=== PATIENT | male | born 1965 | race Two or more races ===

== ENCOUNTER 2017-01-08 16:02 | Inpatient (IN) | payer MEDICAID ==
[~2017-01-08] VITALS: Ht 165.1 cm; Wt 113.4 kg
--- NOTE | 2017-01-08 15:59 | Emergency Room Report ---
History of Present Illness General Chief Complaint: Dyspnea/Respdistress Source: Patient, EMS Present Illness HPI Patient is a 51-year-old male brought in by EMS after increased difficulty breathing. The patient had a prior history of the liver disease as well as cirrhosis. The patient had previous ascites which he had intermittently had paracentesis . Patient had last been noted to have increased distention of his abdomen. Patient noted wheezing was given breathing treatment by EMS. Allergies: Coded Allergies: No Known Allergies (Unverified , 01/08/17) Patient History Past Medical History: see triage record Reviewed Nursing Documentation: PMH: Agreed, PSxH: Agreed Nursing Documentation-PMH Hx Asthma: Yes Hx Gastrointestinal Problems: Yes - Cirrhosis of liver, Ascites Review of Systems All Other Systems: negative except mentioned in HPI Physical Exam Vital Signs Date Time Temp Pulse Resp B/P Pulse Ox O2 Delivery O2 Flow Rate FiO2 01/08/17 15:50 64 30 141/82 97 Room Air Sp02 EP Interpretation: reviewed, normal General Appearance: alert, GCS 15, moderate distress, Chronically Ill Head: atraumatic ENT: normal ENT inspection, hearing grossly normal, normal voice Neck: normal inspection, full range of motion, supple, no bony tend Respiratory: normal inspection, lungs clear, normal breath sounds, no respiratory distress, no retraction, no wheezing Cardiovascular #1: regular rate, rhythm, no edema Gastrointestinal: soft, no guarding, no hernia, distended, tenderness Genitourinary: no CVA tenderness Musculoskeletal: normal inspection, back normal, normal range of motion Neurologic: normal inspection, alert, oriented x3, responsive, tangible personal property appraiser III-XII nml as tested, speech normal Psychiatric: normal inspection, judgement/insight normal, mood/affect normal Skin: normal inspection, normal color, no rash Medical Decision Making Diagnostic Impression: Primary Impression: Respiratory distress Additional Impression: Ascites ER Course Patient presented for shortness of breath. Differential included but was not limited to anemia, pneumonia, pneumothorax, myocardial infarction, pericardial effusion, congestive heart failure, tense ascites, acidosis. Because of complexity of patient's case laboratory testing and imaging studies were ordered.KUB interpreted by me showed multiple dilated loops of bowel without evident obstruction. The patient was noted to have large amount of abdominal distention. Patient was started on Lasix as well as lactulose. Labs Test 01/08/17 16:10 5/6/17 18:20 White Blood Count 6.5 K/UL (4.8-10.8) Red Blood Count 3.03 M/UL (4.70-6.10) Hemoglobin 10.4 G/DL (14.2-18.0) Hematocrit 30.1 % (42.0-52.0) Mean Corpuscular Volume 99 FL (80-99) Mean Corpuscular Hemoglobin 34.4 PG (27.0-31.0) Mean Corpuscular Hemoglobin Concent 34.6 G/DL (32.0-36.0) Red Cell Distribution Width 13.4 % (11.6-14.8) Platelet Count 105 K/UL (150-450) Mean Platelet Volume 7.7 FL (6.5-10.1) Neutrophils (%) (Auto) 55.4 % (45.0-75.0) Lymphocytes (%) (Auto) 14.0 % (20.0-45.0) Monocytes (%) (Auto) 15.1 % (1.0-10.0) Eosinophils (%) (Auto) 12.0 % (0.0-3.0) Basophils (%) (Auto) 3.6 % (0.0-2.0) Sodium Level 132 mEQ/L (135-145) Potassium Level 4.9 mEQ/L (3.4-4.9) Chloride Level 98 mEQ/L (98-107) Carbon Dioxide Level 24 mEQ/L (20-30) Anion Gap 10 (5-15) Blood Urea Nitrogen 14 mg/dL (7-23) Creatinine 0.9 mg/dL (0.7-1.2) Estimat Glomerular Filtration Rate > 60 mL/min (>60) Glucose Level 97 mg/dL (74-106) Calcium Level 7.9 mg/dL (8.6-10.2) Total Bilirubin 1.5 mg/dL (0.0-1.2) Direct Bilirubin 0.5 mg/dL (0.1-0.3) Aspartate Amino Transf (AST/SGOT) 50 U/L (5-40) Alanine Aminotransferase (ALT/SGPT) 27 U/L (3-41) Alkaline Phosphatase 153 U/L (40-129) Total Protein 6.8 g/dL (6.6-8.7) Albumin 2.3 g/dL (3.5-5.2) Globulin 4.5 g/dL Albumin/Globulin Ratio 0.5 (1.0-2.7) Lipase 24 U/L (< 60) Urine Color Pale yellow Urine Appearance Clear Urine pH 5 (4.5-8.0) Urine Specific [place] 1.015 (1.005-1.035) Urine Protein Negative (NEGATIVE) Urine Glucose (UA) Negative (NEGATIVE) Urine Ketones Negative (NEGATIVE) Urine Occult Blood Negative (NEGATIVE) Urine Nitrite Negative (NEGATIVE) Urine Bilirubin Negative (NEGATIVE) Urine Urobilinogen Normal MG/DL (0.0-1.0) Urine Leukocyte Esterase 1+ (NEGATIVE) Urine RBC 0-2 /HPF (0 - 0) Urine WBC 0-2 /HPF (0 - 0) Urine Squamous Epithelial Cells None /LPF (NONE/OCC) Urine Bacteria Few /HPF (NONE) EKG Diagnostic Results Rate: normal - 63 Rhythm: NSR ST Segments: no acute changes Other X-Ray Diagnostic Results Other X-Ray Diagnostic Results : EP Interpretation: Yes Findings: other - slight bowel distention, no free air Number of Views: 2 Last Vital Signs Date Time Temp Pulse Resp B/P Pulse Ox O2 Delivery O2 Flow Rate FiO2 01/08/17 15:50 64 30 141/82 97 Room Air Status: unchanged Disposition: ADMITTED INPATIENT Condition: Serious Chepe Salazar January 08, 2017 15:59
[~2017-01-08 16:02] MED LIST: FUROSEMIDE20 M1 ORAL; PROPRANOLOL HCL10 MG ORAL; PROTONIX40 MG ORAL; SPIRONOLACTONE25 MG ORAL
[2017-01-08 16:48] LABS: BASOPHILS % (AUTO) 3.6 % (0.0-2.0); MEAN CORPUSCULAR HEMOGLOBIN 34.4 PG (27.0-31.0); MEAN CORPUSCULAR HGB CONC 34.6 G/DL (32.0-36.0); MEAN CORPUSCULAR VOLUME 99 FL (80-99); MEAN PLATELET VOLUME 7.7 FL (6.5-10.1); MONOCYTES % (AUTO) 15.1 % (1.0-10.0); NEUTROPHILS % (AUTO) 55.4 % (45.0-75.0); PLATELET COUNT 105 K/UL (150-450); RED BLOOD COUNT 3.03 M/UL (4.70-6.10); RED CELL DISTRIBUTION WIDTH 13.4 % (11.6-14.8); WHITE BLOOD COUNT 6.5 K/UL (4.8-10.8)
[2017-01-08 16:57] LABS: ALANINE AMINOTRANSFERASE 27 U/L (3-41); ALBUMIN/GLOBULIN RATIO 0.5 (1.0-2.7); ANION GAP 10 (5-15); ASPARTATE AMINO TRANSFERASE 50 U/L (5-40); CALCIUM 7.9 mg/dL (8.6-10.2); CARBON DIOXIDE 24 mEQ/L (20-30); CHLORIDE 98 mEQ/L (98-107); CREATININE 0.9 mg/dL (0.7-1.2); GLOMERULAR FILTRATION RATE > 60 mL/min (>60); HEMOLYSIS 2; LIPASE 24 U/L (< 60); POTASSIUM 4.9 mEQ/L (3.4-4.9); SODIUM 132 mEQ/L (135-145); TOTAL PROTEIN 6.8 g/dL (6.6-8.7)
[2017-01-08 17:13] LABS: BILIRUBIN,DIRECT 0.5 mg/dL (0.1-0.3)
[2017-01-08 18:26] VITALS: BP 116/66
[2017-01-08 18:39] LABS: APPEARANCE,URINE CLEAR; KETONES,URINE NEGATIVE (NEGATIVE); LEUKOCYTE ESTERASE ,URINE 1+ (NEGATIVE); NITRITE,URINE NEGATIVE (NEGATIVE); PH,URINE 5 (4.5-8.0); PROTEIN,URINE NEGATIVE (NEGATIVE); UROBILINOGEN,URINE NORMAL MG/DL (0.0-1.0)
[2017-01-08] MEDS ORDERED: Lactulose 20gm/30ml UDC ORAL ONE (18:45)
[2017-01-08 18:53] LABS: BACTERIA,URINE FEW /HPF; RBC,URINE 0-2 /HPF (0 - 0); WBC,URINE 0-2 /HPF (0 - 0)
[2017-01-08 20:36] VITALS: BP 116/62
[2017-01-08] MEDS ORDERED: IRON325 M1 PO (21:27)
[2017-01-08] MEDS ORDERED: PROPRANOLOL HCL10 MG ORAL (21:27)
[2017-01-08 21:33] VITALS: BP 110/64
[2017-01-08] MEDS ORDERED: Zolpidem 5mg tab ORAL PRN (21:45)
[2017-01-08] MEDS ORDERED: Miralax 17gm pkt ORAL PRN (21:45)
[2017-01-08] MEDS ORDERED: Mylanta II UD 30ml ORAL PRN (21:45)
[2017-01-08] MEDS ORDERED: LORazepam Inj 2mg/ml 1ml IV PRN (21:45)
[2017-01-08] MEDS ORDERED: Morphine Sulfate 2mg/ml Inj IVP PRN (21:45)
[2017-01-08 23:40] VITALS: BP 118/64
[2017-01-09] MEDS ORDERED: Ipratropium 0.02% Inh Soln 2.5ml UD HHN ONE (00:15)
[2017-01-09] MEDS ORDERED: Albuterol ud Inhalation HHN ONE (00:15)
[2017-01-09 01:41] VITALS: BP 132/75
[2017-01-09] MEDS: Cefepime HCl 1 GM in D5W 55 ML IV SCH ×4 (01:41→21:21)
[2017-01-09] MEDS: Lactulose 20gm/30ml UDC ORAL SCH ×5 (01:43→23:22)
[2017-01-09 04:00] VITALS: BP 135/68
[2017-01-09] MEDS ORDERED: FERROUS SULFAT325 M2 ORAL (04:20)
[2017-01-09] MEDS ORDERED: PANTOPRAZOLE SO40 MG ORAL (04:23)
[2017-01-09] MEDS ORDERED: ACETAMINOPHEN325 M1 ORAL (04:41)
[2017-01-09] MEDS ORDERED: SPIRONOLACTONE100 MG ORAL (04:43)
[2017-01-09] MEDS ORDERED: FOLIC ACID0.4 MG ORAL (04:45)
[2017-01-09] MEDS ORDERED: Cefepime 1gm vial ONE (05:26)
[2017-01-09 07:10] LABS: MEAN CORPUSCULAR HEMOGLOBIN 31.8 PG (27.0-31.0); MEAN CORPUSCULAR HGB CONC 32.1 G/DL (32.0-36.0); MEAN CORPUSCULAR VOLUME 99 FL (80-99); MEAN PLATELET VOLUME 7.2 FL (6.5-10.1); PLATELET COUNT 109 K/UL (150-450); RED CELL DISTRIBUTION WIDTH 13.9 % (11.6-14.8); WHITE BLOOD COUNT 5.3 K/UL (4.8-10.8)
[2017-01-09 07:38] LABS: AMMONIA 105 umol/L (16-60)
[2017-01-09 07:52] LABS: ALANINE AMINOTRANSFERASE 27 U/L (3-41); ALBUMIN/GLOBULIN RATIO 0.4 (1.0-2.7); ANION GAP 11 (5-15); ASPARTATE AMINO TRANSFERASE 50 U/L (5-40); CALCIUM 8.2 mg/dL (8.6-10.2); CARBON DIOXIDE 25 mEQ/L (20-30); CHLORIDE 99 mEQ/L (98-107); CHOLESTEROL 93 mg/dL (< 200); CHOLESTEROL/HDL RATIO 5.8 (3.3-4.4); CREATININE 0.9 mg/dL (0.7-1.2); GLOMERULAR FILTRATION RATE > 60 mL/min (>60); HEMOLYSIS 5; LDL CHOLESTEROL (CALC.) 66 mg/dL (60-99); POTASSIUM 4.6 mEQ/L (3.4-4.9); SODIUM 135 mEQ/L (135-145); TOTAL PROTEIN 6.6 g/dL (6.6-8.7)
[2017-01-09 08:14] LABS: BILIRUBIN,DIRECT 0.5 mg/dL (0.1-0.3)
[2017-01-09 08:21] VITALS: BP 120/72
[2017-01-09] MEDS: Spironolactone 50mg tab ORAL SCH (09:52)
[2017-01-09] MEDS ORDERED: NS 275ml ONE (09:58)
[2017-01-09] MEDS ORDERED: Tubing IV Secondary IV ONE (09:58)
[2017-01-09 10:45] LABS: BAND NEUTROPHILS % (MANUAL) 0 % (0-8); BASOPHILS % (MANUAL) 0 % (0-2); EOSINOPHILS % (MANUAL) 16 % (0-3); HYPOCHROMASIA 1+; LYMPHOCYTES % (MANUAL) 16 % (20-45); NEUTROPHILS % (MANUAL) 53 % (45-75); PLATELET ESTIMATE DECREASED; PLATELET MORPHOLOGY NORMAL; TOTAL CELLS COUNTED 100
--- NOTE | 2017-01-09 11:18 | Consultation ---
History of Present Illness General Date patient seen: January 09, 2017 Chief Complaint: Dyspnea/Respdistress Referring physician: Dr. Moon Reason for Consultation: inpaitnet management Present Illness HPI 51-year-old male with end stage liver disease brought in by EMS after increased difficulty breathing. The patient had previous ascites which he had intermittently had paracentesis . Patient had last been noted to have increased distention of his abdomen. Allergies: Coded Allergies: No Known Allergies (Unverified , 01/08/17) Medication History Scheduled Ferrous Sulfate (Ferrous Sulfate), 325 MG ORAL TID, (Reported) Folic Acid (Folic Acid), 1 MG ORAL DAILY, (Reported) Furosemide* (Lasix*), 20 MG ORAL DAILY, (Reported) Pantoprazole* (Pantoprazole*), 40 MG ORAL BID, (Reported) Propranolol Hcl* (Inderal*), 10 MG ORAL THREE TIMES A DAY, (Reported) Propranolol Hcl* (Inderal*), 10 MG ORAL THREE TIMES A DAY, (Reported) Spironolactone* (Spironolactone*), 50 MG ORAL DAILY, (Reported) Discontinued Medications Acetaminophen* (Acetaminophen 325MG Tablet*), 650 MG ORAL Q8HR PRN for For Pain, (Reported) Discontinued Reason: Pt stopped taking med Spironolactone* (Aldactone*), 25 MG ORAL DAILY, (Reported) Discontinued Reason: Prescription changed Patient History Healthcare decision maker Resuscitation status Full Code Advanced Directive on File Past Medical/Surgical History Past Medical/Surgical History: (1) Ascites Review of Systems Gastrointestinal: Reports: nausea, vomiting All Other Systems: negative except mentioned in HPI Physical Exam General Appearance: WD/WN Lines, tubes and drains: peripheral HEENT: normocephalic, atraumatic Neck: non-tender, normal alignment Respiratory/Chest: chest wall non-tender, lungs clear Cardiovascular/Chest: normal peripheral pulses, normal rate Abdomen: distended Genitourinary/Rectal: normal genital exam Extremities: normal range of motion Skin Exam: normal pigmentation Last 24 Hour Vital Signs Date Time Temp Pulse Resp B/P Pulse Ox O2 Delivery O2 Flow Rate FiO2 01/09/17 08:21 97.7 70 20 120/72 98 Nasal Cannula 2.0 01/09/17 08:00 68 01/09/17 04:00 72 01/09/17 04:00 98.5 65 19 135/68 99 Nasal Cannula 2.0 01/09/17 01:41 98.4 71 20 132/75 98 Nasal Cannula 2.0 01/09/17 00:32 66 20 99 Room Air 01/09/17 00:17 69 18 Room Air 01/09/17 00:17 69 18 98 Room Air 01/09/17 00:08 98.8 65 18 118/64 100 Room Air 01/08/17 23:40 98.8 65 18 118/64 100 Room Air 01/08/17 21:33 98.6 70 20 110/64 100 Room Air 01/08/17 20:36 98.6 71 20 116/62 100 Room Air 01/08/17 18:26 64 25 Room Air 01/08/17 18:26 98.6 65 20 116/66 97 Room Air 01/08/17 15:50 64 30 141/82 97 Room Air Intake and Output 01/08/17 01/09/17 19:00 07:00 Output Total 400 ml Balance -400 ml Output Urine Total 400 ml # Voids 1 Laboratory Tests Test 01/08/17 16:10 01/08/17 18:20 01/09/17 04:45 01/09/17 06:00 White Blood Count 6.5 K/UL (4.8-10.8) 5.3 K/UL (4.8-10.8) Red Blood Count 3.03 M/UL (4.70-6.10) L 3.10 M/UL (4.70-6.10) L Hemoglobin 10.4 G/DL (14.2-18.0) L 9.8 G/DL (14.2-18.0) L Hematocrit 30.1 % (42.0-52.0) L 30.7 % (42.0-52.0) L Mean Corpuscular Volume 99 FL (80-99) 99 FL (80-99) Mean Corpuscular Hemoglobin 34.4 PG (27.0-31.0) H 31.8 PG (27.0-31.0) H Mean Corpuscular Hemoglobin Concent 34.6 G/DL (32.0-36.0) 32.1 G/DL (32.0-36.0) Red Cell Distribution Width 13.4 % (11.6-14.8) 13.9 % (11.6-14.8) Platelet Count 105 K/UL (150-450) L 109 K/UL (150-450) L Mean Platelet Volume 7.7 FL (6.5-10.1) 7.2 FL (6.5-10.1) Neutrophils (%) (Auto) 55.4 % (45.0-75.0) % (45.0-75.0) Lymphocytes (%) (Auto) 14.0 % (20.0-45.0) L % (20.0-45.0) Monocytes (%) (Auto) 15.1 % (1.0-10.0) H % (1.0-10.0) Eosinophils (%) (Auto) 12.0 % (0.0-3.0) H % (0.0-3.0) Basophils (%) (Auto) 3.6 % (0.0-2.0) H % (0.0-2.0) Sodium Level 132 mEQ/L (135-145) L 135 mEQ/L (135-145) Potassium Level 4.9 mEQ/L (3.4-4.9) 4.6 mEQ/L (3.4-4.9) Chloride Level 98 mEQ/L (98-107) 99 mEQ/L (98-107) Carbon Dioxide Level 24 mEQ/L (20-30) 25 mEQ/L (20-30) Anion Gap 10 (5-15) 11 (5-15) Blood Urea Nitrogen 14 mg/dL (7-23) 15 mg/dL (7-23) Creatinine 0.9 mg/dL (0.7-1.2) 0.9 mg/dL (0.7-1.2) Estimat Glomerular Filtration Rate > 60 mL/min (>60) > 60 mL/min (>60) Glucose Level 97 mg/dL (74-106) 111 mg/dL (74-106) H Calcium Level 7.9 mg/dL (8.6-10.2) L 8.2 mg/dL (8.6-10.2) L Total Bilirubin 1.5 mg/dL (0.0-1.2) H 1.5 mg/dL (0.0-1.2) H Direct Bilirubin 0.5 mg/dL (0.1-0.3) H 0.5 mg/dL (0.1-0.3) H Aspartate Amino Transf (AST/SGOT) 50 U/L (5-40) H 50 U/L (5-40) H Alanine Aminotransferase (ALT/SGPT) 27 U/L (3-41) 27 U/L (3-41) Alkaline Phosphatase 153 U/L (40-129) H 146 U/L (40-129) H Total Protein 6.8 g/dL (6.6-8.7) 6.6 g/dL (6.6-8.7) Albumin 2.3 g/dL (3.5-5.2) L 2.1 g/dL (3.5-5.2) L Globulin 4.5 g/dL 4.5 g/dL Albumin/Globulin Ratio 0.5 (1.0-2.7) L 0.4 (1.0-2.7) L Lipase 24 U/L (< 60) Urine Color Pale yellow Urine Appearance Clear Urine pH 5 (4.5-8.0) Urine Specific [place] 1.015 (1.005-1.035) Urine Protein Negative (NEGATIVE) Urine Glucose (UA) Negative (NEGATIVE) Urine Ketones Negative (NEGATIVE) Urine Occult Blood Negative (NEGATIVE) Urine Nitrite Negative (NEGATIVE) Urine Bilirubin Negative (NEGATIVE) Urine Urobilinogen Normal MG/DL (0.0-1.0) Urine Leukocyte Esterase 1+ (NEGATIVE) H Urine RBC 0-2 /HPF (0 - 0) H Urine WBC 0-2 /HPF (0 - 0) Urine Squamous Epithelial Cells None /LPF (NONE/OCC) Urine Bacteria Few /HPF (NONE) Differential Total Cells Counted 100 Neutrophils % (Manual) 53 % (45-75) Lymphocytes % (Manual) 16 % (20-45) L Monocytes % (Manual) 15 % (1-10) H Eosinophils % (Manual) 16 % (0-3) H Basophils % (Manual) 0 % (0-2) Band Neutrophils 0 % (0-8) Platelet Estimate Decreased L Platelet Morphology Normal Hypochromasia 1+ Ammonia 105 umol/L (16-60) H Triglycerides Level 57 mg/dL (< 150) Cholesterol Level 93 mg/dL (< 200) LDL Cholesterol 66 mg/dL (60-99) HDL Cholesterol 16 mg/dL (> 60) Cholesterol/HDL Ratio 5.8 (3.3-4.4) H Thyroid Stimulating Hormone (TSH) 2.670 uIU/mL (0.300-4.500) Stool Occult Blood Pending Height (Feet): 5 Height (Inches): 0.00 Weight (Pounds): 250 Medications Current Medications Medications (Trade) Dose Ordered Sig/Josse Route PRN Reason Start Time Stop Time Status Last Admin Dose Admin Acetaminophen (Tylenol) 650 mg Q4H PRN ORAL fever 01/08/17 21:45 02/07/17 21:44 Al Hydroxide/Mg Hydroxide (Mylanta II) 30 ml Q6H PRN ORAL dyspepsia 01/08/17 21:45 02/07/17 21:44 Cefepime HCl/ Dextrose (Maxipime/D5W) 55 ml @ 110 mls/hr EVERY 8 HOURS IV 01/08/17 22:00 01/15/17 21:59 01/09/17 05:39 Dextrose (Dextrose 50%) STAT PRN IV Hypoglycemia 01/08/17 21:45 02/07/17 21:44 Ferrous Sulfate (Feosol) 325 mg THREE TIMES A DAY ORAL 01/09/17 09:00 02/08/17 08:59 01/09/17 09:51 Folic Acid (Folate) 1 mg DAILY ORAL 01/09/17 09:00 02/08/17 08:59 01/09/17 09:52 Furosemide (Lasix) 20 mg DAILY ORAL 01/09/17 09:00 02/08/17 08:59 01/09/17 09:52 Lactulose 30 gm 30 gm EVERY 6 HOURS ORAL 01/09/17 00:00 02/08/17 00:00 01/09/17 05:39 Lorazepam (Ativan 2mg/ml 1ml) 0.5 mg Q4H PRN IV For Anxiety 01/08/17 21:45 01/15/17 21:44 Morphine Sulfate (Morphine Sulfate) 2 mg Q4H PRN IVP For Pain 01/08/17 21:45 01/15/17 21:44 01/09/17 09:53 Ondansetron HCl (Zofran) 4 mg Q6H PRN IVP Nausea & Vomiting 01/08/17 21:45 02/07/17 21:44 Pantoprazole (Protonix) 40 mg EVERY 12 HOURS ORAL 01/09/17 09:00 02/08/17 08:59 01/09/17 09:52 Polyethylene Glycol (Miralax) 17 gm HSPRN PRN ORAL Constipation 01/08/17 21:45 02/07/17 21:44 Propranolol HCl (Inderal) 10 mg Q8HR ORAL 01/09/17 14:00 02/08/17 13:59 Spironolactone (Aldactone) 50 mg DAILY ORAL 01/09/17 09:00 02/08/17 08:59 01/09/17 09:52 Zolpidem Tartrate (Ambien) 5 mg HSPRN PRN ORAL Insomnia 01/08/17 21:45 02/07/17 21:44 Assessment/Plan Problem List: (1) Ascites ICD Codes: R18.8 - Other ascites SNOMED: 822591389 (2) End stage liver disease ICD Codes: K72.90 - Hepatic failure, unspecified without coma SNOMED: 695879000 Assessment/Plan paracentesis check caogulation GI evaluJUANCARLOS Varela January 09, 2017 11:18
[2017-01-09 11:46] VITALS: BP 125/75
--- NOTE | 2017-01-09 11:46 | Diagnostic Imaging Report ---
Indication: Abdominal pain Comparison: None Single view of the abdomen obtained Findings: Exam is limited by body habitus. Bowel gas pattern is nonspecific. Bones are osteopenic. Degenerative changes of the lumbar spine noted. Impression: Limited study due to large body habitus. No acute findings appreciated
[2017-01-09 11:57] LABS: HEMOLYSIS 1; IRON 73 ug/dL (59-158); TOTAL IRON BINDING CAPACITY 195 ug/dL (250-400)
[2017-01-09 12:06] LABS: FERRITIN 199 ng/mL (10-230)
[2017-01-09 13:05] LABS: PATH BLOOD SMEAR/OMC SENT TO PATHOLOGIST; RETICULOCYTE COUNT 1.9 % (0.0-2.0)
[2017-01-09] MEDS: Propranolol 10mg tab ORAL SCH ×2 (13:15→21:20)
[2017-01-09] MEDS ORDERED: DuoNeb 0.5-3(2.5)mg/3ml neb HHN PRN (15:00)
[2017-01-09 15:44] VITALS: BP 111/59
[2017-01-09 20:00] VITALS: BP 125/63
--- NOTE | 2017-01-09 21:48 | History and Physical Report ---
DATE OF ADMISSION: 01/08/2017 TIME: 8 a.m. CONSULTANTS: 1. Ryan Santana M.D. 2. Soto Hidalgo M.D. CHIEF COMPLAINT: Cirrhosis of liver, ascites, and edema. BRIEF HISTORY: This is a 51-year-old male with a history of cirrhosis who comes to [facility] with increased shortness of breath, abdominal distention, diagnosed with cirrhosis, ascites recurrent and admitted to telemetry for further care. Currently, calm, shortness of breath in bed with abdominal distention. Slight abdominal discomfort. No complaint otherwise. Last paracentesis was eight days ago at . PAST MEDICAL HISTORY: Ascites and cirrhosis. PAST SURGICAL HISTORY: None. MEDICATIONS: Inderal, , Colace, Lasix, Protonix, Aldactone, Cephulac, cefepime, Tylenol, morphine, and polyethylene glycol. ALLERGIES: Denies. SOCIAL HISTORY: No smoking. No alcohol. No intravenous drug abuse. FAMILY HISTORY: Noncontributory. PHYSICAL EXAMINATION: GENERAL: Slight anxious in bed, oriented x3, slightly short of breath. VITAL SIGNS: Temperature is 97 degrees, pulse 70, respiratory rate 20, and blood pressure 120/72. CARDIOVASCULAR: No murmur. LUNGS: Poor air exchange. ABDOMEN: Bowel sounds positive. Slightly tender, positive distention and no guarding. EXTREMITIES: No cyanosis or clubbing. There is 1+ edema. NEUROLOGIC: The patient moves all extremities slightly weak. LABORATORY AND DIAGNOSTIC DATA: Hemoglobin 9.8 and platelets 109,000, otherwise normal. BMP shows glucose 111. AST 50 and ALT 27. Ammonia 105. Albumin 2.1. Urinalysis show 1+ leukocyte esterase. ASSESSMENT: 1. Cirrhosis. 2. Edema. 3. Ascites. 4. Shortness of breath. 5. Urinary tract infection. 6. Anemia. PLAN: Continue pre-medications. O2 and pulmonary treatment as needed. Antibiotics per Infectious Disease. OT/PT. Dietary evaluation. Schedule paracentesis. CBC and BMP in the morning. Dr. Santana, Dr. Hidalgo, Dr. Siegel, and Dr. Ingram to consult. We will continue to follow this patient. Higinio Moon D.O. DR: AGATHA JOB#: [id number] CC:
[2017-01-10] VITALS: BP 124/91
[2017-01-10 04:00] VITALS: BP 111/60
[2017-01-10] MEDS: Cefepime HCl 1 GM in D5W 55 ML IV SCH ×3 (06:02→21:02)
[2017-01-10] MEDS: Lactulose 20gm/30ml UDC ORAL SCH ×3 (06:02→17:23)
[2017-01-10] MEDS: Propranolol 10mg tab ORAL SCH ×3 (06:02→21:02)
[2017-01-10 07:24] LABS: BASOPHILS % (AUTO) 2.4 % (0.0-2.0); EOSINOPHILS % (AUTO) 10.3 % (0.0-3.0); LYMPHOCYTES % (AUTO) 20.5 % (20.0-45.0); MEAN CORPUSCULAR HEMOGLOBIN 31.8 PG (27.0-31.0); MEAN CORPUSCULAR HGB CONC 32.1 G/DL (32.0-36.0); MEAN CORPUSCULAR VOLUME 99 FL (80-99); MEAN PLATELET VOLUME 7.3 FL (6.5-10.1); NEUTROPHILS % (AUTO) 48.8 % (45.0-75.0); PLATELET COUNT 102 K/UL (150-450); RED BLOOD COUNT 3.11 M/UL (4.70-6.10); WHITE BLOOD COUNT 4.3 K/UL (4.8-10.8)
[2017-01-10 07:41] LABS: INR 1.4 (0.9-1.1); PROTHROMBIN TIME 14.5 SEC (9.30-11.50)
[2017-01-10 08:00] VITALS: BP 113/74
[2017-01-10 08:21] LABS: PSA TOTAL < 0.1 ng/mL (< 3.5)
--- NOTE | 2017-01-10 08:29 | Consultation ---
DATE OF CONSULTATION: 01/09/2017 HEMATOLOGY/ONCOLOGY CONSULTATION CONSULTING PHYSICIAN: Vasquez Siegel M.D. REASON FOR CONSULTATION: Anemia, thrombocytopenia. CURRENT COMPLAINT/ HISTORY OF PRESENT ILLNESS: Dear Dr. Higinio Moon, Today, I had an opportunity to see one of your patients, who as you are aware, is a 51-year-old delightful gentleman with history of liver cirrhosis, recurrent ascites, abdominal discomfort. The patient had a history of intermittent paracentesis. At this time, the patient felt distention of the patient's abdomen, . PAST MEDICAL HISTORY: 1. Liver cirrhosis. 2. Ascites. MEDICATIONS: 1. Colace. 2. . 3. Aldactone . ALLERGIES: NKDA. FAMILY HISTORY: Noncontributory. SOCIAL HISTORY: No history of smoking. No history of alcohol abuse. No history of illicit drug use. REVIEW OF SYSTEMS: General: The patient is not in any significant distress, but looks chronically ill. Respiratory: Mild shortness of breath on exertion. Gastrointestinal: The patient claims weakness. PHYSICAL EXAMINATION: VITAL SIGNS: T-max 99 degrees, respiratory rate 20, heart rate 80, and blood pressure 130/80. HEENT: Head is normocephalic and atraumatic. NECK: Supple. No thyroid enlargement. No lymphadenopathy. LUNGS: Decreased breath sounds bilaterally with few rhonchi at the base. HEART: S1 and S2 regular. ABDOMEN: Soft and benign. No organomegaly present. Bowel sounds present. EXTREMITIES: No cyanosis, clubbing, or edema. LABORATORY DATA: WBC 5.3, hemoglobin 9.8, hematocrit 30.7, and platelet count 109,000. Chemistry showed creatinine 0.9, total bilirubin 0.5, ammonia 105. IMPRESSION: 1. Anemia of chronic disease. 2. . 3. Bilirubinemia. 4. Elevated liver function tests. 5. Hepatic encephalopathy. 6. Liver cirrhosis. 7. Ascites. 8. Shortness of breath. 9. Urinary tract infection. 10. Failure to thrive. RECOMMENDATION: 1. Watch count. 2. Watch coagulopathy. 3. PRBC transfusion on a p.r.n. basis. 4. Check hepatitis profile. 5. . 6. GI evaluation. 7. Skin care. 8. Nutrition. 9. Close followup. Vasquez Siegel MD DR: Chanel JOB#: [id number] CC:
[2017-01-10 08:35] LABS: ALANINE AMINOTRANSFERASE 26 U/L (3-41); ALBUMIN/GLOBULIN RATIO 0.4 (1.0-2.7); ANION GAP 11 (5-15); ASPARTATE AMINO TRANSFERASE 49 U/L (5-40); CALCIUM 8.1 mg/dL (8.6-10.2); CARBON DIOXIDE 24 mEQ/L (20-30); CHLORIDE 102 mEQ/L (98-107); CREATININE 0.8 mg/dL (0.7-1.2); GLOMERULAR FILTRATION RATE > 60 mL/min (>60); HEMOLYSIS 4; POTASSIUM 4.6 mEQ/L (3.4-4.9); SODIUM 137 mEQ/L (135-145); TOTAL PROTEIN 6.4 g/dL (6.6-8.7)
[2017-01-10 08:37] LABS: MAGNESIUM 1.9 mg/dL (1.7-2.5); PHOSPHORUS 3.9 mg/dL (2.5-4.8)
[2017-01-10 09:18] LABS: BILIRUBIN,DIRECT 0.4 mg/dL (0.1-0.3)
[2017-01-10] MEDS: Spironolactone 50mg tab ORAL SCH (09:24)
--- NOTE | 2017-01-10 11:34 | Diagnostic Imaging Report ---
APPROVED REPORT CPT Code: 84014 Present Symptoms Lower Extremity Pain: Bilateral BILATERAL: Imaging reveals a patent deep venous system bilaterally. There is no evidence of thrombus within the femoral, popliteal or tibial segments. The greater saphenous veins are also within normal limits. Doppler indicates normal spontaneous flow within these segments.
--- NOTE | 2017-01-10 11:59 | Cardiology Report ---
APPROVED REPORT EKG Measurement Heart [id number] Sinusl rhythm Cannot rule out Anterior infarct, age undetermined Abnormal ECG
[2017-01-10 12:00] VITALS: BP 89/58
--- NOTE | 2017-01-10 14:30 | GI Initial Consult Note ---
History of Present Illness General Date patient seen: January 10, 2017 Time patient seen: 10:00 Reason for Hospitalization: Dyspnea/Respdistress Referring physician: Dr. Moon Reason for Consultation: CIRRHOSIS Present Illness HPI Patient is a 51-year-old male brought in by EMS after increased difficulty breathing. The patient had a prior history of the liver disease as well as cirrhosis. The patient had previous ascites which he had intermittently had paracentesis . Patient had last been noted to have increased distention of his abdomen. Patient noted wheezing was given breathing treatment by EMS. GI CONSULT: HPI as noted above. GI consulted for abdominal distention 2/2 to ascites. Pt seen on floor, awake A&Ox4 NAD with no s/sx of SOB. The patient presents today with pancytopenia and abnormal LFTs. No documented history of endoscopic procedures. OB stool negative. Home Meds Reported Medications Folic Acid (FOLIC ACID) 0.4 Mg Tablet, 1 MG ORAL DAILY, #90 TAB 01/09/17 Spironolactone* (SPIRONOLACTONE*) 100 Mg Tablet, 50 MG ORAL DAILY, #90 TAB 01/09/17 Pantoprazole* (PANTOPRAZOLE*) 40 Mg Tablet.dr, 40 MG ORAL BID, #180 TAB 01/09/17 Ferrous Sulfate (FERROUS SULFATE) 325 Mg Tablet.dr, 325 MG ORAL TID, #270 TAB 0 Refills 01/09/17 Propranolol Hcl* (INDERAL*) 10 Mg Tablet, 10 MG ORAL THREE TIMES A DAY, #90 TAB 0 Refills 01/08/17 Propranolol Hcl* (INDERAL*) 10 Mg Tablet, 10 MG ORAL THREE TIMES A DAY, #90 TAB 0 Refills 01/08/17 Furosemide* (LASIX*) 20 Mg Tablet, 20 MG ORAL DAILY, TAB 01/08/17 Discontinued Reported Medications Acetaminophen* (ACETAMINOPHEN 325MG TABLET*) 325 Mg Tablet, 650 MG ORAL Q8HR Y for For Pain, #20 TAB 01/09/17 Spironolactone* (ALDACTONE*) 25 Mg Tablet, 25 MG ORAL DAILY, TAB 01/08/17 Med list reviewed/reconciled: Yes Allergies: Coded Allergies: No Known Allergies (Unverified , 01/08/17) Patient History History Provided By: Patient PMH Narrative Hx Asthma: Yes Hx Gastrointestinal Problems: Yes - Cirrhosis of liver, Ascites Social History: Reports: alcohol use Review of Systems All Other Systems: negative except mentioned in HPI Physical Exam Vital Signs Date Time Temp Pulse Resp B/P Pulse Ox O2 Delivery O2 Flow Rate FiO2 01/08/17 15:50 64 30 141/82 97 Room Air 01/08/17 18:26 98.6 01/09/17 01:41 2.0 01/09/17 19:30 21 Sp02 EP Interpretation: reviewed Labs Laboratory Tests Test 01/10/17 05:00 White Blood Count 4.3 K/UL (4.8-10.8) L Red Blood Count 3.11 M/UL (4.70-6.10) L Hemoglobin 9.9 G/DL (14.2-18.0) L Hematocrit 30.8 % (42.0-52.0) L Mean Corpuscular Volume 99 FL (80-99) Mean Corpuscular Hemoglobin 31.8 PG (27.0-31.0) H Mean Corpuscular Hemoglobin Concent 32.1 G/DL (32.0-36.0) Red Cell Distribution Width 14.0 % (11.6-14.8) Platelet Count 102 K/UL (150-450) L Mean Platelet Volume 7.3 FL (6.5-10.1) Neutrophils (%) (Auto) 48.8 % (45.0-75.0) Lymphocytes (%) (Auto) 20.5 % (20.0-45.0) Monocytes (%) (Auto) 18.0 % (1.0-10.0) H Eosinophils (%) (Auto) 10.3 % (0.0-3.0) H Basophils (%) (Auto) 2.4 % (0.0-2.0) H Prothrombin Time 14.5 SEC (9.30-11.50) H Prothromb Time International Ratio 1.4 (0.9-1.1) H Activated Partial Thromboplast Time 37 SEC (23-33) H Sodium Level 137 mEQ/L (135-145) Potassium Level 4.6 mEQ/L (3.4-4.9) Chloride Level 102 mEQ/L (98-107) Carbon Dioxide Level 24 mEQ/L (20-30) Anion Gap 11 (5-15) Blood Urea Nitrogen 16 mg/dL (7-23) Creatinine 0.8 mg/dL (0.7-1.2) Estimat Glomerular Filtration Rate > 60 mL/min (>60) Glucose Level 74 mg/dL (74-106) Calcium Level 8.1 mg/dL (8.6-10.2) L Phosphorus Level 3.9 mg/dL (2.5-4.8) Magnesium Level 1.9 mg/dL (1.7-2.5) Total Bilirubin 1.6 mg/dL (0.0-1.2) H Direct Bilirubin 0.4 mg/dL (0.1-0.3) H Aspartate Amino Transf (AST/SGOT) 49 U/L (5-40) H Alanine Aminotransferase (ALT/SGPT) 26 U/L (3-41) Alkaline Phosphatase 127 U/L (40-129) Total Protein 6.4 g/dL (6.6-8.7) L Albumin 2.0 g/dL (3.5-5.2) L Globulin 4.4 g/dL Albumin/Globulin Ratio 0.4 (1.0-2.7) L Alpha Fetoprotein Pending Carcinoembryonic Antigen 4.2 ng/mL H CA 19-9 Antigen 35.00 U/mL (< 37) Prostate Specific Antigen < 0.1 ng/mL (< 3.5) General Appearance: well appearing, no apparent distress, alert Head: normocephalic EENT: normal ENT inspection Neck: supple Respiratory: no respiratory distress Cardiovascular: normal rate Gastrointestinal: distended, ascites Rectal: deferred Neurologic: normal inspection, alert, oriented x3, responsive Psychiatric: normal inspection, judgement/insight normal, memory normal Current Medications Current Medications Medications (Trade) Dose Ordered Sig/Josse Route PRN Reason Start Time Stop Time Status Last Admin Dose Admin Acetaminophen (Tylenol) 650 mg Q4H PRN ORAL fever 01/08/17 21:45 02/07/17 21:44 Al Hydroxide/Mg Hydroxide (Mylanta II) 30 ml Q6H PRN ORAL dyspepsia 01/08/17 21:45 02/07/17 21:44 Albuterol/ Ipratropium (DuoNeb 0.5-3(2.5)mg/3ml) 3 ml Q4H PRN HHN Shortness of Breath 01/09/17 15:00 01/14/17 14:59 Cefepime HCl/ Dextrose (Maxipime/D5W) 55 ml @ 110 mls/hr EVERY 8 HOURS IV 01/08/17 22:00 01/15/17 21:59 01/10/17 13:32 Dextrose (Dextrose 50%) STAT PRN IV Hypoglycemia 01/08/17 21:45 02/07/17 21:44 Ferrous Sulfate (Feosol) 325 mg THREE TIMES A DAY ORAL 01/09/17 09:00 02/08/17 08:59 01/10/17 13:30 Folic Acid (Folate) 1 mg DAILY ORAL 01/09/17 09:00 02/08/17 08:59 01/10/17 09:24 Furosemide (Lasix) 20 mg DAILY ORAL 01/09/17 09:00 02/08/17 08:59 01/10/17 09:24 Lactulose 30 gm 30 gm EVERY 6 HOURS ORAL 01/09/17 00:00 02/08/17 00:00 01/10/17 13:32 Lorazepam (Ativan 2mg/ml 1ml) 0.5 mg Q4H PRN IV For Anxiety 01/08/17 21:45 01/15/17 21:44 Morphine Sulfate (Morphine Sulfate) 2 mg Q4H PRN IVP For Pain 01/08/17 21:45 01/15/17 21:44 01/09/17 09:53 Ondansetron HCl (Zofran) 4 mg Q6H PRN IVP Nausea & Vomiting 01/08/17 21:45 02/07/17 21:44 Pantoprazole (Protonix) 40 mg EVERY 12 HOURS ORAL 01/09/17 09:00 02/08/17 08:59 01/10/17 09:24 Polyethylene Glycol (Miralax) 17 gm HSPRN PRN ORAL Constipation 01/08/17 21:45 02/07/17 21:44 Propranolol HCl (Inderal) 10 mg Q8HR ORAL 01/09/17 14:00 02/08/17 13:59 01/10/17 06:02 Spironolactone (Aldactone) 50 mg DAILY ORAL 01/09/17 09:00 02/08/17 08:59 01/10/17 09:24 Zolpidem Tartrate (Ambien) 5 mg HSPRN PRN ORAL Insomnia 01/08/17 21:45 02/07/17 21:44 GI: Plan Problems: (1) End stage liver disease (2) Ascites (3) Respiratory distress Plan EGD schedule tomorrow to evaluate EV. - NPO @ [place]. - hold all blood thinners paracentesis today >> r/o SBP lactulose + Xifaxan propranolol - hold for SBP < 100, HR < 60. iron deficiency >> FeSO4 fu hep panel fu AFP fu labs Teresa Jackson N.P. January 10, 2017 14:30
--- NOTE | 2017-01-10 14:30 | Pulmonology Progress Note ---
Assessment/Plan Problems: (1) Ascites (2) End stage liver disease Assessment/Plan paracentesis social service consult r Subjective ROS Limited/Unobtainable: No Constitutional: Reports: no symptoms Allergies: Coded Allergies: No Known Allergies (Unverified , 01/08/17) Objective Last 24 Hour Vital Signs Date Time Temp Pulse Resp B/P Pulse Ox O2 Delivery O2 Flow Rate FiO2 01/10/17 13:32 59 89/58 01/10/17 12:00 97.0 59 18 89/58 Nasal Cannula 2.0 96 01/10/17 11:54 59 01/10/17 09:39 62 18 Nasal Cannula 2.0 100 01/10/17 08:00 97.7 60 18 113/74 Nasal Cannula 2.0 100 01/10/17 07:46 66 01/10/17 06:02 66 111/60 01/10/17 04:00 62 01/10/17 04:00 97.5 66 20 111/60 100 Room Air 01/10/17 00:00 68 01/10/17 00:00 97.9 71 20 124/91 99 Nasal Cannula 2.0 01/09/17 21:20 67 125/63 01/09/17 20:00 70 01/09/17 20:00 97.9 67 20 125/63 100 Room Air 01/09/17 19:30 65 18 Room Air 21 01/09/17 16:00 68 01/09/17 15:44 97.3 68 20 111/59 97 Nasal Cannula 2.0 Intake and Output 01/09/17 01/10/17 19:00 07:00 Intake Total 470 ml Output Total 200 ml Balance 270 ml Intake Oral 360 ml IV Total 110 ml Output Urine Total 200 ml # Bowel Movements 3 6 General Appearance: WD/WN HEENT: normocephalic, atraumatic Respiratory/Chest: chest wall non-tender, lungs clear Cardiovascular: normal peripheral pulses, normal rate Abdomen: normal bowel sounds, soft, non tender Extremities: no cyanosis Skin: no rash 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 normal Lymphatic: no neck adenopathy Laboratory Tests 01/10/17 05:00: White Blood Count 4.3L, Red Blood Count 3.11L, Hemoglobin 9.9L, Hematocrit 30.8L , Mean Corpuscular Volume 99, Mean Corpuscular Hemoglobin 31.8H, Mean Corpuscular Hemoglobin Concent 32.1, Red Cell Distribution Width 14.0, Platelet Count 102L, Mean Platelet Volume 7.3, Neutrophils (%) (Auto) 48.8, Lymphocytes ( %) (Auto) 20.5, Monocytes (%) (Auto) 18.0H, Eosinophils (%) (Auto) 10.3H, Basophils (%) (Auto) 2.4H, Prothrombin Time 14.5H, Prothromb Time International Ratio 1.4H, Activated Partial Thromboplast Time 37H, Sodium Level 137, Potassium Level 4.6, Chloride Level 102, Carbon Dioxide Level 24, Anion Gap 11, Blood Urea Nitrogen 16, Creatinine 0.8, Estimat Glomerular Filtration Rate > 60 , Glucose Level 74, Calcium Level 8.1L, Phosphorus Level 3.9, Magnesium Level 1.9, Total Bilirubin 1.6H, Direct Bilirubin 0.4H, Aspartate Amino Transf (AST/ SGOT) 49H, Alanine Aminotransferase (ALT/SGPT) 26, Alkaline Phosphatase 127, Total Protein 6.4L, Albumin 2.0L, Globulin 4.4, Albumin/Globulin Ratio 0.4L, Alpha Fetoprotein [Pending], Carcinoembryonic Antigen 4.2H, CA 19-9 Antigen 35.00, Prostate Specific Antigen < 0.1 Current Medications Medications (Trade) Dose Ordered Sig/Josse Route PRN Reason Start Time Stop Time Status Last Admin Dose Admin Acetaminophen (Tylenol) 650 mg Q4H PRN ORAL fever 01/08/17 21:45 02/07/17 21:44 Al Hydroxide/Mg Hydroxide (Mylanta II) 30 ml Q6H PRN ORAL dyspepsia 01/08/17 21:45 02/07/17 21:44 Albuterol/ Ipratropium (DuoNeb 0.5-3(2.5)mg/3ml) 3 ml Q4H PRN HHN Shortness of Breath 01/09/17 15:00 01/14/17 14:59 Cefepime HCl/ Dextrose (Maxipime/D5W) 55 ml @ 110 mls/hr EVERY 8 HOURS IV 01/08/17 22:00 01/15/17 21:59 01/10/17 13:32 Dextrose (Dextrose 50%) STAT PRN IV Hypoglycemia 01/08/17 21:45 02/07/17 21:44 Ferrous Sulfate (Feosol) 325 mg THREE TIMES A DAY ORAL 01/09/17 09:00 02/08/17 08:59 01/10/17 13:30 Folic Acid (Folate) 1 mg DAILY ORAL 01/09/17 09:00 02/08/17 08:59 01/10/17 09:24 Furosemide (Lasix) 20 mg DAILY ORAL 01/09/17 09:00 02/08/17 08:59 01/10/17 09:24 Lactulose 30 gm 30 gm EVERY 6 HOURS ORAL 01/09/17 00:00 02/08/17 00:00 01/10/17 13:32 Lorazepam (Ativan 2mg/ml 1ml) 0.5 mg Q4H PRN IV For Anxiety 01/08/17 21:45 01/15/17 21:44 Morphine Sulfate (Morphine Sulfate) 2 mg Q4H PRN IVP For Pain 01/08/17 21:45 01/15/17 21:44 01/09/17 09:53 Ondansetron HCl (Zofran) 4 mg Q6H PRN IVP Nausea & Vomiting 01/08/17 21:45 02/07/17 21:44 Pantoprazole (Protonix) 40 mg EVERY 12 HOURS ORAL 01/09/17 09:00 02/08/17 08:59 01/10/17 09:24 Polyethylene Glycol (Miralax) 17 gm HSPRN PRN ORAL Constipation 01/08/17 21:45 02/07/17 21:44 Propranolol HCl (Inderal) 10 mg Q8HR ORAL 01/09/17 14:00 02/08/17 13:59 01/10/17 06:02 Spironolactone (Aldactone) 50 mg DAILY ORAL 01/09/17 09:00 02/08/17 08:59 01/10/17 09:24 Zolpidem Tartrate (Ambien) 5 mg HSPRN PRN ORAL Insomnia 01/08/17 21:45 02/07/17 21:44 JUANCARLOS ONEAL January 10, 2017 14:29
--- NOTE | 2017-01-10 14:32 | General Progress Note ---
Assessment/Plan Problem List: (1) Ascites ICD Codes: R18.8 - Other ascites SNOMED: 160510355 (2) Respiratory distress ICD Codes: R06.00 - Dyspnea, unspecified SNOMED: 080419311 (3) End stage liver disease ICD Codes: K72.90 - Hepatic failure, unspecified without coma SNOMED: 085780988 Status: stable, progressing, tolerating diet Assessment/Plan ot pt diet pericentesis gi f/u cbc bmp am Subjective Constitutional: Reports: weakness Respiratory: Reports: shortness of breath Allergies: Coded Allergies: No Known Allergies (Unverified , 01/08/17) All Systems: reviewed and negative except above Subjective abd swelling Objective Last 24 Hour Vital Signs Date Time Temp Pulse Resp B/P Pulse Ox O2 Delivery O2 Flow Rate FiO2 01/10/17 13:32 59 89/58 01/10/17 12:00 97.0 59 18 89/58 Nasal Cannula 2.0 96 01/10/17 11:54 59 01/10/17 09:39 62 18 Nasal Cannula 2.0 100 01/10/17 08:00 97.7 60 18 113/74 Nasal Cannula 2.0 100 01/10/17 07:46 66 01/10/17 06:02 66 111/60 01/10/17 04:00 62 01/10/17 04:00 97.5 66 20 111/60 100 Room Air 01/10/17 00:00 68 01/10/17 00:00 97.9 71 20 124/91 99 Nasal Cannula 2.0 01/09/17 21:20 67 125/63 01/09/17 20:00 70 01/09/17 20:00 97.9 67 20 125/63 100 Room Air 01/09/17 19:30 65 18 Room Air 21 01/09/17 16:00 68 01/09/17 15:44 97.3 68 20 111/59 97 Nasal Cannula 2.0 Intake and Output 01/09/17 01/10/17 19:00 07:00 Intake Total 470 ml Output Total 200 ml Balance 270 ml Intake Oral 360 ml IV Total 110 ml Output Urine Total 200 ml # Bowel Movements 3 6 Laboratory Tests 01/10/17 05:00: White Blood Count 4.3L, Red Blood Count 3.11L, Hemoglobin 9.9L, Hematocrit 30.8L , Mean Corpuscular Volume 99, Mean Corpuscular Hemoglobin 31.8H, Mean Corpuscular Hemoglobin Concent 32.1, Red Cell Distribution Width 14.0, Platelet Count 102L, Mean Platelet Volume 7.3, Neutrophils (%) (Auto) 48.8, Lymphocytes ( %) (Auto) 20.5, Monocytes (%) (Auto) 18.0H, Eosinophils (%) (Auto) 10.3H, Basophils (%) (Auto) 2.4H, Prothrombin Time 14.5H, Prothromb Time International Ratio 1.4H, Activated Partial Thromboplast Time 37H, Sodium Level 137, Potassium Level 4.6, Chloride Level 102, Carbon Dioxide Level 24, Anion Gap 11, Blood Urea Nitrogen 16, Creatinine 0.8, Estimat Glomerular Filtration Rate > 60 , Glucose Level 74, Calcium Level 8.1L, Phosphorus Level 3.9, Magnesium Level 1.9, Total Bilirubin 1.6H, Direct Bilirubin 0.4H, Aspartate Amino Transf (AST/ SGOT) 49H, Alanine Aminotransferase (ALT/SGPT) 26, Alkaline Phosphatase 127, Total Protein 6.4L, Albumin 2.0L, Globulin 4.4, Albumin/Globulin Ratio 0.4L, Alpha Fetoprotein [Pending], Carcinoembryonic Antigen 4.2H, CA 19-9 Antigen 35.00, Prostate Specific Antigen < 0.1 Height (Feet): 5 Height (Inches): 0.00 Weight (Pounds): 250 General Appearance: lethargic EENT: normal ENT inspection Neck: normal alignment Cardiovascular: normal peripheral pulses, normal rate, regular rhythm Respiratory/Chest: chest wall non-tender, lungs clear, decreased breath sounds Abdomen: soft, hypoactive bowel sounds, distended Edema: 1+ Arm (L), 1+ Arm (R), 1+ Leg (L), 1+ Leg (R), 1+ Pedal (L), 1+ Pedal ( R), 1+ Generalized Edema: trace edema Neurologic: responsive, motor weakness ANGEL BHAKTA January 10, 2017 14:32
[2017-01-10 16:00] VITALS: BP 119/57
[2017-01-10] MEDS ORDERED: LORazepam Inj 2mg/ml 1ml IV PRN (19:00)
[2017-01-10] MEDS ORDERED: DuoNeb 0.5-3(2.5)mg/3ml neb HHN PRN (19:00)
[2017-01-10] MEDS ORDERED: Mylanta II UD 30ml ORAL PRN (19:00)
[2017-01-10] MEDS ORDERED: Miralax 17gm pkt ORAL PRN (19:00)
[2017-01-10] MEDS ORDERED: Morphine Sulfate 2mg/ml Inj IVP PRN (19:00)
[2017-01-10 20:00] VITALS: BP 96/63
--- NOTE | 2017-01-10 20:13 | General Progress Note ---
Assessment/Plan Assessment/Plan IMPRESSION: 1. Anemia of chronic disease. 2. Anemia rule out Gi bleed 3. Bilirubinemia. 4. Elevated liver function tests. 5. Hepatic encephalopathy. 6. Liver cirrhosis. 7. Ascites. 8. Shortness of breath. 9. Urinary tract infection. 10. Failure to thrive. RECOMMENDATION: 1. Watch count. 2. Watch coagulopathy. 3. PRBC transfusion on a p.r.n. basis. 4. Check hepatitis profile. 5. To get paracentesis 6. GI evaluation. 7. Skin care. 8. Nutrition. 9. Close followup Subjective Constitutional: Denies: chills, diaphoresis, fever, malaise, no symptoms, other , weakness HEENT: Denies: blurred vision, double vision, ear discharge, ear pain, eye pain , mouth pain, mouth swelling, no symptoms, nose congestion, nose pain, other, tearing, throat pain, throat swelling Cardiovascular: Denies: chest pain, edema, irregular heart rate, lightheadedness, no symptoms, other, palpitations, syncope Respiratory: Denies: SOB at rest, SOB with excertion, cough, no symptoms, orthopnea, other, shortness of breath, sputum, stridor, wheezing Gastrointestinal/Abdominal: Denies: abdomen distended, abdominal pain, black stools, blood in stool, constipated, diarrhea, difficulty swallowing, nausea, no symptoms, other, poor appetite, poor fluid intake, rectal bleeding, tarry stools, vomiting Genitourinary: Denies: burning, discharge, flank pain, frequency, hematuria, incontinence, no symptoms, other, pain, urgency Neurologic/Psychiatric: Denies: anxiety, depressed, emotional problems, headache, no symptoms, numbness, other, paresthesia, pre-existing deficit, seizure, tingling, tremors, weakness Allergies: Coded Allergies: No Known Allergies (Unverified , 01/08/17) Subjective to get para Objective Last 24 Hour Vital Signs Date Time Temp Pulse Resp B/P Pulse Ox O2 Delivery O2 Flow Rate FiO2 01/10/17 15:08 69 01/10/17 13:32 59 89/58 01/10/17 12:00 97.0 59 18 89/58 Nasal Cannula 2.0 96 01/10/17 11:54 59 01/10/17 09:39 62 18 Nasal Cannula 2.0 100 01/10/17 08:00 97.7 60 18 113/74 Nasal Cannula 2.0 100 01/10/17 07:46 66 01/10/17 06:02 66 111/60 01/10/17 04:00 62 01/10/17 04:00 97.5 66 20 111/60 100 Room Air 01/10/17 00:00 68 01/10/17 00:00 97.9 71 20 124/91 99 Nasal Cannula 2.0 01/09/17 21:20 67 125/63 Intake and Output 01/09/17 01/10/17 19:00 07:00 Intake Total 470 ml Output Total 200 ml Balance 270 ml Intake Oral 360 ml IV Total 110 ml Output Urine Total 200 ml # Bowel Movements 3 6 Laboratory Tests 01/10/17 05:00: White Blood Count 4.3L, Red Blood Count 3.11L, Hemoglobin 9.9L, Hematocrit 30.8L , Mean Corpuscular Volume 99, Mean Corpuscular Hemoglobin 31.8H, Mean Corpuscular Hemoglobin Concent 32.1, Red Cell Distribution Width 14.0, Platelet Count 102L, Mean Platelet Volume 7.3, Neutrophils (%) (Auto) 48.8, Lymphocytes ( %) (Auto) 20.5, Monocytes (%) (Auto) 18.0H, Eosinophils (%) (Auto) 10.3H, Basophils (%) (Auto) 2.4H, Prothrombin Time 14.5H, Prothromb Time International Ratio 1.4H, Activated Partial Thromboplast Time 37H, Sodium Level 137, Potassium Level 4.6, Chloride Level 102, Carbon Dioxide Level 24, Anion Gap 11, Blood Urea Nitrogen 16, Creatinine 0.8, Estimat Glomerular Filtration Rate > 60 , Glucose Level 74, Calcium Level 8.1L, Phosphorus Level 3.9, Magnesium Level 1.9, Total Bilirubin 1.6H, Direct Bilirubin 0.4H, Aspartate Amino Transf (AST/ SGOT) 49H, Alanine Aminotransferase (ALT/SGPT) 26, Alkaline Phosphatase 127, Total Protein 6.4L, Albumin 2.0L, Globulin 4.4, Albumin/Globulin Ratio 0.4L, Alpha Fetoprotein [Pending], Carcinoembryonic Antigen 4.2H, CA 19-9 Antigen 35.00, Prostate Specific Antigen < 0.1 Height (Feet): 5 Height (Inches): 0.00 Weight (Pounds): 250 General Appearance: alert EENT: TMs normal Neck: supple Cardiovascular: regular rhythm Respiratory/Chest: lungs clear Abdomen: distended Pelvis: no masses Extremities: non-tender Edema: 1+ Leg (L), 1+ Leg (R) Neurologic: alert Skin: normal pigmentation Kvng Siegel January 10, 2017 20:13
[2017-01-10] MEDS ORDERED: Zolpidem 5mg tab ORAL PRN (21:00)
[2017-01-10] MEDS ORDERED: Rifaximin 550mg tab ORAL SCH (21:00)
[2017-01-10] MEDS: Rifaximin 550mg tab ORAL SCH (21:01)
[2017-01-11] VITALS (12 sets, daily range): BP systolic 95–123; BP diastolic 49–69
[2017-01-11] MEDS: Lactulose 20gm/30ml UDC ORAL SCH ×5 (00:03→23:28)
[2017-01-11 03:47] LABS: APPEARANCE, BODY FLUID YELLOW
[2017-01-11 03:51] LABS: BD FL VOLUME 21 mL
[2017-01-11 03:52] LABS: BD FL SOURCE PARACENTESIS; BODY FLUID NUCLEATED CELLS 32 /CUMM; BODY FLUID RBC 29 /CUMM
[2017-01-11] MEDS: Propranolol 10mg tab ORAL SCH ×3 (06:00→21:16)
[2017-01-11] MEDS: Cefepime HCl 1 GM in D5W 55 ML IV SCH ×3 (06:25→21:16)
[2017-01-11] MEDS ORDERED: LR 1000ml ONE ×2 (07:30→07:45)
[2017-01-11] MEDS ORDERED: Midazolam 2mg/2ml Inj ONE ×2 (07:30→07:45)
[2017-01-11] MEDS ORDERED: Propofol 10mg/ml 20ml IV ONE (07:30)
[2017-01-11] MEDS ORDERED: Lidocaine 1% MPF 10mg/ml 5ml ONE (07:30)
[2017-01-11] MEDS ORDERED: NS 550ML IV ONE (07:30)
--- NOTE | 2017-01-11 07:34 | Pre-Procedure Note/Attestation ---
Pre-Procedure Note/Attestation Complete Prior to Procedure Planned Procedure: not applicable Procedure Narrative: egd Indications for Procedure Pre-Operative Diagnosis: cirrhosis, anemia Attestation I attest that I discussed the nature of the procedure; its benefits; risks and complications; and alternatives (and the risks and benefits of such alternatives ), prior to the procedure, with the patient (or the patient's legal workforce services representative). I attest that, if there was a reasonable possibility of needing a blood transfusion, the patient (or the patient's legal workforce services representative) was given the [facility] standardized written summary, pursuant to the Vinicius Weskan Blood Safety Act ([place] Health and Safety Code # 1645, as amended). I attest that I re-evaluated the patient just prior to the surgery and that there has been no change in the patient's H&P, except as documented below: CHANCE ESPOSITO January 11, 2017 07:34
--- NOTE | 2017-01-11 07:53 | Endoscopy Procedure Note ---
Endoscopy Procedure Note Indication for Procedure: cirrhosis Procedures Performed: EGD Operative Findings/Diagnosis: esoph varices, gastritis Specimen: yes Pt Tolerated Procedure Well: Yes Estimated Blood Loss: none Anesthesiologist: gigi Anesthesia: MAC Implant(s) used?: No 50 yrs or older w/o bx or poly: Not Applicable 10yrs. F/U not recommended: Not Applicable CHANCE ESPOSITO January 11, 2017 07:53
[2017-01-11] MEDS ORDERED: LR 1000ml 1,000 ML IVLG SCH (07:56)
[2017-01-11] MEDS ORDERED: Midazolam 2mg/2ml Inj IVP PRN (08:00)
[2017-01-11] MEDS ORDERED: Hydromorphone 0.5mg/0.5ml inj IVP PRN (08:00)
[2017-01-11] MEDS ORDERED: Oxycodone/Acetaminophen 5-325 ORAL PRN (08:00)
[2017-01-11] MEDS ORDERED: Norco 5mg/325mg tab ORAL PRN (08:00)
[2017-01-11] MEDS ORDERED: Norco 7.5mg/325mg tab ORAL PRN (08:00)
[2017-01-11] MEDS ORDERED: Ketorolac 30mg Inj IV PRN (08:00)
[2017-01-11] MEDS ORDERED: fentaNYL 100 mcg/2 mL IV PRN (08:00)
[2017-01-11] MEDS ORDERED: LORazepam Inj 2mg/ml 1ml IV PRN (08:00)
[2017-01-11] MEDS ORDERED: DiphenhydrAMINE 50mg/ml Inj IVP PRN (08:00)
[2017-01-11] MEDS ORDERED: Metoclopramide 10mg/2ml Inj IVP PRN (08:00)
[2017-01-11] MEDS ORDERED: Atropine Inj 1mg/10ml Syr IV PRN (08:00)
[2017-01-11] MEDS ORDERED: Meperidine 25mg/0.5ml Inj IV PRN (08:00)
[2017-01-11] MEDS ORDERED: Ketorolac 60mg Inj IV PRN (08:00)
--- NOTE | 2017-01-11 08:00 | Anethesia Preoperative Eval ---
Anesthesia Pre-op PMH/ROS General Date of Evaluation: January 11, 2017 Time of Evaluation: 07:42 Anesthesiologist: Shola ASA Score: ASA 3 Mallampati Score Class I : Soft palate, uvula, fauces, pillars visible Class II: Soft palate, uvula, fauces visible Class III: Soft palate, base of uvula visible Class IV: Only hard plate visible Mallampati Classification: Class III Surgeon: Gwen Diagnosis: Abd Pain Surgical Procedure: EGD Anesthesia History: none Family History: no anesthesia problems Allergies: Coded Allergies: No Known Allergies (Unverified , 01/08/17) Medications: see eMAR Past Medical History Pulmonary: Reports: asthma Gastrointestinal/Genitourinary: Reports: other - Ascites, Cirrohsis, Esophagael Varices Anesthesia Pre-op Phys. Exam Physician Exam Last Vital Signs Date Time Temp Pulse Resp B/P Pulse Ox O2 Delivery O2 Flow Rate FiO2 01/11/17 07:38 64 18 Room Air 21 01/11/17 06:00 98/61 01/11/17 04:00 97.4 95 01/10/17 12:00 2.0 Constitutional: NAD Neurologic: CN 2-12 intact Cardiovascular: RRR Respiratory: CTA Gastrointestinal: S/NT/ND Airway Exam Mallampati Score: Class III MO: limited ROM: limited Teeth: intact Anesthesia Pre-op A/P Risk Assessment & Plan Assessment: ASA 3 Plan: GA Status Change Before Surgery: Heraclio Macias MD January 11, 2017 08:00
--- NOTE | 2017-01-11 08:07 | Immediate Post-Op Evaluation ---
Immediate Post-Op Evalulation Immediate Post-Op Evalulation Procedure: EGD with BX Date of Evaluation: January 11, 2017 Time of Evaluation: 08:17 IV Fluids: 200 Blood Products: 0 Estimated Blood Loss: 2 Urinary Output: 0 Blood Pressure Systolic: 101 Blood Pressure Diastolic: 61 Pulse Rate: 69 Respiratory Rate: 16 O2 Sat by Pulse Oximetry: 100 Temperature (Fahrenheit): 97.6 Pain Score (1-10): 0 Nausea: No Vomiting: No Complications 0 Patient Status: awake, reacts, patent, extubated, none Hydration Status: adequate Heraclio Johnson MD January 11, 2017 08:07
--- NOTE | 2017-01-11 08:09 | 48 Hour Post Anesthesia Eval ---
Post Anesthesia Evaluation Procedure: EGD with BX Date of Evaluation: January 11, 2017 Time of Evaluation: 10:21 Blood Pressure Systolic: 102 0: 63 Pulse Rate: 71 Respiratory Rate: 18 Temperature (Fahrenheit): 97.6 O2 Sat by Pulse Oximetry: 100 Airway: patent Nausea: No Vomiting: No Pain Intensity: 0 Hydration Status: adequate Cardiopulmonary Status: Stable Mental Status/LOC: patient returned to baseline Follow-up Care/Observations: 0 Post-Anesthesia Complications: 0 Follow-up care needed: N/A Heraclio Johnson MD January 11, 2017 08:09
[2017-01-11] MEDS ORDERED: Spironolactone 50mg tab ORAL SCH (09:00)
--- NOTE | 2017-01-11 09:10 | Diagnostic Imaging Report ---
Indication:Abdominal distention. Liver cirrhosis. Technique: Grayscale and duplex Doppler imaging of the abdomen performed. Comparison: None Findings: Patient is had recent paracentesis. There is a trace amount of residual ascites noted. Stigmata of portal hypertension with enlarged spleen (14 cm) 6 noted. Liver is heterogeneous with nodularity of the surface consistent with cirrhosis. Thickening of the gallbladder wall is demonstrated. No gallstones or sonographic Ríos sign are present. No biliary ductal dilatation is present. The aorta and pancreas are not well seen on this study. Kidneys are grossly unremarkable. Impression: Chronic liver disease/cirrhosis. Stigmata of portal hypertension including a trace ascites and splenomegaly. Thickened gallbladder wall nonspecific
[2017-01-11] MEDS: Rifaximin 550mg tab ORAL SCH ×2 (09:14→20:27)
[2017-01-11] MEDS: Furosemide 40mg tab ORAL SCH (09:16)
[2017-01-11] MEDS: Spironolactone 50mg tab ORAL SCH (09:18)
[2017-01-11 10:20] LABS: EOSINOPHILS % (AUTO) 8.5 % (0.0-3.0); LYMPHOCYTES % (AUTO) 23.7 % (20.0-45.0); MEAN CORPUSCULAR HEMOGLOBIN 32.1 PG (27.0-31.0); MEAN CORPUSCULAR HGB CONC 32.3 G/DL (32.0-36.0); MEAN CORPUSCULAR VOLUME 99 FL (80-99); MEAN PLATELET VOLUME 8.6 FL (6.5-10.1); MONOCYTES % (AUTO) 9.9 % (1.0-10.0); NEUTROPHILS % (AUTO) 55.9 % (45.0-75.0); PLATELET COUNT 104 K/UL (150-450); RED BLOOD COUNT 3.42 M/UL (4.70-6.10); RED CELL DISTRIBUTION WIDTH 13.9 % (11.6-14.8); WHITE BLOOD COUNT 4.2 K/UL (4.8-10.8)
[2017-01-11 10:38] LABS: INR 1.5 (0.9-1.1); PROTHROMBIN TIME 15.4 SEC (9.30-11.50)
[2017-01-11 10:47] LABS: ALANINE AMINOTRANSFERASE 27 U/L (3-41); ALBUMIN/GLOBULIN RATIO 0.4 (1.0-2.7); ANION GAP 12 (5-15); ASPARTATE AMINO TRANSFERASE 53 U/L (5-40); CALCIUM 8.1 mg/dL (8.6-10.2); CARBON DIOXIDE 23 mEQ/L (20-30); CHLORIDE 100 mEQ/L (98-107); CREATININE 0.8 mg/dL (0.7-1.2); GLOMERULAR FILTRATION RATE > 60 mL/min (>60); HEMOLYSIS 4; POTASSIUM 4.2 mEQ/L (3.4-4.9); SODIUM 135 mEQ/L (135-145); TOTAL PROTEIN 6.1 g/dL (6.6-8.7)
[2017-01-11 11:03] LABS: BILIRUBIN,DIRECT 0.6 mg/dL (0.1-0.3)
--- NOTE | 2017-01-11 14:34 | General Progress Note ---
Assessment/Plan Problem List: (1) Ascites ICD Codes: R18.8 - Other ascites SNOMED: 807684517 (2) Respiratory distress ICD Codes: R06.00 - Dyspnea, unspecified SNOMED: 840976960 (3) End stage liver disease ICD Codes: K72.90 - Hepatic failure, unspecified without coma SNOMED: 491757791 Status: stable, progressing, tolerating diet Assessment/Plan ot pt diet gi f/u cbc bmp am dc if clear Subjective Constitutional: Reports: weakness Allergies: Coded Allergies: No Known Allergies (Unverified , 01/08/17) All Systems: reviewed and negative except above Subjective sitting calm c/o abd swelling Objective Last 24 Hour Vital Signs Date Time Temp Pulse Resp B/P Pulse Ox O2 Delivery O2 Flow Rate FiO2 01/11/17 14:00 70 96/57 01/11/17 11:28 97.3 70 19 96/57 100 Room Air 01/11/17 08:50 97.7 72 18 106/62 100 Room Air 01/11/17 08:31 98.0 67 20 103/58 100 Room Air 01/11/17 08:22 69 20 109/52 99 Room Air 01/11/17 08:16 70 20 97/63 99 Simple Mask 8.0 01/11/17 08:11 70 20 100/55 99 Simple Mask 8.0 01/11/17 08:09 71 18 100 01/11/17 08:07 69 16 100 01/11/17 08:06 97.6 71 20 101/61 99 Simple Mask 8.0 01/11/17 07:38 64 18 Room Air 21 01/11/17 06:00 64 98/61 01/11/17 04:00 97.4 64 20 98/61 95 Room Air 01/11/17 00:00 98.1 67 20 95/49 97 Room Air 01/10/17 21:02 75 96/63 01/10/17 20:00 99.0 75 20 96/63 99 Room Air 01/10/17 15:08 69 Intake and Output 01/10/17 01/11/17 19:00 07:00 Intake Total 55 ml Output Total 1200 ml Balance 55 ml -1200 ml IV Total 55 ml Output Urine Total 1200 ml # Bowel Movements 1 3 Laboratory Tests 01/10/17 15:30: Body Fluid Source Paracentesis, Body Fluid Volume 21, Body Fluid Appearance Yellow, Body Fluid RBC 29, Body Fluid Total Nucleated Cells 32, Body Fluid Glucose [Pending], Body Fluid Total Protein [Pending], Body Fluid Albumin [ Pending] 01/11/17 10:05: White Blood Count 4.2L, Red Blood Count 3.42L, Hemoglobin 11.0L, Hematocrit 33.9L, Mean Corpuscular Volume 99, Mean Corpuscular Hemoglobin 32.1H, Mean Corpuscular Hemoglobin Concent 32.3, Red Cell Distribution Width 13.9, Platelet Count 104L, Mean Platelet Volume 8.6, Neutrophils (%) (Auto) 55.9, Lymphocytes ( %) (Auto) 23.7, Monocytes (%) (Auto) 9.9, Eosinophils (%) (Auto) 8.5H, Basophils (%) (Auto) 2.0, Prothrombin Time 15.4H, Prothromb Time International Ratio 1.5H, Activated Partial Thromboplast Time 36H, Sodium Level 135, Potassium Level 4.2, Chloride Level 100, Carbon Dioxide Level 23, Anion Gap 12, Blood Urea Nitrogen 16, Creatinine 0.8, Estimat Glomerular Filtration Rate > 60 , Glucose Level 98, Calcium Level 8.1L, Total Bilirubin 1.9H, Direct Bilirubin 0.6H, Aspartate Amino Transf (AST/SGOT) 53H, Alanine Aminotransferase (ALT/SGPT ) 27, Alkaline Phosphatase 102, Ammonia 30, Total Protein 6.1L, Albumin 1.9L, Globulin 4.2, Albumin/Globulin Ratio 0.4L Height (Feet): 5 Height (Inches): 5.00 Weight (Pounds): 250 General Appearance: alert EENT: normal ENT inspection Neck: normal alignment Cardiovascular: normal peripheral pulses, normal rate, regular rhythm Respiratory/Chest: chest wall non-tender, lungs clear, normal breath sounds Abdomen: normal bowel sounds, non tender, hypoactive bowel sounds, distended Extremities: normal inspection Edema: 1+ Arm (L), 1+ Arm (R), 1+ Leg (L), 1+ Leg (R), 1+ Pedal (L), 1+ Pedal ( R), 1+ Generalized Neurologic: responsive, motor weakness Skin: normal pigmentation, warm/dry ANGEL BHAKTA January 11, 2017 14:34
--- NOTE | 2017-01-11 17:37 | Pulmonology Progress Note ---
Assessment/Plan Problems: (1) Ascites (2) End stage liver disease Assessment/Plan paracentesis done dc home social service consult r Subjective ROS Limited/Unobtainable: No Interval Events: s/p paracentesis Allergies: Coded Allergies: No Known Allergies (Unverified , 01/08/17) Objective Last 24 Hour Vital Signs Date Time Temp Pulse Resp B/P Pulse Ox O2 Delivery O2 Flow Rate FiO2 01/11/17 15:41 97.6 71 19 118/63 99 Room Air 01/11/17 14:00 70 96/57 01/11/17 11:28 97.3 70 19 96/57 100 Room Air 01/11/17 08:50 97.7 72 18 106/62 100 Room Air 01/11/17 08:31 98.0 67 20 103/58 100 Room Air 01/11/17 08:22 69 20 109/52 99 Room Air 01/11/17 08:16 70 20 97/63 99 Simple Mask 8.0 01/11/17 08:11 70 20 100/55 99 Simple Mask 8.0 01/11/17 08:09 71 18 100 01/11/17 08:07 69 16 100 01/11/17 08:06 97.6 71 20 101/61 99 Simple Mask 8.0 01/11/17 07:38 64 18 Room Air 21 01/11/17 06:00 64 98/61 01/11/17 04:00 97.4 64 20 98/61 95 Room Air 01/11/17 00:00 98.1 67 20 95/49 97 Room Air 01/10/17 21:02 75 96/63 01/10/17 20:00 99.0 75 20 96/63 99 Room Air Intake and Output 01/10/17 01/11/17 19:00 07:00 Intake Total 55 ml Output Total 1200 ml Balance 55 ml -1200 ml IV Total 55 ml Output Urine Total 1200 ml # Bowel Movements 1 3 General Appearance: cachetic HEENT: normocephalic, atraumatic Cardiovascular: normal peripheral pulses, normal rate Abdomen: normal bowel sounds, no organomegaly Genitourinary: normal external genitalia Extremities: no clubbing Microbiology Date/Time Source Procedure Growth Status 01/09/17 00:55 Nasal Nares MRSA Culture - Final Staphylococcus Aureus - Mrsa Complete 01/10/17 15:30 Abdominal Fluid Gram Stain - Final Resulted 01/10/17 15:30 Abdominal Fluid Body Fluid Culture Pending Resulted 01/09/17 00:55 Rectum VRE Culture - Final NO VANCOMYCIN RESISTANT ENTEROCOCCUS ... Complete Laboratory Tests 01/11/17 10:05: White Blood Count 4.2L, Red Blood Count 3.42L, Hemoglobin 11.0L, Hematocrit 33.9L, Mean Corpuscular Volume 99, Mean Corpuscular Hemoglobin 32.1H, Mean Corpuscular Hemoglobin Concent 32.3, Red Cell Distribution Width 13.9, Platelet Count 104L, Mean Platelet Volume 8.6, Neutrophils (%) (Auto) 55.9, Lymphocytes ( %) (Auto) 23.7, Monocytes (%) (Auto) 9.9, Eosinophils (%) (Auto) 8.5H, Basophils (%) (Auto) 2.0, Prothrombin Time 15.4H, Prothromb Time International Ratio 1.5H, Activated Partial Thromboplast Time 36H, Sodium Level 135, Potassium Level 4.2, Chloride Level 100, Carbon Dioxide Level 23, Anion Gap 12, Blood Urea Nitrogen 16, Creatinine 0.8, Estimat Glomerular Filtration Rate > 60 , Glucose Level 98, Calcium Level 8.1L, Total Bilirubin 1.9H, Direct Bilirubin 0.6H, Aspartate Amino Transf (AST/SGOT) 53H, Alanine Aminotransferase (ALT/SGPT ) 27, Alkaline Phosphatase 102, Ammonia 30, Total Protein 6.1L, Albumin 1.9L, Globulin 4.2, Albumin/Globulin Ratio 0.4L Current Medications Medications (Trade) Dose Ordered Sig/Josse Route PRN Reason Start Time Stop Time Status Last Admin Dose Admin Al Hydroxide/Mg Hydroxide (Mylanta II) 30 ml Q6H PRN ORAL dyspepsia 01/10/17 19:00 02/09/17 18:59 Albuterol/ Ipratropium (DuoNeb 0.5-3(2.5)mg/3ml) 3 ml Q4H PRN HHN Shortness of Breath 01/10/17 19:00 01/15/17 18:59 Cefepime HCl/ Dextrose (Maxipime/D5W) 55 ml @ 110 mls/hr EVERY 8 HOURS IV 01/10/17 22:00 01/17/17 21:59 01/11/17 14:34 Dextrose (Dextrose 50%) STAT PRN IV Hypoglycemia 01/10/17 19:00 02/09/17 18:59 Ferrous Sulfate (Feosol) 325 mg THREE TIMES A DAY ORAL 01/11/17 09:00 02/10/17 08:59 01/11/17 13:28 Folic Acid (Folate) 1 mg DAILY ORAL 01/11/17 09:00 02/10/17 08:59 01/11/17 09:15 Furosemide (Lasix) 40 mg DAILY ORAL 01/11/17 09:00 02/10/17 08:59 01/11/17 09:16 Lactulose (Cephulac) 30 gm EVERY 6 HOURS ORAL 01/11/17 00:00 02/10/17 00:00 01/11/17 13:28 Lorazepam (Ativan 2mg/ml 1ml) 0.5 mg Q4H PRN IV For Anxiety 01/10/17 19:00 01/17/17 18:59 Morphine Sulfate (Morphine Sulfate) 2 mg Q4H PRN IVP For Pain 01/10/17 19:00 01/17/17 18:59 Ondansetron HCl (Zofran) 4 mg Q6H PRN IVP Nausea & Vomiting 01/10/17 19:00 02/09/17 18:59 Pantoprazole (Protonix) 40 mg EVERY 12 HOURS ORAL 01/10/17 21:00 02/09/17 20:59 01/11/17 09:15 Polyethylene Glycol (Miralax) 17 gm HSPRN PRN ORAL Constipation 01/10/17 19:00 02/09/17 18:59 Propranolol HCl (Inderal) 10 mg Q8HR ORAL 01/10/17 22:00 02/09/17 21:59 Rifaximin (Xifaxan) 550 mg EVERY 12 HOURS ORAL 01/10/17 21:00 01/17/17 20:59 01/11/17 09:14 Spironolactone (Aldactone) 100 mg DAILY ORAL 01/11/17 09:00 02/10/17 08:59 01/11/17 09:18 Zolpidem Tartrate (Ambien) 5 mg HSPRN PRN ORAL Insomnia 01/10/17 21:00 02/09/17 20:59 JUANCARLOS ONEAL January 11, 2017 17:36
--- NOTE | 2017-01-11 18:59 | Procedure Note ---
DATE OF PROCEDURE: 01/11/2017 SURGEON: Soto Hidalgo M.D. PROCEDURE: Upper endoscopy with biopsy. ANESTHESIOLOGIST: Heraclio Johnson M.D. INSTRUMENT: Olympus adult flexible upper endoscope. INDICATION: Cirrhosis and anemia. REASON FOR PROCEDURE: The procedure, risks, benefits, and possible consequences, including hemorrhage, aspiration, perforation and infection, and alternative treatments, were explained to the patient/legal guardian by Dr. Soto Hidalgo and the patient/legal guardian understood and accepted these risks. DESCRIPTION OF PROCEDURE: After informed consent was obtained and the patient was adequately sedated, Olympus upper endoscope was advanced from mouth into the second portion of duodenum and retroflexion was performed in the stomach. The patient had evidence of four columns of grade 2 distal esophageal varices and prior history of banding. There was a scar tissue in the distal esophagus, but at this time, the varices were not very big. I would say it was level of 2, so decided not to do banding at this time. In the stomach, there was diffuse portal hypertensive gastropathy. There was a lesion in the peripyloric area at about 9 o'clock spot. This lesion roughly measured about maybe 1.5 to 2 cm, inflammatory-looking focal area, which was biopsied. The rest of the examination was grossly within normal limits. There is no evidence of any gastric varices. At this time, the scope was retrieved and procedure was terminated. SUMMARY OF FINDINGS: 1. Distal esophageal varices grade 2 without any stigmata. 2. Portal hypertensive gastropathy, moderate. 3. Lesion in the pre-pyloric area, see above for details, status post biopsy. RECOMMENDATIONS: Follow up biopsies and treat accordingly. We will increase the Lasix and Aldactone, Lasix to 40 and Aldactone to 100. We will check the BMP for tomorrow. The patient, at this time, is not a candidate for propranolol given the pulse rate of 60s. Continue on lactulose. We will follow. I want to thank, Dr. Higinio Moon, for this kind referral please. Soto Hidalgo M.D. DR: CAROLYN JOB#: [id number] CC: Higinio Moon D.O.
--- NOTE | 2017-01-11 19:54 | General Progress Note ---
Assessment/Plan Assessment/Plan IMPRESSION: 1. Anemia of chronic disease. Currently stable 2. Anemia rule out Gi bleed 3. Bilirubinemia. 4. Elevated liver function tests. 5. Hepatic encephalopathy. 6. Liver cirrhosis. 7. Ascites. 8. Shortness of breath. 9. Urinary tract infection. 10. Failure to thrive. RECOMMENDATION: 1. Watch count. 2. Watch coagulopathy. 3. PRBC transfusion on a p.r.n. basis. 4. Hepatitis panel is negative 5. To get paracentesis 6. GI evaluation. 7. Skin care. 8. Nutrition. 9. Close followup Subjective Constitutional: Reports: no symptoms HEENT: Reports: no symptoms Cardiovascular: Reports: no symptoms Respiratory: Reports: no symptoms Gastrointestinal/Abdominal: Reports: poor appetite Genitourinary: Reports: no symptoms Neurologic/Psychiatric: Reports: no symptoms Endocrine: Reports: no symptoms Hematologic/Lymphatic: Reports: anemia Allergies: Coded Allergies: No Known Allergies (Unverified , 01/08/17) Subjective para completed Objective Last 24 Hour Vital Signs Date Time Temp Pulse Resp B/P Pulse Ox O2 Delivery O2 Flow Rate FiO2 01/11/17 15:41 97.6 71 19 118/63 99 Room Air 01/11/17 14:00 70 96/57 01/11/17 11:28 97.3 70 19 96/57 100 Room Air 01/11/17 08:50 97.7 72 18 106/62 100 Room Air 01/11/17 08:31 98.0 67 20 103/58 100 Room Air 01/11/17 08:22 69 20 109/52 99 Room Air 01/11/17 08:16 70 20 97/63 99 Simple Mask 8.0 01/11/17 08:11 70 20 100/55 99 Simple Mask 8.0 01/11/17 08:09 71 18 100 01/11/17 08:07 69 16 100 01/11/17 08:06 97.6 71 20 101/61 99 Simple Mask 8.0 01/11/17 07:38 64 18 Room Air 21 01/11/17 06:00 64 98/61 01/11/17 04:00 97.4 64 20 98/61 95 Room Air 01/11/17 00:00 98.1 67 20 95/49 97 Room Air 01/10/17 21:02 75 96/63 01/10/17 20:00 99.0 75 20 96/63 99 Room Air Intake and Output 01/10/17 01/11/17 19:00 07:00 Intake Total 55 ml Output Total 1200 ml Balance 55 ml -1200 ml IV Total 55 ml Output Urine Total 1200 ml # Bowel Movements 1 3 Laboratory Tests 01/11/17 10:05: White Blood Count 4.2L, Red Blood Count 3.42L, Hemoglobin 11.0L, Hematocrit 33.9L, Mean Corpuscular Volume 99, Mean Corpuscular Hemoglobin 32.1H, Mean Corpuscular Hemoglobin Concent 32.3, Red Cell Distribution Width 13.9, Platelet Count 104L, Mean Platelet Volume 8.6, Neutrophils (%) (Auto) 55.9, Lymphocytes ( %) (Auto) 23.7, Monocytes (%) (Auto) 9.9, Eosinophils (%) (Auto) 8.5H, Basophils (%) (Auto) 2.0, Prothrombin Time 15.4H, Prothromb Time International Ratio 1.5H, Activated Partial Thromboplast Time 36H, Sodium Level 135, Potassium Level 4.2, Chloride Level 100, Carbon Dioxide Level 23, Anion Gap 12, Blood Urea Nitrogen 16, Creatinine 0.8, Estimat Glomerular Filtration Rate > 60 , Glucose Level 98, Calcium Level 8.1L, Total Bilirubin 1.9H, Direct Bilirubin 0.6H, Aspartate Amino Transf (AST/SGOT) 53H, Alanine Aminotransferase (ALT/SGPT ) 27, Alkaline Phosphatase 102, Ammonia 30, Total Protein 6.1L, Albumin 1.9L, Globulin 4.2, Albumin/Globulin Ratio 0.4L Height (Feet): 5 Height (Inches): 5.00 Weight (Pounds): 250 General Appearance: alert EENT: normal ENT inspection Neck: normal inspection Cardiovascular: regular rhythm Respiratory/Chest: lungs clear Abdomen: normal bowel sounds Genitourinary/Rectal: normal rectal exam Edema: no edema noted Arm (R), no edema noted Leg (L), no edema noted Leg (R), no edema noted Pedal (L) Kvng Siegel January 11, 2017 19:54
--- NOTE | 2017-01-11 22:26 | Infectious Diseases Prog Note ---
Assessment/Plan Problems: (1) Ascites Assessment & Plan: S/P paracentesis, continue diuresis, monitor daily weight (2) End stage liver disease Assessment & Plan: S/P EGD, with liver cirrhosis, avoid nephrotoxic meds, follow up with GI Assessment/Plan urine analysis showed no evidence of infection, so no need for antibiotics for now Subjective Allergies: Coded Allergies: No Known Allergies (Unverified , 01/08/17) Objective Vital Signs Last 24 Hour Vital Signs Date Time Temp Pulse Resp B/P Pulse Ox O2 Delivery O2 Flow Rate FiO2 01/11/17 21:16 78 123/69 01/11/17 20:00 97.7 78 20 123/69 96 Room Air 01/11/17 20:00 78 20 Room Air 21 01/11/17 15:41 97.6 71 19 118/63 99 Room Air 01/11/17 14:00 70 96/57 01/11/17 11:28 97.3 70 19 96/57 100 Room Air 01/11/17 08:50 97.7 72 18 106/62 100 Room Air 01/11/17 08:31 98.0 67 20 103/58 100 Room Air 01/11/17 08:22 69 20 109/52 99 Room Air 01/11/17 08:16 70 20 97/63 99 Simple Mask 8.0 01/11/17 08:11 70 20 100/55 99 Simple Mask 8.0 01/11/17 08:09 71 18 100 01/11/17 08:07 69 16 100 01/11/17 08:06 97.6 71 20 101/61 99 Simple Mask 8.0 01/11/17 07:38 64 18 Room Air 21 01/11/17 06:00 64 98/61 01/11/17 04:00 97.4 64 20 98/61 95 Room Air 01/11/17 00:00 98.1 67 20 95/49 97 Room Air Height (Feet): 5 Height (Inches): 5.00 Weight (Pounds): 250 Microbiology Date/Time Source Procedure Growth Status 01/09/17 00:55 Nasal Nares MRSA Culture - Final Staphylococcus Aureus - Mrsa Complete 01/10/17 15:30 Abdominal Fluid Gram Stain - Final Resulted 01/10/17 15:30 Abdominal Fluid Body Fluid Culture Pending Resulted 01/09/17 00:55 Rectum VRE Culture - Final NO VANCOMYCIN RESISTANT ENTEROCOCCUS ... Complete Laboratory Tests Test 01/11/17 10:05 White Blood Count 4.2 K/UL (4.8-10.8) L Red Blood Count 3.42 M/UL (4.70-6.10) L Hemoglobin 11.0 G/DL (14.2-18.0) L Hematocrit 33.9 % (42.0-52.0) L Mean Corpuscular Volume 99 FL (80-99) Mean Corpuscular Hemoglobin 32.1 PG (27.0-31.0) H Mean Corpuscular Hemoglobin Concent 32.3 G/DL (32.0-36.0) Red Cell Distribution Width 13.9 % (11.6-14.8) Platelet Count 104 K/UL (150-450) L Mean Platelet Volume 8.6 FL (6.5-10.1) Neutrophils (%) (Auto) 55.9 % (45.0-75.0) Lymphocytes (%) (Auto) 23.7 % (20.0-45.0) Monocytes (%) (Auto) 9.9 % (1.0-10.0) Eosinophils (%) (Auto) 8.5 % (0.0-3.0) H Basophils (%) (Auto) 2.0 % (0.0-2.0) Prothrombin Time 15.4 SEC (9.30-11.50) H Prothromb Time International Ratio 1.5 (0.9-1.1) H Activated Partial Thromboplast Time 36 SEC (23-33) H Sodium Level 135 mEQ/L (135-145) Potassium Level 4.2 mEQ/L (3.4-4.9) Chloride Level 100 mEQ/L (98-107) Carbon Dioxide Level 23 mEQ/L (20-30) Anion Gap 12 (5-15) Blood Urea Nitrogen 16 mg/dL (7-23) Creatinine 0.8 mg/dL (0.7-1.2) Estimat Glomerular Filtration Rate > 60 mL/min (>60) Glucose Level 98 mg/dL (74-106) Calcium Level 8.1 mg/dL (8.6-10.2) L Total Bilirubin 1.9 mg/dL (0.0-1.2) H Direct Bilirubin 0.6 mg/dL (0.1-0.3) H Aspartate Amino Transf (AST/SGOT) 53 U/L (5-40) H Alanine Aminotransferase (ALT/SGPT) 27 U/L (3-41) Alkaline Phosphatase 102 U/L (40-129) Ammonia 30 umol/L (16-60) Total Protein 6.1 g/dL (6.6-8.7) L Albumin 1.9 g/dL (3.5-5.2) L Globulin 4.2 g/dL Albumin/Globulin Ratio 0.4 (1.0-2.7) L Current Medications Medications (Trade) Dose Ordered Sig/Josse Route PRN Reason Start Time Stop Time Status Last Admin Dose Admin Al Hydroxide/Mg Hydroxide (Mylanta II) 30 ml Q6H PRN ORAL dyspepsia 01/10/17 19:00 02/09/17 18:59 Albuterol/ Ipratropium (DuoNeb 0.5-3(2.5)mg/3ml) 3 ml Q4H PRN HHN Shortness of Breath 01/10/17 19:00 01/15/17 18:59 Cefepime HCl/ Dextrose (Maxipime/D5W) 55 ml @ 110 mls/hr EVERY 8 HOURS IV 01/10/17 22:00 01/17/17 21:59 01/11/17 21:16 Dextrose (Dextrose 50%) STAT PRN IV Hypoglycemia 01/10/17 19:00 02/09/17 18:59 Ferrous Sulfate (Feosol) 325 mg THREE TIMES A DAY ORAL 01/11/17 09:00 02/10/17 08:59 01/11/17 18:26 Folic Acid (Folate) 1 mg DAILY ORAL 01/11/17 09:00 02/10/17 08:59 01/11/17 09:15 Furosemide (Lasix) 40 mg DAILY ORAL 01/11/17 09:00 02/10/17 08:59 01/11/17 09:16 Lactulose (Cephulac) 30 gm EVERY 6 HOURS ORAL 01/11/17 00:00 02/10/17 00:00 01/11/17 18:27 Lorazepam (Ativan 2mg/ml 1ml) 0.5 mg Q4H PRN IV For Anxiety 01/10/17 19:00 01/17/17 18:59 Morphine Sulfate (Morphine Sulfate) 2 mg Q4H PRN IVP For Pain 01/10/17 19:00 01/17/17 18:59 Ondansetron HCl (Zofran) 4 mg Q6H PRN IVP Nausea & Vomiting 01/10/17 19:00 02/09/17 18:59 Pantoprazole (Protonix) 40 mg EVERY 12 HOURS ORAL 01/10/17 21:00 02/09/17 20:59 01/11/17 20:27 Polyethylene Glycol (Miralax) 17 gm HSPRN PRN ORAL Constipation 01/10/17 19:00 02/09/17 18:59 Propranolol HCl (Inderal) 10 mg Q8HR ORAL 01/10/17 22:00 02/09/17 21:59 01/11/17 21:16 Rifaximin (Xifaxan) 550 mg EVERY 12 HOURS ORAL 01/10/17 21:00 01/17/17 20:59 01/11/17 20:27 Spironolactone (Aldactone) 100 mg DAILY ORAL 01/11/17 09:00 02/10/17 08:59 01/11/17 09:18 Zolpidem Tartrate (Ambien) 5 mg HSPRN PRN ORAL Insomnia 01/10/17 21:00 02/09/17 20:59 Amanda Ingram M.D. January 11, 2017 22:26
[2017-01-12 04:34] VITALS: BP 100/42
[2017-01-12] MEDS: Lactulose 20gm/30ml UDC ORAL SCH ×2 (05:09→13:24)
[2017-01-12] MEDS: Propranolol 10mg tab ORAL SCH ×2 (05:09→14:00)
[2017-01-12] MEDS: Cefepime HCl 1 GM in D5W 55 ML IV SCH (05:09)
[2017-01-12 06:27] LABS: MEAN CORPUSCULAR HEMOGLOBIN 32.1 PG (27.0-31.0); MEAN CORPUSCULAR HGB CONC 32.8 G/DL (32.0-36.0); MEAN CORPUSCULAR VOLUME 98 FL (80-99); MEAN PLATELET VOLUME 7.7 FL (6.5-10.1); PLATELET COUNT 99 K/UL (150-450); RED BLOOD COUNT 3.07 M/UL (4.70-6.10); RED CELL DISTRIBUTION WIDTH 13.7 % (11.6-14.8)
[2017-01-12 06:43] LABS: ANION GAP 10 (5-15); CARBON DIOXIDE 22 mEQ/L (20-30); CHLORIDE 103 mEQ/L (98-107); CREATININE 0.8 mg/dL (0.7-1.2); GLOMERULAR FILTRATION RATE > 60 mL/min (>60); HEMOLYSIS 3; POTASSIUM 4.3 mEQ/L (3.4-4.9); SODIUM 135 mEQ/L (135-145)
[2017-01-12 08:00] VITALS: BP 100/63
[2017-01-12 08:45] LABS: ANISOCYTOSIS 1+; BAND NEUTROPHILS % (MANUAL) 0 % (0-8); BASOPHILS % (MANUAL) 1 % (0-2); EOSINOPHILS % (MANUAL) 10 % (0-3); HYPOCHROMASIA 2+; LYMPHOCYTES % (MANUAL) 19 % (20-45); NEUTROPHILS % (MANUAL) 55 % (45-75); PLATELET ESTIMATE DECREASED; TOTAL CELLS COUNTED 100
[2017-01-12 08:46] LABS: PLATELET MORPHOLOGY NORMAL
[2017-01-12] MEDS: Rifaximin 550mg tab ORAL SCH (08:52)
[2017-01-12] MEDS: Furosemide 40mg tab ORAL SCH (08:52)
--- NOTE | 2017-01-12 10:16 | GI Progress Note ---
Assessment/Plan Problems: (1) End stage liver disease ICD Codes: K72.90 - Hepatic failure, unspecified without coma SNOMED: 374509194 (2) Ascites ICD Codes: R18.8 - Other ascites SNOMED: 790166320 Status: stable, unchanged Status Narrative Discussed with Dr. Hidalgo. Assessment/Plan S/P Paracentesis >> r/o SBP S/P EGD SUMMARY OF FINDINGS: 1. Distal esophageal varices grade 2 without any stigmata. 2. Portal hypertensive gastropathy, moderate. 3. Lesion in the pre-pyloric area, see above for details, status post biopsy. 4. Pathology >> moderate anemia, thrombocytopenia RECOMMENDATIONS: - Follow up biopsies and treat accordingly. - We will increase the Lasix and Aldactone, Lasix to 40 and Aldactone to 100. - The patient, at this time, is not a candidate for propranolol given the pulse rate of 60s. - Continue on lactulose. Subjective Gastrointestinal/Abdominal: Reports: abdomen distended Objective Last 24 Hour Vital Signs Date Time Temp Pulse Resp B/P Pulse Ox O2 Delivery O2 Flow Rate FiO2 01/12/17 08:00 98.1 74 20 100/63 99 Room Air 01/12/17 07:33 72 18 Room Air 21 01/12/17 05:09 70 100/42 01/12/17 04:34 97.7 70 17 100/42 98 Room Air 01/11/17 23:49 98.2 81 18 100/62 96 Room Air 01/11/17 21:16 78 123/69 01/11/17 20:00 97.7 78 20 123/69 96 Room Air 01/11/17 20:00 78 20 Room Air 21 01/11/17 15:41 97.6 71 19 118/63 99 Room Air 01/11/17 14:00 70 96/57 01/11/17 11:28 97.3 70 19 96/57 100 Room Air Intake and Output 01/11/17 01/12/17 19:00 07:00 Intake Total 915 ml 110 ml Output Total 200 ml Balance 715 ml 110 ml Intake Oral 760 ml IV Total 155 ml 110 ml Output Urine Total 200 ml # Voids 4 3 # Bowel Movements 1 1 Laboratory Tests Test 01/12/17 05:20 White Blood Count 5.0 K/UL (4.8-10.8) Red Blood Count 3.07 M/UL (4.70-6.10) L Hemoglobin 9.8 G/DL (14.2-18.0) L Hematocrit 30.0 % (42.0-52.0) L Mean Corpuscular Volume 98 FL (80-99) Mean Corpuscular Hemoglobin 32.1 PG (27.0-31.0) H Mean Corpuscular Hemoglobin Concent 32.8 G/DL (32.0-36.0) Red Cell Distribution Width 13.7 % (11.6-14.8) Platelet Count 99 K/UL (150-450) L Mean Platelet Volume 7.7 FL (6.5-10.1) Neutrophils (%) (Auto) % (45.0-75.0) Lymphocytes (%) (Auto) % (20.0-45.0) Monocytes (%) (Auto) % (1.0-10.0) Eosinophils (%) (Auto) % (0.0-3.0) Basophils (%) (Auto) % (0.0-2.0) Differential Total Cells Counted 100 Neutrophils % (Manual) 55 % (45-75) Lymphocytes % (Manual) 19 % (20-45) L Monocytes % (Manual) 15 % (1-10) H Eosinophils % (Manual) 10 % (0-3) H Basophils % (Manual) 1 % (0-2) Band Neutrophils 0 % (0-8) Platelet Estimate Decreased L Platelet Morphology Normal Hypochromasia 2+ Anisocytosis 1+ Sodium Level 135 mEQ/L (135-145) Potassium Level 4.3 mEQ/L (3.4-4.9) Chloride Level 103 mEQ/L (98-107) Carbon Dioxide Level 22 mEQ/L (20-30) Anion Gap 10 (5-15) Blood Urea Nitrogen 17 mg/dL (7-23) Creatinine 0.8 mg/dL (0.7-1.2) Estimat Glomerular Filtration Rate > 60 mL/min (>60) Glucose Level 93 mg/dL (74-106) Calcium Level 8.0 mg/dL (8.6-10.2) L Height (Feet): 5 Height (Inches): 5.00 Weight (Pounds): 250 General Appearance: no apparent distress, alert Cardiovascular: normal rate Respiratory/Chest: normal breath sounds, no respiratory distress Abdominal Exam: distended, hepatomegaly, ascites Teresa Jackson N.P. January 12, 2017 10:16
[2017-01-12] MEDS: Spironolactone 50mg tab ORAL SCH (10:59)
--- NOTE | 2017-01-12 11:21 | Infectious Diseases Prog Note ---
Assessment/Plan Problems: (1) Ascites Assessment & Plan: S/P paracentesis, continue diuresis, monitor daily weight (2) End stage liver disease Assessment & Plan: S/P EGD, with liver cirrhosis, avoid nephrotoxic meds, follow up with GI (3) Esophageal varices without bleeding Assessment & Plan: S/P EGD, stable, continue PPI, follow up with GI Assessment/Plan urine analysis showed no evidence of infection, so no need for antibiotics for now Subjective Constitutional: Reports: no symptoms Cardiovascular: Reports: no symptoms Gastrointestinal/Abdominal: Reports: bloating Genitourinary: Reports: no symptoms Neurologic: Reports: no symptoms Psychiatric: Reports: no symptoms Skin: Reports: no symptoms Allergies: Coded Allergies: No Known Allergies (Unverified , 01/08/17) Objective Vital Signs Last 24 Hour Vital Signs Date Time Temp Pulse Resp B/P Pulse Ox O2 Delivery O2 Flow Rate FiO2 01/12/17 08:00 98.1 74 20 100/63 99 Room Air 01/12/17 07:33 72 18 Room Air 21 01/12/17 05:09 70 100/42 01/12/17 04:34 97.7 70 17 100/42 98 Room Air 01/11/17 23:49 98.2 81 18 100/62 96 Room Air 01/11/17 21:16 78 123/69 01/11/17 20:00 97.7 78 20 123/69 96 Room Air 01/11/17 20:00 78 20 Room Air 21 01/11/17 15:41 97.6 71 19 118/63 99 Room Air 01/11/17 14:00 70 96/57 01/11/17 11:28 97.3 70 19 96/57 100 Room Air Height (Feet): 5 Height (Inches): 5.00 Weight (Pounds): 250 General Appearance: WD/WN, no acute distress HEENT: normocephalic, atraumatic, anicteric, mucous membranes moist Respiratory/Chest: chest wall non-tender, lungs clear, normal breath sounds, no respiratory distress Cardiovascular: normal peripheral pulses, normal rate, regular rhythm, no gallop/murmur Abdomen: soft, non tender, no mass, no scars, hypoactive bowel sounds, distended Extremities: no cyanosis, no clubbing Skin: no rash, no lesions Microbiology Date/Time Source Procedure Growth Status 01/10/17 15:30 Abdominal Fluid Gram Stain - Final Resulted 01/10/17 15:30 Abdominal Fluid Body Fluid Culture - Preliminary NO GROWTH AFTER 24 HOURS Resulted Laboratory Tests Test 01/12/17 05:20 White Blood Count 5.0 K/UL (4.8-10.8) Red Blood Count 3.07 M/UL (4.70-6.10) L Hemoglobin 9.8 G/DL (14.2-18.0) L Hematocrit 30.0 % (42.0-52.0) L Mean Corpuscular Volume 98 FL (80-99) Mean Corpuscular Hemoglobin 32.1 PG (27.0-31.0) H Mean Corpuscular Hemoglobin Concent 32.8 G/DL (32.0-36.0) Red Cell Distribution Width 13.7 % (11.6-14.8) Platelet Count 99 K/UL (150-450) L Mean Platelet Volume 7.7 FL (6.5-10.1) Neutrophils (%) (Auto) % (45.0-75.0) Lymphocytes (%) (Auto) % (20.0-45.0) Monocytes (%) (Auto) % (1.0-10.0) Eosinophils (%) (Auto) % (0.0-3.0) Basophils (%) (Auto) % (0.0-2.0) Differential Total Cells Counted 100 Neutrophils % (Manual) 55 % (45-75) Lymphocytes % (Manual) 19 % (20-45) L Monocytes % (Manual) 15 % (1-10) H Eosinophils % (Manual) 10 % (0-3) H Basophils % (Manual) 1 % (0-2) Band Neutrophils 0 % (0-8) Platelet Estimate Decreased L Platelet Morphology Normal Hypochromasia 2+ Anisocytosis 1+ Sodium Level 135 mEQ/L (135-145) Potassium Level 4.3 mEQ/L (3.4-4.9) Chloride Level 103 mEQ/L (98-107) Carbon Dioxide Level 22 mEQ/L (20-30) Anion Gap 10 (5-15) Blood Urea Nitrogen 17 mg/dL (7-23) Creatinine 0.8 mg/dL (0.7-1.2) Estimat Glomerular Filtration Rate > 60 mL/min (>60) Glucose Level 93 mg/dL (74-106) Calcium Level 8.0 mg/dL (8.6-10.2) L Current Medications Medications (Trade) Dose Ordered Sig/Josse Route PRN Reason Start Time Stop Time Status Last Admin Dose Admin Al Hydroxide/Mg Hydroxide (Mylanta II) 30 ml Q6H PRN ORAL dyspepsia 01/10/17 19:00 02/09/17 18:59 Albuterol/ Ipratropium (DuoNeb 0.5-3(2.5)mg/3ml) 3 ml Q4H PRN HHN Shortness of Breath 01/10/17 19:00 01/15/17 18:59 Cefepime HCl/ Dextrose (Maxipime/D5W) 55 ml @ 110 mls/hr EVERY 8 HOURS IV 01/10/17 22:00 01/17/17 21:59 01/12/17 05:09 Dextrose (Dextrose 50%) STAT PRN IV Hypoglycemia 01/10/17 19:00 02/09/17 18:59 Ferrous Sulfate (Feosol) 325 mg THREE TIMES A DAY ORAL 01/11/17 09:00 02/10/17 08:59 01/12/17 08:51 Folic Acid (Folate) 1 mg DAILY ORAL 01/11/17 09:00 02/10/17 08:59 01/12/17 08:52 Furosemide (Lasix) 40 mg DAILY ORAL 01/11/17 09:00 02/10/17 08:59 01/12/17 08:52 Lactulose (Cephulac) 30 gm EVERY 6 HOURS ORAL 01/11/17 00:00 02/10/17 00:00 01/11/17 23:28 Lorazepam (Ativan 2mg/ml 1ml) 0.5 mg Q4H PRN IV For Anxiety 01/10/17 19:00 01/17/17 18:59 Morphine Sulfate (Morphine Sulfate) 2 mg Q4H PRN IVP For Pain 01/10/17 19:00 01/17/17 18:59 Ondansetron HCl (Zofran) 4 mg Q6H PRN IVP Nausea & Vomiting 01/10/17 19:00 02/09/17 18:59 Pantoprazole (Protonix) 40 mg EVERY 12 HOURS ORAL 01/10/17 21:00 02/09/17 20:59 01/12/17 08:51 Polyethylene Glycol (Miralax) 17 gm HSPRN PRN ORAL Constipation 01/10/17 19:00 02/09/17 18:59 Propranolol HCl (Inderal) 10 mg Q8HR ORAL 01/10/17 22:00 02/09/17 21:59 01/11/17 21:16 Rifaximin (Xifaxan) 550 mg EVERY 12 HOURS ORAL 01/10/17 21:00 01/17/17 20:59 01/12/17 08:52 Spironolactone (Aldactone) 100 mg DAILY ORAL 01/11/17 09:00 02/10/17 08:59 01/12/17 10:59 Zolpidem Tartrate (Ambien) 5 mg HSPRN PRN ORAL Insomnia 01/10/17 21:00 02/09/17 20:59 Amanda Ingram M.D. January 12, 2017 11:21
[2017-01-12 12:00] VITALS: BP 113/79
--- NOTE | 2017-01-12 14:54 | General Progress Note ---
Assessment/Plan Problem List: (1) Ascites ICD Codes: R18.8 - Other ascites SNOMED: 830254241 (2) Respiratory distress ICD Codes: R06.00 - Dyspnea, unspecified SNOMED: 414532915 (3) End stage liver disease ICD Codes: K72.90 - Hepatic failure, unspecified without coma SNOMED: 759032947 Status: stable, progressing, tolerating diet Assessment/Plan ot pt diet gi f/u dc if clear Subjective Constitutional: Reports: weakness Allergies: Coded Allergies: No Known Allergies (Unverified , 01/08/17) All Systems: reviewed and negative except above Subjective sitting calm c/o abd swelling Objective Last 24 Hour Vital Signs Date Time Temp Pulse Resp B/P Pulse Ox O2 Delivery O2 Flow Rate FiO2 01/12/17 12:00 97.5 63 24 113/79 99 Room Air 01/12/17 08:00 98.1 74 20 100/63 99 Room Air 01/12/17 07:33 72 18 Room Air 21 01/12/17 05:09 70 100/42 01/12/17 04:34 97.7 70 17 100/42 98 Room Air 01/11/17 23:49 98.2 81 18 100/62 96 Room Air 01/11/17 21:16 78 123/69 01/11/17 20:00 97.7 78 20 123/69 96 Room Air 01/11/17 20:00 78 20 Room Air 21 01/11/17 15:41 97.6 71 19 118/63 99 Room Air Intake and Output 01/11/17 01/12/17 19:00 07:00 Intake Total 915 ml 110 ml Output Total 200 ml Balance 715 ml 110 ml Intake Oral 760 ml IV Total 155 ml 110 ml Output Urine Total 200 ml # Voids 4 3 # Bowel Movements 1 1 Laboratory Tests 01/12/17 05:20: White Blood Count 5.0, Red Blood Count 3.07L, Hemoglobin 9.8L, Hematocrit 30.0L , Mean Corpuscular Volume 98, Mean Corpuscular Hemoglobin 32.1H, Mean Corpuscular Hemoglobin Concent 32.8, Red Cell Distribution Width 13.7, Platelet Count 99L, Mean Platelet Volume 7.7, Neutrophils (%) (Auto) , Lymphocytes (%) ( Auto) , Monocytes (%) (Auto) , Eosinophils (%) (Auto) , Basophils (%) (Auto) , Differential Total Cells Counted 100, Neutrophils % (Manual) 55, Lymphocytes % ( Manual) 19L, Monocytes % (Manual) 15H, Eosinophils % (Manual) 10H, Basophils % ( Manual) 1, Band Neutrophils 0, Platelet Estimate DecreasedL, Platelet Morphology Normal, Hypochromasia 2+, Anisocytosis 1+, Sodium Level 135, Potassium Level 4.3, Chloride Level 103, Carbon Dioxide Level 22, Anion Gap 10, Blood Urea Nitrogen 17, Creatinine 0.8, Estimat Glomerular Filtration Rate > 60 , Glucose Level 93, Calcium Level 8.0L Height (Feet): 5 Height (Inches): 5.00 Weight (Pounds): 250 General Appearance: alert EENT: normal ENT inspection Neck: normal alignment Cardiovascular: normal peripheral pulses, normal rate, regular rhythm Respiratory/Chest: chest wall non-tender, lungs clear, normal breath sounds Abdomen: non tender, soft, hypoactive bowel sounds, distended Extremities: normal inspection Edema: 1+ Arm (L), 1+ Arm (R), 1+ Leg (L), 1+ Leg (R), 1+ Pedal (L), 1+ Pedal ( R), 1+ Generalized Edema: trace edema Neurologic: motor weakness Skin: normal pigmentation, warm/dry ANGEL BHAKTA January 12, 2017 14:54
[2017-01-12] MEDS ORDERED: LACTULOSE20 GM/301 ORAL (15:39)
[2017-01-12 16:00] VITALS: BP 91/48
--- NOTE | 2017-01-12 16:06 | General Progress Note ---
Assessment/Plan Assessment/Plan IMPRESSION: 1. Anemia of chronic disease. Currently h.h has been stable 2. Anemia rule out Gi bleed 3. Bilirubinemia. 4. Elevated liver function tests. 5. Hepatic encephalopathy. 6. Liver cirrhosis. 7. Ascites. 8. Shortness of breath. 9. Urinary tract infection. 10. Failure to thrive. RECOMMENDATION: 1. Watch count. 2. Watch coagulopathy. 3. PRBC transfusion on a p.r.n. basis. 4. Hepatitis panel is negative 5. s/p paracentesis 6. GI followup as outpatient 7. Skin care. 8. Nutrition. 9. Close followup Subjective Constitutional: Denies: chills, diaphoresis, fever, malaise, no symptoms, other , weakness HEENT: Denies: blurred vision, double vision, ear discharge, ear pain, eye pain , mouth pain, mouth swelling, no symptoms, nose congestion, nose pain, other, tearing, throat pain, throat swelling Cardiovascular: Denies: chest pain, edema, irregular heart rate, lightheadedness, no symptoms, other, palpitations, syncope Respiratory: Denies: SOB at rest, SOB with excertion, cough, no symptoms, orthopnea, other, shortness of breath, sputum, stridor, wheezing Gastrointestinal/Abdominal: Denies: abdomen distended, abdominal pain, black stools, blood in stool, constipated, diarrhea, difficulty swallowing, nausea, no symptoms, other, poor appetite, poor fluid intake, rectal bleeding, tarry stools, vomiting Genitourinary: Denies: burning, discharge, flank pain, frequency, hematuria, incontinence, no symptoms, other, pain, urgency Neurologic/Psychiatric: Denies: anxiety, depressed, emotional problems, headache, no symptoms, numbness, other, paresthesia, pre-existing deficit, seizure, tingling, tremors, weakness Endocrine: Denies: excessive sweating, flushing, increased hunger, increased thirst, increased urine, intolerance to cold, intolerance to heat, no symptoms, other, unexplained weight gain, unexplained weight loss Hematologic/Lymphatic: Denies: anemia, easy bleeding, easy bruising, no symptoms, other Allergies: Coded Allergies: No Known Allergies (Unverified , 01/08/17) Subjective para completed, remains tired Objective Last 24 Hour Vital Signs Date Time Temp Pulse Resp B/P Pulse Ox O2 Delivery O2 Flow Rate FiO2 01/12/17 14:00 63 113/79 01/12/17 12:00 97.5 63 24 113/79 99 Room Air 01/12/17 08:00 98.1 74 20 100/63 99 Room Air 01/12/17 07:33 72 18 Room Air 21 01/12/17 05:09 70 100/42 01/12/17 04:34 97.7 70 17 100/42 98 Room Air 01/11/17 23:49 98.2 81 18 100/62 96 Room Air 01/11/17 21:16 78 123/69 01/11/17 20:00 97.7 78 20 123/69 96 Room Air 01/11/17 20:00 78 20 Room Air 21 Intake and Output 01/11/17 01/12/17 19:00 07:00 Intake Total 915 ml 110 ml Output Total 200 ml Balance 715 ml 110 ml Intake Oral 760 ml IV Total 155 ml 110 ml Output Urine Total 200 ml # Voids 4 3 # Bowel Movements 1 1 Laboratory Tests 01/12/17 05:20: White Blood Count 5.0, Red Blood Count 3.07L, Hemoglobin 9.8L, Hematocrit 30.0L , Mean Corpuscular Volume 98, Mean Corpuscular Hemoglobin 32.1H, Mean Corpuscular Hemoglobin Concent 32.8, Red Cell Distribution Width 13.7, Platelet Count 99L, Mean Platelet Volume 7.7, Neutrophils (%) (Auto) , Lymphocytes (%) ( Auto) , Monocytes (%) (Auto) , Eosinophils (%) (Auto) , Basophils (%) (Auto) , Differential Total Cells Counted 100, Neutrophils % (Manual) 55, Lymphocytes % ( Manual) 19L, Monocytes % (Manual) 15H, Eosinophils % (Manual) 10H, Basophils % ( Manual) 1, Band Neutrophils 0, Platelet Estimate DecreasedL, Platelet Morphology Normal, Hypochromasia 2+, Anisocytosis 1+, Sodium Level 135, Potassium Level 4.3, Chloride Level 103, Carbon Dioxide Level 22, Anion Gap 10, Blood Urea Nitrogen 17, Creatinine 0.8, Estimat Glomerular Filtration Rate > 60 , Glucose Level 93, Calcium Level 8.0L Height (Feet): 5 Height (Inches): 5.00 Weight (Pounds): 250 General Appearance: no apparent distress EENT: normal ENT inspection Neck: normal alignment Cardiovascular: regular rhythm Respiratory/Chest: lungs clear Abdomen: non tender Extremities: non-tender Edema: 1+ Leg (L), 1+ Leg (R) Edema: mild edema Neurologic: alert Skin: warm/dry Kvng Siegel January 12, 2017 16:06
--- NOTE | 2017-01-12 16:21 | Pulmonology Progress Note ---
Assessment/Plan Problems: (1) Ascites (2) End stage liver disease Assessment/Plan paracentesis done dc home social service consult r Subjective Allergies: Coded Allergies: No Known Allergies (Unverified , 01/08/17) Objective Last 24 Hour Vital Signs Date Time Temp Pulse Resp B/P Pulse Ox O2 Delivery O2 Flow Rate FiO2 01/12/17 14:00 63 113/79 01/12/17 12:00 97.5 63 24 113/79 99 Room Air 01/12/17 08:00 98.1 74 20 100/63 99 Room Air 01/12/17 07:33 72 18 Room Air 21 01/12/17 05:09 70 100/42 01/12/17 04:34 97.7 70 17 100/42 98 Room Air 01/11/17 23:49 98.2 81 18 100/62 96 Room Air 01/11/17 21:16 78 123/69 01/11/17 20:00 97.7 78 20 123/69 96 Room Air 01/11/17 20:00 78 20 Room Air 21 Intake and Output 01/11/17 01/12/17 19:00 07:00 Intake Total 915 ml 110 ml Output Total 200 ml Balance 715 ml 110 ml Intake Oral 760 ml IV Total 155 ml 110 ml Output Urine Total 200 ml # Voids 4 3 # Bowel Movements 1 1 Objective General Appearance: WD/WN HEENT: normocephalic Respiratory/Chest: chest wall non-tender, lungs clear Cardiovascular: normal peripheral pulses, regular rhythm Abdomen: distended, Extremities: no cyanosis, no clubbing, + edema Skin: no rash Lymphatic: no neck adenopathy, no groin adenopathy Microbiology Date/Time Source Procedure Growth Status 01/10/17 15:30 Abdominal Fluid Gram Stain - Final Resulted 01/10/17 15:30 Abdominal Fluid Body Fluid Culture - Preliminary NO GROWTH AFTER 24 HOURS Resulted Laboratory Tests 01/12/17 05:20: White Blood Count 5.0, Red Blood Count 3.07L, Hemoglobin 9.8L, Hematocrit 30.0L , Mean Corpuscular Volume 98, Mean Corpuscular Hemoglobin 32.1H, Mean Corpuscular Hemoglobin Concent 32.8, Red Cell Distribution Width 13.7, Platelet Count 99L, Mean Platelet Volume 7.7, Neutrophils (%) (Auto) , Lymphocytes (%) ( Auto) , Monocytes (%) (Auto) , Eosinophils (%) (Auto) , Basophils (%) (Auto) , Differential Total Cells Counted 100, Neutrophils % (Manual) 55, Lymphocytes % ( Manual) 19L, Monocytes % (Manual) 15H, Eosinophils % (Manual) 10H, Basophils % ( Manual) 1, Band Neutrophils 0, Platelet Estimate DecreasedL, Platelet Morphology Normal, Hypochromasia 2+, Anisocytosis 1+, Sodium Level 135, Potassium Level 4.3, Chloride Level 103, Carbon Dioxide Level 22, Anion Gap 10, Blood Urea Nitrogen 17, Creatinine 0.8, Estimat Glomerular Filtration Rate > 60 , Glucose Level 93, Calcium Level 8.0L Current Medications Medications (Trade) Dose Ordered Sig/Josse Route PRN Reason Start Time Stop Time Status Last Admin Dose Admin Al Hydroxide/Mg Hydroxide (Mylanta II) 30 ml Q6H PRN ORAL dyspepsia 01/10/17 19:00 02/09/17 18:59 Albuterol/ Ipratropium (DuoNeb 0.5-3(2.5)mg/3ml) 3 ml Q4H PRN HHN Shortness of Breath 01/10/17 19:00 01/15/17 18:59 Dextrose (Dextrose 50%) STAT PRN IV Hypoglycemia 01/10/17 19:00 02/09/17 18:59 Ferrous Sulfate (Feosol) 325 mg THREE TIMES A DAY ORAL 01/11/17 09:00 02/10/17 08:59 01/12/17 13:24 Folic Acid (Folate) 1 mg DAILY ORAL 01/11/17 09:00 02/10/17 08:59 01/12/17 08:52 Furosemide (Lasix) 40 mg DAILY ORAL 01/11/17 09:00 02/10/17 08:59 01/12/17 08:52 Lactulose (Cephulac) 30 gm EVERY 6 HOURS ORAL 01/11/17 00:00 02/10/17 00:00 01/12/17 13:24 Lorazepam (Ativan 2mg/ml 1ml) 0.5 mg Q4H PRN IV For Anxiety 01/10/17 19:00 01/17/17 18:59 Morphine Sulfate (Morphine Sulfate) 2 mg Q4H PRN IVP For Pain 01/10/17 19:00 01/17/17 18:59 Ondansetron HCl (Zofran) 4 mg Q6H PRN IVP Nausea & Vomiting 01/10/17 19:00 02/09/17 18:59 Pantoprazole (Protonix) 40 mg EVERY 12 HOURS ORAL 01/10/17 21:00 02/09/17 20:59 01/12/17 08:51 Polyethylene Glycol (Miralax) 17 gm HSPRN PRN ORAL Constipation 01/10/17 19:00 02/09/17 18:59 Propranolol HCl (Inderal) 10 mg Q8HR ORAL 01/10/17 22:00 02/09/17 21:59 01/11/17 21:16 Rifaximin (Xifaxan) 550 mg EVERY 12 HOURS ORAL 01/10/17 21:00 01/17/17 20:59 01/12/17 08:52 Spironolactone (Aldactone) 100 mg DAILY ORAL 01/11/17 09:00 02/10/17 08:59 01/12/17 10:59 Zolpidem Tartrate (Ambien) 5 mg HSPRN PRN ORAL Insomnia 01/10/17 21:00 02/09/17 20:59 JUANCARLOS ONEAL January 12, 2017 16:21
[2017-01-12 18:10] LABS: PROTEIN, BODY FLUID 1.1 g/dL (.)
--- NOTE | 2017-01-13 00:49 | Consultation ---
DATE OF CONSULTATION: 01/12/2017 INFECTIOUS DISEASES CONSULTATION CONSULTING PHYSICIAN: Amanda Ingram M.D. REQUESTING PHYSICIAN: Higinio Moon D.O. REASON FOR CONSULTATION: Clearance for infection to be discharged home. HISTORY OF PRESENT ILLNESS: The patient is a 51-year-old male, brought in via paramedics for shortness of breath and worsening ascites due to liver cirrhosis. The patient had a chronic ascites, which he has been getting intermittent paracentesis for. He noticed increased distention of his abdomen with wheezing. He received nebulizer treatment by paramedics and improved. The patient was saturating well on room air upon arrival to the emergency room 97%, afebrile. The patient's white count was normal at 6.5. Urinalysis did not show evidence of infection. The patient was started empirically on cefepime by the nurse recruiter and admitted to the hospital for evaluation and management. He underwent paracentesis with fluid analysis not suggestive of any peritonitis. His fluid from the ascites Gram stained and culture has been negative for 24 hours. The patient has been on cefepime for 4 days already. There is no evidence of peritonitis or urinary tract infection. So, I was consulted by Dr. Higinio Moon for possible discontinuation of his antibiotics if he does not need any. PAST MEDICAL HISTORY: Significant for chronic liver cirrhosis, ascites, and asthma. PAST SURGICAL HISTORY: Negative. ALLERGIES: He has no known drug allergy. MEDICATIONS: The patient has been on cefepime since the admission date. For the rest of his medications, please refer to MAR. SOCIAL HISTORY: The patient lives with family. Unemployed. Denied using any drugs, tobacco, or alcohol. REVIEW OF SYSTEMS: A 12-point of systems reviewed were all negative apart from the one I mentioned above in my History and Physical. PHYSICAL EXAMINATION: VITAL SIGNS: Temperature 97.7 degrees, pulse 78, respirations 20, blood pressure 123/69, and saturation 96% on room air. GENERAL: The patient is a middle-aged male, lying in bed, comfortable, awake, alert, oriented, and not in distress. HEENT: Normocephalic and atraumatic. Pupils are reactive to light. Moist oral mucosa. No exudate. NECK: Supple. No lymphadenopathy. CARDIOVASCULAR: Regular rate and rhythm. No murmur. LUNGS: Clear bilaterally. No wheezing. No rhonchi. No respiratory distress. ABDOMEN: Soft, nontender, and nondistended. Positive bowel sounds. No hepatosplenomegaly. Has trace ascites. EXTREMITIES: No edema. No cyanosis. LABORATORY AND DIAGNOSTIC DATA: Showed white count of 4.2, hemoglobin of 11, and platelet count of 104,000. BUN of 17 and creatinine of 0.8. Urinalysis showed +1 leukocyte esterase, 0 to 2 WBC, and few bacteria. Paracentesis fluid analysis showed yellow appearance, red blood cells of 29, and total nucleated cells of 32. Serology showed negative hepatitis A, B, and C antibody and negative human immunodeficiency virus screening. Imaging included abdominal ultrasound, which showed chronic liver disease, cirrhosis, stigmata of portal hypertension including a trace ascites and splenomegaly, thickened gallbladder wall, nonspecific. Abdominal x-ray showed no acute finding appreciated. ASSESSMENT AND PLAN: 1. Ascites, recurrent, status post paracentesis. Fluid analysis is not suggestive of infection. The patient already received four days of cefepime. Recommend to stop at this point. No evidence of peritonitis. Gram stain and culture so far negative. 2. Chronic liver cirrhosis. Continue diuresis and supportive care. Avoid hepatotoxic medicine. 3. Esophageal varices with no stigmata of bleeding, status post esophagogastroduodenoscopy, stable. Continue proton pump inhibitor. Follow up with Gastroenterology. As of note, no evidence of urinary tract infection to treat with antibiotics. We will stop cefepime at this point. Amanda Ingram M.D. DR: CRESCENCIO JOB#: [id number] CC:
--- NOTE | 2017-01-13 14:53 | Discharge Summary ---
Discharge Summary Hospital Course Date of Admission January 08, 2017 at 19:50 Date of Discharge January 12, 2017 at 16:30 Admitting Diagnosis tense ascites, shortness of breath HPI Maurisio Muro is a 51 year old male who was admitted on January 08, 2017 at 19: 50 for Tense Ascities/Shortness Of Breath Hospital Course [id number] Discharge Discharge Disposition Patient was discharged to [facility] Discharge Diagnoses: Mitali Farfan NP January 13, 2017 14:53
--- NOTE | 2017-01-14 04:28 | Discharge Summary 2 SIG ---
DATE OF ADMISSION: 01/08/2017 DATE OF DISCHARGE: 01/12/2017 CONSULTANTS: 1. Ryan Santana M.D. 2. Amanda Ingram M.D. 3. Kvng Siegel M.D. 4. Soto Hidalgo M.D. BRIEF HOSPITAL COURSE: The patient is a 51-year-old male with history of cirrhosis, came to [facility] with increased shortness of breath and abdominal distention. The patient has a history of ascites for which he has intermittent paracentesis. On evaluation at ED, KUB showed multiple dilated loops of bowel without evident obstruction. The patient had a large amount of abdominal distention and was started on Lasix as well as lactulose. He was admitted for further management and was followed by Dr. Hidalgo. He was continued on lactulose and Xifaxan and propranolol. Abdominal ultrasound showed chronic liver disease/cirrhosis with stigmata of portal hypertension including ascites and splenomegaly. Dr. Siegel was consulted for evaluation of anemia and thrombocytopenia. Hemoglobin and hematocrit had been stable. Anemia was secondary to chronic disease. He underwent an upper endoscopy on 01/11/[address] Hidalgo with findings of distal esophageal varices grade 2 and portal hypertensive gastropathy and findings of lesion in the pre-pyloric area status post biopsy. Lasix was increased to 40 mg. Aldactone was increased to 100 mg. The patient is not good candidate to continue propranolol secondary to low heart rate. The patient had paracentesis. Gram stain of the fluid culture did not isolate any growth. Dr. Ingram was consulted for clearance prior to discharge. The patient has already received four days of cefepime. There was no evidence of peritonitis with Gram stain and culture of the bloody fluid are negative. There was also no evidence of urinary tract infection. Cefepime was then ordered to be discontinued and the patient was cleared for discharge home. DISPOSITION: The patient was discharged to [facility]. FINAL DIAGNOSES: 1. Recurrent ascites secondary to chronic liver cirrhosis status post paracentesis. 2. Esophageal varices. 3. Gastritis. 4. Anemia of chronic disease. 5. Urinary tract infection. 6. Hypertensive gastropathy. 7. Thrombocytopenia. Higinio Moon D.O. I have been assigned to dictate discharge summary on this account and I was not involved in the patient's management. Mitali Farfan N.P. DR: ACE JOB#: [id number] CC: ZOE
--- NOTE | 2017-01-14 09:41 | Diagnostic Imaging Report ---
Indications: Tense abdominal distention, recurrent ascites. Technique: Procedure, indications, risks and alternatives were explained to the patient who understands and gives consent to proceed. The abdomen and pelvis were surveyed sonographically. The skin over the right lower quadrant was sterilely prepped and draped in usual fashion. Skin and subcutaneous soft tissues were infiltrated with 1% lidocaine and sodium bicarbonate. A small dermatotomy was made, through which an 8 Italian paracentesis catheter was advanced under direct sonographic guidance into the peritoneal cavity. Ascites was maximally drained into vacuum bottles. Followup imaging was performed. Catheter was removed. Dermatotomy site was manually compressed to achieve stasis, then cleansed and bandaged. Patient tolerated the procedure well without immediate complications. Findings: Initial imaging demonstrates a large amount of ascites throughout the abdomen and pelvis. Post procedure imaging demonstrates near complete resolution of ascites. Paracentesis yields approximately 11.1 L of clear yellow fluid. IMPRESSION: Ultrasound-guided paracentesis yielding 1.1 L of ascites.
== END 2017-01-12 16:30 | disposition short-term general hospital (02) | DRG 279 ==
LOC: EDBD 16:02 → EMR 16:20 → 2E 19:50 → EDBEDREQSVC 21:41 → EDBEDREQ 21:41 → 4E 01-10 18:43
PROC: 0W9G3ZZ Drainage of Peritoneal Cavity, Percutaneous Approach (ICD-10-PCS; principal; 2017-01-10)
PROC: 0DB78ZX Excision of Stomach, Pylorus, Via Natural or Artificial Opening Endoscopic, Diagnostic (ICD-10-PCS; 2017-01-11)
DX: K72.90 Hepatic failure, unspecified without coma (principal); R18.8 Other ascites; I85.00 Esophageal varices without bleeding; N39.0 Urinary tract infection, site not specified; D69.6 Thrombocytopenia, unspecified; K74.69 Other cirrhosis of liver; K76.6 Portal hypertension; D63.8 Anemia in other chronic diseases classified elsewhere; R62.7 Adult failure to thrive; K31.89 Other diseases of stomach and duodenum; R06.02 Shortness of breath
CPT/HCPCS: 36415; 74000; 76700; 76942; 80048; 80053; 80061; 81003; 82105; 82140; 82248; 82270; 82378; 82607; 82728; 82746; 83540; 83550; 83690; 83735; 84100; 84153; 84443; 85007; 85025; 85044; 85060; 85610; 85730; 86301; 86703; 86705; 86709; 86803; 87070; 87081; 87205; 87340; 89050; 93005; 93970; 94003; 94150; 94640; 94664; 97803; J2250

== ENCOUNTER 2017-01-16 21:49 | Emergency (ER) | payer MEDICAID ==
[~2017-01-16] VITALS: Ht 162.6 cm; Wt 127.0 kg
[~2017-01-16 21:49] MED LIST changes: +ACETAMINOPHEN325 M1 ORAL; +FERROUS SULFAT325 M2 ORAL; +FOLIC ACID0.4 MG ORAL; +IRON325 M1 PO; +LACTULOSE20 GM/301 ORAL; +PANTOPRAZOLE SO40 MG ORAL; +SPIRONOLACTONE100 MG ORAL
[2017-01-16 23:35] VITALS: BP 117/93
--- NOTE | 2017-01-16 23:51 | Emergency Room Report ---
History of Present Illness General Chief Complaint: Abdominal Pain Source: Patient, Medical Record, EMS Present Illness HPI This is a 51-year-old male with history of alcoholic cirrhosis and ascites. He was just admitted here last week for ascites. He has not taking any medication because he said he couldn't afford it. He presents with increasing abdominal distention and shortness of breath. No fever chills but no trauma. Similar presentation in the past. Denies any other complaint. Allergies: Coded Allergies: No Known Allergies (Unverified , 01/16/17) Patient History Past Medical History: see triage record, old chart reviewed Past Surgical History: other Pertinent Family History: none Social History: Denies: alcohol use - History of Immunizations: other Reviewed Nursing Documentation: PMH: Agreed, PSxH: Agreed Review of Systems Eye: Denies: blurred vision, eye pain ENT: Denies: ear pain, nose congestion, throat swelling Respiratory: Denies: cough, shortness of breath Cardiovascular: Denies: chest pain, palpitations Gastrointestinal: Denies: abdominal pain, diarrhea, nausea, vomiting Musculoskeletal: Denies: back pain, joint pain Skin: Denies: rash Neurological: Denies: headache, numbness Endocrine: Denies: increased thirst, increased urine Hematologic/Lymphatic: Denies: easy bruising All Other Systems: negative except mentioned in HPI Physical Exam Vital Signs Date Time Temp Pulse Resp B/P Pulse Ox O2 Delivery O2 Flow Rate FiO2 01/16/17 21:42 98.1 18 18 156/97 97 Room Air vitals with hypertension. this is 87 Sp02 EP Interpretation: reviewed, normal General Appearance: well appearing, no apparent distress, alert Head: normocephalic, atraumatic Eyes: bilateral eye EOMI, bilateral eye PERRL ENT: hearing grossly normal, normal pharynx Neck: full range of motion, supple, no meningismus Respiratory: chest non-tender, lungs clear, normal breath sounds Cardiovascular #1: regular rate, rhythm, no murmur Gastrointestinal: normal bowel sounds, non tender, no mass, no organomegaly, no bruit, distended - With ascites Musculoskeletal: back normal, gait/station normal, normal range of motion Neurologic: alert, oriented x3 Psychiatric: mood/affect normal Skin: warm/dry Procedures Additional Procedure Procedure Narrative Procedure: Paracentesis Indication: Severe ascites Description: Under sterile condition, I did a paracentesis in the right lower quadrant. Initially area clean with Betadine and then chlorhexidine. Local anesthetic with 1% lidocaine without epinephrine. I place a paracentesis catheter and aspirated straw-colored fluid. We will do a total of 8 liters. Patient felt better. No complication. Patient tolerated procedure without a problem. Medical Decision Making Diagnostic Impression: Primary Impression: Ascites of liver Additional Impression: Cirrhosis of liver with ascites Qualified Codes: K70.31 - Alcoholic cirrhosis of liver with ascites ER Course Patient here with alcoholic cirrhosis with tense ascites. Therapeutic paracentesis done by me. Patient tolerated procedure without a problem. We'll discharge home. Last Vital Signs Date Time Temp Pulse Resp B/P Pulse Ox O2 Delivery O2 Flow Rate FiO2 01/16/17 23:35 92 24 117/93 100 Room Air 01/16/17 21:42 98.1 Status: improved Disposition: HOME, SELF-CARE Condition: Stable Referrals: NOT CHOSEN IPA/,REFERRING (PCP) Additional Instructions: Followup with your Dr. in 7 days. Return if worse. EVIE PITTS M.D. January 16, 2017 23:51
[2017-01-17 00:23] VITALS: BP 117/93
== END 2017-01-17 00:23 | disposition home or self-care (01) ==
LOC: EDBD 21:49 → MERGE 22:19 → EMR 22:19
DX: R18.8 Other ascites (principal); K70.31 Alcoholic cirrhosis of liver with ascites
CPT/HCPCS: 49082; 99284; Z7502

== ENCOUNTER 2017-02-03 18:14 | Inpatient (IN) | payer MEDICAID ==
[~2017-02-03] VITALS: Ht 162.6 cm; Wt 113.4 kg
[2017-02-03] MEDS ORDERED: Morphine Sulfate 2mg/ml Inj IVP ONE (18:45)
[2017-02-03] MEDS ORDERED: UNOBMED (18:54)
[2017-02-03 19:11] VITALS: BP 100/54
[2017-02-03 19:36] LABS: BASOPHILS % (AUTO) 1.3 % (0.0-2.0); EOSINOPHILS % (AUTO) 3.8 % (0.0-3.0); LYMPHOCYTES % (AUTO) 10.4 % (20.0-45.0); MEAN CORPUSCULAR HEMOGLOBIN 33.6 PG (27.0-31.0); MEAN CORPUSCULAR HGB CONC 34.6 G/DL (32.0-36.0); MEAN CORPUSCULAR VOLUME 97 FL (80-99); MEAN PLATELET VOLUME 7.3 FL (6.5-10.1); MONOCYTES % (AUTO) 8.2 % (1.0-10.0); NEUTROPHILS % (AUTO) 76.4 % (45.0-75.0); PLATELET COUNT 128 K/UL (150-450); RED BLOOD COUNT 3.49 M/UL (4.70-6.10); RED CELL DISTRIBUTION WIDTH 13.8 % (11.6-14.8); WHITE BLOOD COUNT 5.8 K/UL (4.8-10.8)
[2017-02-03 19:37] LABS: AMMONIA 82 umol/L (16-60)
[2017-02-03 19:38] LABS: ALANINE AMINOTRANSFERASE 24 U/L (3-41); ALBUMIN/GLOBULIN RATIO 0.4 (1.0-2.7); ANION GAP 13 (5-15); ASPARTATE AMINO TRANSFERASE 45 U/L (5-40); CALCIUM 8.4 mg/dL (8.6-10.2); CARBON DIOXIDE 23 mEQ/L (20-30); CHLORIDE 99 mEQ/L (98-107); CREATININE 1.1 mg/dL (0.7-1.2); GLOMERULAR FILTRATION RATE > 60 mL/min (>60); HEMOLYSIS 4; LIPASE 33 U/L (< 60); POTASSIUM 5.1 mEQ/L (3.4-4.9); SODIUM 135 mEQ/L (135-145); TOTAL PROTEIN 7.5 g/dL (6.6-8.7)
[2017-02-03 19:43] LABS: INR 1.2 (0.9-1.1); PROTHROMBIN TIME 12.7 SEC (9.30-11.50)
[2017-02-03 20:18] LABS: BILIRUBIN,DIRECT 0.5 mg/dL (0.1-0.3)
[2017-02-03] MEDS ORDERED: Lidocaine 1% MPF 10mg/ml 5ml ONE (20:41)
[2017-02-03 21:27] VITALS: BP 106/66
--- NOTE | 2017-02-03 21:52 | Emergency Room Report ---
History of Present Illness General Chief Complaint: Abdominal Pain Source: Patient, EMS Present Illness HPI 51-year-old male presents ED prior with abdominal distention. Notes increasing pain starting today. Pain is sharp, 7/10, diffuse, nonradiating. No other aggravating relieving factors. Patient has history of cirrhosis and ascites. patient has been admitted in the past for cirrhosis. Denies fevers or chills. Denies nausea or vomiting. Denies chest pain or shortness of breath. No other aggravating relieving factors. Denies any other associated symptoms Allergies: Coded Allergies: No Known Allergies (Unverified , 01/08/17) Patient History Past Medical History: other - cirrhosis Past Surgical History: none Pertinent Family History: none Social History: Denies: alcohol use, drug use, smoking Immunizations: UTD Reviewed Nursing Documentation: PMH: Agreed, PSxH: Agreed Nursing Documentation-PMH Past Medical History: No History, Except For Hx Gastrointestinal Problems: Yes - cirrhois Review of Systems All Other Systems: negative except mentioned in HPI Physical Exam Vital Signs Date Time Temp Pulse Resp B/P Pulse Ox O2 Delivery O2 Flow Rate FiO2 02/03/17 18:07 98.2 73 18 123/81 98 Room Air Sp02 EP Interpretation: reviewed, normal General Appearance: no apparent distress, alert, GCS 15, non-toxic, obese Head: normocephalic, atraumatic Eyes: bilateral eye PERRL, bilateral eye normal inspection ENT: hearing grossly normal, normal pharynx, no angioedema, normal voice Neck: full range of motion, supple/symm/no masses Respiratory: chest non-tender, lungs clear, normal breath sounds, speaking full sentences Cardiovascular #1: regular rate, rhythm, no edema Cardiovascular #2: 2+ carotid (R), 2+ carotid (L), 2+ radial (R), 2+ radial (L) , 2+ dorsalis pedis (R), 2+ dorsalis pedis (L) Gastrointestinal: normal bowel sounds, no guarding, distended, tenderness Rectal: deferred Genitourinary: normal inspection, no CVA tenderness Musculoskeletal: back normal, gait/station normal, normal range of motion, non- tender Neurologic: alert, oriented x3, responsive, motor strength/tone normal, sensory intact, speech normal Psychiatric: judgement/insight normal, memory normal, mood/affect normal, no suicidal/homicidal ideation Reflexes: 3+ bicep (R), 3+ bicep (L), 3+ tricep (R), 3+ tricep (L), 3+ knee (R) , 3+ knee (L) Skin: normal color, no rash, warm/dry, well hydrated Lymphatic: no adenopathy Procedures Additional Procedure Procedure Narrative Paracentesis: Patient placed in supine position. Consents signed. Using ultrasound highly located in the area of fluid without bowel in the right lower abdomen. Betadine applied. Using sterile technique I introduced a catheter into the lower abdomen and noted immediate drawback of ascites fluid. Catheter is then hooked up to a suction canister with drainage of ascites fluid. Patient tolerated procedure without complication Medical Decision Making Diagnostic Impression: Primary Impression: End stage liver disease Additional Impression: Ascites Qualified Codes: R18.8 - Other ascites ER Course Hospital Course 51-year-old male presents to ED complaining of abdominal pain and distention. History of cirrhosis Differential diagnoses include: SBO, gastritis, cirrhosis, ascites Clinical course Patient placed on stretcher. 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 After initial history and physical I ordered labs, IV fluids, UA, pain medication Labs - no leukocytosis, Hb/Hct stable. K 5.1. LFTs elevated Using ultrasound I was able to locate a area of fluid in the right lower quadrant. Using sterile technique I inserted a catheter for paracentesis. Ascites fluid is currently draining into suction canister Case discussed with Dr. Moon and he agreed to accept the patient to his service for further care and support I feel this is a highly complex case requiring extensive working including EKG/ Rhythm strip, Xray/CT/US, Blood/urine lab work, repeat exams while in ED, and administration of strong opiates/narcotics for pain control, admission to hospital or close patient follow up. Diagnosis - End stage liver disease, ascites Patient admitted to floor in serious condition Labs Test 02/03/17 18:43 White Blood Count 5.8 K/UL (4.8-10.8) Red Blood Count 3.49 M/UL (4.70-6.10) Hemoglobin 11.7 G/DL (14.2-18.0) Hematocrit 33.9 % (42.0-52.0) Mean Corpuscular Volume 97 FL (80-99) Mean Corpuscular Hemoglobin 33.6 PG (27.0-31.0) Mean Corpuscular Hemoglobin Concent 34.6 G/DL (32.0-36.0) Red Cell Distribution Width 13.8 % (11.6-14.8) Platelet Count 128 K/UL (150-450) Mean Platelet Volume 7.3 FL (6.5-10.1) Neutrophils (%) (Auto) 76.4 % (45.0-75.0) Lymphocytes (%) (Auto) 10.4 % (20.0-45.0) Monocytes (%) (Auto) 8.2 % (1.0-10.0) Eosinophils (%) (Auto) 3.8 % (0.0-3.0) Basophils (%) (Auto) 1.3 % (0.0-2.0) Prothrombin Time 12.7 SEC (9.30-11.50) Prothromb Time International Ratio 1.2 (0.9-1.1) Activated Partial Thromboplast Time 31 SEC (23-33) Sodium Level 135 mEQ/L (135-145) Potassium Level 5.1 mEQ/L (3.4-4.9) Chloride Level 99 mEQ/L (98-107) Carbon Dioxide Level 23 mEQ/L (20-30) Anion Gap 13 (5-15) Blood Urea Nitrogen 19 mg/dL (7-23) Creatinine 1.1 mg/dL (0.7-1.2) Estimat Glomerular Filtration Rate > 60 mL/min (>60) Glucose Level 110 mg/dL (74-106) Calcium Level 8.4 mg/dL (8.6-10.2) Total Bilirubin 1.5 mg/dL (0.0-1.2) Direct Bilirubin 0.5 mg/dL (0.1-0.3) Aspartate Amino Transf (AST/SGOT) 45 U/L (5-40) Alanine Aminotransferase (ALT/SGPT) 24 U/L (3-41) Alkaline Phosphatase 154 U/L (40-129) Ammonia 82 umol/L (16-60) Total Protein 7.5 g/dL (6.6-8.7) Albumin 2.3 g/dL (3.5-5.2) Globulin 5.2 g/dL Albumin/Globulin Ratio 0.4 (1.0-2.7) Lipase 33 U/L (< 60) Last Vital Signs Date Time Temp Pulse Resp B/P Pulse Ox O2 Delivery O2 Flow Rate FiO2 02/03/17 21:27 99.6 75 20 106/66 98 Room Air Status: improved Disposition: HOME, SELF-CARE Condition: Serious Referrals: NOT CHOSEN IPA/,REFERRING (PCP) DUSTIN BECK M.D. Feb 03, 2017 21:52
[2017-02-03 22:10] VITALS: BP 120/60
[2017-02-03] MEDS ORDERED: Mylanta II UD 30ml ORAL PRN (22:15)
[2017-02-03] MEDS ORDERED: Miralax 17gm pkt ORAL PRN (22:15)
[2017-02-03] MEDS ORDERED: Morphine Sulfate 2mg/ml Inj IVP PRN (22:15)
[2017-02-03] MEDS ORDERED: Zolpidem 5mg tab ORAL PRN (22:15)
[2017-02-03] MEDS ORDERED: LORazepam Inj 2mg/ml 1ml IV PRN (22:15)
[2017-02-03] MEDS: Lactulose 20gm/30ml UDC ORAL SCH (23:49)
[2017-02-04] MEDS: Cefepime HCl 1 GM in D5W 55 ML IV SCH ×3 (05:06→21:07)
[2017-02-04] MEDS: Lactulose 20gm/30ml UDC ORAL SCH ×4 (05:27→23:50)
[2017-02-04 06:51] LABS: BASOPHILS % (AUTO) 0.6 % (0.0-2.0); EOSINOPHILS % (AUTO) 0.3 % (0.0-3.0); LYMPHOCYTES % (AUTO) 10.6 % (20.0-45.0); MEAN CORPUSCULAR HEMOGLOBIN 31.8 PG (27.0-31.0); MEAN CORPUSCULAR HGB CONC 32.6 G/DL (32.0-36.0); MEAN CORPUSCULAR VOLUME 98 FL (80-99); NEUTROPHILS % (AUTO) 79.6 % (45.0-75.0); PLATELET COUNT 114 K/UL (150-450); RED BLOOD COUNT 3.23 M/UL (4.70-6.10); RED CELL DISTRIBUTION WIDTH 14.4 % (11.6-14.8); WHITE BLOOD COUNT 6.6 K/UL (4.8-10.8)
[2017-02-04 07:14] LABS: ALANINE AMINOTRANSFERASE 22 U/L (3-41); ALBUMIN/GLOBULIN RATIO 0.4 (1.0-2.7); ANION GAP 11 (5-15); ASPARTATE AMINO TRANSFERASE 42 U/L (5-40); CALCIUM 8.2 mg/dL (8.6-10.2); CARBON DIOXIDE 22 mEQ/L (20-30); CHLORIDE 102 mEQ/L (98-107); CHOLESTEROL 104 mg/dL (< 200); CHOLESTEROL/HDL RATIO 4.5 (3.3-4.4); CREATININE 1.1 mg/dL (0.7-1.2); GLOMERULAR FILTRATION RATE > 60 mL/min (>60); HEMOLYSIS 2; LDL CHOLESTEROL (CALC.) 72 mg/dL (60-99); POTASSIUM 5.3 mEQ/L (3.4-4.9); SODIUM 135 mEQ/L (135-145); TOTAL PROTEIN 6.7 g/dL (6.6-8.7)
[2017-02-04 07:25] LABS: AMMONIA 36 umol/L (16-60)
[2017-02-04 07:45] LABS: BILIRUBIN,DIRECT 0.6 mg/dL (0.1-0.3)
[2017-02-04 08:56] VITALS: BP 126/68
--- NOTE | 2017-02-04 10:03 | GI Initial Consult Note ---
History of Present Illness General Date patient seen: Feb 04, 2017 Time patient seen: 09:00 Reason for Hospitalization: Abdominal Pain Referring physician: ANGEL BHAKTA Reason for Consultation: CIRRHOSIS Present Illness HPI 51-year-old male presents ED prior with abdominal distention. Notes increasing pain starting today. Pain is sharp, 7/10, diffuse, nonradiating. No other aggravating relieving factors. Patient has history of cirrhosis and ascites. patient has been admitted in the past for cirrhosis. Denies fevers or chills. Denies nausea or vomiting. Denies chest pain or shortness of breath. No other aggravating relieving factors. Denies any other associated symptoms GI CONSULT. HPI as noted above. GI consulted for management of cirrhosis. Pt was admitted here at [facility] approximately a month ago s/p EGD, see full report below. The patient has hx of ETOH abuse with cirrhosis presents today with rock hard abdominal distention 2/2 ascites. Pt seen on floor, awake A&Ox4 NAD with no active s/sx of N/V/D. S/P paracentesis in ER. S/P EGD 01-11-17 SUMMARY OF FINDINGS: 1. Distal esophageal varices grade 2 without any stigmata. 2. Portal hypertensive gastropathy, moderate. 3. Lesion in the pre-pyloric area, see above for details, status post biopsy. Home Meds Reported Medications Unable to Obtain Medications (UNABLE TO OBTAIN MEDS) 1 Ea Ea 02/03/17 Discontinued Reported Medications Lactulose (LACTULOSE*) 20 Gm/30 Ml Solution, 30 ML ORAL Q6HR, ML 0 Refills 01/12/17 Folic Acid (FOLIC ACID) 0.4 Mg Tablet, 1 MG ORAL DAILY, #90 TAB 01/09/17 Spironolactone* (SPIRONOLACTONE*) 100 Mg Tablet, 50 MG ORAL DAILY, #90 TAB 01/09/17 Pantoprazole* (PANTOPRAZOLE*) 40 Mg Tablet.dr, 40 MG ORAL BID, #180 TAB 01/09/17 Ferrous Sulfate (FERROUS SULFATE) 325 Mg Tablet.dr, 325 MG ORAL TID, #270 TAB 0 Refills 01/09/17 Propranolol Hcl* (INDERAL*) 10 Mg Tablet, 10 MG ORAL THREE TIMES A DAY, #90 TAB 0 Refills 01/08/17 Propranolol Hcl* (INDERAL*) 10 Mg Tablet, 10 MG ORAL THREE TIMES A DAY, #90 TAB 0 Refills 01/08/17 Furosemide* (LASIX*) 20 Mg Tablet, 20 MG ORAL DAILY, TAB 01/08/17 Med list reviewed/reconciled: Yes Allergies: Coded Allergies: No Known Allergies (Unverified , 01/08/17) Patient History History Provided By: Medical Record PMH Narrative Past Medical History: other - cirrhosis Past Surgical History: none Pertinent Family History: none Social History: Denies: alcohol use, drug use, smoking Immunizations: UTD Reviewed Nursing Documentation: PMH: Agreed, PSxH: Agreed Social History: Reports: alcohol use Review of Systems All Other Systems: negative except mentioned in HPI Physical Exam Vital Signs Date Time Temp Pulse Resp B/P Pulse Ox O2 Delivery O2 Flow Rate FiO2 02/03/17 18:07 98.2 73 18 123/81 98 Room Air Sp02 EP Interpretation: reviewed Labs Laboratory Tests Test 02/03/17 18:43 02/04/17 05:25 White Blood Count 5.8 K/UL (4.8-10.8) 6.6 K/UL (4.8-10.8) Red Blood Count 3.49 M/UL (4.70-6.10) L 3.23 M/UL (4.70-6.10) L Hemoglobin 11.7 G/DL (14.2-18.0) L 10.3 G/DL (14.2-18.0) L Hematocrit 33.9 % (42.0-52.0) L 31.6 % (42.0-52.0) L Mean Corpuscular Volume 97 FL (80-99) 98 FL (80-99) Mean Corpuscular Hemoglobin 33.6 PG (27.0-31.0) H 31.8 PG (27.0-31.0) H Mean Corpuscular Hemoglobin Concent 34.6 G/DL (32.0-36.0) 32.6 G/DL (32.0-36.0) Red Cell Distribution Width 13.8 % (11.6-14.8) 14.4 % (11.6-14.8) Platelet Count 128 K/UL (150-450) L 114 K/UL (150-450) L Mean Platelet Volume 7.3 FL (6.5-10.1) 8.0 FL (6.5-10.1) Neutrophils (%) (Auto) 76.4 % (45.0-75.0) H 79.6 % (45.0-75.0) H Lymphocytes (%) (Auto) 10.4 % (20.0-45.0) L 10.6 % (20.0-45.0) L Monocytes (%) (Auto) 8.2 % (1.0-10.0) 9.0 % (1.0-10.0) Eosinophils (%) (Auto) 3.8 % (0.0-3.0) H 0.3 % (0.0-3.0) Basophils (%) (Auto) 1.3 % (0.0-2.0) 0.6 % (0.0-2.0) Prothrombin Time 12.7 SEC (9.30-11.50) H Prothromb Time International Ratio 1.2 (0.9-1.1) H Activated Partial Thromboplast Time 31 SEC (23-33) Sodium Level 135 mEQ/L (135-145) 135 mEQ/L (135-145) Potassium Level 5.1 mEQ/L (3.4-4.9) H 5.3 mEQ/L (3.4-4.9) H Chloride Level 99 mEQ/L (98-107) 102 mEQ/L (98-107) Carbon Dioxide Level 23 mEQ/L (20-30) 22 mEQ/L (20-30) Anion Gap 13 (5-15) 11 (5-15) Blood Urea Nitrogen 19 mg/dL (7-23) 23 mg/dL (7-23) Creatinine 1.1 mg/dL (0.7-1.2) 1.1 mg/dL (0.7-1.2) Estimat Glomerular Filtration Rate > 60 mL/min (>60) > 60 mL/min (>60) Glucose Level 110 mg/dL (74-106) H 97 mg/dL (74-106) Calcium Level 8.4 mg/dL (8.6-10.2) L 8.2 mg/dL (8.6-10.2) L Total Bilirubin 1.5 mg/dL (0.0-1.2) H 2.7 mg/dL (0.0-1.2) H Direct Bilirubin 0.5 mg/dL (0.1-0.3) H 0.6 mg/dL (0.1-0.3) H Aspartate Amino Transf (AST/SGOT) 45 U/L (5-40) H 42 U/L (5-40) H Alanine Aminotransferase (ALT/SGPT) 24 U/L (3-41) 22 U/L (3-41) Alkaline Phosphatase 154 U/L (40-129) H 115 U/L (40-129) Ammonia 82 umol/L (16-60) H 36 umol/L (16-60) Total Protein 7.5 g/dL (6.6-8.7) 6.7 g/dL (6.6-8.7) Albumin 2.3 g/dL (3.5-5.2) L 2.1 g/dL (3.5-5.2) L Globulin 5.2 g/dL 4.6 g/dL Albumin/Globulin Ratio 0.4 (1.0-2.7) L 0.4 (1.0-2.7) L Lipase 33 U/L (< 60) Triglycerides Level 43 mg/dL (< 150) Cholesterol Level 104 mg/dL (< 200) LDL Cholesterol 72 mg/dL (60-99) HDL Cholesterol 23 mg/dL (> 60) Cholesterol/HDL Ratio 4.5 (3.3-4.4) H Thyroid Stimulating Hormone (TSH) 2.290 uIU/mL (0.300-4.500) General Appearance: well appearing, no apparent distress, alert Head: normocephalic EENT: normal ENT inspection Neck: supple Respiratory: no respiratory distress Cardiovascular: normal rate Gastrointestinal: distended, ascites Rectal: deferred Neurologic: normal inspection, alert, oriented x3, responsive Psychiatric: normal inspection, judgement/insight normal, memory normal Skin: normal inspection, normal color, no rash, warm/dry Lymphatic: normal inspection, no adenopathy Current Medications Current Medications Medications (Trade) Dose Ordered Sig/Josse Route PRN Reason Start Time Stop Time Status Last Admin Dose Admin Acetaminophen (Tylenol) 650 mg Q4H PRN ORAL fever 02/03/17 22:15 03/05/17 22:14 Al Hydroxide/Mg Hydroxide (Mylanta II) 30 ml Q6H PRN ORAL dyspepsia 02/03/17 22:15 03/05/17 22:14 Cefepime HCl/ Dextrose (Maxipime/D5W) 55 ml @ 110 mls/hr EVERY 8 HOURS IV 02/04/17 06:00 02/11/17 05:59 02/04/17 05:06 Dextrose (Dextrose 50%) STAT PRN IV Hypoglycemia 02/03/17 22:15 03/05/17 22:14 Lactulose 30 gm 30 gm EVERY 6 HOURS ORAL 02/04/17 00:00 03/06/17 00:00 02/04/17 05:27 Lorazepam (Ativan 2mg/ml 1ml) 0.5 mg Q4H PRN IV For Anxiety 02/03/17 22:15 02/10/17 22:14 Morphine Sulfate (Morphine Sulfate) 2 mg Q4H PRN IVP For Pain 02/03/17 22:15 02/10/17 22:14 Ondansetron HCl (Zofran) 4 mg Q6H PRN IVP Nausea & Vomiting 02/03/17 22:15 03/05/17 22:14 Polyethylene Glycol (Miralax) 17 gm HSPRN PRN ORAL Constipation 02/03/17 22:15 03/05/17 22:14 Zolpidem Tartrate (Ambien) 5 mg HSPRN PRN ORAL Insomnia 02/03/17 22:15 03/05/17 22:14 GI: Plan Problems: (1) End stage liver disease (2) Ascites (3) Abdominal pain (4) Esophageal varices without bleeding Plan S/P Paracentesis >> r/o SBP S/P EGD SUMMARY OF FINDINGS: 1. Distal esophageal varices grade 2 without any stigmata. 2. Portal hypertensive gastropathy, moderate. 3. Lesion in the pre-pyloric area, status post biopsy. 4. Pathology >> moderate anemia, thrombocytopenia 5. Antrum bx >> negative for H. Pylori RECOMMENDATIONS: low salt diet monitor H&H, transfuse prn monitor ammonia paracentesis prn >> r/o SBP defer propranolol given low HR cont lactulose, add Xifaxan ppi fu labs Discussed with Dr. Hidalgo. Thank you for referring this patient, we will follow. Teresa Jackson N.P. Feb 04, 2017 10:03
[2017-02-04] MEDS ORDERED: Sodium Polystyrene Sulfonate 15gm Powder ORAL ONE (10:30)
[2017-02-04] MEDS: Pantoprazole Inj IVP SCH (12:50)
[2017-02-04 13:34] VITALS: BP 108/70
--- NOTE | 2017-02-04 14:18 | Consultation ---
History of Present Illness General Date patient seen: Feb 04, 2017 Chief Complaint: Abdominal Pain Referring physician: ANGEL BHAKTA Reason for Consultation: inpatient management Present Illness HPI 51-year-old male with hx of cirrhosis, ascites presented to ED with CC of abdominal distention and increasing pain. Pain is sharp, 7/10, diffuse, nonradiating. No other aggravating relieving factors. Denies fevers or chills. Denies nausea or vomiting. Allergies: Coded Allergies: No Known Allergies (Unverified , 01/08/17) Medication History Miscellaneous Medications Unable to Obtain Medications (Unable To Obtain Meds), (Reported) Discontinued Medications Ferrous Sulfate (Ferrous Sulfate), 325 MG ORAL TID, (Reported) Discontinued Reason: Therapy completed Folic Acid (Folic Acid), 1 MG ORAL DAILY, (Reported) Discontinued Reason: Therapy completed Furosemide* (Lasix*), 20 MG ORAL DAILY, (Reported) Discontinued Reason: Therapy completed Lactulose (Lactulose*), 30 ML ORAL Q6HR, (Reported) Discontinued Reason: Therapy completed Pantoprazole* (Pantoprazole*), 40 MG ORAL BID, (Reported) Discontinued Reason: Therapy completed Propranolol Hcl* (Inderal*), 10 MG ORAL THREE TIMES A DAY, (Reported) Discontinued Reason: Therapy completed Propranolol Hcl* (Inderal*), 10 MG ORAL THREE TIMES A DAY, (Reported) Discontinued Reason: Therapy completed Spironolactone* (Spironolactone*), 50 MG ORAL DAILY, (Reported) Discontinued Reason: Therapy completed Patient History Healthcare decision maker Resuscitation status Full Code Advanced Directive on File Past Medical/Surgical History Past Medical/Surgical History: (1) End stage liver disease (2) Abdominal pain Review of Systems All Other Systems: negative except mentioned in HPI Physical Exam General Appearance: WD/WN, no apparent distress Lines, tubes and drains: peripheral HEENT: normocephalic, atraumatic Neck: non-tender, normal alignment Respiratory/Chest: chest wall non-tender, lungs clear Breasts: no masses Cardiovascular/Chest: normal peripheral pulses Abdomen: normal bowel sounds Genitourinary/Rectal: normal genital exam, normal rectal exam Extremities: normal range of motion Skin Exam: normal pigmentation 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 Last 24 Hour Vital Signs Date Time Temp Pulse Resp B/P Pulse Ox O2 Delivery O2 Flow Rate FiO2 02/04/17 13:34 98.2 79 18 108/70 97 Room Air 02/04/17 08:56 97.9 76 18 126/68 98 Room Air 02/03/17 23:18 99.6 02/03/17 22:20 78 19 120/60 98 Room Air 02/03/17 22:10 99.6 78 19 120/60 98 Room Air 02/03/17 21:27 99.6 75 20 106/66 98 Room Air 02/03/17 19:11 99.6 81 27 100/54 99 Room Air 02/03/17 18:07 98.2 73 18 123/81 98 Room Air Intake and Output 02/03/17 02/04/17 18:59 06:59 Intake Total 0 ml Output Total 400 ml Balance -400 ml Intake Oral 0 ml Output Other 400 ml # Voids 5 # Bowel Movements 3 Laboratory Tests Test 02/03/17 18:43 02/04/17 05:25 White Blood Count 5.8 K/UL (4.8-10.8) 6.6 K/UL (4.8-10.8) Red Blood Count 3.49 M/UL (4.70-6.10) L 3.23 M/UL (4.70-6.10) L Hemoglobin 11.7 G/DL (14.2-18.0) L 10.3 G/DL (14.2-18.0) L Hematocrit 33.9 % (42.0-52.0) L 31.6 % (42.0-52.0) L Mean Corpuscular Volume 97 FL (80-99) 98 FL (80-99) Mean Corpuscular Hemoglobin 33.6 PG (27.0-31.0) H 31.8 PG (27.0-31.0) H Mean Corpuscular Hemoglobin Concent 34.6 G/DL (32.0-36.0) 32.6 G/DL (32.0-36.0) Red Cell Distribution Width 13.8 % (11.6-14.8) 14.4 % (11.6-14.8) Platelet Count 128 K/UL (150-450) L 114 K/UL (150-450) L Mean Platelet Volume 7.3 FL (6.5-10.1) 8.0 FL (6.5-10.1) Neutrophils (%) (Auto) 76.4 % (45.0-75.0) H 79.6 % (45.0-75.0) H Lymphocytes (%) (Auto) 10.4 % (20.0-45.0) L 10.6 % (20.0-45.0) L Monocytes (%) (Auto) 8.2 % (1.0-10.0) 9.0 % (1.0-10.0) Eosinophils (%) (Auto) 3.8 % (0.0-3.0) H 0.3 % (0.0-3.0) Basophils (%) (Auto) 1.3 % (0.0-2.0) 0.6 % (0.0-2.0) Prothrombin Time 12.7 SEC (9.30-11.50) H Prothromb Time International Ratio 1.2 (0.9-1.1) H Activated Partial Thromboplast Time 31 SEC (23-33) Sodium Level 135 mEQ/L (135-145) 135 mEQ/L (135-145) Potassium Level 5.1 mEQ/L (3.4-4.9) H 5.3 mEQ/L (3.4-4.9) H Chloride Level 99 mEQ/L (98-107) 102 mEQ/L (98-107) Carbon Dioxide Level 23 mEQ/L (20-30) 22 mEQ/L (20-30) Anion Gap 13 (5-15) 11 (5-15) Blood Urea Nitrogen 19 mg/dL (7-23) 23 mg/dL (7-23) Creatinine 1.1 mg/dL (0.7-1.2) 1.1 mg/dL (0.7-1.2) Estimat Glomerular Filtration Rate > 60 mL/min (>60) > 60 mL/min (>60) Glucose Level 110 mg/dL (74-106) H 97 mg/dL (74-106) Calcium Level 8.4 mg/dL (8.6-10.2) L 8.2 mg/dL (8.6-10.2) L Total Bilirubin 1.5 mg/dL (0.0-1.2) H 2.7 mg/dL (0.0-1.2) H Direct Bilirubin 0.5 mg/dL (0.1-0.3) H 0.6 mg/dL (0.1-0.3) H Aspartate Amino Transf (AST/SGOT) 45 U/L (5-40) H 42 U/L (5-40) H Alanine Aminotransferase (ALT/SGPT) 24 U/L (3-41) 22 U/L (3-41) Alkaline Phosphatase 154 U/L (40-129) H 115 U/L (40-129) Ammonia 82 umol/L (16-60) H 36 umol/L (16-60) Total Protein 7.5 g/dL (6.6-8.7) 6.7 g/dL (6.6-8.7) Albumin 2.3 g/dL (3.5-5.2) L 2.1 g/dL (3.5-5.2) L Globulin 5.2 g/dL 4.6 g/dL Albumin/Globulin Ratio 0.4 (1.0-2.7) L 0.4 (1.0-2.7) L Lipase 33 U/L (< 60) Triglycerides Level 43 mg/dL (< 150) Cholesterol Level 104 mg/dL (< 200) LDL Cholesterol 72 mg/dL (60-99) HDL Cholesterol 23 mg/dL (> 60) Cholesterol/HDL Ratio 4.5 (3.3-4.4) H Thyroid Stimulating Hormone (TSH) 2.290 uIU/mL (0.300-4.500) Height (Feet): 5 Height (Inches): 4.00 Weight (Pounds): 250 Medications Current Medications Medications (Trade) Dose Ordered Sig/Josse Route PRN Reason Start Time Stop Time Status Last Admin Dose Admin Acetaminophen (Tylenol) 650 mg Q4H PRN ORAL fever 02/03/17 22:15 03/05/17 22:14 Al Hydroxide/Mg Hydroxide (Mylanta II) 30 ml Q6H PRN ORAL dyspepsia 02/03/17 22:15 03/05/17 22:14 Cefepime HCl/ Dextrose (Maxipime/D5W) 55 ml @ 110 mls/hr EVERY 8 HOURS IV 02/04/17 06:00 02/11/17 05:59 02/04/17 05:06 Dextrose (Dextrose 50%) STAT PRN IV Hypoglycemia 02/03/17 22:15 03/05/17 22:14 Lactulose 30 gm 30 gm EVERY 6 HOURS ORAL 02/04/17 00:00 03/06/17 00:00 02/04/17 12:50 Lorazepam (Ativan 2mg/ml 1ml) 0.5 mg Q4H PRN IV For Anxiety 02/03/17 22:15 02/10/17 22:14 Morphine Sulfate (Morphine Sulfate) 2 mg Q4H PRN IVP For Pain 02/03/17 22:15 02/10/17 22:14 Ondansetron HCl (Zofran) 4 mg Q6H PRN IVP Nausea & Vomiting 02/03/17 22:15 03/05/17 22:14 Pantoprazole (Protonix) 40 mg DAILY IVP 02/04/17 11:00 03/06/17 10:59 02/04/17 12:50 Polyethylene Glycol (Miralax) 17 gm HSPRN PRN ORAL Constipation 02/03/17 22:15 03/05/17 22:14 Rifaximin (Xifaxan) 550 mg EVERY 12 HOURS ORAL 02/04/17 21:00 02/11/17 20:59 Zolpidem Tartrate (Ambien) 5 mg HSPRN PRN ORAL Insomnia 02/03/17 22:15 03/05/17 22:14 Assessment/Plan Problem List: (1) Ascites ICD Codes: R18.8 - Other ascites SNOMED: 510255348 Qualifiers: Qualified Codes: R18.8 - Other ascites (2) Abdominal pain ICD Codes: R10.9 - Unspecified abdominal pain SNOMED: 26650820 (3) End stage liver disease ICD Codes: K72.90 - Hepatic failure, unspecified without coma SNOMED: 243992938 Assessment/Plan paracentesis symptomatic treatment correct coagulopathy prbc prn JUANCARLOS ONEAL Feb 04, 2017 14:18
--- NOTE | 2017-02-04 15:37 | Diagnostic Imaging Report ---
APPROVED REPORT CPT Code: 67357 Present Symptoms Lower Extremity Edema: Bilateral BILATERAL: Imaging reveals a patent deep venous system bilaterally. There is no evidence of thrombus within the femoral, popliteal or tibial segments. The greater saphenous veins are also within normal limits. Doppler indicates normal spontaneous flow within these segments.
[2017-02-04 20:00] VITALS: BP 97/45
[2017-02-04] MEDS: Rifaximin 550mg tab ORAL SCH (20:21)
[2017-02-04 20:29] VITALS: BP 103/51
[2017-02-05] VITALS (7 sets, daily range): BP systolic 93–121; BP diastolic 55–70
[2017-02-05] MEDS: Lactulose 20gm/30ml UDC ORAL SCH ×2 (05:02→18:07)
[2017-02-05] MEDS: Cefepime HCl 1 GM in D5W 55 ML IV SCH ×3 (05:10→21:04)
[2017-02-05 06:52] LABS: MEAN CORPUSCULAR HEMOGLOBIN 32.1 PG (27.0-31.0); MEAN CORPUSCULAR HGB CONC 33.1 G/DL (32.0-36.0); MEAN CORPUSCULAR VOLUME 97 FL (80-99); MEAN PLATELET VOLUME 8.2 FL (6.5-10.1); PLATELET COUNT 87 K/UL (150-450); RED BLOOD COUNT 2.94 M/UL (4.70-6.10); RED CELL DISTRIBUTION WIDTH 13.7 % (11.6-14.8); WHITE BLOOD COUNT 6.8 K/UL (4.8-10.8)
[2017-02-05 07:02] LABS: ANION GAP 9 (5-15); CALCIUM 7.9 mg/dL (8.6-10.2); CARBON DIOXIDE 24 mEQ/L (20-30); CHLORIDE 102 mEQ/L (98-107); GLOMERULAR FILTRATION RATE > 60 mL/min (>60); HEMOLYSIS 3; POTASSIUM 4.4 mEQ/L (3.4-4.9); SODIUM 135 mEQ/L (135-145)
[2017-02-05] MEDS: Pantoprazole Inj IVP SCH (08:58)
[2017-02-05] MEDS: Rifaximin 550mg tab ORAL SCH ×2 (08:58→21:04)
[2017-02-05 09:58] LABS: BAND NEUTROPHILS % (MANUAL) 0 % (0-8); BASOPHILS % (MANUAL) 0 % (0-2); EOSINOPHILS % (MANUAL) 2 % (0-3); LYMPHOCYTES % (MANUAL) 19 % (20-45); NEUTROPHILS % (MANUAL) 64 % (45-75); PLATELET ESTIMATE DECREASED; TOTAL CELLS COUNTED 100
[2017-02-05 09:59] LABS: MACROCYTES 1+; PLATELET MORPHOLOGY NORMAL
--- NOTE | 2017-02-05 10:26 | General Progress Note ---
Assessment/Plan Problem List: (1) Anemia ICD Codes: D64.9 - Anemia, unspecified SNOMED: 550011783 (2) Ascites ICD Codes: R18.8 - Other ascites SNOMED: 819472517 Qualifiers: Qualified Codes: R18.8 - Other ascites (3) Esophageal varices without bleeding ICD Codes: I85.00 - Esophageal varices without bleeding SNOMED: 09893428 (4) Abdominal pain ICD Codes: R10.9 - Unspecified abdominal pain SNOMED: 18478648 (5) End stage liver disease ICD Codes: K72.90 - Hepatic failure, unspecified without coma SNOMED: 885597410 Assessment/Plan lasix and aldactone lactulose will change to BID ok to dc gi stand pont Subjective ROS Limited/Unobtainable: Yes Allergies: Coded Allergies: No Known Allergies (Unverified , 01/08/17) Subjective no event Objective Last 24 Hour Vital Signs Date Time Temp Pulse Resp B/P Pulse Ox O2 Delivery O2 Flow Rate FiO2 02/05/17 07:59 98.1 78 19 100/55 100 Room Air 02/05/17 04:16 98.4 81 19 102/64 97 Room Air 02/05/17 00:12 98.4 80 18 101/55 95 Room Air 02/04/17 20:29 81 103/51 02/04/17 20:00 98.2 81 16 97/45 98 Room Air 02/04/17 13:34 98.2 79 18 108/70 97 Room Air Intake and Output 02/04/17 02/05/17 19:00 07:00 Intake Total 110 ml Output Total 150 ml 200 ml Balance -150 ml -90 ml IV Total 110 ml Output Urine Total 150 ml 200 ml # Bowel Movements 1 Laboratory Tests 02/05/17 04:30: White Blood Count 6.8, Red Blood Count 2.94L, Hemoglobin 9.4L, Hematocrit 28.5L , Mean Corpuscular Volume 97, Mean Corpuscular Hemoglobin 32.1H, Mean Corpuscular Hemoglobin Concent 33.1, Red Cell Distribution Width 13.7, Platelet Count 87L, Mean Platelet Volume 8.2, Neutrophils (%) (Auto) , Lymphocytes (%) ( Auto) , Monocytes (%) (Auto) , Eosinophils (%) (Auto) , Basophils (%) (Auto) , Differential Total Cells Counted 100, Neutrophils % (Manual) 64, Lymphocytes % ( Manual) 19L, Monocytes % (Manual) 15H, Eosinophils % (Manual) 2, Basophils % ( Manual) 0, Band Neutrophils 0, Platelet Estimate DecreasedL, Platelet Morphology Normal, Macrocytosis 1+, Sodium Level 135, Potassium Level 4.4, Chloride Level 102, Carbon Dioxide Level 24, Anion Gap 9, Blood Urea Nitrogen 25H, Creatinine 1.0, Estimat Glomerular Filtration Rate > 60, Glucose Level 94, Calcium Level 7.9L Height (Feet): 5 Height (Inches): 4.00 Weight (Pounds): 250 General Appearance: no apparent distress EENT: normal ENT inspection Neck: supple Cardiovascular: normal rate Respiratory/Chest: decreased breath sounds Abdomen: normal bowel sounds, non tender, soft Extremities: non-tender CHANCE ESPOSITO Feb 05, 2017 10:26
--- NOTE | 2017-02-05 10:27 | General Progress Note ---
Assessment/Plan Problem List: (1) Ascites ICD Codes: R18.8 - Other ascites SNOMED: 271543956 Qualifiers: Qualified Codes: R18.8 - Other ascites (2) Esophageal varices without bleeding ICD Codes: I85.00 - Esophageal varices without bleeding SNOMED: 67712448 (3) Abdominal pain ICD Codes: R10.9 - Unspecified abdominal pain SNOMED: 98915191 (4) End stage liver disease ICD Codes: K72.90 - Hepatic failure, unspecified without coma SNOMED: 133788772 (5) Anemia ICD Codes: D64.9 - Anemia, unspecified SNOMED: 392970105 Status: stable, progressing, tolerating diet Assessment/Plan ot pt diet cbc bmp am dc plan Subjective Constitutional: Reports: weakness Respiratory: Reports: shortness of breath Allergies: Coded Allergies: No Known Allergies (Unverified , 01/08/17) All Systems: reviewed and negative except above Subjective calm in bed Objective Last 24 Hour Vital Signs Date Time Temp Pulse Resp B/P Pulse Ox O2 Delivery O2 Flow Rate FiO2 02/05/17 07:59 98.1 78 19 100/55 100 Room Air 02/05/17 04:16 98.4 81 19 102/64 97 Room Air 02/05/17 00:12 98.4 80 18 101/55 95 Room Air 02/04/17 20:29 81 103/51 02/04/17 20:00 98.2 81 16 97/45 98 Room Air 02/04/17 13:34 98.2 79 18 108/70 97 Room Air Intake and Output 02/04/17 02/05/17 18:59 06:59 Intake Total 110 ml Output Total 150 ml 200 ml Balance -150 ml -90 ml IV Total 110 ml Output Urine Total 150 ml 200 ml # Bowel Movements 1 Laboratory Tests 02/05/17 04:30: White Blood Count 6.8, Red Blood Count 2.94L, Hemoglobin 9.4L, Hematocrit 28.5L , Mean Corpuscular Volume 97, Mean Corpuscular Hemoglobin 32.1H, Mean Corpuscular Hemoglobin Concent 33.1, Red Cell Distribution Width 13.7, Platelet Count 87L, Mean Platelet Volume 8.2, Neutrophils (%) (Auto) , Lymphocytes (%) ( Auto) , Monocytes (%) (Auto) , Eosinophils (%) (Auto) , Basophils (%) (Auto) , Differential Total Cells Counted 100, Neutrophils % (Manual) 64, Lymphocytes % ( Manual) 19L, Monocytes % (Manual) 15H, Eosinophils % (Manual) 2, Basophils % ( Manual) 0, Band Neutrophils 0, Platelet Estimate DecreasedL, Platelet Morphology Normal, Macrocytosis 1+, Sodium Level 135, Potassium Level 4.4, Chloride Level 102, Carbon Dioxide Level 24, Anion Gap 9, Blood Urea Nitrogen 25H, Creatinine 1.0, Estimat Glomerular Filtration Rate > 60, Glucose Level 94, Calcium Level 7.9L Height (Feet): 5 Height (Inches): 4.00 Weight (Pounds): 250 General Appearance: alert EENT: normal ENT inspection Neck: normal alignment Cardiovascular: normal peripheral pulses, normal rate, regular rhythm Respiratory/Chest: chest wall non-tender, lungs clear, normal breath sounds Abdomen: normal bowel sounds, non tender, soft Extremities: normal inspection Edema: 1+ Arm (L), 1+ Arm (R), 1+ Leg (L), 1+ Leg (R), 1+ Pedal (L), 1+ Pedal ( R), 1+ Generalized Edema: trace edema Neurologic: responsive, motor weakness Skin: normal pigmentation, warm/dry ANGEL BHAKTA Feb 05, 2017 10:27
--- NOTE | 2017-02-05 14:42 | Pulmonology Progress Note ---
Assessment/Plan Assessment/Plan ASSESSMENT ASCITES S/P PARACENTESIS ANEMIA ESOPHAGEAL VARICES S BLEEDING TRANSAMINITIS END STAGE LIVER DISEASE HYPOALBUMINEMIA PLAN OF CARE MS floor s/p paracentesis ( therapeutic), cytology pending feeling better O2 HHN prn breathing improved lactulose , ammonia ok diuretics; Lasix and Aldactone - per GI monitor renal parameters, lytes, LFT low Na diet monitor HH transfuse prn PPI no Inderal given low heart rate - as per GI pain management PT/OT dc planning poor overall prognosis case discussed and evaluated by supervising physician Subjective Allergies: Coded Allergies: No Known Allergies (Unverified , 01/08/17) Subjective still with abdominal pain s/p paracentesis / breathing better Objective Last 24 Hour Vital Signs Date Time Temp Pulse Resp B/P Pulse Ox O2 Delivery O2 Flow Rate FiO2 02/05/17 12:10 98.2 74 18 93/56 99 Room Air 02/05/17 07:59 98.1 78 19 100/55 100 Room Air 02/05/17 04:16 98.4 81 19 102/64 97 Room Air 02/05/17 00:12 98.4 80 18 101/55 95 Room Air 02/04/17 20:29 81 103/51 02/04/17 20:00 98.2 81 16 97/45 98 Room Air Intake and Output 02/04/17 02/05/17 19:00 07:00 Intake Total 110 ml Output Total 150 ml 200 ml Balance -150 ml -90 ml IV Total 110 ml Output Urine Total 150 ml 200 ml # Bowel Movements 1 General Appearance: no acute distress, other - awake, alert, Hungarian speaking amle Respiratory/Chest: no respiratory distress, no accessory muscle use, decreased breath sounds - at bases Cardiovascular: normal rate, regular rhythm Abdomen: normal bowel sounds, soft, non tender - distended Extremities: other - + 1 edema BLE Neurologic/Psychiatric: abnormal gait, alert, responsive Musculoskeletal: normal muscle bulk Laboratory Tests 02/05/17 04:30: White Blood Count 6.8, Red Blood Count 2.94L, Hemoglobin 9.4L, Hematocrit 28.5L , Mean Corpuscular Volume 97, Mean Corpuscular Hemoglobin 32.1H, Mean Corpuscular Hemoglobin Concent 33.1, Red Cell Distribution Width 13.7, Platelet Count 87L, Mean Platelet Volume 8.2, Neutrophils (%) (Auto) , Lymphocytes (%) ( Auto) , Monocytes (%) (Auto) , Eosinophils (%) (Auto) , Basophils (%) (Auto) , Differential Total Cells Counted 100, Neutrophils % (Manual) 64, Lymphocytes % ( Manual) 19L, Monocytes % (Manual) 15H, Eosinophils % (Manual) 2, Basophils % ( Manual) 0, Band Neutrophils 0, Platelet Estimate DecreasedL, Platelet Morphology Normal, Macrocytosis 1+, Sodium Level 135, Potassium Level 4.4, Chloride Level 102, Carbon Dioxide Level 24, Anion Gap 9, Blood Urea Nitrogen 25H, Creatinine 1.0, Estimat Glomerular Filtration Rate > 60, Glucose Level 94, Calcium Level 7.9L Current Medications Medications (Trade) Dose Ordered Sig/Josse Route PRN Reason Start Time Stop Time Status Last Admin Dose Admin Acetaminophen (Tylenol) 650 mg Q4H PRN ORAL fever 02/03/17 22:15 03/05/17 22:14 Al Hydroxide/Mg Hydroxide (Mylanta II) 30 ml Q6H PRN ORAL dyspepsia 02/03/17 22:15 03/05/17 22:14 Cefepime HCl/ Dextrose (Maxipime/D5W) 55 ml @ 110 mls/hr EVERY 8 HOURS IV 02/04/17 06:00 02/11/17 05:59 02/05/17 14:00 Dextrose STAT PRN IV Hypoglycemia 02/03/17 22:15 03/05/17 22:14 Lactulose (Cephulac) 30 gm BID ORAL 02/05/17 18:00 03/07/17 17:59 Lorazepam (Ativan 2mg/ml 1ml) 0.5 mg Q4H PRN IV For Anxiety 02/03/17 22:15 02/10/17 22:14 Morphine Sulfate (Morphine Sulfate) 2 mg Q4H PRN IVP For Pain 02/03/17 22:15 02/10/17 22:14 Ondansetron HCl (Zofran) 4 mg Q6H PRN IVP Nausea & Vomiting 02/03/17 22:15 03/05/17 22:14 Pantoprazole (Protonix) 40 mg DAILY IVP 02/04/17 11:00 03/06/17 10:59 02/05/17 08:58 Polyethylene Glycol (Miralax) 17 gm HSPRN PRN ORAL Constipation 02/03/17 22:15 03/05/17 22:14 Rifaximin (Xifaxan) 550 mg EVERY 12 HOURS ORAL 02/04/17 21:00 02/11/17 20:59 02/05/17 08:58 Zolpidem Tartrate (Ambien) 5 mg HSPRN PRN ORAL Insomnia 02/03/17 22:15 03/05/17 22:14 [facility] Feb 05, 2017 14:42
[2017-02-06 03:54] VITALS: BP 124/81
[2017-02-06] MEDS: Cefepime HCl 1 GM in D5W 55 ML IV SCH ×2 (05:43→14:26)
[2017-02-06 07:33] LABS: MEAN CORPUSCULAR HEMOGLOBIN 32.1 PG (27.0-31.0); MEAN CORPUSCULAR HGB CONC 33.2 G/DL (32.0-36.0); MEAN CORPUSCULAR VOLUME 97 FL (80-99); MEAN PLATELET VOLUME 7.8 FL (6.5-10.1); PLATELET COUNT 89 K/UL (150-450); RED BLOOD COUNT 3.23 M/UL (4.70-6.10); RED CELL DISTRIBUTION WIDTH 14.1 % (11.6-14.8); WHITE BLOOD COUNT 5.9 K/UL (4.8-10.8)
[2017-02-06 07:55] LABS: ANION GAP 10 (5-15); CALCIUM 7.6 mg/dL (8.6-10.2); CARBON DIOXIDE 22 mEQ/L (20-30); CHLORIDE 101 mEQ/L (98-107); CREATININE 0.8 mg/dL (0.7-1.2); GLOMERULAR FILTRATION RATE > 60 mL/min (>60); HEMOLYSIS 1; POTASSIUM 4.4 mEQ/L (3.4-4.9); SODIUM 133 mEQ/L (135-145)
[2017-02-06 08:00] VITALS: BP 111/68
--- NOTE | 2017-02-06 08:23 | General Progress Note ---
Assessment/Plan Problem List: (1) Ascites ICD Codes: R18.8 - Other ascites SNOMED: 388211394 Qualifiers: Qualified Codes: R18.8 - Other ascites (2) Esophageal varices without bleeding ICD Codes: I85.00 - Esophageal varices without bleeding SNOMED: 14432162 (3) Abdominal pain ICD Codes: R10.9 - Unspecified abdominal pain SNOMED: 96704968 (4) End stage liver disease ICD Codes: K72.90 - Hepatic failure, unspecified without coma SNOMED: 607749136 (5) Anemia ICD Codes: D64.9 - Anemia, unspecified SNOMED: 986178857 Status: stable, progressing, tolerating diet Assessment/Plan ot pt diet cbc bmp am heme eval dc plan Subjective Constitutional: Reports: weakness Allergies: Coded Allergies: No Known Allergies (Unverified , 01/08/17) All Systems: reviewed and negative except above Subjective calm in bed Objective Last 24 Hour Vital Signs Date Time Temp Pulse Resp B/P Pulse Ox O2 Delivery O2 Flow Rate FiO2 02/06/17 08:00 97.5 84 20 111/68 100 Room Air 02/06/17 03:54 98.4 84 19 124/81 97 Room Air 02/05/17 23:53 98.6 83 19 121/70 99 Room Air 02/05/17 20:11 98.1 83 20 103/65 100 Room Air 02/05/17 16:14 98.2 74 19 112/64 Room Air 02/05/17 12:10 98.2 74 18 93/56 99 Room Air Intake and Output 02/05/17 02/06/17 19:00 07:00 Intake Total 110 ml Output Total 250 ml 75 ml Balance -250 ml 35 ml IV Total 110 ml Output Urine Total 250 ml Other 75 ml # Voids 2 # Bowel Movements 1 1 Laboratory Tests 02/06/17 04:50: White Blood Count 5.9, Red Blood Count 3.23L, Hemoglobin 10.4L, Hematocrit 31.2L , Mean Corpuscular Volume 97, Mean Corpuscular Hemoglobin 32.1H, Mean Corpuscular Hemoglobin Concent 33.2, Red Cell Distribution Width 14.1, Platelet Count 89L, Mean Platelet Volume 7.8, Neutrophils (%) (Auto) , Lymphocytes (%) ( Auto) , Monocytes (%) (Auto) , Eosinophils (%) (Auto) , Basophils (%) (Auto) , Neutrophils % (Manual) [Pending], Lymphocytes % (Manual) [Pending], Platelet Estimate [Pending], Platelet Morphology [Pending], Sodium Level 133L, Potassium Level 4.4, Chloride Level 101, Carbon Dioxide Level 22, Anion Gap 10, Blood Urea Nitrogen 23, Creatinine 0.8, Estimat Glomerular Filtration Rate > 60, Glucose Level 80, Calcium Level 7.6L Height (Feet): 5 Height (Inches): 4.00 Weight (Pounds): 250 General Appearance: lethargic EENT: normal ENT inspection Neck: normal alignment Cardiovascular: normal peripheral pulses, normal rate, regular rhythm Respiratory/Chest: chest wall non-tender, lungs clear, normal breath sounds Abdomen: non tender, soft, hypoactive bowel sounds, distended Genitourinary/Rectal: heme negative stool Extremities: normal inspection Edema: 1+ Arm (L), 1+ Arm (R), 1+ Leg (L), 1+ Leg (R), 1+ Pedal (L), 1+ Pedal ( R), 1+ Generalized Edema: trace edema Neurologic: responsive, motor weakness Skin: normal pigmentation, warm/dry ANGEL BHAKTA Feb 06, 2017 08:23
--- NOTE | 2017-02-06 08:28 | Diagnostic Imaging Report ---
Indications: Ascites Procedure: Informed consent obtained. Ultrasound used to localize optimal puncture site. Sterile prepping and draping over the optimum site. Local anesthesia with 1% lidocaine. Under real-time ultrasound guidance, puncture of the peritoneal space performed using paracentesis needle. Digital image was saved and archived. Stylet removed. Catheter placed to vacuum bottle suction. Fluid was aspirated. Patient tolerated procedure well, without immediate complication. Findings: Followup sonography demonstrates complete resolution of peritoneal fluid Impression: Successful ultrasound-guided paracentesis, yielding 13 liters of fluid
--- NOTE | 2017-02-06 08:58 | General Progress Note ---
Assessment/Plan Problem List: (1) Anemia ICD Codes: D64.9 - Anemia, unspecified SNOMED: 334684749 (2) Ascites ICD Codes: R18.8 - Other ascites SNOMED: 740199708 Qualifiers: Qualified Codes: R18.8 - Other ascites (3) Esophageal varices without bleeding ICD Codes: I85.00 - Esophageal varices without bleeding SNOMED: 30556234 (4) Abdominal pain ICD Codes: R10.9 - Unspecified abdominal pain SNOMED: 39891021 (5) End stage liver disease ICD Codes: K72.90 - Hepatic failure, unspecified without coma SNOMED: 245565667 Assessment/Plan lasix and aldactone fu labs lactulose will change to BID ok to dc gi stand point Subjective ROS Limited/Unobtainable: Yes Allergies: Coded Allergies: No Known Allergies (Unverified , 01/08/17) Subjective no event Objective Last 24 Hour Vital Signs Date Time Temp Pulse Resp B/P Pulse Ox O2 Delivery O2 Flow Rate FiO2 02/06/17 08:00 97.5 84 20 111/68 100 Room Air 02/06/17 03:54 98.4 84 19 124/81 97 Room Air 02/05/17 23:53 98.6 83 19 121/70 99 Room Air 02/05/17 20:11 98.1 83 20 103/65 100 Room Air 02/05/17 16:14 98.2 74 19 112/64 Room Air 02/05/17 12:10 98.2 74 18 93/56 99 Room Air Intake and Output 02/05/17 02/06/17 19:00 07:00 Intake Total 110 ml Output Total 250 ml 75 ml Balance -250 ml 35 ml IV Total 110 ml Output Urine Total 250 ml Other 75 ml # Voids 2 # Bowel Movements 1 1 Laboratory Tests 02/06/17 04:50: White Blood Count 5.9, Red Blood Count 3.23L, Hemoglobin 10.4L, Hematocrit 31.2L , Mean Corpuscular Volume 97, Mean Corpuscular Hemoglobin 32.1H, Mean Corpuscular Hemoglobin Concent 33.2, Red Cell Distribution Width 14.1, Platelet Count 89L, Mean Platelet Volume 7.8, Neutrophils (%) (Auto) , Lymphocytes (%) ( Auto) , Monocytes (%) (Auto) , Eosinophils (%) (Auto) , Basophils (%) (Auto) , Neutrophils % (Manual) [Pending], Lymphocytes % (Manual) [Pending], Platelet Estimate [Pending], Platelet Morphology [Pending], Sodium Level 133L, Potassium Level 4.4, Chloride Level 101, Carbon Dioxide Level 22, Anion Gap 10, Blood Urea Nitrogen 23, Creatinine 0.8, Estimat Glomerular Filtration Rate > 60, Glucose Level 80, Calcium Level 7.6L Height (Feet): 5 Height (Inches): 4.00 Weight (Pounds): 250 General Appearance: no apparent distress EENT: normal ENT inspection Neck: supple Cardiovascular: normal rate Respiratory/Chest: decreased breath sounds Abdomen: normal bowel sounds, non tender, soft Extremities: non-tender CHANCE ESPOSITO Feb 06, 2017 08:58
[2017-02-06] MEDS: Pantoprazole Inj IVP SCH (08:59)
[2017-02-06] MEDS: Lactulose 20gm/30ml UDC ORAL SCH ×2 (09:00→18:23)
[2017-02-06] MEDS: Rifaximin 550mg tab ORAL SCH (09:00)
[2017-02-06 10:58] LABS: BAND NEUTROPHILS % (MANUAL) 1 % (0-8); BASOPHILS % (MANUAL) 0 % (0-2); EOSINOPHILS % (MANUAL) 2 % (0-3); LYMPHOCYTES % (MANUAL) 20 % (20-45); NEUTROPHILS % (MANUAL) 68 % (45-75); PLATELET ESTIMATE DECREASED; TOTAL CELLS COUNTED 100
[2017-02-06 10:59] LABS: HYPOCHROMASIA 1+; MACROCYTES 1+
[2017-02-06 11:01] LABS: PLATELET MORPHOLOGY NORMAL
[2017-02-06 12:00] VITALS: BP 110/75
--- NOTE | 2017-02-06 13:04 | Pulmonology Progress Note ---
Assessment/Plan Assessment/Plan ASSESSMENT ASCITES S/P PARACENTESIS ANEMIA ESOPHAGEAL VARICES S BLEEDING TRANSAMINITIS END STAGE LIVER DISEASE HYPOALBUMINEMIA PLAN OF CARE MS floor s/p paracentesis -13 L removal ( therapeutic), feeling better O2 HHN prn breathing improved lactulose , ammonia ok diuretics; Lasix and Aldactone - per GI monitor renal parameters, lytes, LFT low Na diet monitor HH transfuse prn PPI no Inderal given low heart rate - as per GI pain management PT/OT stable fro dc today from pulmonary standpoint GI cleared for dc as well poor overall prognosis case discussed and evaluated by supervising physician Subjective Allergies: Coded Allergies: No Known Allergies (Unverified , 01/08/17) Subjective s/p paracentesis 2-13 L removed breathing better pulse oximetry stable on RA Objective Last 24 Hour Vital Signs Date Time Temp Pulse Resp B/P Pulse Ox O2 Delivery O2 Flow Rate FiO2 02/06/17 08:00 97.5 84 20 111/68 100 Room Air 02/06/17 03:54 98.4 84 19 124/81 97 Room Air 02/05/17 23:53 98.6 83 19 121/70 99 Room Air 02/05/17 20:11 98.1 83 20 103/65 100 Room Air 02/05/17 16:14 98.2 74 19 112/64 Room Air Intake and Output 02/05/17 02/06/17 19:00 07:00 Intake Total 110 ml Output Total 250 ml 75 ml Balance -250 ml 35 ml IV Total 110 ml Output Urine Total 250 ml Other 75 ml # Voids 2 # Bowel Movements 1 1 Objective General Appearance: no acute distress, awake, alert, French speaking male Respiratory/Chest: no respiratory distress, no accessory muscle use, decreased breath sounds - at bases Cardiovascular: normal rate, regular rhythm Abdomen: normal bowel sounds, soft, non tender - distended Extremities: other - + 1 edema BLE Neurologic/Psychiatric: abnormal gait, alert, responsive Musculoskeletal: normal muscle bulk Laboratory Tests 02/06/17 04:50: White Blood Count 5.9, Red Blood Count 3.23L, Hemoglobin 10.4L, Hematocrit 31.2L , Mean Corpuscular Volume 97, Mean Corpuscular Hemoglobin 32.1H, Mean Corpuscular Hemoglobin Concent 33.2, Red Cell Distribution Width 14.1, Platelet Count 89L, Mean Platelet Volume 7.8, Neutrophils (%) (Auto) , Lymphocytes (%) ( Auto) , Monocytes (%) (Auto) , Eosinophils (%) (Auto) , Basophils (%) (Auto) , Differential Total Cells Counted 100, Neutrophils % (Manual) 68, Lymphocytes % ( Manual) 20, Monocytes % (Manual) 9, Eosinophils % (Manual) 2, Basophils % ( Manual) 0, Band Neutrophils 1, Platelet Estimate DecreasedL, Platelet Morphology Normal, Hypochromasia 1+, Macrocytosis 1+, Sodium Level 133L, Potassium Level 4.4, Chloride Level 101, Carbon Dioxide Level 22, Anion Gap 10, Blood Urea Nitrogen 23, Creatinine 0.8, Estimat Glomerular Filtration Rate > 60 , Glucose Level 80, Calcium Level 7.6L Current Medications Medications (Trade) Dose Ordered Sig/Josse Route PRN Reason Start Time Stop Time Status Last Admin Dose Admin Acetaminophen (Tylenol) 650 mg Q4H PRN ORAL fever 02/03/17 22:15 03/05/17 22:14 Al Hydroxide/Mg Hydroxide (Mylanta II) 30 ml Q6H PRN ORAL dyspepsia 02/03/17 22:15 03/05/17 22:14 Cefepime HCl/ Dextrose (Maxipime/D5W) 55 ml @ 110 mls/hr EVERY 8 HOURS IV 02/04/17 06:00 02/11/17 05:59 02/06/17 05:43 Dextrose STAT PRN IV Hypoglycemia 02/03/17 22:15 03/05/17 22:14 Lactulose (Cephulac) 30 gm BID ORAL 02/05/17 18:00 03/07/17 17:59 02/06/17 09:00 Lorazepam (Ativan 2mg/ml 1ml) 0.5 mg Q4H PRN IV For Anxiety 02/03/17 22:15 02/10/17 22:14 Morphine Sulfate (Morphine Sulfate) 2 mg Q4H PRN IVP For Pain 02/03/17 22:15 02/10/17 22:14 Ondansetron HCl (Zofran) 4 mg Q6H PRN IVP Nausea & Vomiting 02/03/17 22:15 03/05/17 22:14 Pantoprazole (Protonix) 40 mg DAILY IVP 02/04/17 11:00 03/06/17 10:59 02/06/17 08:59 Pneumococcal Polyvalent Vaccine (Pneumovax) 0.5 ml ONCE ONCE IM 02/06/17 09:00 02/06/17 09:01 UNV Polyethylene Glycol (Miralax) 17 gm HSPRN PRN ORAL Constipation 02/03/17 22:15 03/05/17 22:14 Rifaximin (Xifaxan) 550 mg EVERY 12 HOURS ORAL 02/04/17 21:00 02/11/17 20:59 02/06/17 09:00 Zolpidem Tartrate (Ambien) 5 mg HSPRN PRN ORAL Insomnia 02/03/17 22:15 03/05/17 22:14 02/06/17 01:18 [facility] Hospital[facility] Kelly NP Feb 06, 2017 13:04
[2017-02-06] MEDS ORDERED: Pneumococcal Vaccine 25mcg/0.5ml IM ONE (15:30)
[2017-02-06 16:00] VITALS: BP 128/77
[2017-02-06] MEDS ORDERED: LACTULOSE10 GM/154 PO (16:00)
[2017-02-06] MEDS ORDERED: FUROSEMIDE20 M1 ORAL (16:24)
[2017-02-06] MEDS ORDERED: ALDACTONE50 MG ORAL (16:25)
[2017-02-06] MEDS ORDERED: PANTOPRAZOLE SO20 MG ORAL (16:28)
--- NOTE | 2017-02-06 21:20 | Consultation ---
Consult Note Consult Note DATE OF CONSULTATION: 02/06/17 HEMATOLOGY/ONCOLOGY CONSULTATION CONSULTING PHYSICIAN: Kvng Siegel M.D. REASON FOR CONSULTATION: Anemia, thrombocytopenia. CURRENT COMPLAINT/ HISTORY OF PRESENT ILLNESS: Dear Dr. Higinio Moon, Today, I had an opportunity to see one of your patients, who as you are aware, is a 51-year-old delightful gentleman with history of liver cirrhosis, recurrent ascites, abdominal discomfort. The patient had a history of intermittent paracentesis. At this time, the patient felt distention of the patient's abdomen, shortness of breath noted. is s/p para 13L were removed. PAST MEDICAL HISTORY: 1. Liver cirrhosis. 2. Ascites. MEDICATIONS: 1. Colace. 2. Senna 3. Aldactone ALLERGIES: NKDA. FAMILY HISTORY: Noncontributory. SOCIAL HISTORY: No history of smoking. No history of alcohol abuse. No history of illicit drug use. REVIEW OF SYSTEMS: General: The patient is not in any significant distress, but looks chronically ill. Respiratory: Mild shortness of breath on exertion. Gastrointestinal: The patient claims weakness. PHYSICAL EXAMINATION: VITAL SIGNS: T-max 99 degrees, respiratory rate 20, heart rate 80, and blood pressure 130/80. HEENT: Head is normocephalic and atraumatic. NECK: Supple. No thyroid enlargement. No lymphadenopathy. LUNGS: Decreased breath sounds bilaterally with few rhonchi at the base. HEART: S1 and S2 regular. ABDOMEN: Soft and benign. No organomegaly present. Bowel sounds present. EXTREMITIES: No cyanosis, clubbing, or edema. Laboratory Tests Test 02/06/17 04:50 White Blood Count 5.9 K/UL (4.8-10.8) Red Blood Count 3.23 M/UL (4.70-6.10) L Hemoglobin 10.4 G/DL (14.2-18.0) L Hematocrit 31.2 % (42.0-52.0) L Mean Corpuscular Volume 97 FL (80-99) Mean Corpuscular Hemoglobin 32.1 PG (27.0-31.0) H Mean Corpuscular Hemoglobin Concent 33.2 G/DL (32.0-36.0) Red Cell Distribution Width 14.1 % (11.6-14.8) Platelet Count 89 K/UL (150-450) L Mean Platelet Volume 7.8 FL (6.5-10.1) Neutrophils (%) (Auto) % (45.0-75.0) Lymphocytes (%) (Auto) % (20.0-45.0) Monocytes (%) (Auto) % (1.0-10.0) Eosinophils (%) (Auto) % (0.0-3.0) Basophils (%) (Auto) % (0.0-2.0) Differential Total Cells Counted 100 Neutrophils % (Manual) 68 % (45-75) Lymphocytes % (Manual) 20 % (20-45) Monocytes % (Manual) 9 % (1-10) Eosinophils % (Manual) 2 % (0-3) Basophils % (Manual) 0 % (0-2) Band Neutrophils 1 % (0-8) Platelet Estimate Decreased L Platelet Morphology Normal Hypochromasia 1+ Macrocytosis 1+ Sodium Level 133 mEQ/L (135-145) L Potassium Level 4.4 mEQ/L (3.4-4.9) Chloride Level 101 mEQ/L (98-107) Carbon Dioxide Level 22 mEQ/L (20-30) Anion Gap 10 (5-15) Blood Urea Nitrogen 23 mg/dL (7-23) Creatinine 0.8 mg/dL (0.7-1.2) Estimat Glomerular Filtration Rate > 60 mL/min (>60) Glucose Level 80 mg/dL (74-106) Calcium Level 7.6 mg/dL (8.6-10.2) L IMPRESSION: 1. Anemia of chronic disease. Currently h.h has been stable 2. Anemia rule out Gi bleed 3. Bilirubinemia. 4. Elevated liver function tests. 5. Hepatic encephalopathy. 6. Liver cirrhosis. 7. Ascites. 8. Shortness of breath. 9. Urinary tract infection. 10. Failure to thrive. RECOMMENDATION: 1. Watch count. 2. Watch coagulopathy. 3. PRBC transfusion on a p.r.n. basis. 4. Hepatitis panel is negative 5. s/p paracentesis 6. GI followup as outpatient 7. Skin care. 8. Nutrition. 9. Close followup Kvng Siegel Feb 06, 2017 21:19
--- NOTE | 2017-02-07 14:56 | Discharge Summary ---
Discharge Summary Hospital Course Date of Admission Feb 03, 2017 at 18:49 Date of Discharge Feb 06, 2017 at 20:05 Admitting Diagnosis Ascites/ABD PAIN HPI Maurisio Muro is a 51 year old male who was admitted on Feb 03, 2017 at 18: 49 for Ascites/Abdominal Pain Hospital Course dc summary #[id number] Discharge Medications Continued Medications: Furosemide* (Lasix*) 20 Mg Tablet 20 MG ORAL DAILY, TAB Lactulose (Lactulose) 10 Gm/15 Ml Solution 20 GM PO BID, #30 Pantoprazole (Pantoprazole) 20 Mg Tablet.dr 40 MG ORAL DAILY, #10 TAB 0 Refills Spironolactone (Aldactone) 50 Mg Tablet 50 MG ORAL DAILY, TAB Discharge Condition Upon Discharge: stable Discharge Disposition Patient was discharged to assisted living Discharge Diagnoses: Sandeep (Radu)Manjula NP Feb 07, 2017 14:56
== END 2017-02-06 20:05 | disposition home or self-care (01) | DRG 279 ==
LOC: EDBD 18:14 → EDUNIT# 18:14 → EMR 18:45 → 4W 18:49 → EDBEDREQ 20:46 → 4E 02-04 12:16
PROC: 0W9G3ZZ Drainage of Peritoneal Cavity, Percutaneous Approach (ICD-10-PCS; principal; 2017-02-04)
DX: K72.90 Hepatic failure, unspecified without coma (principal); I85.00 Esophageal varices without bleeding; R18.8 Other ascites; D69.6 Thrombocytopenia, unspecified; N39.0 Urinary tract infection, site not specified; K74.60 Unspecified cirrhosis of liver; D63.8 Anemia in other chronic diseases classified elsewhere; R06.02 Shortness of breath; R62.7 Adult failure to thrive; E88.09 Other disorders of plasma-protein metabolism, not elsewhere classified; K76.6 Portal hypertension; K31.89 Other diseases of stomach and duodenum
CPT/HCPCS: 36415; 76942; 80048; 80053; 80061; 82140; 82248; 83690; 84443; 85007; 85025; 85610; 85730; 90732; 93970

== ENCOUNTER 2017-02-22 21:20 | Inpatient (IN) | payer MEDICAID ==
[~2017-02-22] VITALS: Ht 165.1 cm; Wt 105.2 kg
[~2017-02-22 21:20] MED LIST changes: +ALDACTONE50 MG ORAL; +LACTULOSE10 GM/154 PO; +PANTOPRAZOLE SO20 MG ORAL; +UNOBMED
[2017-02-22 21:35] VITALS: BP 130/80
--- NOTE | 2017-02-22 22:13 | Emergency Room Report ---
History of Present Illness General Chief Complaint: Abdominal Pain Source: Patient, Medical Record Present Illness HPI This is a 51-year-old male with a history of incision and disease with cirrhosis and significant ascites. He was admitted here couple weeks ago and had paracentesis with about about 13 L output. He came back with the same complaint of abdominal pain and abdominal distention. No fever chills but no nausea no vomiting. Denies any other complaint. He does not have a liver or primary care Dr. pain is throbbing aching. Worse with lying flat. No fever or chills. No nausea no vomiting. No diarrhea. Allergies: Coded Allergies: No Known Allergies (Unverified , 01/08/17) Patient History Past Medical History: see triage record, old chart reviewed Past Surgical History: other Pertinent Family History: none Social History: Reports: alcohol use - History of, Denies: smoking Immunizations: other Reviewed Nursing Documentation: PMH: Agreed, PSxH: Agreed Nursing Documentation-PMH Hx Cardiac Problems: No Hx Asthma: Yes Hx Diabetes: No Hx Cancer: No Hx Gastrointestinal Problems: Yes - Liver cirrhosis Hx Neurological Problems: No Hx Memory Loss: Yes Hx Dizziness: Yes Hx Numbness: Yes - BLE Hx Weakness: Yes Hx Fatigue: Yes - with activity Review of Systems Eye: Denies: blurred vision, eye pain ENT: Denies: ear pain, nose congestion, throat swelling Respiratory: Denies: cough, shortness of breath Cardiovascular: Denies: chest pain, palpitations Gastrointestinal: Reports: abdominal pain, Denies: diarrhea, nausea, vomiting Musculoskeletal: Denies: back pain, joint pain Skin: Denies: rash Neurological: Denies: headache, numbness Endocrine: Denies: increased thirst, increased urine Hematologic/Lymphatic: Denies: easy bruising All Other Systems: negative except mentioned in HPI Physical Exam Vital Signs Date Time Temp Pulse Resp B/P Pulse Ox O2 Delivery O2 Flow Rate FiO2 02/22/17 21:29 97.9 88 16 130/80 97 Room Air vitals normal Sp02 EP Interpretation: reviewed, normal General Appearance: well appearing, no apparent distress, alert Head: normocephalic, atraumatic Eyes: bilateral eye EOMI, bilateral eye PERRL, bilateral eye scleral icterus ENT: hearing grossly normal, normal pharynx Neck: full range of motion, supple, no meningismus Respiratory: chest non-tender, lungs clear, normal breath sounds Cardiovascular #1: regular rate, rhythm, no murmur Gastrointestinal: normal bowel sounds, no mass, no organomegaly, no bruit, non- distended, tenderness - Mild, other - Abdominal distention with significant ascites Musculoskeletal: back normal, gait/station normal, normal range of motion Neurologic: alert, oriented x3 Psychiatric: mood/affect normal Skin: warm/dry Procedures Additional Procedure Procedure Narrative Procedure: Paracentesis Indication: Symptomatic ascites Description: Right lower quadrant area clean with chlorhexidine. Localized headache 1% lidocaine without epinephrine. Under sterile condition, I insert a paracentesis catheter. I drained about little less than a liter of clear ascites fluid. Because is no other vacuumed bottle in the ER, I was unable to drinking more fluid. Patient tolerated procedure without a problem. Medical Decision Making Diagnostic Impression: Primary Impression: Abdominal pain Qualified Codes: R10.84 - Generalized abdominal pain Additional Impressions: End stage liver disease Cirrhosis of liver with ascites Qualified Codes: K70.31 - Alcoholic cirrhosis of liver with ascites ER Course Patient presents with alcoholic cirrhosis with significant ascites. Last admission he had 13 L of output. I did a happen this equipment to take him with a liter here. No evidence of SBP. Labs still pending. Will admit for paracentesis in the morning. I contacted Dr. Moon for admission. Last Vital Signs Date Time Temp Pulse Resp B/P Pulse Ox O2 Delivery O2 Flow Rate FiO2 02/22/17 21:29 97.9 88 16 130/80 97 Room Air Status: unchanged Disposition: ADMITTED INPATIENT Condition: Serious Referrals: NOT CHOSEN RACHELLE/,REFERRING (PCP) EVIE PITTS M.D. Feb 22, 2017 22:13
[2017-02-22 22:56] LABS: EOSINOPHILS % (AUTO) 1.5 % (0.0-3.0); LYMPHOCYTES % (AUTO) 15.7 % (20.0-45.0); MEAN CORPUSCULAR HEMOGLOBIN 32.5 PG (27.0-31.0); MEAN CORPUSCULAR HGB CONC 33.7 G/DL (32.0-36.0); MEAN CORPUSCULAR VOLUME 96 FL (80-99); MEAN PLATELET VOLUME 7.3 FL (6.5-10.1); MONOCYTES % (AUTO) 12.9 % (1.0-10.0); NEUTROPHILS % (AUTO) 67.9 % (45.0-75.0); PLATELET COUNT 119 K/UL (150-450); RED BLOOD COUNT 3.19 M/UL (4.70-6.10); RED CELL DISTRIBUTION WIDTH 13.9 % (11.6-14.8); WHITE BLOOD COUNT 6.2 K/UL (4.8-10.8)
[2017-02-22 22:58] LABS: APPEARANCE,URINE CLEAR; KETONES,URINE 1+ (NEGATIVE); LEUKOCYTE ESTERASE ,URINE 2+ (NEGATIVE); NITRITE,URINE POSITIVE (NEGATIVE); PH,URINE 5 (4.5-8.0); PROTEIN,URINE 2+ (NEGATIVE); UROBILINOGEN,URINE 4 MG/DL (0.0-1.0)
[2017-02-22] MEDS ORDERED: IRON159 MG PO (23:08)
[2017-02-22] MEDS ORDERED: PROPRANOLOL HCL10 MG ORAL (23:10)
[2017-02-22] MEDS ORDERED: FOLIC ACID1 MG ORAL (23:10)
[2017-02-22 23:14] LABS: ALANINE AMINOTRANSFERASE 30 U/L (3-41); ALBUMIN/GLOBULIN RATIO 0.4 (1.0-2.7); ANION GAP 15 (5-15); ASPARTATE AMINO TRANSFERASE 52 U/L (5-40); CALCIUM 8.6 mg/dL (8.6-10.2); CARBON DIOXIDE 17 mEQ/L (20-30); CHLORIDE 94 mEQ/L (98-107); CREATININE 0.8 mg/dL (0.7-1.2); GLOMERULAR FILTRATION RATE > 60 mL/min (>60); HEMOLYSIS 8; LIPASE 37 U/L (< 60); POTASSIUM 5.7 mEQ/L (3.4-4.9); SODIUM 126 mEQ/L (135-145)
[2017-02-22 23:22] LABS: BACTERIA,URINE FEW /HPF; RBC,URINE 0-2 /HPF (0 - 0); SQUAMOUS EPITHELIAL CELL,UR FEW /LPF (NONE/OCC)
[2017-02-22 23:23] LABS: MUCUS,URINE MANY /LPF (NONE/OCC)
[2017-02-22 23:27] LABS: ICTOTEST POSITIVE; INR 1.2 (0.9-1.1); PROTHROMBIN TIME 12.3 SEC (9.30-11.50)
[2017-02-22 23:35] VITALS: BP 125/71
[2017-02-22 23:52] LABS: BILIRUBIN,DIRECT 0.4 mg/dL (0.1-0.3)
[2017-02-23] VITALS (7 sets, daily range): BP systolic 101–126; BP diastolic 54–77
--- NOTE | 2017-02-23 08:30 | Consultation ---
History of Present Illness General Date patient seen: Feb 23, 2017 Time patient seen: 07:45 - am Chief Complaint: Abdominal Pain Referring physician: Aruna Present Illness HPI This is a 51-year-old male with a history liver cirrhosis and significant ascites. Patient is monegasque speaking and being interpreted. He was admitted here couple weeks ago and had paracentesis with about about 13 L output. He came back with the same complaint of abdominal pain and abdominal distention. Pain is throbbing aching. Worse with lying flat. Admitted under Dr. Valdovinos for paracentesis. Allergies: Coded Allergies: No Known Allergies (Unverified , 01/08/17) Medication History Scheduled Ferrous Sulfate, Dried (Iron), 65 MG PO TID, (Reported) Folic Acid* (Folic Acid*), 1 MG ORAL DAILY, (Reported) Furosemide* (Lasix*), 20 MG ORAL DAILY, (Reported) Lactulose (Lactulose), 20 GM PO BID, (Reported) Pantoprazole (Pantoprazole), 40 MG ORAL BID, (Reported) Propranolol Hcl* (Inderal*), 10 MG ORAL THREE TIMES A DAY, (Reported) Spironolactone (Aldactone), 50 MG ORAL DAILY, (Reported) Miscellaneous Medications Unable to Obtain Medications (Unable To Obtain Meds), (Reported) Patient History Healthcare decision maker Resuscitation status Advanced Directive on File Past Medical/Surgical History Past Medical/Surgical History: (1) Abdominal pain (2) Cirrhosis of liver with ascites (3) Esophageal varices without bleeding (4) Anemia (5) End stage liver disease Review of Systems Constitutional: Reports: weakness Eye: Reports: no symptoms ENT: Reports: no symptoms Respiratory: Reports: shortness of breath Cardiovascular: Reports: no symptoms Gastrointestinal: Reports: abdominal pain Genitourinary: Reports: no symptoms Musculoskeletal: Reports: no symptoms Skin: Reports: change in color Psychiatric: Reports: no symptoms Neurological: Reports: headache Endocrine: Reports: no symptoms Hematologic/Lymphatic: Reports: no symptoms Physical Exam General Appearance: no apparent distress, alert HEENT: PERRL, EOMI, other - sclera icteric Neck: non-tender, normal alignment Respiratory/Chest: decreased breath sounds Abdomen: distended, tender Extremities: moderate edema Skin Exam: jaundice Neurologic: alert, responsive Last 24 Hour Vital Signs Date Time Temp Pulse Resp B/P Pulse Ox O2 Delivery O2 Flow Rate FiO2 02/23/17 04:00 97.9 82 20 101/54 Room Air 02/23/17 00:30 97.9 85 19 121/72 97 Room Air 02/23/17 00:30 97.9 85 19 121/72 97 Room Air 02/23/17 00:00 97.9 86 18 117/59 100 Room Air 02/22/17 23:35 97.9 79 17 125/71 98 Room Air 02/22/17 21:35 97.9 88 16 130/80 97 Room Air 02/22/17 21:29 97.9 88 16 130/80 97 Room Air Intake and Output 02/22/17 02/23/17 19:00 07:00 Intake Total 0 ml Balance 0 ml Intake Oral 0 ml # Voids 1 Laboratory Tests Test 02/22/17 22:40 White Blood Count 6.2 K/UL (4.8-10.8) Red Blood Count 3.19 M/UL (4.70-6.10) L Hemoglobin 10.4 G/DL (14.2-18.0) L Hematocrit 30.7 % (42.0-52.0) L Mean Corpuscular Volume 96 FL (80-99) Mean Corpuscular Hemoglobin 32.5 PG (27.0-31.0) H Mean Corpuscular Hemoglobin Concent 33.7 G/DL (32.0-36.0) Red Cell Distribution Width 13.9 % (11.6-14.8) Platelet Count 119 K/UL (150-450) L Mean Platelet Volume 7.3 FL (6.5-10.1) Neutrophils (%) (Auto) 67.9 % (45.0-75.0) Lymphocytes (%) (Auto) 15.7 % (20.0-45.0) L Monocytes (%) (Auto) 12.9 % (1.0-10.0) H Eosinophils (%) (Auto) 1.5 % (0.0-3.0) Basophils (%) (Auto) 2.0 % (0.0-2.0) Prothrombin Time 12.3 SEC (9.30-11.50) H Prothromb Time International Ratio 1.2 (0.9-1.1) H Activated Partial Thromboplast Time 32 SEC (23-33) Urine Color Yellow Urine Appearance Clear Urine pH 5 (4.5-8.0) Urine Specific [place] 1.025 (1.005-1.035) Urine Protein 2+ (NEGATIVE) H Urine Glucose (UA) Negative (NEGATIVE) Urine Ketones 1+ (NEGATIVE) H Urine Occult Blood Negative (NEGATIVE) Urine Nitrite Positive (NEGATIVE) H Urine Bilirubin 1+ (NEGATIVE) H Urine Ictotest Positive Urine Urobilinogen 4 MG/DL (0.0-1.0) H Urine Leukocyte Esterase 2+ (NEGATIVE) H Urine RBC 0-2 /HPF (0 - 0) H Urine WBC 5-10 /HPF (0 - 0) H Urine Squamous Epithelial Cells Few /LPF (NONE/OCC) Urine Bacteria Few /HPF (NONE) Urine Mucus Many /LPF (NONE/OCC) H Sodium Level 126 mEQ/L (135-145) L Potassium Level 5.7 mEQ/L (3.4-4.9) H Chloride Level 94 mEQ/L (98-107) L Carbon Dioxide Level 17 mEQ/L (20-30) L Anion Gap 15 (5-15) Blood Urea Nitrogen 27 mg/dL (7-23) H Creatinine 0.8 mg/dL (0.7-1.2) Estimat Glomerular Filtration Rate > 60 mL/min (>60) Glucose Level 94 mg/dL (74-106) Calcium Level 8.6 mg/dL (8.6-10.2) Total Bilirubin 1.4 mg/dL (0.0-1.2) H Direct Bilirubin 0.4 mg/dL (0.1-0.3) H Aspartate Amino Transf (AST/SGOT) 52 U/L (5-40) H Alanine Aminotransferase (ALT/SGPT) 30 U/L (3-41) Alkaline Phosphatase 130 U/L (40-129) H Total Protein 7.0 g/dL (6.6-8.7) Albumin 2.2 g/dL (3.5-5.2) L Globulin 4.8 g/dL Albumin/Globulin Ratio 0.4 (1.0-2.7) L Lipase 37 U/L (< 60) Height (Feet): 5 Height (Inches): 5.00 Weight (Pounds): 235 Assessment/Plan Assessment/Plan (1) Ascites (2) End stage liver disease (3) Liver cirrhosis (4) Abdominal pain Patient will be started on Tramadol 25mg po 1 tab Q4H PRN pain. Pt was d/w Dr. Jackson and he concurred Thank you for the courtesy of this consultation. ALFREDO DIETRICH Feb 23, 2017 08:30
[2017-02-23] MEDS ORDERED: traMADol 50mg tab ORAL PRN (09:00)
--- NOTE | 2017-02-23 10:54 | GI Initial Consult Note ---
History of Present Illness General Date patient seen: Feb 23, 2017 Time patient seen: 10:51 Reason for Hospitalization: Abdominal Pain Referring physician: ANGEL BHAKTA Reason for Consultation: END STAGE LIVER DISEASE Present Illness HPI This is a 51-year-old male with a history of incision and disease with cirrhosis and significant ascites. He was admitted here couple weeks ago and had paracentesis with about about 13 L output. He came back with the same complaint of abdominal pain and abdominal distention. No fever chills but no nausea no vomiting. Denies any other complaint. He does not have a liver or primary care Dr. pain is throbbing aching. Worse with lying flat. No fever or chills. No nausea no vomiting. No diarrhea. GI CONSULT. HPI as noted above. GI consulted for management of cirrhosis. Pt readmission here at [facility] presents today with distended abdomen, soft with known ascites. No active s/sx of N/V/D. Labs show anemia, abnormal LFTs, hypoalbuminemia and hyperkalemia. Home Meds Reported Medications Folic Acid* (FOLIC ACID*) 1 Mg Tablet, 1 MG ORAL DAILY, TAB 02/22/17 Propranolol Hcl* (INDERAL*) 10 Mg Tablet, 10 MG ORAL THREE TIMES A DAY, #90 TAB 0 Refills 02/22/17 Ferrous Sulfate, Dried (IRON) 159 Mg Tablet.er, 65 MG PO TID, TAB 02/22/17 Pantoprazole (PANTOPRAZOLE) 20 Mg Tablet.dr, 40 MG ORAL BID, #10 TAB 0 Refills 02/06/17 Spironolactone (ALDACTONE) 50 Mg Tablet, 50 MG ORAL DAILY, TAB 02/06/17 Furosemide* (LASIX*) 20 Mg Tablet, 20 MG ORAL DAILY, TAB 02/06/17 Lactulose (LACTULOSE) 10 Gm/15 Ml Solution, 20 GM PO BID, #30 02/06/17 Unable to Obtain Medications (UNABLE TO OBTAIN MEDS) 1 Ea Ea 02/03/17 Med list reviewed/reconciled: Yes Allergies: Coded Allergies: No Known Allergies (Unverified , 01/08/17) Patient History History Provided By: Medical Record PMH Narrative Hx Cardiac Problems: No Hx Asthma: Yes Hx Diabetes: No Hx Cancer: No Hx Gastrointestinal Problems: Yes - Liver cirrhosis Hx Neurological Problems: No Hx Memory Loss: Yes Hx Dizziness: Yes Hx Numbness: Yes - BLE Hx Weakness: Yes Hx Fatigue: Yes - with activity Review of Systems All Other Systems: limited Physical Exam Vital Signs Date Time Temp Pulse Resp B/P Pulse Ox O2 Delivery O2 Flow Rate FiO2 02/22/17 21:29 97.9 88 16 130/80 97 Room Air Sp02 EP Interpretation: reviewed Labs Laboratory Tests Test 02/22/17 22:40 White Blood Count 6.2 K/UL (4.8-10.8) Red Blood Count 3.19 M/UL (4.70-6.10) L Hemoglobin 10.4 G/DL (14.2-18.0) L Hematocrit 30.7 % (42.0-52.0) L Mean Corpuscular Volume 96 FL (80-99) Mean Corpuscular Hemoglobin 32.5 PG (27.0-31.0) H Mean Corpuscular Hemoglobin Concent 33.7 G/DL (32.0-36.0) Red Cell Distribution Width 13.9 % (11.6-14.8) Platelet Count 119 K/UL (150-450) L Mean Platelet Volume 7.3 FL (6.5-10.1) Neutrophils (%) (Auto) 67.9 % (45.0-75.0) Lymphocytes (%) (Auto) 15.7 % (20.0-45.0) L Monocytes (%) (Auto) 12.9 % (1.0-10.0) H Eosinophils (%) (Auto) 1.5 % (0.0-3.0) Basophils (%) (Auto) 2.0 % (0.0-2.0) Prothrombin Time 12.3 SEC (9.30-11.50) H Prothromb Time International Ratio 1.2 (0.9-1.1) H Activated Partial Thromboplast Time 32 SEC (23-33) Urine Color Yellow Urine Appearance Clear Urine pH 5 (4.5-8.0) Urine Specific [place] 1.025 (1.005-1.035) Urine Protein 2+ (NEGATIVE) H Urine Glucose (UA) Negative (NEGATIVE) Urine Ketones 1+ (NEGATIVE) H Urine Occult Blood Negative (NEGATIVE) Urine Nitrite Positive (NEGATIVE) H Urine Bilirubin 1+ (NEGATIVE) H Urine Ictotest Positive Urine Urobilinogen 4 MG/DL (0.0-1.0) H Urine Leukocyte Esterase 2+ (NEGATIVE) H Urine RBC 0-2 /HPF (0 - 0) H Urine WBC 5-10 /HPF (0 - 0) H Urine Squamous Epithelial Cells Few /LPF (NONE/OCC) Urine Bacteria Few /HPF (NONE) Urine Mucus Many /LPF (NONE/OCC) H Sodium Level 126 mEQ/L (135-145) L Potassium Level 5.7 mEQ/L (3.4-4.9) H Chloride Level 94 mEQ/L (98-107) L Carbon Dioxide Level 17 mEQ/L (20-30) L Anion Gap 15 (5-15) Blood Urea Nitrogen 27 mg/dL (7-23) H Creatinine 0.8 mg/dL (0.7-1.2) Estimat Glomerular Filtration Rate > 60 mL/min (>60) Glucose Level 94 mg/dL (74-106) Calcium Level 8.6 mg/dL (8.6-10.2) Total Bilirubin 1.4 mg/dL (0.0-1.2) H Direct Bilirubin 0.4 mg/dL (0.1-0.3) H Aspartate Amino Transf (AST/SGOT) 52 U/L (5-40) H Alanine Aminotransferase (ALT/SGPT) 30 U/L (3-41) Alkaline Phosphatase 130 U/L (40-129) H Total Protein 7.0 g/dL (6.6-8.7) Albumin 2.2 g/dL (3.5-5.2) L Globulin 4.8 g/dL Albumin/Globulin Ratio 0.4 (1.0-2.7) L Lipase 37 U/L (< 60) General Appearance: well appearing, no apparent distress, alert Head: normocephalic EENT: normal ENT inspection Neck: supple Respiratory: no respiratory distress Cardiovascular: normal rate Gastrointestinal: soft, distended, ascites Rectal: deferred Genitourinary: normal inspection, no CVA tenderness Musculoskeletal: back normal Neurologic: alert, oriented x3, responsive Psychiatric: normal inspection, judgement/insight normal, memory normal Skin: normal inspection, normal color, no rash, warm/dry Lymphatic: normal inspection, no adenopathy Current Medications Current Medications Medications (Trade) Dose Ordered Sig/Josse Route PRN Reason Start Time Stop Time Status Last Admin Dose Admin Tramadol HCl (Ultram) 25 mg Q4H PRN ORAL pain 02/23/17 09:00 03/02/17 08:59 GI: Plan Problems: (1) Cirrhosis of liver with ascites (2) End stage liver disease (3) Abdominal pain (4) Anemia (5) Esophageal varices without bleeding Plan S/P EGD SUMMARY OF FINDINGS: 01-11-17 1. Distal esophageal varices grade 2 without any stigmata. 2. Portal hypertensive gastropathy, moderate. 3. Lesion in the pre-pyloric area, see above for details, status post biopsy 4. Pathology >> moderate anemia, thrombocytopenia RECOMMENDATIONS: - Follow up biopsies and treat accordingly >> iron pill gastritis. negative for HP >> dc FeSO4 - continue Lasix and Aldactone. - cont lactulose + xifaxin - ordered paracentesis - monitor H&H, transfuse prn - PPI - check iron panel - fu labs Discussed with Dr. Hidalgo. Thank you for referring this patient, we will follow. Teresa Jackson N.P. Feb 23, 2017 10:54
[2017-02-23] MEDS ORDERED: Spironolactone 50mg tab ORAL SCH (13:00)
--- NOTE | 2017-02-23 13:05 | Infectious Diseases Prog Note ---
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 Assessment & Plan: continue PPI, and B remy Subjective Allergies: Coded Allergies: No Known Allergies (Unverified , 01/08/17) Objective Vital Signs Last 24 Hour Vital Signs Date Time Temp Pulse Resp B/P Pulse Ox O2 Delivery O2 Flow Rate FiO2 02/23/17 12:00 97.7 73 20 126/77 100 Room Air 02/23/17 08:00 98.2 79 20 116/66 97 Room Air 02/23/17 04:00 97.9 82 20 101/54 Room Air 02/23/17 00:30 97.9 85 19 121/72 97 Room Air 02/23/17 00:30 97.9 85 19 121/72 97 Room Air 02/23/17 00:00 97.9 86 18 117/59 100 Room Air 02/22/17 23:35 97.9 79 17 125/71 98 Room Air 02/22/17 21:35 97.9 88 16 130/80 97 Room Air 02/22/17 21:29 97.9 88 16 130/80 97 Room Air Height (Feet): 5 Height (Inches): 5.00 Weight (Pounds): 174 Laboratory Tests Test 02/22/17 22:40 White Blood Count 6.2 K/UL (4.8-10.8) Red Blood Count 3.19 M/UL (4.70-6.10) L Hemoglobin 10.4 G/DL (14.2-18.0) L Hematocrit 30.7 % (42.0-52.0) L Mean Corpuscular Volume 96 FL (80-99) Mean Corpuscular Hemoglobin 32.5 PG (27.0-31.0) H Mean Corpuscular Hemoglobin Concent 33.7 G/DL (32.0-36.0) Red Cell Distribution Width 13.9 % (11.6-14.8) Platelet Count 119 K/UL (150-450) L Mean Platelet Volume 7.3 FL (6.5-10.1) Neutrophils (%) (Auto) 67.9 % (45.0-75.0) Lymphocytes (%) (Auto) 15.7 % (20.0-45.0) L Monocytes (%) (Auto) 12.9 % (1.0-10.0) H Eosinophils (%) (Auto) 1.5 % (0.0-3.0) Basophils (%) (Auto) 2.0 % (0.0-2.0) Prothrombin Time 12.3 SEC (9.30-11.50) H Prothromb Time International Ratio 1.2 (0.9-1.1) H Activated Partial Thromboplast Time 32 SEC (23-33) Urine Color Yellow Urine Appearance Clear Urine pH 5 (4.5-8.0) Urine Specific [place] 1.025 (1.005-1.035) Urine Protein 2+ (NEGATIVE) H Urine Glucose (UA) Negative (NEGATIVE) Urine Ketones 1+ (NEGATIVE) H Urine Occult Blood Negative (NEGATIVE) Urine Nitrite Positive (NEGATIVE) H Urine Bilirubin 1+ (NEGATIVE) H Urine Ictotest Positive Urine Urobilinogen 4 MG/DL (0.0-1.0) H Urine Leukocyte Esterase 2+ (NEGATIVE) H Urine RBC 0-2 /HPF (0 - 0) H Urine WBC 5-10 /HPF (0 - 0) H Urine Squamous Epithelial Cells Few /LPF (NONE/OCC) Urine Bacteria Few /HPF (NONE) Urine Mucus Many /LPF (NONE/OCC) H Sodium Level 126 mEQ/L (135-145) L Potassium Level 5.7 mEQ/L (3.4-4.9) H Chloride Level 94 mEQ/L (98-107) L Carbon Dioxide Level 17 mEQ/L (20-30) L Anion Gap 15 (5-15) Blood Urea Nitrogen 27 mg/dL (7-23) H Creatinine 0.8 mg/dL (0.7-1.2) Estimat Glomerular Filtration Rate > 60 mL/min (>60) Glucose Level 94 mg/dL (74-106) Calcium Level 8.6 mg/dL (8.6-10.2) Total Bilirubin 1.4 mg/dL (0.0-1.2) H Direct Bilirubin 0.4 mg/dL (0.1-0.3) H Aspartate Amino Transf (AST/SGOT) 52 U/L (5-40) H Alanine Aminotransferase (ALT/SGPT) 30 U/L (3-41) Alkaline Phosphatase 130 U/L (40-129) H Total Protein 7.0 g/dL (6.6-8.7) Albumin 2.2 g/dL (3.5-5.2) L Globulin 4.8 g/dL Albumin/Globulin Ratio 0.4 (1.0-2.7) L Lipase 37 U/L (< 60) Current Medications Medications (Trade) Dose Ordered Sig/Josse Route PRN Reason Start Time Stop Time Status Last Admin Dose Admin Folic Acid (Folate) 1 mg DAILY ORAL 02/23/17 13:00 03/25/17 12:59 Lactulose (Cephulac) 20 gm BID ORAL 02/23/17 18:00 03/25/17 17:59 Pantoprazole (Protonix) 40 mg DAILY IVP 02/24/17 09:00 03/26/17 08:59 Propranolol HCl (Inderal) 10 mg Q8HR ORAL 02/23/17 14:00 03/25/17 13:59 Rifaximin (Xifaxan) 550 mg EVERY 12 HOURS ORAL 02/23/17 21:00 03/02/17 20:59 Spironolactone (Aldactone) 50 mg DAILY ORAL 02/23/17 13:00 03/25/17 12:59 Tramadol HCl (Ultram) 25 mg Q4H PRN ORAL pain 02/23/17 09:00 03/02/17 08:59 Amanda Ingram M.D. Feb 23, 2017 13:05
[2017-02-23] MEDS ORDERED: Propranolol 10mg tab ORAL SCH (14:00)
--- NOTE | 2017-02-23 14:36 | Consultation ---
Consult Note Consult Note This is a 51-year-old male with a history of incision and disease with cirrhosis and significant ascites. He was admitted here couple weeks ago and had paracentesis with about about 13 L output. He came back with the same complaint of abdominal pain and abdominal distention. No fever chills but no nausea no vomiting. Denies any other complaint. He does not have a liver or primary care Dr. pain is throbbing aching. Worse with lying flat. No fever or chills. No nausea no vomiting. No diarrhea. Hx Asthma: Yes Hx Gastrointestinal Problems: Yes - Liver cirrhosis Hx Memory Loss: Yes Hx Dizziness: Yes Hx Numbness: Yes - BLE Hx Weakness: Yes Hx Fatigue: Yes - with activity Assessment/Plan status; Low Na and high K are due to the following: ASCITES ESOPHAGEAL VARICES S BLEEDING TRANSAMINITIS END STAGE LIVER DISEASE HYPOALBUMINEMIA sugg: Paracenthesis Slow diurese Monitor lytes Monitor renal parameters JENN HENSON Feb 23, 2017 14:36
[2017-02-23] MEDS ORDERED: Sodium Polystyrene Sulfonate 15gm Powder ORAL ONE (15:10)
[2017-02-23] MEDS: Propranolol 10mg tab ORAL SCH ×2 (15:47→21:17)
[2017-02-23] MEDS: Lactulose 20gm/30ml UDC ORAL SCH ×2 (15:47→19:37)
[2017-02-23] MEDS: cefTRIAXone 1 GM in D5W 55 ML IVPB SCH (15:48)
--- NOTE | 2017-02-23 16:40 | Consultation ---
Consult Note Consult Note DATE OF CONSULTATION: 02/23/17 HEMATOLOGY/ONCOLOGY CONSULTATION CONSULTING PHYSICIAN: Kvng Siegel M.D. REASON FOR CONSULTATION: Anemia, thrombocytopenia. CURRENT COMPLAINT/ HISTORY OF PRESENT ILLNESS: Dear Dr. Higinio Moon, Today, I had an opportunity to see one of your patients, who as you are aware, is a 51-year-old delightful gentleman with history of liver cirrhosis, recurrent ascites, abdominal discomfort. The patient had a history of intermittent paracentesis. At this time, the patient felt distention of the patient's abdomen, shortness of breath noted. is s/p para 13L were removed. Now presents with similar symptoms and hematology consulted for problems anemia and low plts. PAST MEDICAL HISTORY: 1. Liver cirrhosis. 2. Ascites. MEDICATIONS: 1. Colace. 2. Senna 3. Aldactone ALLERGIES: NKDA. FAMILY HISTORY: Noncontributory. SOCIAL HISTORY: No history of smoking. No history of alcohol abuse. No history of illicit drug use. REVIEW OF SYSTEMS: General: The patient is not in any significant distress, but looks chronically ill. Respiratory: Mild shortness of breath on exertion. Gastrointestinal: The patient claims weakness. PHYSICAL EXAMINATION: VITAL SIGNS: T-max 99 degrees, respiratory rate 20, heart rate 80, and blood pressure 130/80. HEENT: Head is normocephalic and atraumatic. NECK: Supple. No thyroid enlargement. No lymphadenopathy. LUNGS: Decreased breath sounds bilaterally with few rhonchi at the base. HEART: S1 and S2 regular. ABDOMEN: Soft and benign. No organomegaly present. Bowel sounds present. EXTREMITIES: No cyanosis, clubbing, or edema. Laboratory Tests Test 02/22/17 22:40 White Blood Count 6.2 K/UL (4.8-10.8) Red Blood Count 3.19 M/UL (4.70-6.10) L Hemoglobin 10.4 G/DL (14.2-18.0) L Hematocrit 30.7 % (42.0-52.0) L Mean Corpuscular Volume 96 FL (80-99) Mean Corpuscular Hemoglobin 32.5 PG (27.0-31.0) H Mean Corpuscular Hemoglobin Concent 33.7 G/DL (32.0-36.0) Red Cell Distribution Width 13.9 % (11.6-14.8) Platelet Count 119 K/UL (150-450) L Mean Platelet Volume 7.3 FL (6.5-10.1) Neutrophils (%) (Auto) 67.9 % (45.0-75.0) Lymphocytes (%) (Auto) 15.7 % (20.0-45.0) L Monocytes (%) (Auto) 12.9 % (1.0-10.0) H Eosinophils (%) (Auto) 1.5 % (0.0-3.0) Basophils (%) (Auto) 2.0 % (0.0-2.0) Prothrombin Time 12.3 SEC (9.30-11.50) H Prothromb Time International Ratio 1.2 (0.9-1.1) H Activated Partial Thromboplast Time 32 SEC (23-33) Urine Color Yellow Urine Appearance Clear Urine pH 5 (4.5-8.0) Urine Specific [place] 1.025 (1.005-1.035) Urine Protein 2+ (NEGATIVE) H Urine Glucose (UA) Negative (NEGATIVE) Urine Ketones 1+ (NEGATIVE) H Urine Occult Blood Negative (NEGATIVE) Urine Nitrite Positive (NEGATIVE) H Urine Bilirubin 1+ (NEGATIVE) H Urine Ictotest Positive Urine Urobilinogen 4 MG/DL (0.0-1.0) H Urine Leukocyte Esterase 2+ (NEGATIVE) H Urine RBC 0-2 /HPF (0 - 0) H Urine WBC 5-10 /HPF (0 - 0) H Urine Squamous Epithelial Cells Few /LPF (NONE/OCC) Urine Bacteria Few /HPF (NONE) Urine Mucus Many /LPF (NONE/OCC) H Sodium Level 126 mEQ/L (135-145) L Potassium Level 5.7 mEQ/L (3.4-4.9) H Chloride Level 94 mEQ/L (98-107) L Carbon Dioxide Level 17 mEQ/L (20-30) L Anion Gap 15 (5-15) Blood Urea Nitrogen 27 mg/dL (7-23) H Creatinine 0.8 mg/dL (0.7-1.2) Estimat Glomerular Filtration Rate > 60 mL/min (>60) Glucose Level 94 mg/dL (74-106) Calcium Level 8.6 mg/dL (8.6-10.2) Total Bilirubin 1.4 mg/dL (0.0-1.2) H Direct Bilirubin 0.4 mg/dL (0.1-0.3) H Aspartate Amino Transf (AST/SGOT) 52 U/L (5-40) H Alanine Aminotransferase (ALT/SGPT) 30 U/L (3-41) Alkaline Phosphatase 130 U/L (40-129) H Total Protein 7.0 g/dL (6.6-8.7) Albumin 2.2 g/dL (3.5-5.2) L Globulin 4.8 g/dL Albumin/Globulin Ratio 0.4 (1.0-2.7) L Lipase 37 U/L (< 60) IMPRESSION/RECS: 1. Anemia of chronic disease. Currently h.h has been stable --> w/u has been reviewed 2. Thrombocytopenia have reviewed hepatitis and hiv negative. Likely related to cirrhosis --> goal plt >20k 3. Bilirubinemia 2/2 cirrhosis 4. Elevated liver function tests. 5. Hepatic encephalopathy. 6. Liver cirrhosis. 7. Ascites. 8. Shortness of breath. 9. Urinary tract infection. 10. Failure to thrive. Kvng Siegel. Feb 23, 2017 16:40
[2017-02-23] MEDS ORDERED: Lactulose 20gm/30ml UDC ORAL SCH (18:00)
[2017-02-23] MEDS ORDERED: Rifaximin 550mg tab ORAL SCH (21:00)
[2017-02-23] MEDS: Rifaximin 550mg tab ORAL SCH (21:16)
--- NOTE | 2017-02-23 21:45 | Consultation ---
DATE OF CONSULTATION: 02/23/2017 INFECTIOUS DISEASE CONSULTATION REQUESTING PHYSICIAN: Joshua Valdovinos M.D. REASON FOR CONSULTATION: Ascites, rule out spontaneous bacterial peritonitis. HISTORY OF PRESENT ILLNESS: The patient is a 51-year-old male with history of chronic liver cirrhosis complicated with ascites, who had recurrent ascites, status post multiple paracenteses in the past, presented to [facility] with recurrent ascites and increased abdominal girth and distention. He is also complaining of pain with poor appetite. Denied any fever or chills. No nausea or vomiting. No diarrhea. No hematochezia. The patient was admitted to the hospital for paracentesis and to rule out peritonitis and I was consulted by the primary provider for antibiotics choice and further management. PAST MEDICAL HISTORY: Significant for asthma, chronic liver cirrhosis complicated with ascites, status post multiple paracenteses, memory loss, dizziness, and fatigue. PAST SURGICAL HISTORY: Negative. ALLERGIES: He has no known drug allergy. MEDICATIONS: The patient received levofloxacin in the emergency room one time dose. For the rest of his medications, please refer to [facility]. FAMILY HISTORY: Negative for recurrent infection or immunocompromised condition. SOCIAL HISTORY: The patient had history of alcohol abuse, not active currently. Denied using any drugs or tobacco. Unemployed, on disability. Lives with family. REVIEW OF SYSTEMS: A 12-point of system reviewed were all negative apart from the one I mentioned above in my History and Physical. PHYSICAL EXAMINATION: VITAL SIGNS: Temperature 97.5 degrees, pulse 87, respirations 20, blood pressure 126/76, and saturation 100% on room air. GENERAL: The patient is a middle-aged male with significant ascites, lying in bed, awake, alert, not in distress. HEENT: Normocephalic and atraumatic. Pupils are reactive to light equally. Moist oral mucosa. No exudate. NECK: Supple. No lymphadenopathy. No JVD. CARDIOVASCULAR: Regular rate and rhythm. No murmur. No gallop. LUNGS: Clear bilaterally. Diminished breathing sounds at the bases. ABDOMEN: Soft and distended with severe ascites. Positive wave sign. Unable to appreciate organomegaly at this point. EXTREMITIES: Edema +1 in both lower extremities. LABORATORY DATA: Showed white count of 6.2, hemoglobin of 10.4, and platelet count of 119,000. BUN of 27 and creatinine of 0.8. AST of 52, ALT of 30, and alkaline phosphatase of 130. Urinalysis was positive for nitrites, +2 leukocyte esterase, WBC 5 to 10, and few bacteria. ASSESSMENT AND PLAN: 1. Liver cirrhosis, complicated with ascites, recurrent. Recommend paracentesis and fluid to be sent for culture and cytology. We will start the patient on ceftriaxone empirically to cover for possible spontaneous bacterial peritonitis pending fluid culture results. 2. End-stage liver disease. Continue supportive care. Gastrointestinal is following. 3. Esophageal varices without bleeding. Continue proton pump inhibitor and beta-remy. Monitor hemoglobin and hematocrit. Consult Gastrointestinal. Amanda Ingram M.D. DR: CRESCENCIO JOB#: [id number] CC:
--- NOTE | 2017-02-23 22:15 | History and Physical Report ---
DATE OF ADMISSION: 02/22/[address] Higinio Moon. This is Dr. Higinio Moon's patient. HISTORY OF PRESENT ILLNESS: The patient is here for severe ascites that is symptomatic. The patient has shortness of breath. Last time, they apparently removed 11 liters of fluid. The patient complains of abdominal pain as well as headache. The patient has alcoholic cirrhosis. The patient denies nausea, vomiting, and diarrhea. Denies constipation. Does have heart medication as well. PAST MEDICAL HISTORY: Alcoholic cirrhosis and GERD. PAST SURGICAL HISTORY: None. MEDICATIONS: Protonix, lactulose, Lasix, ferrous sulfate, furosemide, spironolactone, and propranolol. SOCIAL HISTORY: Denies history of drug abuse. Denies history of smoking. Denies history of alcohol abuse. FAMILY HISTORY: Noncontributory. REVIEW OF SYSTEMS: HEENT: Denies headache Respiratory: Denies shortness of breath. Denies cough. Cardiovascular: Denies chest pain. GI: Denies . Denies constipation. Extremities: . PHYSICAL EXAMINATION: VITAL SIGNS: Temperature 97.9 degrees, pulse 79, and blood pressure 135/71. HEENT: PERRLA. NECK: Supple. No lymphadenopathy. CHEST: Clear to auscultation. GI: Soft, tender, and distended severely. . EXTREMITIES: A 1+ edema. Moves all four extremities. NEUROLOGIC: The patient is not in any acute distress. The patient is comfortably lying in bed. LABORATORY AND DIAGNOSTIC DATA: WBC 6.2, hemoglobin 10.4, and platelets 119,000. Sodium 136, potassium 5.7, BUN 27, creatinine 0.8, and glucose 98. Total bilirubin 1.4 and direct bilirubin 0.4. AST 53 and ALT 30. ASSESSMENT AND PLAN: 1. Hyponatremia. 2. Hyperkalemia. 3. Alcoholic cirrhosis. 4. Last time removed 11 liters of fluid from the ascites. PLAN: I have asked Dr. Hidalgo, Dr. Roche, and Dr. Ingram to see the patient for the above-mentioned diagnoses and treatment. Ali Jennifer Valdovinos DR: Amanda JOB#: [id number] CC:
[2017-02-24] VITALS (9 sets, daily range): BP systolic 86–105; BP diastolic 45–65
[2017-02-24] MEDS: Propranolol 10mg tab ORAL SCH ×3 (05:52→20:48)
[2017-02-24 07:31] LABS: EOSINOPHILS % (AUTO) 2.4 % (0.0-3.0); LYMPHOCYTES % (AUTO) 19.3 % (20.0-45.0); MEAN CORPUSCULAR HGB CONC 34.4 G/DL (32.0-36.0); MEAN CORPUSCULAR VOLUME 99 FL (80-99); MEAN PLATELET VOLUME 7.9 FL (6.5-10.1); MONOCYTES % (AUTO) 12.9 % (1.0-10.0); NEUTROPHILS % (AUTO) 64.4 % (45.0-75.0); PLATELET COUNT 122 K/UL (150-450); RED BLOOD COUNT 3.01 M/UL (4.70-6.10); RED CELL DISTRIBUTION WIDTH 13.8 % (11.6-14.8); WHITE BLOOD COUNT 4.1 K/UL (4.8-10.8)
[2017-02-24 07:41] LABS: AMMONIA 36 umol/L (16-60)
[2017-02-24 07:59] LABS: CRP QUANT 1.3 mg/dL (< 0.5); MAGNESIUM 1.8 mg/dL (1.7-2.5); PHOSPHORUS 5.1 mg/dL (2.5-4.8); URIC ACID 4.7 mg/dL (3.0-7.5)
[2017-02-24 08:01] LABS: ALANINE AMINOTRANSFERASE 28 U/L (3-41); ALBUMIN/GLOBULIN RATIO 0.4 (1.0-2.7); ANION GAP 15 (5-15); ASPARTATE AMINO TRANSFERASE 53 U/L (5-40); CALCIUM 8.2 mg/dL (8.6-10.2); CARBON DIOXIDE 17 mEQ/L (20-30); CHLORIDE 93 mEQ/L (98-107); CREATININE 0.9 mg/dL (0.7-1.2); GLOMERULAR FILTRATION RATE > 60 mL/min (>60); HEMOLYSIS 5; SODIUM 125 mEQ/L (135-145); TOTAL PROTEIN 6.4 g/dL (6.6-8.7)
[2017-02-24 08:16] LABS: CHOLESTEROL/HDL RATIO 5.3 (3.3-4.4)
[2017-02-24 08:18] LABS: BILIRUBIN,DIRECT 0.4 mg/dL (0.1-0.3)
[2017-02-24 08:25] LABS: THYROID STIMULATING HORMONE 2.48 uIU/mL (0.300-4.500)
[2017-02-24] MEDS: Rifaximin 550mg tab ORAL SCH ×2 (08:27→20:48)
[2017-02-24] MEDS: Lactulose 20gm/30ml UDC ORAL SCH ×3 (08:27→20:48)
[2017-02-24] MEDS ORDERED: Pantoprazole Inj IVP SCH (09:00)
--- NOTE | 2017-02-24 11:55 | General Progress Note ---
Assessment/Plan Problem List: (1) Cirrhosis of liver with ascites ICD Codes: K74.60 - Unspecified cirrhosis of liver SNOMED: 75593670, 174607161 Qualifiers: Qualified Codes: K70.31 - Alcoholic cirrhosis of liver with ascites (2) Anemia ICD Codes: D64.9 - Anemia, unspecified SNOMED: 433237775 (3) End stage liver disease ICD Codes: K72.90 - Hepatic failure, unspecified without coma SNOMED: 859536112 (4) Abdominal pain ICD Codes: R10.9 - Unspecified abdominal pain SNOMED: 59559596 Qualifiers: Qualified Codes: R10.84 - Generalized abdominal pain Status: progressing Assessment/Plan ascites etoh cirrhosis paracentesis per gi hyponatremia due to cirrhosis iv fluids per renal try to avoid hepatorenal syndrome Subjective Gastrointestinal/Abdominal: Reports: abdominal pain Allergies: Coded Allergies: No Known Allergies (Unverified , 01/08/17) Subjective abdominal pain Objective Last 24 Hour Vital Signs Date Time Temp Pulse Resp B/P Pulse Ox O2 Delivery O2 Flow Rate FiO2 02/24/17 08:00 97.7 51 20 103/53 99 Room Air 02/24/17 05:52 63 105/65 02/24/17 04:00 98.7 63 19 105/65 97 Room Air 02/24/17 00:00 98.1 49 20 105/56 99 Room Air 02/23/17 21:17 62 117/72 02/23/17 20:00 98.1 62 20 117/72 100 Room Air 02/23/17 16:00 97.5 87 20 126/76 100 Room Air 02/23/17 15:47 72 130/75 02/23/17 12:00 97.7 73 20 126/77 100 Room Air Intake and Output 02/23/17 02/24/17 19:00 07:00 Intake Total 200 ml Balance 200 ml Intake Oral 200 ml # Voids 3 2 Laboratory Tests 02/23/17 20:00: Ferritin 288H 02/24/17 04:30: White Blood Count 4.1L, Red Blood Count 3.01L, Hemoglobin 10.2L, Hematocrit 29.7L, Mean Corpuscular Volume 99, Mean Corpuscular Hemoglobin 34.0H, Mean Corpuscular Hemoglobin Concent 34.4, Red Cell Distribution Width 13.8, Platelet Count 122L, Mean Platelet Volume 7.9, Neutrophils (%) (Auto) 64.4, Lymphocytes ( %) (Auto) 19.3L, Monocytes (%) (Auto) 12.9H, Eosinophils (%) (Auto) 2.4, Basophils (%) (Auto) 1.0, Sodium Level 125L, Potassium Level 5.0H, Chloride Level 93L, Carbon Dioxide Level 17L, Anion Gap 15, Blood Urea Nitrogen 27H, Creatinine 0.9, Estimat Glomerular Filtration Rate > 60, Glucose Level 67L, Lactic Acid Level 1.50, Uric Acid 4.7, Calcium Level 8.2L, Phosphorus Level 5.1H , Magnesium Level 1.8, Iron Level 89, Total Iron Binding Capacity 191L, Percent Iron Saturation 47, Unsaturated Iron Binding 102L, Total Bilirubin 1.6H, Direct Bilirubin 0.4H, Gamma Glutamyl Transpeptidase 22, Aspartate Amino Transf (AST/ SGOT) 53H, Alanine Aminotransferase (ALT/SGPT) 28, Alkaline Phosphatase 92, Ammonia 36, Total Creatine Kinase 81, C-Reactive Protein, Quantitative 1.3H, Pro -B-Type Natriuretic Peptide 369H, Total Protein 6.4L, Albumin 1.9L, Globulin 4.5 , Albumin/Globulin Ratio 0.4L, Triglycerides Level 38, Cholesterol Level 127, LDL Cholesterol 95, HDL Cholesterol 24, Cholesterol/HDL Ratio 5.3H, Vitamin B12 Level 1598H, Thyroid Stimulating Hormone (TSH) 2.480 02/24/17 05:00: Urine Random Sodium < 10 Height (Feet): 5 Height (Inches): 5.00 Weight (Pounds): 174 EENT: PERRL/EOMI Neck: supple Cardiovascular: normal rate Abdomen: tender Joshua Valdovinos MD Feb 24, 2017 11:55
--- NOTE | 2017-02-24 12:47 | GI Progress Note ---
Assessment/Plan Problems: (1) End stage liver disease ICD Codes: K72.90 - Hepatic failure, unspecified without coma SNOMED: 324846801 (2) Anemia ICD Codes: D64.9 - Anemia, unspecified SNOMED: 282553078 (3) Esophageal varices without bleeding ICD Codes: I85.00 - Esophageal varices without bleeding SNOMED: 34771272 (4) Cirrhosis of liver with ascites ICD Codes: K74.60 - Unspecified cirrhosis of liver SNOMED: 58237486, 982622503 Qualifiers: Qualified Codes: K70.31 - Alcoholic cirrhosis of liver with ascites (5) Abdominal pain ICD Codes: R10.9 - Unspecified abdominal pain SNOMED: 41313751 Qualifiers: Qualified Codes: R10.84 - Generalized abdominal pain Status: stable Status Narrative Discussed with Dr. Hidalgo. Assessment/Plan S/P EGD SUMMARY OF FINDINGS: 01-11-17 1. Distal esophageal varices grade 2 without any stigmata. 2. Portal hypertensive gastropathy, moderate. 3. Lesion in the pre-pyloric area, see above for details, status post biopsy 4. Pathology >> moderate anemia, thrombocytopenia iron panel >> unremarkable >> pt not iron deficient hep panel unremarkable RECOMMENDATIONS: - Follow up biopsies and treat accordingly >> iron pill gastritis. negative for HP >> dc FeSO4 - continue Lasix and Aldactone. - cont lactulose + xifaxin - fu paracentesis, r/o SBP - monitor H&H, transfuse prn - PPI - fu labs Subjective Subjective abdominal distended >> ascites Objective Last 24 Hour Vital Signs Date Time Temp Pulse Resp B/P Pulse Ox O2 Delivery O2 Flow Rate FiO2 02/24/17 12:00 96.8 52 20 92/64 98 Room Air 02/24/17 08:00 97.7 51 20 103/53 99 Room Air 02/24/17 05:52 63 105/65 02/24/17 04:00 98.7 63 19 105/65 97 Room Air 02/24/17 00:00 98.1 49 20 105/56 99 Room Air 02/23/17 21:17 62 117/72 02/23/17 20:00 98.1 62 20 117/72 100 Room Air 02/23/17 16:00 97.5 87 20 126/76 100 Room Air 02/23/17 15:47 72 130/75 Intake and Output 02/23/17 02/24/17 19:00 07:00 Intake Total 200 ml Balance 200 ml Intake Oral 200 ml # Voids 3 2 Laboratory Tests Test 02/23/17 20:00 02/24/17 04:30 02/24/17 05:00 Ferritin 288 ng/mL (10-230) H White Blood Count 4.1 K/UL (4.8-10.8) L Red Blood Count 3.01 M/UL (4.70-6.10) L Hemoglobin 10.2 G/DL (14.2-18.0) L Hematocrit 29.7 % (42.0-52.0) L Mean Corpuscular Volume 99 FL (80-99) Mean Corpuscular Hemoglobin 34.0 PG (27.0-31.0) H Mean Corpuscular Hemoglobin Concent 34.4 G/DL (32.0-36.0) Red Cell Distribution Width 13.8 % (11.6-14.8) Platelet Count 122 K/UL (150-450) L Mean Platelet Volume 7.9 FL (6.5-10.1) Neutrophils (%) (Auto) 64.4 % (45.0-75.0) Lymphocytes (%) (Auto) 19.3 % (20.0-45.0) L Monocytes (%) (Auto) 12.9 % (1.0-10.0) H Eosinophils (%) (Auto) 2.4 % (0.0-3.0) Basophils (%) (Auto) 1.0 % (0.0-2.0) Sodium Level 125 mEQ/L (135-145) L Potassium Level 5.0 mEQ/L (3.4-4.9) H Chloride Level 93 mEQ/L (98-107) L Carbon Dioxide Level 17 mEQ/L (20-30) L Anion Gap 15 (5-15) Blood Urea Nitrogen 27 mg/dL (7-23) H Creatinine 0.9 mg/dL (0.7-1.2) Estimat Glomerular Filtration Rate > 60 mL/min (>60) Glucose Level 67 mg/dL (74-106) L Lactic Acid Level 1.50 mmol/L (0.66-2.22) Uric Acid 4.7 mg/dL (3.0-7.5) Calcium Level 8.2 mg/dL (8.6-10.2) L Phosphorus Level 5.1 mg/dL (2.5-4.8) H Magnesium Level 1.8 mg/dL (1.7-2.5) Iron Level 89 ug/dL (59-158) Total Iron Binding Capacity 191 ug/dL (250-400) L Percent Iron Saturation 47 % (15-50) Unsaturated Iron Binding 102 ug/dL (112-346) L Total Bilirubin 1.6 mg/dL (0.0-1.2) H Direct Bilirubin 0.4 mg/dL (0.1-0.3) H Gamma Glutamyl Transpeptidase 22 U/L (8-61) Aspartate Amino Transf (AST/SGOT) 53 U/L (5-40) H Alanine Aminotransferase (ALT/SGPT) 28 U/L (3-41) Alkaline Phosphatase 92 U/L (40-129) Ammonia 36 umol/L (16-60) Total Creatine Kinase 81 U/L (38-174) C-Reactive Protein, Quantitative 1.3 mg/dL (< 0.5) H Pro-B-Type Natriuretic Peptide 369 pg/mL (0-125) H Total Protein 6.4 g/dL (6.6-8.7) L Albumin 1.9 g/dL (3.5-5.2) L Globulin 4.5 g/dL Albumin/Globulin Ratio 0.4 (1.0-2.7) L Triglycerides Level 38 mg/dL (< 150) Cholesterol Level 127 mg/dL (< 200) LDL Cholesterol 95 mg/dL (60-99) HDL Cholesterol 24 mg/dL (> 60) Cholesterol/HDL Ratio 5.3 (3.3-4.4) H Vitamin B12 Level 1598 pg/mL (211-946) H Thyroid Stimulating Hormone (TSH) 2.480 uIU/mL (0.300-4.500) Urine Random Sodium < 10 mmol/L Height (Feet): 5 Height (Inches): 5.00 Weight (Pounds): 174 General Appearance: no apparent distress, alert Cardiovascular: normal rate Respiratory/Chest: normal breath sounds, no respiratory distress Abdominal Exam: distended, ascites Extremities: normal range of motion Teresa Jackson N.Nahum Feb 24, 2017 12:46
[2017-02-24] MEDS: cefTRIAXone 1 GM in D5W 55 ML IVPB SCH (13:28)
--- NOTE | 2017-02-24 14:17 | Infectious Diseases Prog Note ---
Assessment/Plan Problems: (1) Cirrhosis of liver with ascites Assessment & Plan: needs paracentesis, on ceftriaxon empirically to cover for possible SBP, pending fluids culture (2) End stage liver disease Assessment & Plan: continue supportive care, GI is following (3) Esophageal varices without bleeding Assessment & Plan: continue PPI, and B remy Subjective Constitutional: Reports: no symptoms HEENT: Reports: no symptoms Respiratory: Reports: no symptoms Breasts: Reports: no symptoms Cardiovascular: Reports: no symptoms Gastrointestinal/Abdominal: Reports: bloating, other - ascites Genitourinary: Reports: no symptoms Neurologic: Reports: no symptoms Psychiatric: Reports: no symptoms Skin: Reports: no symptoms Allergies: Coded Allergies: No Known Allergies (Unverified , 01/08/17) Objective Vital Signs Last 24 Hour Vital Signs Date Time Temp Pulse Resp B/P Pulse Ox O2 Delivery O2 Flow Rate FiO2 02/24/17 13:28 52 92/64 02/24/17 12:00 96.8 52 20 92/64 98 Room Air 02/24/17 08:00 97.7 51 20 103/53 99 Room Air 02/24/17 05:52 63 105/65 02/24/17 04:00 98.7 63 19 105/65 97 Room Air 02/24/17 00:00 98.1 49 20 105/56 99 Room Air 02/23/17 21:17 62 117/72 02/23/17 20:00 98.1 62 20 117/72 100 Room Air 02/23/17 16:00 97.5 87 20 126/76 100 Room Air 02/23/17 15:47 72 130/75 Height (Feet): 5 Height (Inches): 5.00 Weight (Pounds): 232 General Appearance: WD/WN, no acute distress HEENT: normocephalic, atraumatic, anicteric, mucous membranes moist Respiratory/Chest: chest wall non-tender, lungs clear, normal breath sounds, no respiratory distress, no accessory muscle use Cardiovascular: normal peripheral pulses, normal rate, regular rhythm, no gallop/murmur Abdomen: soft, non tender, no scars, hypoactive bowel sounds, distended, hepatomegaly Extremities: no cyanosis, no clubbing Skin: no rash, no lesions Microbiology Date/Time Source Procedure Growth Status 02/23/17 01:30 Nasal Nares MRSA Culture - Final NO METHICILLIN RESISTANT STAPH AUREUS... Complete Laboratory Tests Test 02/23/17 20:00 02/24/17 04:30 02/24/17 05:00 Ferritin 288 ng/mL (10-230) H White Blood Count 4.1 K/UL (4.8-10.8) L Red Blood Count 3.01 M/UL (4.70-6.10) L Hemoglobin 10.2 G/DL (14.2-18.0) L Hematocrit 29.7 % (42.0-52.0) L Mean Corpuscular Volume 99 FL (80-99) Mean Corpuscular Hemoglobin 34.0 PG (27.0-31.0) H Mean Corpuscular Hemoglobin Concent 34.4 G/DL (32.0-36.0) Red Cell Distribution Width 13.8 % (11.6-14.8) Platelet Count 122 K/UL (150-450) L Mean Platelet Volume 7.9 FL (6.5-10.1) Neutrophils (%) (Auto) 64.4 % (45.0-75.0) Lymphocytes (%) (Auto) 19.3 % (20.0-45.0) L Monocytes (%) (Auto) 12.9 % (1.0-10.0) H Eosinophils (%) (Auto) 2.4 % (0.0-3.0) Basophils (%) (Auto) 1.0 % (0.0-2.0) Sodium Level 125 mEQ/L (135-145) L Potassium Level 5.0 mEQ/L (3.4-4.9) H Chloride Level 93 mEQ/L (98-107) L Carbon Dioxide Level 17 mEQ/L (20-30) L Anion Gap 15 (5-15) Blood Urea Nitrogen 27 mg/dL (7-23) H Creatinine 0.9 mg/dL (0.7-1.2) Estimat Glomerular Filtration Rate > 60 mL/min (>60) Glucose Level 67 mg/dL (74-106) L Lactic Acid Level 1.50 mmol/L (0.66-2.22) Uric Acid 4.7 mg/dL (3.0-7.5) Calcium Level 8.2 mg/dL (8.6-10.2) L Phosphorus Level 5.1 mg/dL (2.5-4.8) H Magnesium Level 1.8 mg/dL (1.7-2.5) Iron Level 89 ug/dL (59-158) Total Iron Binding Capacity 191 ug/dL (250-400) L Percent Iron Saturation 47 % (15-50) Unsaturated Iron Binding 102 ug/dL (112-346) L Total Bilirubin 1.6 mg/dL (0.0-1.2) H Direct Bilirubin 0.4 mg/dL (0.1-0.3) H Gamma Glutamyl Transpeptidase 22 U/L (8-61) Aspartate Amino Transf (AST/SGOT) 53 U/L (5-40) H Alanine Aminotransferase (ALT/SGPT) 28 U/L (3-41) Alkaline Phosphatase 92 U/L (40-129) Ammonia 36 umol/L (16-60) Total Creatine Kinase 81 U/L (38-174) C-Reactive Protein, Quantitative 1.3 mg/dL (< 0.5) H Pro-B-Type Natriuretic Peptide 369 pg/mL (0-125) H Total Protein 6.4 g/dL (6.6-8.7) L Albumin 1.9 g/dL (3.5-5.2) L Globulin 4.5 g/dL Albumin/Globulin Ratio 0.4 (1.0-2.7) L Triglycerides Level 38 mg/dL (< 150) Cholesterol Level 127 mg/dL (< 200) LDL Cholesterol 95 mg/dL (60-99) HDL Cholesterol 24 mg/dL (> 60) Cholesterol/HDL Ratio 5.3 (3.3-4.4) H Vitamin B12 Level 1598 pg/mL (211-946) H Thyroid Stimulating Hormone (TSH) 2.480 uIU/mL (0.300-4.500) Urine Random Sodium < 10 mmol/L Current Medications Medications (Trade) Dose Ordered Sig/Josse Route PRN Reason Start Time Stop Time Status Last Admin Dose Admin Albumin Human (Albumisol) 100 ml @ 100 mls/hr ONCE PRN IV 1hr before paracentesis 02/24/17 07:45 02/24/17 23:59 02/24/17 14:11 Ceftriaxone Sodium/Dextrose (Rocephin/D5W) 55 ml @ 110 mls/hr Q24H IVPB 02/23/17 14:00 03/02/17 13:59 02/24/17 13:28 Folic Acid (Folate) 1 mg DAILY ORAL 02/23/17 13:00 03/25/17 12:59 02/24/17 08:27 Furosemide 20 mg 20 mg DAILY ORAL 02/24/17 09:00 03/26/17 08:59 02/24/17 08:27 Lactulose (Cephulac) 20 gm TID ORAL 02/23/17 15:10 03/25/17 15:09 02/24/17 13:34 Pantoprazole 40 mg 40 mg DAILY IVP 02/24/17 09:00 03/26/17 08:59 02/24/17 08:27 Propranolol HCl (Inderal) 10 mg Q8HR ORAL 02/23/17 14:00 03/25/17 13:59 02/24/17 05:52 Rifaximin (Xifaxan) 550 mg EVERY 12 HOURS ORAL 02/23/17 21:00 03/02/17 20:59 02/24/17 08:27 Tramadol HCl (Ultram) 25 mg Q4H PRN ORAL pain 02/23/17 09:00 03/02/17 08:59 02/23/17 21:17 Amanda Ingram M.D. Feb 24, 2017 14:17
--- NOTE | 2017-02-24 15:48 | General Progress Note ---
Assessment/Plan Status: unchanged Assessment/Plan Low Na and high K are due to the following: ASCITES ESOPHAGEAL VARICES S BLEEDING TRANSAMINITIS END STAGE LIVER DISEASE HYPOALBUMINEMIA sugg: Paracenthesis Slow diurese Monitor lytes Monitor renal parameters Subjective ROS Limited/Unobtainable: No Constitutional: Reports: malaise, weakness Allergies: Coded Allergies: No Known Allergies (Unverified , 01/08/17) Objective Last 24 Hour Vital Signs Date Time Temp Pulse Resp B/P Pulse Ox O2 Delivery O2 Flow Rate FiO2 02/24/17 13:28 52 92/64 02/24/17 12:00 96.8 52 20 103/53 98 Bi-pap 02/24/17 08:00 97.7 51 20 103/53 99 Room Air 02/24/17 05:52 63 105/65 02/24/17 04:00 98.7 63 19 105/65 97 Room Air 02/24/17 00:00 98.1 49 20 105/56 99 Room Air 02/23/17 21:17 62 117/72 02/23/17 20:00 98.1 62 20 117/72 100 Room Air 02/23/17 16:00 97.5 87 20 126/76 100 Room Air Intake and Output 02/23/17 02/24/17 19:00 07:00 Intake Total 200 ml Balance 200 ml Intake Oral 200 ml # Voids 3 2 Laboratory Tests 02/23/17 20:00: Ferritin 288H 02/24/17 04:30: White Blood Count 4.1L, Red Blood Count 3.01L, Hemoglobin 10.2L, Hematocrit 29.7L, Mean Corpuscular Volume 99, Mean Corpuscular Hemoglobin 34.0H, Mean Corpuscular Hemoglobin Concent 34.4, Red Cell Distribution Width 13.8, Platelet Count 122L, Mean Platelet Volume 7.9, Neutrophils (%) (Auto) 64.4, Lymphocytes ( %) (Auto) 19.3L, Monocytes (%) (Auto) 12.9H, Eosinophils (%) (Auto) 2.4, Basophils (%) (Auto) 1.0, Sodium Level 125L, Potassium Level 5.0H, Chloride Level 93L, Carbon Dioxide Level 17L, Anion Gap 15, Blood Urea Nitrogen 27H, Creatinine 0.9, Estimat Glomerular Filtration Rate > 60, Glucose Level 67L, Lactic Acid Level 1.50, Uric Acid 4.7, Calcium Level 8.2L, Phosphorus Level 5.1H , Magnesium Level 1.8, Iron Level 89, Total Iron Binding Capacity 191L, Percent Iron Saturation 47, Unsaturated Iron Binding 102L, Total Bilirubin 1.6H, Direct Bilirubin 0.4H, Gamma Glutamyl Transpeptidase 22, Aspartate Amino Transf (AST/ SGOT) 53H, Alanine Aminotransferase (ALT/SGPT) 28, Alkaline Phosphatase 92, Ammonia 36, Total Creatine Kinase 81, C-Reactive Protein, Quantitative 1.3H, Pro -B-Type Natriuretic Peptide 369H, Total Protein 6.4L, Albumin 1.9L, Globulin 4.5 , Albumin/Globulin Ratio 0.4L, Triglycerides Level 38, Cholesterol Level 127, LDL Cholesterol 95, HDL Cholesterol 24, Cholesterol/HDL Ratio 5.3H, Vitamin B12 Level 1598H, Thyroid Stimulating Hormone (TSH) 2.480 02/24/17 05:00: Urine Random Sodium < 10 Height (Feet): 5 Height (Inches): 5.00 Weight (Pounds): 232 General Appearance: mild distress Cardiovascular: normal rate Respiratory/Chest: decreased breath sounds Abdomen: distended, other - massive ascitis JENN HENSON Feb 24, 2017 15:48
--- NOTE | 2017-02-24 16:54 | General Progress Note ---
Assessment/Plan Assessment/Plan IMPRESSION/RECS: 1. Anemia of chronic disease. Currently h.h has been stable --> w/u has been reviewed 2. Thrombocytopenia have reviewed hepatitis and hiv negative. Likely related to cirrhosis --> goal plt >20k 3. Bilirubinemia 2/2 cirrhosis 4. Elevated liver function tests. 5. Hepatic encephalopathy. 6. Liver cirrhosis. 7. Ascites. 8. Shortness of breath. 9. Urinary tract infection. 10. Failure to thrive. Subjective Constitutional: Reports: no symptoms HEENT: Reports: no symptoms Cardiovascular: Reports: no symptoms Respiratory: Reports: no symptoms Gastrointestinal/Abdominal: Reports: abdomen distended Genitourinary: Reports: no symptoms Neurologic/Psychiatric: Reports: no symptoms Endocrine: Reports: no symptoms Hematologic/Lymphatic: Reports: no symptoms Allergies: Coded Allergies: No Known Allergies (Unverified , 01/08/17) Subjective no bleeding, afebrile Objective Last 24 Hour Vital Signs Date Time Temp Pulse Resp B/P Pulse Ox O2 Delivery O2 Flow Rate FiO2 02/24/17 13:28 52 92/64 02/24/17 12:00 96.8 52 20 103/53 98 Bi-pap 02/24/17 08:00 97.7 51 20 103/53 99 Room Air 02/24/17 05:52 63 105/65 02/24/17 04:00 98.7 63 19 105/65 97 Room Air 02/24/17 00:00 98.1 49 20 105/56 99 Room Air 02/23/17 21:17 62 117/72 02/23/17 20:00 98.1 62 20 117/72 100 Room Air Intake and Output 02/23/17 02/24/17 19:00 07:00 Intake Total 200 ml Balance 200 ml Intake Oral 200 ml # Voids 3 2 Laboratory Tests 02/23/17 20:00: Ferritin 288H 02/24/17 04:30: White Blood Count 4.1L, Red Blood Count 3.01L, Hemoglobin 10.2L, Hematocrit 29.7L, Mean Corpuscular Volume 99, Mean Corpuscular Hemoglobin 34.0H, Mean Corpuscular Hemoglobin Concent 34.4, Red Cell Distribution Width 13.8, Platelet Count 122L, Mean Platelet Volume 7.9, Neutrophils (%) (Auto) 64.4, Lymphocytes ( %) (Auto) 19.3L, Monocytes (%) (Auto) 12.9H, Eosinophils (%) (Auto) 2.4, Basophils (%) (Auto) 1.0, Sodium Level 125L, Potassium Level 5.0H, Chloride Level 93L, Carbon Dioxide Level 17L, Anion Gap 15, Blood Urea Nitrogen 27H, Creatinine 0.9, Estimat Glomerular Filtration Rate > 60, Glucose Level 67L, Lactic Acid Level 1.50, Uric Acid 4.7, Calcium Level 8.2L, Phosphorus Level 5.1H , Magnesium Level 1.8, Iron Level 89, Total Iron Binding Capacity 191L, Percent Iron Saturation 47, Unsaturated Iron Binding 102L, Total Bilirubin 1.6H, Direct Bilirubin 0.4H, Gamma Glutamyl Transpeptidase 22, Aspartate Amino Transf (AST/ SGOT) 53H, Alanine Aminotransferase (ALT/SGPT) 28, Alkaline Phosphatase 92, Ammonia 36, Total Creatine Kinase 81, C-Reactive Protein, Quantitative 1.3H, Pro -B-Type Natriuretic Peptide 369H, Total Protein 6.4L, Albumin 1.9L, Globulin 4.5 , Albumin/Globulin Ratio 0.4L, Triglycerides Level 38, Cholesterol Level 127, LDL Cholesterol 95, HDL Cholesterol 24, Cholesterol/HDL Ratio 5.3H, Vitamin B12 Level 1598H, Thyroid Stimulating Hormone (TSH) 2.480 02/24/17 05:00: Urine Random Sodium < 10 Height (Feet): 5 Height (Inches): 5.00 Weight (Pounds): 232 General Appearance: no apparent distress EENT: normal ENT inspection Neck: normal alignment Cardiovascular: normal rate Respiratory/Chest: lungs clear Abdomen: non tender Extremities: non-tender Edema: no edema noted Leg (L), no edema noted Leg (R), no edema noted Pedal (L) , no edema noted Pedal (R) Edema: mild edema Skin: normal pigmentation Kvng Siegel Feb 24, 2017 16:54
--- NOTE | 2017-02-25 11:01 | Diagnostic Imaging Report ---
Indications: Tense abdominal distention, recurrent ascites. Technique: Procedure, indications, risks and alternatives were explained to the patient who understands and gives consent to proceed. The abdomen and pelvis were surveyed sonographically. The skin over the left lower quadrant was sterilely prepped and draped in usual fashion. Skin and subcutaneous soft tissues were infiltrated with 1% lidocaine and sodium bicarbonate. A small dermatotomy was made, through which an 8 Mongolian paracentesis catheter was advanced under direct sonographic guidance into the peritoneal cavity. Ascites was maximally drained via automated vacuum apparatus. Followup ultrasound imaging was performed. Catheter was removed. Dermatotomy site was manually compressed to achieve stasis, then cleansed and bandaged. Patient tolerated the procedure well without immediate complications. Sample of ascites retained for laboratory tests p.r.n. Findings: Initial imaging demonstrates a large amount of ascites throughout the abdomen and pelvis. Post procedure imaging demonstrates near complete resolution of ascites. Paracentesis yields 10 L clear light yellow fluid. IMPRESSION: Ultrasound-guided paracentesis yielding 10 L of ascites.
--- NOTE | 2017-02-25 11:03 | Discharge Summary ---
Discharge Summary Hospital Course Date of Admission Feb 22, 2017 at 22:18 Date of Discharge Feb 24, 2017 at 21:30 Admitting Diagnosis END STAGE LIVER DISEASE; ASCITES HPI Maurisio Muro is a 51 year old male who was admitted on Feb 22, 2017 at 22 :18 for End Stage Liver Disease,Ascites Hospital Course [id number] Discharge Discharge Disposition Patient was discharged to Home (01) Discharge Diagnoses: Mitali Farfan NP Feb 25, 2017 11:03
--- NOTE | 2017-02-26 00:45 | Discharge Summary 2 SIG ---
DATE OF ADMISSION: 02/22/2017 DATE OF DISCHARGE: 02/24/2017 ADMITTING PHYSICIAN: Joshua Valdovinos M.D. CONSULTANTS: 1. Kvng Siegel M.D. 2. Max Roche M.D. 3. Amanda Ingram M.D. 4. Soto Hidalgo M.D. BRIEF HOSPITAL COURSE: The patient is a 51-year-old male with history of cirrhosis and significant ascites, who was recently admitted and underwent paracentesis, presented with complaints of abdominal pain and abdominal distention. On evaluation at ED, the patient had significant ascites. A paracentesis catheter was inserted at ED and clear ascitic fluid was drained almost 1 liter. He was admitted for further management and would need more paracentesis. He was continued on Lasix, Aldactone, lactulose, and Xifaxan. He presented with hyponatremia and hyperkalemia and was given slow diuresis. He was started empirically on ceftriaxone for possible SBP. The patient was eventually discharged home to follow up with PMD. FINAL DIAGNOSES: 1. Recurrent ascites secondary to liver cirrhosis. 2. End-stage liver disease. 3. Esophageal varices without bleeding. 4. Hyponatremia. 5. Hyperkalemia. 6. Hypoalbuminemia. 7. Anemia of chronic disease. 8. Status post paracentesis. Ryan Santana M.D. I have been assigned to dictate discharge summary on this account and I was not involved in the patient's management. Mitali Farfan N.P. DR: ACE JOB#: [id number] CC: ZOE
== END 2017-02-24 21:30 | disposition home or self-care (01) | DRG 280 ==
LOC: EMR 21:44 → 4E 22:18 → EDBEDREQ 22:48
PROC: 0W9G3ZZ Drainage of Peritoneal Cavity, Percutaneous Approach (ICD-10-PCS; principal; 2017-02-23)
DX: K70.31 Alcoholic cirrhosis of liver with ascites (principal); K72.90 Hepatic failure, unspecified without coma; I85.00 Esophageal varices without bleeding; E87.1 Hypo-osmolality and hyponatremia; E88.09 Other disorders of plasma-protein metabolism, not elsewhere classified; E87.5 Hyperkalemia; D63.8 Anemia in other chronic diseases classified elsewhere
CPT/HCPCS: 36415; 76942; 80053; 80061; 81003; 82140; 82248; 82550; 82607; 82728; 82977; 83540; 83550; 83605; 83690; 83735; 83880; 84100; 84300; 84443; 84550; 85025; 85610; 85730; 86140; 87070; 87081; 87205; 88104

== ENCOUNTER 2017-02-27 20:14 | Emergency (ER) | payer MEDICAID ==
[~2017-02-27] VITALS: Ht 165.1 cm; Wt 117.9 kg
[~2017-02-27 20:14] MED LIST changes: +FOLIC ACID1 MG ORAL; +IRON159 MG PO
[2017-02-27 20:30] VITALS: BP 94/47
--- NOTE | 2017-02-27 21:18 | Emergency Room Report ---
History of Present Illness General Chief Complaint: General Complaint Source: Patient, Family Member Present Illness HPI Is a 51-year-old male with a history of alcoholic cirrhosis with severe ascites. He's been here several times already with chief complaint of abdominal distention. He was just here last week and had about 8 L of ascites drained. He was here a week and half before that and had 13 L drained. Presents with same chief complaint of abdominal distention. No fever or chills. No pain. No nausea no vomiting. Said he is taking his medicine. Has not followup with his primary care DrDelonte for referral to see a specialist this no other complaint. No fever or chills. Worse with lying flat. Allergies: Coded Allergies: No Known Allergies (Unverified , 01/08/17) Patient History Past Medical History: see triage record, old chart reviewed Past Surgical History: other Pertinent Family History: none Social History: Reports: alcohol use - History of Immunizations: other Reviewed Nursing Documentation: PMH: Agreed, PSxH: Agreed Nursing Documentation-PMH Hx Cardiac Problems: No Hx Asthma: Yes Hx Diabetes: No Hx Cancer: No Hx Gastrointestinal Problems: Yes - Liver cirrhosis Hx Neurological Problems: No Hx Memory Loss: Yes Hx Dizziness: Yes Hx Numbness: Yes - BLE Hx Weakness: Yes Hx Fatigue: Yes - with activity Review of Systems Eye: Denies: blurred vision, eye pain ENT: Denies: ear pain, nose congestion, throat swelling Respiratory: Denies: cough, shortness of breath Cardiovascular: Denies: chest pain, palpitations Gastrointestinal: Denies: abdominal pain, diarrhea, nausea, vomiting Musculoskeletal: Denies: back pain, joint pain Skin: Denies: rash Neurological: Denies: headache, numbness Endocrine: Denies: increased thirst, increased urine Hematologic/Lymphatic: Denies: easy bruising All Other Systems: negative except mentioned in HPI Physical Exam Vital Signs Date Time Temp Pulse Resp B/P Pulse Ox O2 Delivery O2 Flow Rate FiO2 02/27/17 20:20 97.9 66 16 94/47 100 Room Air vitals normal Sp02 EP Interpretation: reviewed, normal General Appearance: well appearing, no apparent distress, alert Head: normocephalic, atraumatic Eyes: bilateral eye EOMI, bilateral eye PERRL ENT: hearing grossly normal, normal pharynx Neck: full range of motion, supple, no meningismus Respiratory: chest non-tender, lungs clear, normal breath sounds Cardiovascular #1: regular rate, rhythm, no murmur Gastrointestinal: normal bowel sounds, non tender, no mass, no organomegaly, no bruit, other - Distention with ascites. Not tympanic. No redness or warmth. Musculoskeletal: back normal, gait/station normal, normal range of motion Psychiatric: mood/affect normal Skin: warm/dry Medical Decision Making Diagnostic Impression: Primary Impression: End stage liver disease Additional Impression: Cirrhosis of liver with ascites Qualified Codes: K70.31 - Alcoholic cirrhosis of liver with ascites ER Course Issue with alcoholic cirrhosis with ascites. Abdomen is soft and not tense. I see no need for repeat paracentesis. Increase his risk for perforation and infection. He will need to see a liver specialist and placed on the transplant list. I expressed this to him and his sister. This was done through a real estate appraiser also. Last Vital Signs Date Time Temp Pulse Resp B/P Pulse Ox O2 Delivery O2 Flow Rate FiO2 02/27/17 20:30 97.9 66 16 94/47 100 Room Air Status: unchanged Disposition: HOME, SELF-CARE Condition: Stable Additional Instructions: Followup with your DrDelonte for referral to see a liver specialist. You would need to be on a transplant list. This is only way to fix this problem. Return if worse. EVIE PITTS M.D. Feb 27, 2017 21:17
[2017-02-27 21:45] VITALS: BP 99/70
== END 2017-02-27 21:45 | disposition home or self-care (01) ==
LOC: EMR 20:45
DX: K72.90 Hepatic failure, unspecified without coma (principal); K70.31 Alcoholic cirrhosis of liver with ascites
CPT/HCPCS: 99282

== ENCOUNTER 2017-03-15 09:21 | Inpatient (IN) | payer MEDICAID ==
[2017-03-15] VITALS (13 sets, daily range): BP systolic 80–101; BP diastolic 39–80
[~2017-03-15] VITALS: Ht 165.1 cm; Wt 88.0 kg
[2017-03-15] MEDS ORDERED: Famotidine 20 MG/ 2ML VIAL IVP ONE (10:00)
[2017-03-15 10:23] LABS: KETONES,URINE 1+ (NEGATIVE); LEUKOCYTE ESTERASE ,URINE 3+ (NEGATIVE); NITRITE,URINE NEGATIVE (NEGATIVE); PH,URINE 6 (4.5-8.0); PROTEIN,URINE 1+ (NEGATIVE); UROBILINOGEN,URINE 1 MG/DL (0.0-1.0)
[2017-03-15 10:46] LABS: MEAN CORPUSCULAR HEMOGLOBIN 31.5 PG (27.0-31.0); MEAN CORPUSCULAR HGB CONC 32.2 G/DL (32.0-36.0); MEAN CORPUSCULAR VOLUME 98 FL (80-99); MEAN PLATELET VOLUME 6.4 FL (6.5-10.1); PLATELET COUNT 156 K/UL (150-450); RED BLOOD COUNT 3.53 M/UL (4.70-6.10); RED CELL DISTRIBUTION WIDTH 13.7 % (11.6-14.8); WHITE BLOOD COUNT 15.3 K/UL (4.8-10.8)
[2017-03-15 11:02] LABS: APPEARANCE,URINE SLIGHTLY CLOUDY
[2017-03-15 11:03] LABS: TROPONIN I < 0.30 ng/mL (<=0.30)
[2017-03-15 11:03] LABS: BACTERIA,URINE MODERATE /HPF; MUCUS,URINE FEW /LPF (NONE/OCC); SQUAMOUS EPITHELIAL CELL,UR MODERATE /LPF (NONE/OCC); WBC,URINE 15-20 /HPF (0 - 0)
[2017-03-15 11:06] LABS: ICTOTEST POSITIVE
[2017-03-15 11:07] LABS: ACETAMINOPHEN < 10 ug/mL (10-30); ALANINE AMINOTRANSFERASE 28 U/L (3-41); ALBUMIN/GLOBULIN RATIO 0.5 (1.0-2.7); ALCOHOL < 10 mg/dL; ANION GAP 10 (5-15); ASPARTATE AMINO TRANSFERASE 48 U/L (5-40); CALCIUM 8.5 mg/dL (8.6-10.2); CARBON DIOXIDE 20 mEQ/L (20-30); CHLORIDE 98 mEQ/L (98-107); CREATININE 1.9 mg/dL (0.7-1.2); GLOMERULAR FILTRATION RATE 37.7 mL/min (>60); HEMOLYSIS 4; LIPASE 28 U/L (< 60); POTASSIUM 5.5 mEQ/L (3.4-4.9); SODIUM 128 mEQ/L (135-145); TOTAL PROTEIN 6.6 g/dL (6.6-8.7)
[2017-03-15 11:08] LABS: AMMONIA 101 umol/L (16-60)
--- NOTE | 2017-03-15 11:13 | Diagnostic Imaging Report ---
Indication: Chest pain Comparison: None A single view chest radiograph was obtained. Findings: Cardiomediastinal appearance is within normal limits for age. Pulmonary vascularity is appropriate. The diaphragmatic contour is smooth and costophrenic angles are sharp. No pleural effusions are identified. The bones are unremarkable. Impression: No acute findings
--- NOTE | 2017-03-15 11:13 | Diagnostic Imaging Report ---
Indication: Abdominal pain Comparison: 01/08/17 Single view of the abdomen obtained Findings: Bowel gas pattern is nonspecific. No mass, ectopic calcifications, or abnormal gas collections are identified. The bones are osteopenic. Body habitus limits evaluation. Impression: No obvious acute findings
[2017-03-15 11:16] LABS: INR 1.2 (0.9-1.1); PROTHROMBIN TIME 12.1 SEC (9.30-11.50)
[2017-03-15 11:24] LABS: BILIRUBIN,DIRECT 0.5 mg/dL (0.1-0.3)
[2017-03-15 11:32] LABS: BAND NEUTROPHILS % (MANUAL) 1 % (0-8); BASOPHILS % (MANUAL) 0 % (0-2); EOSINOPHILS % (MANUAL) 1 % (0-3); LYMPHOCYTES % (MANUAL) 3 % (20-45); NEUTROPHILS % (MANUAL) 90 % (45-75); PLATELET ESTIMATE ADEQUATE; PLATELET MORPHOLOGY NORMAL; TOTAL CELLS COUNTED 100
[2017-03-15 11:34] LABS: MACROCYTES 1+
[2017-03-15 11:35] LABS: HYPOCHROMASIA 1+
--- NOTE | 2017-03-15 12:51 | Emergency Room Report ---
History of Present Illness General Chief Complaint: Abdominal Pain Source: Patient Present Illness HPI Patient presents with 4 days of worsened abdominal distention and inability to move bowels. Problems with abdominal distension. Last had ascites drained few weeks ago. They had to suture site, patient unsure why. At [facility] told potassium was 6. No dialysis initiated. No fevers. Some discomfort in abdomen - 4/10, pressure, diffuse. When he last moved bowels, no melena or blood - brown color. No dysuria or hematuria, though urine has been dark. No depression. Denies chest pain or dyspnea. Alcoholic cirrhosis. Allergies: Coded Allergies: No Known Allergies (Unverified , 01/08/17) Patient History Past Medical History: see triage record Social History: Reports: alcohol use Social History Narrative with family Reviewed Nursing Documentation: PMH: Agreed, PSxH: Agreed Nursing Documentation-PMH Hx Cardiac Problems: No Hx Asthma: Yes Hx Diabetes: No Hx Cancer: No Hx Gastrointestinal Problems: Yes - Cirrhosis Hx Neurological Problems: No Hx Memory Loss: Yes Hx Dizziness: Yes Hx Numbness: Yes - BLE Hx Weakness: Yes Hx Fatigue: Yes - with activity Review of Systems All Other Systems: negative except mentioned in HPI Physical Exam Vital Signs Date Time Temp Pulse Resp B/P Pulse Ox O2 Delivery O2 Flow Rate FiO2 03/15/17 09:25 98.2 81 24 110/62 97 Room Air Sp02 EP Interpretation: reviewed, normal General Appearance: other - spider habitus, Chronically Ill Head: normocephalic Eyes: bilateral eye PERRL, bilateral eye normal inspection ENT: moist mucus membranes Neck: supple Respiratory: lungs clear, normal breath sounds Cardiovascular #1: regular rate, rhythm Cardiovascular #2: 2+ radial (R) Gastrointestinal: no rebound, abnormal bowel sounds - distant, distended, tenderness - diffuse, other - massive ascites Musculoskeletal: back normal, gait/station normal, normal range of motion Neurologic: alert, oriented x3, other - asterixis Psychiatric: mood/affect normal Skin: other - suture in adomen with minimal erythema Medical Decision Making Diagnostic Impression: Primary Impression: Liver failure Qualified Codes: K72.00 - Acute and subacute hepatic failure without coma Additional Impressions: Renal failure Qualified Codes: N17.9 - Acute kidney failure, unspecified; N18.9 - Chronic kidney disease, unspecified UTI (urinary tract infection) Qualified Codes: N30.00 - Acute cystitis without hematuria Ascites Qualified Codes: K70.31 - Alcoholic cirrhosis of liver with ascites Hepatic encephalopathy ER Course Patient presents with abdominal distension and constipation. Ascites, SBP, liver failure, hepatic encephalopathy, coagulopathy, constipation amongst others. Emergent evaluation and set up for paracentesis. Labs with renal insufficiency, UTI, leukocytosis, elevated ammonia. Paracentesis removed 13 liters. BP lower after. Clinically unchanged. HR 74. NS and albumen ordered. Expect BP to improve with fluids as no evidence of sepsis. Admit tele Dr. Valdovinos. Laboratory Tests Test 03/15/17 10:00 03/15/17 10:20 Urine Color Yellow Urine Appearance Slightly cloudy Urine pH 6 (4.5-8.0) Urine Specific [place] 1.020 (1.005-1.035) Urine Protein 1+ (NEGATIVE) H Urine Glucose (UA) Negative (NEGATIVE) Urine Ketones 1+ (NEGATIVE) H Urine Occult Blood 1+ (NEGATIVE) H Urine Nitrite Negative (NEGATIVE) Urine Bilirubin 2+ (NEGATIVE) H Urine Ictotest Positive Urine Urobilinogen 1 MG/DL (0.0-1.0) H Urine Leukocyte Esterase 3+ (NEGATIVE) H Urine RBC 5-10 /HPF (0 - 0) H Urine WBC 15-20 /HPF (0 - 0) H Urine Squamous Epithelial Cells Moderate /LPF (NONE/OCC) H Urine Bacteria Moderate /HPF (NONE) H Urine Hyaline Casts 5-10 /LPF (NONE) H Urine Mucus Few /LPF (NONE/OCC) H Urine Opiates Screen Negative (NEGATIVE) Urine Barbiturates Screen Negative (NEGATIVE) Phencyclidine (PCP) Screen Negative (NEGATIVE) Urine Amphetamines Screen Negative (NEGATIVE) Urine Benzodiazepines Screen Negative (NEGATIVE) Urine Cocaine Screen Negative (NEGATIVE) Urine Marijuana (THC) Screen Negative (NEGATIVE) White Blood Count 15.3 K/UL (4.8-10.8) H Red Blood Count 3.53 M/UL (4.70-6.10) L Hemoglobin 11.1 G/DL (14.2-18.0) L Hematocrit 34.6 % (42.0-52.0) L Mean Corpuscular Volume 98 FL (80-99) Mean Corpuscular Hemoglobin 31.5 PG (27.0-31.0) H Mean Corpuscular Hemoglobin Concent 32.2 G/DL (32.0-36.0) Red Cell Distribution Width 13.7 % (11.6-14.8) Platelet Count 156 K/UL (150-450) Mean Platelet Volume 6.4 FL (6.5-10.1) L Neutrophils (%) (Auto) % (45.0-75.0) Lymphocytes (%) (Auto) % (20.0-45.0) Monocytes (%) (Auto) % (1.0-10.0) Eosinophils (%) (Auto) % (0.0-3.0) Basophils (%) (Auto) % (0.0-2.0) Differential Total Cells Counted 100 Neutrophils % (Manual) 90 % (45-75) H Lymphocytes % (Manual) 3 % (20-45) L Monocytes % (Manual) 5 % (1-10) Eosinophils % (Manual) 1 % (0-3) Basophils % (Manual) 0 % (0-2) Band Neutrophils 1 % (0-8) Platelet Estimate Adequate Platelet Morphology Normal Hypochromasia 1+ Macrocytosis 1+ Prothrombin Time 12.1 SEC (9.30-11.50) H Prothrombin Time INR 1.2 (0.9-1.1) H PTT 32 SEC (23-33) Sodium Level 128 mEQ/L (135-145) L Potassium Level 5.5 mEQ/L (3.4-4.9) H Chloride Level 98 mEQ/L (98-107) Carbon Dioxide Level 20 mEQ/L (20-30) Anion Gap 10 (5-15) Blood Urea Nitrogen 40 mg/dL (7-23) H Creatinine 1.9 mg/dL (0.7-1.2) H Estimate Glomerular Filtration Rate 37.7 mL/min (>60) Glucose Level 100 mg/dL (74-106) Lactic Acid Level 1.70 mmol/L (0.66-2.22) Calcium Level 8.5 mg/dL (8.6-10.2) L Total Bilirubin 1.8 mg/dL (0.0-1.2) H Direct Bilirubin 0.5 mg/dL (0.1-0.3) H Aspartate Amino Transferase (AST) 48 U/L (5-40) H Alanine Aminotransferase (ALT) 28 U/L (3-41) Alkaline Phosphatase 135 U/L (40-129) H Ammonia 101 umol/L (16-60) H Total Creatine Kinase 75 U/L (38-174) Troponin I < 0.30 ng/mL (<=0.30) Total Protein 6.6 g/dL (6.6-8.7) Albumin 2.3 g/dL (3.5-5.2) L Globulin 4.3 g/dL Albumin/Globulin Ratio 0.5 (1.0-2.7) L Lipase 28 U/L (< 60) Salicylates Level < 1 mg/dL (10-30) L Acetaminophen Level < 10 ug/mL (10-30) L Serum Alcohol < 10 mg/dL EKG Diagnostic Results Rate: normal Rhythm: NSR ST Segments: no acute changes Rhythm Strip Diag. Results EP Interpretation: yes Rhythm: NSR, no PVC's, no ectopy Chest X-Ray Diagnostic Results Chest X-Ray Diagnostic Results : Chest X-Ray Ordered: Yes # of Views/Limited/Complete: 1 View Indication: Other Interpretation: no consolidation, no pneumothorax, other - poss effusions - ascites Impression: Other Interpreting ER Provider: Electronically signed by Joe Brown MD Other X-Ray Diagnostic Results Other X-Ray Diagnostic Results : X-Ray ordered: Abdomen # of Views/Limited Vs Complete: 1 View Indication: Swelling EP Interpretation: Yes Interpretation: no sbo, other - Ascites, centralized bowel gas Impression: Other Interpreting ER Provider: Electronically signed by Joe Brown MD Last Vital Signs Date Time Temp Pulse Resp B/P Pulse Ox O2 Delivery O2 Flow Rate FiO2 03/15/17 19:55 98.2 79 19 80/41 97 Room Air Status: improved Disposition: ADMITTED INPATIENT Condition: Serious Referrals: NOT CHOSEN RACHELLE/,REFERRING (PCP) Joe Brown M.D. Mar 15, 2017 12:51
[2017-03-15] MEDS ORDERED: Sodium Polystyrene Sulfonate 15gm Powder ORAL ONE (13:00)
[2017-03-15] MEDS ORDERED: Calcium Gluconate 1gm/10ml vial IVP ONE (13:00)
[2017-03-15] MEDS ORDERED: cefTRIAXone 1 GM in NS 55 ML IVPB ONE (13:45)
--- NOTE | 2017-03-15 14:13 | Infectious Diseases Prog Note ---
Assessment/Plan Problems: (1) UTI (urinary tract infection) Assessment & Plan: will send urine culture and start cefepime empirically (2) Ascites Assessment & Plan: rule out SBP , recommend paracentesis and fluids culture, fungal and AFB. will start cefepime empirically (3) Sepsis Assessment & Plan: will send blood culture and start cefepime empirically (4) Cellulitis of abdominal wall Assessment & Plan: at the previous paracentesis site , will start cefepime and doxycycline (5) End stage liver disease Assessment & Plan: continue supportive care, consult GI (6) Renal failure Assessment & Plan: avoid nephrotoxic meds, consult renal service Subjective Allergies: Coded Allergies: No Known Allergies (Unverified , 01/08/17) Objective Vital Signs Last 24 Hour Vital Signs Date Time Temp Pulse Resp B/P Pulse Ox O2 Delivery O2 Flow Rate FiO2 03/15/17 13:45 71 20 101/49 100 Room Air 03/15/17 12:07 61 18 96/44 99 Room Air 03/15/17 11:18 98.2 71 20 92/53 100 Room Air 03/15/17 10:25 98.0 73 21 92/80 98 Room Air 03/15/17 09:25 98.2 81 24 110/62 97 Room Air Height (Feet): 5 Height (Inches): 5.00 Weight (Pounds): 220 Laboratory Tests Test 03/15/17 10:00 03/15/17 10:20 Urine Color Yellow Urine Appearance Slightly cloudy Urine pH 6 (4.5-8.0) Urine Specific [place] 1.020 (1.005-1.035) Urine Protein 1+ (NEGATIVE) H Urine Glucose (UA) Negative (NEGATIVE) Urine Ketones 1+ (NEGATIVE) H Urine Occult Blood 1+ (NEGATIVE) H Urine Nitrite Negative (NEGATIVE) Urine Bilirubin 2+ (NEGATIVE) H Urine Ictotest Positive Urine Urobilinogen 1 MG/DL (0.0-1.0) H Urine Leukocyte Esterase 3+ (NEGATIVE) H Urine RBC 5-10 /HPF (0 - 0) H Urine WBC 15-20 /HPF (0 - 0) H Urine Squamous Epithelial Cells Moderate /LPF (NONE/OCC) H Urine Bacteria Moderate /HPF (NONE) H Urine Hyaline Casts 5-10 /LPF (NONE) H Urine Mucus Few /LPF (NONE/OCC) H Urine Opiates Screen Negative (NEGATIVE) Urine Barbiturates Screen Negative (NEGATIVE) Phencyclidine (PCP) Screen Negative (NEGATIVE) Urine Amphetamines Screen Negative (NEGATIVE) Urine Benzodiazepines Screen Negative (NEGATIVE) Urine Cocaine Screen Negative (NEGATIVE) Urine Marijuana (THC) Screen Negative (NEGATIVE) White Blood Count 15.3 K/UL (4.8-10.8) H Red Blood Count 3.53 M/UL (4.70-6.10) L Hemoglobin 11.1 G/DL (14.2-18.0) L Hematocrit 34.6 % (42.0-52.0) L Mean Corpuscular Volume 98 FL (80-99) Mean Corpuscular Hemoglobin 31.5 PG (27.0-31.0) H Mean Corpuscular Hemoglobin Concent 32.2 G/DL (32.0-36.0) Red Cell Distribution Width 13.7 % (11.6-14.8) Platelet Count 156 K/UL (150-450) Mean Platelet Volume 6.4 FL (6.5-10.1) L Neutrophils (%) (Auto) % (45.0-75.0) Lymphocytes (%) (Auto) % (20.0-45.0) Monocytes (%) (Auto) % (1.0-10.0) Eosinophils (%) (Auto) % (0.0-3.0) Basophils (%) (Auto) % (0.0-2.0) Differential Total Cells Counted 100 Neutrophils % (Manual) 90 % (45-75) H Lymphocytes % (Manual) 3 % (20-45) L Monocytes % (Manual) 5 % (1-10) Eosinophils % (Manual) 1 % (0-3) Basophils % (Manual) 0 % (0-2) Band Neutrophils 1 % (0-8) Platelet Estimate Adequate Platelet Morphology Normal Hypochromasia 1+ Macrocytosis 1+ Prothrombin Time 12.1 SEC (9.30-11.50) H Prothromb Time International Ratio 1.2 (0.9-1.1) H Activated Partial Thromboplast Time 32 SEC (23-33) Sodium Level 128 mEQ/L (135-145) L Potassium Level 5.5 mEQ/L (3.4-4.9) H Chloride Level 98 mEQ/L (98-107) Carbon Dioxide Level 20 mEQ/L (20-30) Anion Gap 10 (5-15) Blood Urea Nitrogen 40 mg/dL (7-23) H Creatinine 1.9 mg/dL (0.7-1.2) H Estimat Glomerular Filtration Rate 37.7 mL/min (>60) Glucose Level 100 mg/dL (74-106) Lactic Acid Level 1.70 mmol/L (0.66-2.22) Calcium Level 8.5 mg/dL (8.6-10.2) L Total Bilirubin 1.8 mg/dL (0.0-1.2) H Direct Bilirubin 0.5 mg/dL (0.1-0.3) H Aspartate Amino Transf (AST/SGOT) 48 U/L (5-40) H Alanine Aminotransferase (ALT/SGPT) 28 U/L (3-41) Alkaline Phosphatase 135 U/L (40-129) H Ammonia 101 umol/L (16-60) H Total Creatine Kinase 75 U/L (38-174) Troponin I < 0.30 ng/mL (<=0.30) Total Protein 6.6 g/dL (6.6-8.7) Albumin 2.3 g/dL (3.5-5.2) L Globulin 4.3 g/dL Albumin/Globulin Ratio 0.5 (1.0-2.7) L Lipase 28 U/L (< 60) Salicylates Level < 1 mg/dL (10-30) L Acetaminophen Level < 10 ug/mL (10-30) L Serum Alcohol < 10 mg/dL Current Medications Medications (Trade) Dose Ordered Sig/Josse Route PRN Reason Start Time Stop Time Status Last Admin Dose Admin Cefepime HCl 1 gm/ Dextrose 55 ml @ 110 mls/hr EVERY 12 HOURS IVPB 03/15/17 13:30 03/22/17 13:29 UNV Ceftriaxone Sodium/Sodium Chloride (Rocephin/Sodium Chloride) 55 ml @ 110 mls/hr ONCE ONCE IVPB 03/15/17 13:45 03/15/17 14:14 03/15/17 13:50 Amanda Ingram M.D. Mar 15, 2017 14:13
--- NOTE | 2017-03-15 15:49 | Diagnostic Imaging Report ---
Indications: Ascites Procedure: Informed consent obtained. Ultrasound used to localize optimal puncture site. Sterile prepping and draping over the optimum site. Local anesthesia with 1% lidocaine. Under real-time ultrasound guidance, puncture of the peritoneal space performed using paracentesis needle. Digital image was saved and archived. Stylet removed. Catheter placed to vacuum bottle suction. Fluid was aspirated. Patient tolerated procedure well, without immediate complication. Findings: Followup sonography demonstrates complete resolution of peritoneal fluid Impression: Successful ultrasound-guided paracentesis, yielding 13.2 liters of fluid
[2017-03-15] MEDS ORDERED: Albumin Human 5% 250ml IV STA (15:51)
--- NOTE | 2017-03-15 17:31 | Consultation ---
DATE OF CONSULTATION: INFECTIOUS DISEASE CONSULTATION REQUESTING PHYSICIAN: Joshua Valdovinos M.D. REASON FOR CONSULTATION: Urinary tract infection, sepsis, possible spontaneous bacterial peritonitis. Recommendation for antibiotics treatment. HISTORY OF PRESENT ILLNESS: The patient is a 51-year-old male with history of end-stage liver disease with cirrhosis and esophageal varices with recurrent ascites, who has been admitted several times in the past for paracentesis, now presented to [facility] with sudden onset of abdominal pain. The patient has recently paracentesis done at the [facility] and he had suture at the previous paracentesis site. He developed redness and swelling around the suture area with no evidence of bleeding or pus draining. The patient seems to be distended and new ascites has built in already. So, he was admitted to the hospital, started on intravenous antibiotics for paracentesis to be done later and I was consulted by the primary provider for antibiotics treatment and further management. PAST MEDICAL HISTORY: Significant for asthma, liver cirrhosis, advanced memory loss, dizziness, weakness and fatigue with esophageal varices. MEDICATIONS: He received ceftriaxone in the emergency room. For the rest of his medications, please refer to [facility]. ALLERGIES: He has no known drug allergy. SOCIAL HISTORY: The patient used to be a former drinker and no longer denied using any drugs, tobacco or alcohol. He is unemployed at this moment. FAMILY HISTORY: Noncontributory. REVIEW OF SYSTEMS: A 12-point of system reviewed were all negative apart from the one I mentioned above in my History and Physical. PHYSICAL EXAMINATION: GENERAL: The patient is a middle-aged male, lying in bed, with distended abdomen due to ascites. Awake, alert, not in distress. VITAL SIGNS: Temperature 98.2 degrees, pulse 71, respirations 20, blood pressure 101/49, and saturation 100% on room air. HEENT: Normocephalic and atraumatic. Pupils reactive to light equally. Pale sclera with jaundice. Dry oral mucosa. No exudate. NECK: Supple. No lymphadenopathy. LUNGS: Clear bilaterally. Diminished breathing sounds at the bases. No wheezing or rhonchi. CARDIOVASCULAR: Regular rate and rhythm. No murmur. ABDOMEN: Soft, distended with ascites. Previous paracentesis wound with suture has redness and erythema around it. No drainage. No fluctuation. EXTREMITIES: Edema +1 in both lower extremities. No cyanosis or clubbing. SKIN: Jaundiced with bruises. No rash or hives. LABORATORY AND DIAGNOSTIC DATA: Labs showed white count of 15.3, hemoglobin of 11.1, and platelet count of 156,000. BUN of 40 and creatinine of 1.9. AST of 48, ALT of 28, and alkaline phosphatase 135. Urine toxicology negative. Urinalysis showed +3 leukocyte esterase, WBC 15- 20, and moderate amount of bacteria. Imaging, chest x-ray showed no acute findings. Abdominal x-ray showed no acute findings. ASSESSMENT AND RECOMMENDATION: 1. Urinary tract infection. We will send urine for culture and start cefepime empirically. 2. Ascites, rule out spontaneous bacterial peritonitis. Recommend paracentesis and fluid culture, fungal and AFB culture too. We will start patient on cefepime empiric treatment. 3. Sepsis due to the above. We will send blood culture and start cefepime with doxycycline empirically. 4. Cellulitis of the abdominal wall at the previous paracentesis site. We will start the patient on cefepime and doxycycline empiric treatment and monitor culture. 5. End-stage renal disease. Continue supportive care. Consult Gastrointestinal. 6. Renal failure. Avoid nephrotoxic medicine. Consult Renal service. Monitor urine output. Amanda Ingram M.D. DR: KRISTEL JOB#: [id number] CC:
[2017-03-15] MEDS: Cefepime HCl 1 GM in D5W 55 ML IVPB SCH (17:52)
[2017-03-15] MEDS: Doxycycline Hyclate 100 MG in D5W 110 ML IV SCH (18:47)
[2017-03-15 19:54] LABS: HEMOLYSIS 36; IRON 85 ug/dL (59-158); TOTAL IRON BINDING CAPACITY 221 ug/dL (250-400)
[2017-03-15 20:02] LABS: FERRITIN 266 ng/mL (10-230)
[2017-03-15] MEDS: Midodrine 10mg tab ORAL SCH (20:13)
[2017-03-16 03:50] VITALS: BP 119/75
[2017-03-16] MEDS: Cefepime HCl 1 GM in D5W 55 ML IVPB SCH ×2 (05:01→16:49)
[2017-03-16] MEDS: Doxycycline Hyclate 100 MG in D5W 110 ML IV SCH ×2 (06:04→18:20)
[2017-03-16 08:00] VITALS: BP 83/47
[2017-03-16] MEDS: Midodrine 10mg tab ORAL SCH ×3 (08:32→18:19)
[2017-03-16 10:28] LABS: MEAN CORPUSCULAR HEMOGLOBIN 32.8 PG (27.0-31.0); MEAN CORPUSCULAR HGB CONC 33.4 G/DL (32.0-36.0); MEAN CORPUSCULAR VOLUME 98 FL (80-99); MEAN PLATELET VOLUME 6.3 FL (6.5-10.1); PLATELET COUNT 104 K/UL (150-450); RED BLOOD COUNT 2.78 M/UL (4.70-6.10); RED CELL DISTRIBUTION WIDTH 13.4 % (11.6-14.8); WHITE BLOOD COUNT 13.4 K/UL (4.8-10.8)
[2017-03-16 10:43] LABS: ANISOCYTOSIS 1+; BAND NEUTROPHILS % (MANUAL) 2 % (0-8); BASOPHILS % (MANUAL) 0 % (0-2); EOSINOPHILS % (MANUAL) 0 % (0-3); HYPOCHROMASIA 2+; LYMPHOCYTES % (MANUAL) 12 % (20-45); NEUTROPHILS % (MANUAL) 79 % (45-75); PLATELET ESTIMATE DECREASED; PLATELET MORPHOLOGY NORMAL; SPHEROCYTES 1+; TOTAL CELLS COUNTED 100
[2017-03-16 10:54] LABS: ALBUMIN/GLOBULIN RATIO 0.7 (1.0-2.7); CALCIUM 8.2 mg/dL (8.6-10.2); CREATININE 1.4 mg/dL (0.7-1.2); GLOMERULAR FILTRATION RATE 53.6 mL/min (>60); MAGNESIUM 1.9 mg/dL (1.7-2.5); POTASSIUM 4.4 mEQ/L (3.4-4.9); TOTAL PROTEIN 5.3 g/dL (6.6-8.7); URIC ACID 6.9 mg/dL (3.0-7.5)
[2017-03-16 11:18] LABS: BILIRUBIN,DIRECT 0.6 mg/dL (0.1-0.3)
[2017-03-16 11:22] VITALS: BP 87/46
--- NOTE | 2017-03-16 12:09 | GI Initial Consult Note ---
History of Present Illness General Date patient seen: Mar 16, 2017 Time patient seen: 10:00 Reason for Hospitalization: Abdominal Pain Referring physician: CHERELLE SOTO Reason for Consultation: CONSTIPATION / CIRRHOSIS Present Illness HPI Patient presents with 4 days of worsened abdominal distention and inability to move bowels. At [facility] told potassium was 6. No dialysis initiated. GI Consult. HPI as noted above. GI consulted for constipation and mgmt of cirrhosis. Pt know to us here at [facility] presents with abdominal distention 2/2 ascites now s/p paracentesis with 13.2 L. Pt seen on floor, awake A&O with no complaints with diarrhea, cdiff negative. Home Meds Reported Medications Folic Acid* (FOLIC ACID*) 1 Mg Tablet, 1 MG ORAL DAILY, TAB 02/22/17 Propranolol Hcl* (INDERAL*) 10 Mg Tablet, 10 MG ORAL THREE TIMES A DAY, #90 TAB 0 Refills 02/22/17 Ferrous Sulfate, Dried (IRON) 159 Mg Tablet.er, 65 MG PO TID, TAB 02/22/17 Pantoprazole (PANTOPRAZOLE) 20 Mg Tablet.dr, 40 MG ORAL BID, #10 TAB 0 Refills 02/06/17 Spironolactone (ALDACTONE) 50 Mg Tablet, 50 MG ORAL DAILY, TAB 02/06/17 Furosemide* (LASIX*) 20 Mg Tablet, 20 MG ORAL DAILY, TAB 02/06/17 Lactulose (LACTULOSE) 10 Gm/15 Ml Solution, 20 GM PO BID, #30 02/06/17 Unable to Obtain Medications (UNABLE TO OBTAIN MEDS) 1 Ea Ea 02/03/17 Med list reviewed/reconciled: Yes Allergies: Coded Allergies: No Known Allergies (Unverified , 01/08/17) Patient History PMH Narrative Hx Cardiac Problems: No Hx Asthma: Yes Hx Diabetes: No Hx Cancer: No Hx Gastrointestinal Problems: Yes - Cirrhosis Hx Neurological Problems: No Hx Memory Loss: Yes Hx Dizziness: Yes Hx Numbness: Yes - BLE Hx Weakness: Yes Hx Fatigue: Yes - with activity Social History: Reports: alcohol use - ETOH Abuse Review of Systems All Other Systems: negative except mentioned in HPI Physical Exam Vital Signs Date Time Temp Pulse Resp B/P Pulse Ox O2 Delivery O2 Flow Rate FiO2 03/15/17 09:25 98.2 81 24 110/62 97 Room Air 03/16/17 11:22 100.0 Sp02 EP Interpretation: reviewed Labs Laboratory Tests Test 03/16/17 09:45 White Blood Count 13.4 K/UL (4.8-10.8) H Red Blood Count 2.78 M/UL (4.70-6.10) L Hemoglobin 9.1 G/DL (14.2-18.0) L Hematocrit 27.3 % (42.0-52.0) L Mean Corpuscular Volume 98 FL (80-99) Mean Corpuscular Hemoglobin 32.8 PG (27.0-31.0) H Mean Corpuscular Hemoglobin Concent 33.4 G/DL (32.0-36.0) Red Cell Distribution Width 13.4 % (11.6-14.8) Platelet Count 104 K/UL (150-450) L Mean Platelet Volume 6.3 FL (6.5-10.1) L Neutrophils (%) (Auto) % (45.0-75.0) Lymphocytes (%) (Auto) % (20.0-45.0) Monocytes (%) (Auto) % (1.0-10.0) Eosinophils (%) (Auto) % (0.0-3.0) Basophils (%) (Auto) % (0.0-2.0) Differential Total Cells Counted 100 Neutrophils % (Manual) 79 % (45-75) H Lymphocytes % (Manual) 12 % (20-45) L Monocytes % (Manual) 7 % (1-10) Eosinophils % (Manual) 0 % (0-3) Basophils % (Manual) 0 % (0-2) Band Neutrophils 2 % (0-8) Platelet Estimate Decreased L Platelet Morphology Normal Hypochromasia 2+ Anisocytosis 1+ Spherocytes 1+ Sodium Level 127 mEQ/L (135-145) L Potassium Level 4.4 mEQ/L (3.4-4.9) Chloride Level 98 mEQ/L (98-107) Carbon Dioxide Level 19 mEQ/L (20-30) L Anion Gap 10 (5-15) Blood Urea Nitrogen 41 mg/dL (7-23) H Creatinine 1.4 mg/dL (0.7-1.2) H Estimat Glomerular Filtration Rate 53.6 mL/min (>60) Glucose Level 93 mg/dL (74-106) Uric Acid 6.9 mg/dL (3.0-7.5) Calcium Level 8.2 mg/dL (8.6-10.2) L Phosphorus Level 5.0 mg/dL (2.5-4.8) H Magnesium Level 1.9 mg/dL (1.7-2.5) Total Bilirubin 1.8 mg/dL (0.0-1.2) H Direct Bilirubin 0.6 mg/dL (0.1-0.3) H Aspartate Amino Transf (AST/SGOT) 31 U/L (5-40) Alanine Aminotransferase (ALT/SGPT) 20 U/L (3-41) Alkaline Phosphatase 75 U/L (40-129) Ammonia 39 umol/L (16-60) C-Reactive Protein, Quantitative 6.0 mg/dL (< 0.5) H Pro-B-Type Natriuretic Peptide 1622 pg/mL (0-125) H Total Protein 5.3 g/dL (6.6-8.7) L Albumin 2.2 g/dL (3.5-5.2) L Globulin 3.1 g/dL Albumin/Globulin Ratio 0.7 (1.0-2.7) L General Appearance: well appearing, no apparent distress, alert Head: normocephalic EENT: normal ENT inspection Neck: supple Respiratory: lungs clear, normal breath sounds, no respiratory distress Cardiovascular: normal rate Gastrointestinal: normal inspection, non tender, soft, ascites Rectal: deferred Genitourinary: normal inspection Neurologic: normal inspection, alert, oriented x3, responsive Psychiatric: normal inspection, judgement/insight normal, memory normal Skin: normal inspection, normal color, no rash Lymphatic: normal inspection, no adenopathy Current Medications Current Medications Medications (Trade) Dose Ordered Sig/Josse Route PRN Reason Start Time Stop Time Status Last Admin Dose Admin Acetaminophen (Tylenol) 650 mg Q4H PRN ORAL Mild Pain/Temp > 100.5 03/16/17 04:15 04/15/17 04:14 03/16/17 11:13 Cefepime HCl 1 gm/ Dextrose 55 ml @ 110 mls/hr Q12HR@0500,1700 IVPB 03/15/17 17:00 03/22/17 16:59 03/16/17 05:01 Doxycycline Hyclate/Dextrose (Vibramycin/D5W) 110 ml @ 110 mls/hr Q12HR@0600,1800 IV 03/15/17 18:00 03/22/17 17:59 03/16/17 06:04 Midodrine (Pro-Amatine) 10 mg THREE TIMES A DAY ORAL 03/15/17 19:45 04/14/17 19:44 03/16/17 08:32 GI: Plan Problems: (1) Esophageal varices without bleeding (2) Abdominal pain (3) Anemia (4) End stage liver disease (5) Ascites (6) Liver failure Plan S/P EGD SUMMARY OF FINDINGS: 01-11-17 1. Distal esophageal varices grade 2 without any stigmata. 2. Portal hypertensive gastropathy, moderate. 3. Lesion in the pre-pyloric area, see above for details, status post biopsy 4. Pathology >> moderate anemia, thrombocytopenia iron panel >> unremarkable >> pt not iron deficient hep panel unremarkable RECOMMENDATIONS: - ok to DC per GI standpoint - Follow up biopsies and treat accordingly >> iron pill gastritis. negative for HP >> dc FeSO4 - continue Lasix and Aldactone. - cont lactulose + xifaxin - monitor H&H, transfuse prn - PPI - fu labs Teresa Jackson N.P. Mar 16, 2017 12:08
--- NOTE | 2017-03-16 12:40 | Consultation ---
Consult Note Consult Note Chief Complaint: Abdominal Pain Patient presents with 4 days of worsened abdominal distention and inability to move bowels. At [facility] told potassium was 6. No dialysis initiated. Hx Asthma: Yes Hx Gastrointestinal Problems: Yes - Cirrhosis Hx Memory Loss: Yes Hx Dizziness: Yes Hx Numbness: Yes - BLE Hx Weakness: Yes Hx Fatigue: Yes - with activity examined- data reviewed Assessment/Plan Low Na and high K are due to the following: ASCITES ESOPHAGEAL VARICES S BLEEDING TRANSAMINITIS END STAGE LIVER DISEASE HYPOALBUMINEMIA Renal failure likely hepato-renal Urinary tract infection Cellulitis of the abdominal wall at the previous paracentesis site. sugg: Paracenthesis Slow diurese Monitor lytes Monitor renal parameters antibiotics JENN HENSON Mar 16, 2017 12:40
[2017-03-16] MEDS: Lactulose 20gm/30ml UDC ORAL SCH ×3 (13:16→20:30)
--- NOTE | 2017-03-16 13:26 | Infectious Diseases Prog Note ---
Assessment/Plan Problems: (1) UTI (urinary tract infection) Assessment & Plan: will send urine culture and start cefepime empirically (2) Ascites Assessment & Plan: rule out SBP , recommend paracentesis and fluids culture, fungal and AFB. will start cefepime empirically (3) Sepsis Assessment & Plan: will send blood culture and start cefepime empirically (4) Cellulitis of abdominal wall Assessment & Plan: at the previous paracentesis site , will start cefepime and doxycycline (5) End stage liver disease Assessment & Plan: continue supportive care, consult GI (6) Renal failure Assessment & Plan: avoid nephrotoxic meds, consult renal service Subjective Allergies: Coded Allergies: No Known Allergies (Unverified , 01/08/17) Objective Vital Signs Last 24 Hour Vital Signs Date Time Temp Pulse Resp B/P Pulse Ox O2 Delivery O2 Flow Rate FiO2 03/16/17 12:00 65 03/16/17 11:22 97.9 66 20 87/46 100 Room Air 100.0 03/16/17 08:00 97.7 66 20 83/47 100 Room Air 03/16/17 08:00 73 03/16/17 03:58 70 03/16/17 03:50 97.5 79 21 119/75 96 Room Air 03/15/17 23:51 98.6 72 18 81/43 94 Room Air 03/15/17 23:29 66 03/15/17 19:55 98.2 79 19 80/41 97 Room Air 03/15/17 19:50 77 03/15/17 17:13 97.7 81 18 85/39 03/15/17 17:00 76 23 88/40 100 Room Air 03/15/17 17:00 75 23 88/40 100 Room Air 03/15/17 16:45 74 22 85/49 100 Room Air 03/15/17 16:30 73 22 87/41 100 Room Air 03/15/17 16:10 74 21 87/45 100 Room Air 03/15/17 15:39 76 20 89/47 99 Room Air 03/15/17 15:26 99.1 76 22 90/40 100 Room Air 03/15/17 13:45 71 20 101/49 100 Room Air Height (Feet): 5 Height (Inches): 5.00 Weight (Pounds): 102 Microbiology Date/Time Source Procedure Growth Status 03/16/17 01:15 Stool Clostridium difficile Toxin Assay - Final Complete 03/15/17 10:00 Urine,Clean Catch Urine Culture - Preliminary Gram Negative Bacillus 1 Resulted Laboratory Tests Test 03/16/17 09:45 White Blood Count 13.4 K/UL (4.8-10.8) H Red Blood Count 2.78 M/UL (4.70-6.10) L Hemoglobin 9.1 G/DL (14.2-18.0) L Hematocrit 27.3 % (42.0-52.0) L Mean Corpuscular Volume 98 FL (80-99) Mean Corpuscular Hemoglobin 32.8 PG (27.0-31.0) H Mean Corpuscular Hemoglobin Concent 33.4 G/DL (32.0-36.0) Red Cell Distribution Width 13.4 % (11.6-14.8) Platelet Count 104 K/UL (150-450) L Mean Platelet Volume 6.3 FL (6.5-10.1) L Neutrophils (%) (Auto) % (45.0-75.0) Lymphocytes (%) (Auto) % (20.0-45.0) Monocytes (%) (Auto) % (1.0-10.0) Eosinophils (%) (Auto) % (0.0-3.0) Basophils (%) (Auto) % (0.0-2.0) Differential Total Cells Counted 100 Neutrophils % (Manual) 79 % (45-75) H Lymphocytes % (Manual) 12 % (20-45) L Monocytes % (Manual) 7 % (1-10) Eosinophils % (Manual) 0 % (0-3) Basophils % (Manual) 0 % (0-2) Band Neutrophils 2 % (0-8) Platelet Estimate Decreased L Platelet Morphology Normal Hypochromasia 2+ Anisocytosis 1+ Spherocytes 1+ Sodium Level 127 mEQ/L (135-145) L Potassium Level 4.4 mEQ/L (3.4-4.9) Chloride Level 98 mEQ/L (98-107) Carbon Dioxide Level 19 mEQ/L (20-30) L Anion Gap 10 (5-15) Blood Urea Nitrogen 41 mg/dL (7-23) H Creatinine 1.4 mg/dL (0.7-1.2) H Estimat Glomerular Filtration Rate 53.6 mL/min (>60) Glucose Level 93 mg/dL (74-106) Uric Acid 6.9 mg/dL (3.0-7.5) Calcium Level 8.2 mg/dL (8.6-10.2) L Phosphorus Level 5.0 mg/dL (2.5-4.8) H Magnesium Level 1.9 mg/dL (1.7-2.5) Total Bilirubin 1.8 mg/dL (0.0-1.2) H Direct Bilirubin 0.6 mg/dL (0.1-0.3) H Aspartate Amino Transf (AST/SGOT) 31 U/L (5-40) Alanine Aminotransferase (ALT/SGPT) 20 U/L (3-41) Alkaline Phosphatase 75 U/L (40-129) Ammonia 39 umol/L (16-60) C-Reactive Protein, Quantitative 6.0 mg/dL (< 0.5) H Pro-B-Type Natriuretic Peptide 1622 pg/mL (0-125) H Total Protein 5.3 g/dL (6.6-8.7) L Albumin 2.2 g/dL (3.5-5.2) L Globulin 3.1 g/dL Albumin/Globulin Ratio 0.7 (1.0-2.7) L Current Medications Medications (Trade) Dose Ordered Sig/Josse Route PRN Reason Start Time Stop Time Status Last Admin Dose Admin Acetaminophen (Tylenol) 650 mg Q4H PRN ORAL Mild Pain/Temp > 100.5 03/16/17 04:15 04/15/17 04:14 03/16/17 11:13 Cefepime HCl 1 gm/ Dextrose 55 ml @ 110 mls/hr Q12HR@0500,1700 IVPB 03/15/17 17:00 03/22/17 16:59 03/16/17 05:01 Doxycycline Hyclate/Dextrose (Vibramycin/D5W) 110 ml @ 110 mls/hr Q12HR@0600,1800 IV 03/15/17 18:00 03/22/17 17:59 03/16/17 06:04 Lactulose (Cephulac) 20 gm FOUR TIMES A DAY ORAL 03/16/17 13:00 04/15/17 12:59 03/16/17 13:16 Midodrine (Pro-Amatine) 10 mg THREE TIMES A DAY ORAL 03/15/17 19:45 04/14/17 19:44 03/16/17 13:15 Amanda Ingram M.D. Mar 16, 2017 13:26
[2017-03-16 15:16] VITALS: BP 86/42
--- NOTE | 2017-03-16 15:29 | Infectious Diseases Prog Note ---
Assessment/Plan Problems: (1) UTI (urinary tract infection) Assessment & Plan: await urine culture and continue cefepime empirically (2) Ascites Assessment & Plan: rule out SBP , S/P paracentesis, await fluids culture, fungal and AFB. continue cefepime empirically (3) Sepsis Assessment & Plan: await blood culture and continue cefepime empirically (4) Cellulitis of abdominal wall Assessment & Plan: at the previous paracentesis site , on cefepime and doxycycline (5) End stage liver disease Assessment & Plan: continue supportive care, consult GI (6) Renal failure Assessment & Plan: avoid nephrotoxic meds, consult renal service Subjective Constitutional: Reports: no symptoms HEENT: Reports: no symptoms Respiratory: Reports: no symptoms Breasts: Reports: no symptoms Cardiovascular: Reports: no symptoms Gastrointestinal/Abdominal: Reports: bloating Genitourinary: Reports: no symptoms Neurologic: Reports: no symptoms Psychiatric: Reports: no symptoms Skin: Reports: no symptoms Hematologic: Reports: no symptoms Musculoskeletal: Reports: no symptoms Allergies: Coded Allergies: No Known Allergies (Unverified , 01/08/17) Objective Vital Signs Last 24 Hour Vital Signs Date Time Temp Pulse Resp B/P Pulse Ox O2 Delivery O2 Flow Rate FiO2 03/16/17 15:16 97.9 63 20 86/42 100 Room Air 03/16/17 12:00 65 03/16/17 11:22 97.9 66 20 87/46 100 Room Air 100.0 03/16/17 08:00 97.7 66 20 83/47 100 Room Air 03/16/17 08:00 73 03/16/17 03:58 70 03/16/17 03:50 97.5 79 21 119/75 96 Room Air 03/15/17 23:51 98.6 72 18 81/43 94 Room Air 03/15/17 23:29 66 03/15/17 19:55 98.2 79 19 80/41 97 Room Air 03/15/17 19:50 77 03/15/17 17:13 97.7 81 18 85/39 03/15/17 17:00 76 23 88/40 100 Room Air 03/15/17 17:00 75 23 88/40 100 Room Air 03/15/17 16:45 74 22 85/49 100 Room Air 03/15/17 16:30 73 22 87/41 100 Room Air 03/15/17 16:10 74 21 87/45 100 Room Air 03/15/17 15:39 76 20 89/47 99 Room Air 03/15/17 15:26 99.1 76 22 90/40 100 Room Air Height (Feet): 5 Height (Inches): 5.00 Weight (Pounds): 102 General Appearance: WD/WN, no acute distress HEENT: normocephalic, atraumatic, anicteric, mucous membranes moist, PERRL Respiratory/Chest: chest wall non-tender, lungs clear, normal breath sounds, no respiratory distress, no accessory muscle use Cardiovascular: normal peripheral pulses, normal rate, regular rhythm, no gallop/murmur, no JVD Abdomen: soft, non tender, no mass, no scars, hypoactive bowel sounds, distended Extremities: no cyanosis, no clubbing Skin: no rash, no lesions, no ulcers Neurologic/Psychiatric: alert Lymphatic: no neck adenopathy, no groin adenopathy Microbiology Date/Time Source Procedure Growth Status 03/16/17 01:15 Stool Clostridium difficile Toxin Assay - Final Complete 03/15/17 10:00 Urine,Clean Catch Urine Culture - Preliminary Gram Negative Bacillus 1 Resulted Laboratory Tests Test 03/16/17 09:45 White Blood Count 13.4 K/UL (4.8-10.8) H Red Blood Count 2.78 M/UL (4.70-6.10) L Hemoglobin 9.1 G/DL (14.2-18.0) L Hematocrit 27.3 % (42.0-52.0) L Mean Corpuscular Volume 98 FL (80-99) Mean Corpuscular Hemoglobin 32.8 PG (27.0-31.0) H Mean Corpuscular Hemoglobin Concent 33.4 G/DL (32.0-36.0) Red Cell Distribution Width 13.4 % (11.6-14.8) Platelet Count 104 K/UL (150-450) L Mean Platelet Volume 6.3 FL (6.5-10.1) L Neutrophils (%) (Auto) % (45.0-75.0) Lymphocytes (%) (Auto) % (20.0-45.0) Monocytes (%) (Auto) % (1.0-10.0) Eosinophils (%) (Auto) % (0.0-3.0) Basophils (%) (Auto) % (0.0-2.0) Differential Total Cells Counted 100 Neutrophils % (Manual) 79 % (45-75) H Lymphocytes % (Manual) 12 % (20-45) L Monocytes % (Manual) 7 % (1-10) Eosinophils % (Manual) 0 % (0-3) Basophils % (Manual) 0 % (0-2) Band Neutrophils 2 % (0-8) Platelet Estimate Decreased L Platelet Morphology Normal Hypochromasia 2+ Anisocytosis 1+ Spherocytes 1+ Sodium Level 127 mEQ/L (135-145) L Potassium Level 4.4 mEQ/L (3.4-4.9) Chloride Level 98 mEQ/L (98-107) Carbon Dioxide Level 19 mEQ/L (20-30) L Anion Gap 10 (5-15) Blood Urea Nitrogen 41 mg/dL (7-23) H Creatinine 1.4 mg/dL (0.7-1.2) H Estimat Glomerular Filtration Rate 53.6 mL/min (>60) Glucose Level 93 mg/dL (74-106) Uric Acid 6.9 mg/dL (3.0-7.5) Calcium Level 8.2 mg/dL (8.6-10.2) L Phosphorus Level 5.0 mg/dL (2.5-4.8) H Magnesium Level 1.9 mg/dL (1.7-2.5) Total Bilirubin 1.8 mg/dL (0.0-1.2) H Direct Bilirubin 0.6 mg/dL (0.1-0.3) H Aspartate Amino Transf (AST/SGOT) 31 U/L (5-40) Alanine Aminotransferase (ALT/SGPT) 20 U/L (3-41) Alkaline Phosphatase 75 U/L (40-129) Ammonia 39 umol/L (16-60) C-Reactive Protein, Quantitative 6.0 mg/dL (< 0.5) H Pro-B-Type Natriuretic Peptide 1622 pg/mL (0-125) H Total Protein 5.3 g/dL (6.6-8.7) L Albumin 2.2 g/dL (3.5-5.2) L Globulin 3.1 g/dL Albumin/Globulin Ratio 0.7 (1.0-2.7) L Current Medications Medications (Trade) Dose Ordered Sig/Josse Route PRN Reason Start Time Stop Time Status Last Admin Dose Admin Acetaminophen (Tylenol) 650 mg Q4H PRN ORAL Mild Pain/Temp > 100.5 03/16/17 04:15 04/15/17 04:14 03/16/17 11:13 Cefepime HCl 1 gm/ Dextrose 55 ml @ 110 mls/hr Q12HR@0500,1700 IVPB 03/15/17 17:00 03/22/17 16:59 03/16/17 05:01 Doxycycline Hyclate/Dextrose (Vibramycin/D5W) 110 ml @ 110 mls/hr Q12HR@0600,1800 IV 03/15/17 18:00 03/22/17 17:59 03/16/17 06:04 Lactulose (Cephulac) 20 gm FOUR TIMES A DAY ORAL 03/16/17 13:00 04/15/17 12:59 03/16/17 13:16 Midodrine (Pro-Amatine) 10 mg THREE TIMES A DAY ORAL 03/15/17 19:45 04/14/17 19:44 03/16/17 13:15 Rifaximin (Xifaxan) 550 mg EVERY 12 HOURS ORAL 03/16/17 18:00 03/23/17 17:59 Amanda Ingram M.D. Mar 16, 2017 15:29
--- NOTE | 2017-03-16 16:08 | Consultation ---
Consult Note Consult Note DATE OF CONSULTATION: 03/16/17 HEMATOLOGY/ONCOLOGY CONSULTATION CONSULTING PHYSICIAN: Kvng Siegel M.D. REASON FOR CONSULTATION: Anemia, thrombocytopenia. CURRENT COMPLAINT/ HISTORY OF PRESENT ILLNESS: Dear Dr. Joshua Valdovinos, Today, I had an opportunity to see one of your patients, who as you are aware, is a 51-year-old delightful gentleman with history of liver cirrhosis, recurrent ascites, abdominal discomfort. The patient had a history of intermittent paracentesis. At this time, the patient felt distention of the patient's abdomen, shortness of breath noted. is s/p para 13L were removed. Now presents with similar symptoms and hematology consulted for problems anemia and low plts. PAST MEDICAL HISTORY: 1. Liver cirrhosis. 2. Ascites. MEDICATIONS: 1. Colace. 2. Senna 3. Aldactone ALLERGIES: NKDA. FAMILY HISTORY: Noncontributory. SOCIAL HISTORY: No history of smoking. No history of alcohol abuse. No history of illicit drug use. REVIEW OF SYSTEMS: General: The patient is not in any significant distress, but looks chronically ill. Respiratory: Mild shortness of breath on exertion. Gastrointestinal: The patient claims weakness. PHYSICAL EXAMINATION: VITAL SIGNS: T-max 99 degrees, respiratory rate 20, heart rate 80, and blood pressure 130/80. HEENT: Head is normocephalic and atraumatic. NECK: Supple. No thyroid enlargement. No lymphadenopathy. LUNGS: Decreased breath sounds bilaterally with few rhonchi at the base. HEART: S1 and S2 regular. ABDOMEN: Soft and benign. No organomegaly present. Bowel sounds present. EXTREMITIES: No cyanosis, clubbing, or edema. Laboratory Tests Laboratory Tests Test 03/16/17 09:45 White Blood Count 13.4 K/UL (4.8-10.8) H Red Blood Count 2.78 M/UL (4.70-6.10) L Hemoglobin 9.1 G/DL (14.2-18.0) L Hematocrit 27.3 % (42.0-52.0) L Mean Corpuscular Volume 98 FL (80-99) Mean Corpuscular Hemoglobin 32.8 PG (27.0-31.0) H Mean Corpuscular Hemoglobin Concent 33.4 G/DL (32.0-36.0) Red Cell Distribution Width 13.4 % (11.6-14.8) Platelet Count 104 K/UL (150-450) L Mean Platelet Volume 6.3 FL (6.5-10.1) L Neutrophils (%) (Auto) % (45.0-75.0) Lymphocytes (%) (Auto) % (20.0-45.0) Monocytes (%) (Auto) % (1.0-10.0) Eosinophils (%) (Auto) % (0.0-3.0) Basophils (%) (Auto) % (0.0-2.0) Differential Total Cells Counted 100 Neutrophils % (Manual) 79 % (45-75) H Lymphocytes % (Manual) 12 % (20-45) L Monocytes % (Manual) 7 % (1-10) Eosinophils % (Manual) 0 % (0-3) Basophils % (Manual) 0 % (0-2) Band Neutrophils 2 % (0-8) Platelet Estimate Decreased L Platelet Morphology Normal Hypochromasia 2+ Anisocytosis 1+ Spherocytes 1+ Sodium Level 127 mEQ/L (135-145) L Potassium Level 4.4 mEQ/L (3.4-4.9) Chloride Level 98 mEQ/L (98-107) Carbon Dioxide Level 19 mEQ/L (20-30) L Anion Gap 10 (5-15) Blood Urea Nitrogen 41 mg/dL (7-23) H Creatinine 1.4 mg/dL (0.7-1.2) H Estimat Glomerular Filtration Rate 53.6 mL/min (>60) Glucose Level 93 mg/dL (74-106) Uric Acid 6.9 mg/dL (3.0-7.5) Calcium Level 8.2 mg/dL (8.6-10.2) L Phosphorus Level 5.0 mg/dL (2.5-4.8) H Magnesium Level 1.9 mg/dL (1.7-2.5) Total Bilirubin 1.8 mg/dL (0.0-1.2) H Direct Bilirubin 0.6 mg/dL (0.1-0.3) H Aspartate Amino Transf (AST/SGOT) 31 U/L (5-40) Alanine Aminotransferase (ALT/SGPT) 20 U/L (3-41) Alkaline Phosphatase 75 U/L (40-129) Ammonia 39 umol/L (16-60) C-Reactive Protein, Quantitative 6.0 mg/dL (< 0.5) H Pro-B-Type Natriuretic Peptide 1622 pg/mL (0-125) H Total Protein 5.3 g/dL (6.6-8.7) L Albumin 2.2 g/dL (3.5-5.2) L Globulin 3.1 g/dL Albumin/Globulin Ratio 0.7 (1.0-2.7) L IMPRESSION/RECS: 1. Anemia of chronic disease. Currently h.h has been stable --> w/u has been reviewed and ferritin is elevated 2. Thrombocytopenia have reviewed hepatitis and hiv negative. Likely related to liver cirrhosis --> goal plt >20k 3. Hyperbilirubinemia 2/2 cirrhosis 4. Elevated liver function tests. 5. Hepatic encephalopathy. 6. Liver cirrhosis. 7. Ascites. 8. Shortness of breath. 9. Urinary tract infection. 10. Failure to thrive. Kvng Siegel. Mar 16, 2017 16:08
[2017-03-16] MEDS ORDERED: NS 550ML IV ONE (17:03)
[2017-03-16] MEDS: Rifaximin 550mg tab ORAL SCH (18:19)
[2017-03-16 19:57] VITALS: BP 88/50
[2017-03-17] VITALS: BP_SYST 95; BP_SYST 97; BP_DIAS 52; BP_DIAS 59
[2017-03-17 04:00] VITALS: BP 95/55
[2017-03-17] MEDS: Cefepime HCl 1 GM in D5W 55 ML IVPB SCH (04:10)
[2017-03-17] MEDS: Doxycycline Hyclate 100 MG in D5W 110 ML IV SCH ×2 (04:55→17:14)
[2017-03-17 07:44] LABS: BASOPHILS % (AUTO) 0.6 % (0.0-2.0); EOSINOPHILS % (AUTO) 1.5 % (0.0-3.0); LYMPHOCYTES % (AUTO) 9.1 % (20.0-45.0); MEAN CORPUSCULAR HEMOGLOBIN 32.3 PG (27.0-31.0); MEAN CORPUSCULAR HGB CONC 32.7 G/DL (32.0-36.0); MEAN CORPUSCULAR VOLUME 99 FL (80-99); MEAN PLATELET VOLUME 7.1 FL (6.5-10.1); MONOCYTES % (AUTO) 11.1 % (1.0-10.0); NEUTROPHILS % (AUTO) 77.7 % (45.0-75.0); PLATELET COUNT 118 K/UL (150-450); RED BLOOD COUNT 3.15 M/UL (4.70-6.10); RED CELL DISTRIBUTION WIDTH 13.8 % (11.6-14.8); WHITE BLOOD COUNT 10.5 K/UL (4.8-10.8)
--- NOTE | 2017-03-17 07:45 | History and Physical Report ---
DATE OF ADMISSION: 03/15/2017 HISTORY OF PRESENT ILLNESS: The patient is admitted for liver failure and ascites. The patient has alcoholic cirrhosis. The patient complained of abdominal pain and has ascites. Denies shortness of breath. Denies nausea, vomiting, or diarrhea. He has constipation with left abdominal pain as well as cirrhosis and ascites. PAST MEDICAL HISTORY: Alcoholic cirrhosis, iron deficiency anemia, GERD, hypertension, . PAST SURGICAL HISTORY: No surgeries. MEDICATIONS: Folic acid, Lasix, lactulose, Protonix, propranolol, and Aldactone. ALLERGIES: No known allergies. SOCIAL HISTORY: The patient denies smoking. Denies drug abuse. He does have a history of alcohol abuse. REVIEW OF SYSTEMS: HEENT: Denies headaches. Respiratory: Denies shortness of breath. Denies cough. Cardiovascular: Denies chest pain. Gastrointestinal: Denies nausea or vomiting. Does have abdominal pain. Extremities: Denies pain in the lower extremities. Central Nervous System: Denies change in vision or speech pattern. PHYSICAL EXAMINATION: VITAL SIGNS: Temperature is 97.9 degrees, pulse 66, and blood pressure is 87/46. HEENT: PERRLA. NECK: Supple. No lymphadenopathy. CHEST: Clear to auscultation. GASTROINTESTINAL: Soft and distended. Does have diffuse abdominal pain. Positive bowel sounds. EXTREMITIES: There is 1+ edema. Reflexes are equal on both sides. Moves all four extremities. NEUROLOGIC: Oriented to name only. LABORATORY AND DIAGNOSTIC DATA: WBC of 16.3 with hemoglobin 11.1 and platelets 150,000. Sodium 128, potassium 5.5, BUN of 40, and creatinine 1.9. Glucose of 100. Total bilirubin 1.8. AST of 48, ALT of 28, and alkaline phosphatase of 135. ASSESSMENT AND PLAN: 1. Alcoholic cirrhosis, pain, ascites. Recommend paracentesis. 2. Azotemia. . 3. Hyponatremia secondary to cirrhosis. PLAN: I have asked Dr. Roche, Dr. Hidalgo, and Dr. Ingram to see the patient to rule out any infection and above-mentioned diagnoses and treatment. Joshua Valdovinos M.D. DR: LING JOB#: [id number] CC:
[2017-03-17 08:00] VITALS: BP 98/59
[2017-03-17 08:13] LABS: ALANINE AMINOTRANSFERASE 20 U/L (3-41); ALBUMIN/GLOBULIN RATIO 0.7 (1.0-2.7); ANION GAP 10 (5-15); ASPARTATE AMINO TRANSFERASE 30 U/L (5-40); CALCIUM 8.2 mg/dL (8.6-10.2); CARBON DIOXIDE 20 mEQ/L (20-30); CHLORIDE 100 mEQ/L (98-107); CHOLESTEROL 76 mg/dL (< 200); CHOLESTEROL/HDL RATIO 9.5 (3.3-4.4); CREATININE 1.1 mg/dL (0.7-1.2); GLOMERULAR FILTRATION RATE > 60 mL/min (>60); HEMOLYSIS 6; LDL CHOLESTEROL (CALC.) 62 mg/dL (60-99); PHOSPHORUS 3.7 mg/dL (2.5-4.8); POTASSIUM 3.9 mEQ/L (3.4-4.9); SODIUM 130 mEQ/L (135-145); TOTAL PROTEIN 5.5 g/dL (6.6-8.7)
[2017-03-17 08:18] LABS: CRP QUANT 7.4 mg/dL (< 0.5); LIPASE 36 U/L (< 60); MAGNESIUM 1.8 mg/dL (1.7-2.5); URIC ACID 6.4 mg/dL (3.0-7.5)
[2017-03-17 08:26] LABS: BILIRUBIN,DIRECT 0.4 mg/dL (0.1-0.3)
[2017-03-17 08:38] LABS: CORTISOL AM 9.8 ug/dL (6.0-20.0)
[2017-03-17] MEDS: Rifaximin 550mg tab ORAL SCH ×2 (08:48→20:16)
[2017-03-17] MEDS: Lactulose 20gm/30ml UDC ORAL SCH ×2 (08:48→17:31)
[2017-03-17] MEDS: Midodrine 10mg tab ORAL SCH ×3 (08:49→17:14)
[2017-03-17 09:03] LABS: AMMONIA 20 umol/L (16-60)
--- NOTE | 2017-03-17 09:31 | General Progress Note ---
Assessment/Plan Status: unchanged Status Narrative Na now 130 Assessment/Plan Low Na and high K are due to the following: ASCITES ESOPHAGEAL VARICES S BLEEDING TRANSAMINITIS END STAGE LIVER DISEASE HYPOALBUMINEMIA Renal failure likely hepato-renal Urinary tract infection Cellulitis of the abdominal wall at the previous paracentesis site. sugg: Paracenthesis Slow diurese Monitor lytes Monitor renal parameters antibiotics Subjective ROS Limited/Unobtainable: No Constitutional: Reports: malaise, weakness Allergies: Coded Allergies: No Known Allergies (Unverified , 01/08/17) Objective Last 24 Hour Vital Signs Date Time Temp Pulse Resp B/P Pulse Ox O2 Delivery O2 Flow Rate FiO2 03/17/17 08:00 97.3 67 20 98/59 99 Room Air 03/17/17 08:00 97.3 67 20 98/59 99 Room Air 03/17/17 04:03 61 03/17/17 04:00 97.5 66 18 95/55 Room Air 03/17/17 00:00 61 03/17/17 00:00 98.7 65 18 95/52 100 Room Air 03/16/17 20:00 68 03/16/17 19:57 98.8 62 19 88/50 99 Room Air 03/16/17 16:00 61 03/16/17 15:16 97.9 63 20 86/42 100 Room Air 03/16/17 12:00 65 03/16/17 11:22 97.9 66 20 87/46 100 Room Air 100.0 Intake and Output 03/16/17 03/17/17 19:00 07:00 Intake Total 885 ml Output Total 550 ml 200 ml Balance 335 ml -200 ml Intake Oral 720 ml IV Total 165 ml Output Urine Total 550 ml 200 ml # Bowel Movements 1 1 Laboratory Tests 03/16/17 09:45: White Blood Count 13.4H, Red Blood Count 2.78L, Hemoglobin 9.1L, Hematocrit 27.3L, Mean Corpuscular Volume 98, Mean Corpuscular Hemoglobin 32.8H, Mean Corpuscular Hemoglobin Concent 33.4, Red Cell Distribution Width 13.4, Platelet Count 104L, Mean Platelet Volume 6.3L, Neutrophils (%) (Auto) , Lymphocytes (%) (Auto) , Monocytes (%) (Auto) , Eosinophils (%) (Auto) , Basophils (%) (Auto) , Differential Total Cells Counted 100, Neutrophils % (Manual) 79H, Lymphocytes % (Manual) 12L, Monocytes % (Manual) 7, Eosinophils % (Manual) 0, Basophils % ( Manual) 0, Band Neutrophils 2, Platelet Estimate DecreasedL, Platelet Morphology Normal, Hypochromasia 2+, Anisocytosis 1+, Spherocytes 1+, Sodium Level 127L, Potassium Level 4.4, Chloride Level 98, Carbon Dioxide Level 19L, Anion Gap 10, Blood Urea Nitrogen 41H, Creatinine 1.4H, Estimat Glomerular Filtration Rate 53.6, Glucose Level 93, Uric Acid 6.9, Calcium Level 8.2L, Phosphorus Level 5.0H, Magnesium Level 1.9, Total Bilirubin 1.8H, Direct Bilirubin 0.6H, Aspartate Amino Transf (AST/SGOT) 31, Alanine Aminotransferase ( ALT/SGPT) 20, Alkaline Phosphatase 75, Ammonia 39, C-Reactive Protein, Quantitative 6.0H, Pro-B-Type Natriuretic Peptide 1622H, Total Protein 5.3L, Albumin 2.2L, Globulin 3.1, Albumin/Globulin Ratio 0.7L 03/17/17 06:40: White Blood Count 10.5, Red Blood Count 3.15L, Hemoglobin 10.2L, Hematocrit 31.1L, Mean Corpuscular Volume 99, Mean Corpuscular Hemoglobin 32.3H, Mean Corpuscular Hemoglobin Concent 32.7, Red Cell Distribution Width 13.8, Platelet Count 118L, Mean Platelet Volume 7.1, Neutrophils (%) (Auto) 77.7H, Lymphocytes (%) (Auto) 9.1L, Monocytes (%) (Auto) 11.1H, Eosinophils (%) (Auto) 1.5, Basophils (%) (Auto) 0.6, Sodium Level 130L, Potassium Level 3.9, Chloride Level 100, Carbon Dioxide Level 20, Anion Gap 10, Blood Urea Nitrogen 39H, Creatinine 1.1, Estimat Glomerular Filtration Rate > 60, Glucose Level 86, Uric Acid 6.4, Calcium Level 8.2L, Phosphorus Level 3.7, Magnesium Level 1.8, Total Bilirubin 1.3H, Direct Bilirubin 0.4H, Aspartate Amino Transf (AST/SGOT) 30, Alanine Aminotransferase (ALT/SGPT) 20, Alkaline Phosphatase 97, Ammonia 20, C- Reactive Protein, Quantitative 7.4H, Pro-B-Type Natriuretic Peptide 1493H, Total Protein 5.5L, Albumin 2.3L, Globulin 3.2, Albumin/Globulin Ratio 0.7L, Gamma Glutamyl Transpeptidase 21, Total Creatine Kinase 42, Triglycerides Level 31, Cholesterol Level 76, LDL Cholesterol 62, HDL Cholesterol 8, Cholesterol/ HDL Ratio 9.5H, Lipase 36, Vitamin B12 Level 1679H, Folate [Pending], Cortisol AM Sample 9.8 Height (Feet): 5 Height (Inches): 5.00 Weight (Pounds): 91 General Appearance: no apparent distress Cardiovascular: normal rate Respiratory/Chest: decreased breath sounds Abdomen: distended, other - ascitis Objective no other change JENN HENSON Mar 17, 2017 09:30
--- NOTE | 2017-03-17 10:48 | GI Progress Note ---
Assessment/Plan Problems: (1) Abdominal pain ICD Codes: R10.9 - Unspecified abdominal pain SNOMED: 74986237 (2) Anemia ICD Codes: D64.9 - Anemia, unspecified SNOMED: 056180791 (3) Esophageal varices without bleeding ICD Codes: I85.00 - Esophageal varices without bleeding SNOMED: 30575048 (4) Hepatic encephalopathy ICD Codes: K72.90 - Hepatic failure, unspecified without coma SNOMED: 74429458 (5) Liver failure ICD Codes: K72.90 - Hepatic failure, unspecified without coma SNOMED: 54556470 Qualifiers: Qualified Codes: K72.00 - Acute and subacute hepatic failure without coma (6) Ascites ICD Codes: R18.8 - Other ascites SNOMED: 399245138 Qualifiers: Qualified Codes: K70.31 - Alcoholic cirrhosis of liver with ascites (7) End stage liver disease ICD Codes: K72.90 - Hepatic failure, unspecified without coma SNOMED: 613267601 Status: unchanged Status Narrative Discussed with Dr. Hidalgo. Assessment/Plan S/P EGD SUMMARY OF FINDINGS: 01-11-17 1. Distal esophageal varices grade 2 without any stigmata. 2. Portal hypertensive gastropathy, moderate. 3. Lesion in the pre-pyloric area, see above for details, status post biopsy 4. Pathology >> moderate anemia, thrombocytopenia iron panel >> unremarkable >> pt not iron deficient hep panel unremarkable RECOMMENDATIONS: - ok to DC per GI standpoint - Follow up biopsies and treat accordingly >> iron pill gastritis. negative for HP >> dc FeSO4 - continue Lasix and Aldactone. - cont lactulose + xifaxin - monitor H&H, transfuse prn - PPI - prn paracentesis - fu labs Subjective Gastrointestinal/Abdominal: Reports: abdomen distended Objective Last 24 Hour Vital Signs Date Time Temp Pulse Resp B/P Pulse Ox O2 Delivery O2 Flow Rate FiO2 03/17/17 08:00 67 03/17/17 08:00 97.3 67 20 98/59 99 Room Air 03/17/17 08:00 97.3 67 20 98/59 99 Room Air 03/17/17 04:03 61 03/17/17 04:00 97.5 66 18 95/55 Room Air 03/17/17 00:00 61 03/17/17 00:00 98.7 65 18 95/52 100 Room Air 03/16/17 20:00 68 03/16/17 19:57 98.8 62 19 88/50 99 Room Air 03/16/17 16:00 61 03/16/17 15:16 97.9 63 20 86/42 100 Room Air 03/16/17 12:00 65 03/16/17 11:22 97.9 66 20 87/46 100 Room Air 100.0 Intake and Output 03/16/17 03/17/17 19:00 07:00 Intake Total 885 ml Output Total 550 ml 200 ml Balance 335 ml -200 ml Intake Oral 720 ml IV Total 165 ml Output Urine Total 550 ml 200 ml # Bowel Movements 1 1 Laboratory Tests Test 03/17/17 06:40 White Blood Count 10.5 K/UL (4.8-10.8) Red Blood Count 3.15 M/UL (4.70-6.10) L Hemoglobin 10.2 G/DL (14.2-18.0) L Hematocrit 31.1 % (42.0-52.0) L Mean Corpuscular Volume 99 FL (80-99) Mean Corpuscular Hemoglobin 32.3 PG (27.0-31.0) H Mean Corpuscular Hemoglobin Concent 32.7 G/DL (32.0-36.0) Red Cell Distribution Width 13.8 % (11.6-14.8) Platelet Count 118 K/UL (150-450) L Mean Platelet Volume 7.1 FL (6.5-10.1) Neutrophils (%) (Auto) 77.7 % (45.0-75.0) H Lymphocytes (%) (Auto) 9.1 % (20.0-45.0) L Monocytes (%) (Auto) 11.1 % (1.0-10.0) H Eosinophils (%) (Auto) 1.5 % (0.0-3.0) Basophils (%) (Auto) 0.6 % (0.0-2.0) Sodium Level 130 mEQ/L (135-145) L Potassium Level 3.9 mEQ/L (3.4-4.9) Chloride Level 100 mEQ/L (98-107) Carbon Dioxide Level 20 mEQ/L (20-30) Anion Gap 10 (5-15) Blood Urea Nitrogen 39 mg/dL (7-23) H Creatinine 1.1 mg/dL (0.7-1.2) Estimat Glomerular Filtration Rate > 60 mL/min (>60) Glucose Level 86 mg/dL (74-106) Uric Acid 6.4 mg/dL (3.0-7.5) Calcium Level 8.2 mg/dL (8.6-10.2) L Phosphorus Level 3.7 mg/dL (2.5-4.8) Magnesium Level 1.8 mg/dL (1.7-2.5) Total Bilirubin 1.3 mg/dL (0.0-1.2) H Direct Bilirubin 0.4 mg/dL (0.1-0.3) H Gamma Glutamyl Transpeptidase 21 U/L (8-61) Aspartate Amino Transf (AST/SGOT) 30 U/L (5-40) Alanine Aminotransferase (ALT/SGPT) 20 U/L (3-41) Alkaline Phosphatase 97 U/L (40-129) Ammonia 20 umol/L (16-60) Total Creatine Kinase 42 U/L (38-174) C-Reactive Protein, Quantitative 7.4 mg/dL (< 0.5) H Pro-B-Type Natriuretic Peptide 1493 pg/mL (0-125) H Total Protein 5.5 g/dL (6.6-8.7) L Albumin 2.3 g/dL (3.5-5.2) L Globulin 3.2 g/dL Albumin/Globulin Ratio 0.7 (1.0-2.7) L Triglycerides Level 31 mg/dL (< 150) Cholesterol Level 76 mg/dL (< 200) LDL Cholesterol 62 mg/dL (60-99) HDL Cholesterol 8 mg/dL (> 60) Cholesterol/HDL Ratio 9.5 (3.3-4.4) H Lipase 36 U/L (< 60) Vitamin B12 Level 1679 pg/mL (211-946) H Folate Pending Cortisol AM Sample 9.8 ug/dL (6.0-20.0) Height (Feet): 5 Height (Inches): 5.00 Weight (Pounds): 91 General Appearance: no apparent distress, alert Cardiovascular: normal rate Respiratory/Chest: normal breath sounds, no respiratory distress Abdominal Exam: normal bowel sounds, non tender, soft, distended, ascites Teresa Jackson N.P. Mar 17, 2017 10:48
[2017-03-17 12:00] VITALS: BP 126/53
--- NOTE | 2017-03-17 14:11 | Infectious Diseases Prog Note ---
Assessment/Plan Problems: (1) UTI (urinary tract infection) Assessment & Plan: with ESBL Ecoli , and streptococcus spp, on cefepime empirically will switch to ertapenem for 7 days course of therapy (2) Ascites Assessment & Plan: rule out SBP , S/P paracentesis, await fluids culture, fungal and AFB. continue antibiotics empirically (3) Sepsis Assessment & Plan: await blood culture and continue wide spectrum antibiotics empirically (4) Cellulitis of abdominal wall Assessment & Plan: at the previous paracentesis site , now on ertapenem and doxycycline (5) End stage liver disease Assessment & Plan: continue supportive care, consult GI (6) Renal failure Assessment & Plan: avoid nephrotoxic meds, consult renal service Subjective Constitutional: Reports: no symptoms HEENT: Reports: no symptoms Respiratory: Reports: no symptoms Breasts: Reports: no symptoms Cardiovascular: Reports: no symptoms Gastrointestinal/Abdominal: Reports: bloating, nausea, other - acites Genitourinary: Reports: no symptoms Neurologic: Reports: no symptoms Psychiatric: Reports: no symptoms Skin: Reports: no symptoms Endocrine: Reports: no symptoms Hematologic: Reports: no symptoms Musculoskeletal: Reports: no symptoms Allergies: Coded Allergies: No Known Allergies (Unverified , 01/08/17) Objective Vital Signs Last 24 Hour Vital Signs Date Time Temp Pulse Resp B/P Pulse Ox O2 Delivery O2 Flow Rate FiO2 03/17/17 12:00 59 03/17/17 12:00 97.3 60 19 126/53 100 Room Air 03/17/17 08:00 67 03/17/17 08:00 97.3 67 20 98/59 99 Room Air 03/17/17 08:00 97.3 67 20 98/59 99 Room Air 03/17/17 04:03 61 03/17/17 04:00 97.5 66 18 95/55 Room Air 03/17/17 00:00 61 03/17/17 00:00 98.7 65 18 95/52 100 Room Air 03/16/17 20:00 68 03/16/17 19:57 98.8 62 19 88/50 99 Room Air 03/16/17 16:00 61 03/16/17 15:16 97.9 63 20 86/42 100 Room Air Height (Feet): 5 Height (Inches): 5.00 Weight (Pounds): 91 General Appearance: WD/WN, no acute distress HEENT: normocephalic, atraumatic, anicteric, mucous membranes moist Respiratory/Chest: chest wall non-tender, lungs clear, normal breath sounds, no respiratory distress, no accessory muscle use Cardiovascular: normal peripheral pulses, normal rate, regular rhythm, no gallop/murmur, no JVD Abdomen: normal bowel sounds, soft, non tender, no organomegaly, non distended , no mass, no scars Extremities: no cyanosis, no clubbing Skin: no rash, no lesions, other - right abdomen wound with cellulitis Neurologic/Psychiatric: alert, responsive Lymphatic: no neck adenopathy, no groin adenopathy Musculoskeletal: normal muscle bulk Microbiology Date/Time Source Procedure Growth Status 03/16/17 01:15 Stool Clostridium difficile Toxin Assay - Final Complete 03/15/17 10:00 Urine,Clean Catch Urine Culture - Preliminary Escherichia Coli - Esbl Streptococcus Species Resulted Laboratory Tests Test 03/17/17 06:40 White Blood Count 10.5 K/UL (4.8-10.8) Red Blood Count 3.15 M/UL (4.70-6.10) L Hemoglobin 10.2 G/DL (14.2-18.0) L Hematocrit 31.1 % (42.0-52.0) L Mean Corpuscular Volume 99 FL (80-99) Mean Corpuscular Hemoglobin 32.3 PG (27.0-31.0) H Mean Corpuscular Hemoglobin Concent 32.7 G/DL (32.0-36.0) Red Cell Distribution Width 13.8 % (11.6-14.8) Platelet Count 118 K/UL (150-450) L Mean Platelet Volume 7.1 FL (6.5-10.1) Neutrophils (%) (Auto) 77.7 % (45.0-75.0) H Lymphocytes (%) (Auto) 9.1 % (20.0-45.0) L Monocytes (%) (Auto) 11.1 % (1.0-10.0) H Eosinophils (%) (Auto) 1.5 % (0.0-3.0) Basophils (%) (Auto) 0.6 % (0.0-2.0) Sodium Level 130 mEQ/L (135-145) L Potassium Level 3.9 mEQ/L (3.4-4.9) Chloride Level 100 mEQ/L (98-107) Carbon Dioxide Level 20 mEQ/L (20-30) Anion Gap 10 (5-15) Blood Urea Nitrogen 39 mg/dL (7-23) H Creatinine 1.1 mg/dL (0.7-1.2) Estimat Glomerular Filtration Rate > 60 mL/min (>60) Glucose Level 86 mg/dL (74-106) Uric Acid 6.4 mg/dL (3.0-7.5) Calcium Level 8.2 mg/dL (8.6-10.2) L Phosphorus Level 3.7 mg/dL (2.5-4.8) Magnesium Level 1.8 mg/dL (1.7-2.5) Total Bilirubin 1.3 mg/dL (0.0-1.2) H Direct Bilirubin 0.4 mg/dL (0.1-0.3) H Gamma Glutamyl Transpeptidase 21 U/L (8-61) Aspartate Amino Transf (AST/SGOT) 30 U/L (5-40) Alanine Aminotransferase (ALT/SGPT) 20 U/L (3-41) Alkaline Phosphatase 97 U/L (40-129) Ammonia 20 umol/L (16-60) Total Creatine Kinase 42 U/L (38-174) C-Reactive Protein, Quantitative 7.4 mg/dL (< 0.5) H Pro-B-Type Natriuretic Peptide 1493 pg/mL (0-125) H Total Protein 5.5 g/dL (6.6-8.7) L Albumin 2.3 g/dL (3.5-5.2) L Globulin 3.2 g/dL Albumin/Globulin Ratio 0.7 (1.0-2.7) L Triglycerides Level 31 mg/dL (< 150) Cholesterol Level 76 mg/dL (< 200) LDL Cholesterol 62 mg/dL (60-99) HDL Cholesterol 8 mg/dL (> 60) Cholesterol/HDL Ratio 9.5 (3.3-4.4) H Lipase 36 U/L (< 60) Vitamin B12 Level 1679 pg/mL (211-946) H Folate Pending Cortisol AM Sample 9.8 ug/dL (6.0-20.0) Current Medications Medications (Trade) Dose Ordered Sig/Josse Route PRN Reason Start Time Stop Time Status Last Admin Dose Admin Acetaminophen (Tylenol) 650 mg Q4H PRN ORAL Mild Pain/Temp > 100.5 03/16/17 04:15 04/15/17 04:14 03/16/17 11:13 Doxycycline Hyclate/Dextrose (Vibramycin/D5W) 110 ml @ 110 mls/hr Q12HR@0600,1800 IV 03/15/17 18:00 03/22/17 17:59 03/17/17 04:55 Ertapenem/Sodium Chloride (INVanz/Sodium Chloride) 55 ml @ 110 mls/hr Q24H IVPB 03/17/17 14:00 03/22/17 13:59 Lactulose 20 gm 20 gm BID ORAL 03/17/17 18:00 04/16/17 17:59 Midodrine (Pro-Amatine) 10 mg THREE TIMES A DAY ORAL 03/15/17 19:45 04/14/17 19:44 03/17/17 08:49 Rifaximin (Xifaxan) 550 mg EVERY 12 HOURS ORAL 03/16/17 18:00 03/23/17 17:59 03/17/17 08:48 Amanda Ingram M.D. Mar 17, 2017 14:11
[2017-03-17] MEDS: Ertapenem 1 GM in NS 55 ML IVPB SCH (14:42)
[2017-03-17 16:00] VITALS: BP 96/58
--- NOTE | 2017-03-17 19:06 | General Progress Note ---
Assessment/Plan Assessment/Plan IMPRESSION/RECS: 1. Anemia of chronic disease. Currently h.h has been stable --> w/u has been reviewed and ferritin is elevated 2. Thrombocytopenia have reviewed hepatitis and hiv negative. Likely related to liver cirrhosis --> goal plt >20k, has remained currently stable 3. 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 Elevated liver function tests. 5. Hepatic encephalopathy. 6. Liver cirrhosis. 7. Ascites. 8. Shortness of breath. 9. Urinary tract infection. 10. Failure to thrive. Subjective Constitutional: Reports: no symptoms HEENT: Reports: no symptoms Cardiovascular: Reports: no symptoms Respiratory: Reports: no symptoms Gastrointestinal/Abdominal: Reports: poor appetite Genitourinary: Reports: no symptoms Neurologic/Psychiatric: Reports: no symptoms Endocrine: Reports: no symptoms Hematologic/Lymphatic: Reports: anemia Allergies: Coded Allergies: No Known Allergies (Unverified , 01/08/17) Subjective no events overnight, has sepsis Objective Last 24 Hour Vital Signs Date Time Temp Pulse Resp B/P Pulse Ox O2 Delivery O2 Flow Rate FiO2 03/17/17 16:00 69 03/17/17 16:00 97.2 64 20 96/58 100 Room Air 03/17/17 12:00 59 03/17/17 12:00 97.3 60 19 126/53 100 Room Air 03/17/17 08:00 67 03/17/17 08:00 97.3 67 20 98/59 99 Room Air 03/17/17 08:00 97.3 67 20 98/59 99 Room Air 03/17/17 04:03 61 03/17/17 04:00 97.5 66 18 95/55 Room Air 03/17/17 00:00 61 03/17/17 00:00 98.7 65 18 95/52 100 Room Air 03/16/17 20:00 68 03/16/17 19:57 98.8 62 19 88/50 99 Room Air Intake and Output 03/16/17 03/17/17 19:00 07:00 Intake Total 885 ml Output Total 550 ml 200 ml Balance 335 ml -200 ml Intake Oral 720 ml IV Total 165 ml Output Urine Total 550 ml 200 ml # Bowel Movements 1 1 Laboratory Tests 03/17/17 06:40: White Blood Count 10.5, Red Blood Count 3.15L, Hemoglobin 10.2L, Hematocrit 31.1L, Mean Corpuscular Volume 99, Mean Corpuscular Hemoglobin 32.3H, Mean Corpuscular Hemoglobin Concent 32.7, Red Cell Distribution Width 13.8, Platelet Count 118L, Mean Platelet Volume 7.1, Neutrophils (%) (Auto) 77.7H, Lymphocytes (%) (Auto) 9.1L, Monocytes (%) (Auto) 11.1H, Eosinophils (%) (Auto) 1.5, Basophils (%) (Auto) 0.6, Sodium Level 130L, Potassium Level 3.9, Chloride Level 100, Carbon Dioxide Level 20, Anion Gap 10, Blood Urea Nitrogen 39H, Creatinine 1.1, Estimat Glomerular Filtration Rate > 60, Glucose Level 86, Uric Acid 6.4, Calcium Level 8.2L, Phosphorus Level 3.7, Magnesium Level 1.8, Total Bilirubin 1.3H, Direct Bilirubin 0.4H, Gamma Glutamyl Transpeptidase 21, Aspartate Amino Transf (AST/SGOT) 30, Alanine Aminotransferase (ALT/SGPT) 20, Alkaline Phosphatase 97, Ammonia 20, Total Creatine Kinase 42, C-Reactive Protein, Quantitative 7.4H, Pro-B-Type Natriuretic Peptide 1493H, Total Protein 5.5L, Albumin 2.3L, Globulin 3.2, Albumin/Globulin Ratio 0.7L, Triglycerides Level 31, Cholesterol Level 76, LDL Cholesterol 62, HDL Cholesterol 8, Cholesterol/HDL Ratio 9.5H, Lipase 36, Vitamin B12 Level 1679H, Folate [Pending] , Cortisol AM Sample 9.8 Height (Feet): 5 Height (Inches): 5.00 Weight (Pounds): 91 General Appearance: no apparent distress EENT: TMs normal Neck: supple Cardiovascular: normal rate Respiratory/Chest: normal breath sounds Extremities: non-tender Edema: mild edema Neurologic: alert Skin: warm/dry Kvng Siegel Mar 17, 2017 19:06
[2017-03-17 20:00] VITALS: BP 102/57
--- NOTE | 2017-03-17 21:28 | General Progress Note ---
Assessment/Plan Problem List: (1) End stage liver disease ICD Codes: K72.90 - Hepatic failure, unspecified without coma SNOMED: 810122906 (2) Ascites ICD Codes: R18.8 - Other ascites SNOMED: 985109438 Qualifiers: Qualified Codes: K70.31 - Alcoholic cirrhosis of liver with ascites (3) Renal failure ICD Codes: N19 - Unspecified kidney failure SNOMED: 58815683 Qualifiers: Qualified Codes: N17.9 - Acute kidney failure, unspecified; N18.9 - Chronic kidney disease, unspecified (4) Liver failure ICD Codes: K72.90 - Hepatic failure, unspecified without coma SNOMED: 47167213 Qualifiers: Qualified Codes: K72.00 - Acute and subacute hepatic failure without coma (5) Hepatic encephalopathy ICD Codes: K72.90 - Hepatic failure, unspecified without coma SNOMED: 41889358 (6) Anemia ICD Codes: D64.9 - Anemia, unspecified SNOMED: 733858021 (7) Abdominal pain ICD Codes: R10.9 - Unspecified abdominal pain SNOMED: 76826330 Status: progressing Assessment/Plan abdominal pain is improving afebrile cirrhosis renal failure poor prognosis hyponatremia due to cirrhosis Subjective ROS Limited/Unobtainable: Yes Gastrointestinal/Abdominal: Reports: abdominal pain Allergies: Coded Allergies: No Known Allergies (Unverified , 01/08/17) Objective Last 24 Hour Vital Signs Date Time Temp Pulse Resp B/P Pulse Ox O2 Delivery O2 Flow Rate FiO2 03/17/17 20:00 98.2 65 20 102/57 100 Room Air 03/17/17 20:00 61 03/17/17 16:00 69 03/17/17 16:00 97.2 64 20 96/58 100 Room Air 03/17/17 12:00 59 03/17/17 12:00 97.3 60 19 126/53 100 Room Air 03/17/17 08:00 67 03/17/17 08:00 97.3 67 20 98/59 99 Room Air 03/17/17 08:00 97.3 67 20 98/59 99 Room Air 03/17/17 04:03 61 03/17/17 04:00 97.5 66 18 95/55 Room Air 03/17/17 00:00 61 03/17/17 00:00 98.7 65 18 95/52 100 Room Air Intake and Output 03/16/17 03/17/17 19:00 07:00 Intake Total 885 ml Output Total 550 ml 200 ml Balance 335 ml -200 ml Intake Oral 720 ml IV Total 165 ml Output Urine Total 550 ml 200 ml # Bowel Movements 1 1 Laboratory Tests 03/17/17 06:40: White Blood Count 10.5, Red Blood Count 3.15L, Hemoglobin 10.2L, Hematocrit 31.1L, Mean Corpuscular Volume 99, Mean Corpuscular Hemoglobin 32.3H, Mean Corpuscular Hemoglobin Concent 32.7, Red Cell Distribution Width 13.8, Platelet Count 118L, Mean Platelet Volume 7.1, Neutrophils (%) (Auto) 77.7H, Lymphocytes (%) (Auto) 9.1L, Monocytes (%) (Auto) 11.1H, Eosinophils (%) (Auto) 1.5, Basophils (%) (Auto) 0.6, Sodium Level 130L, Potassium Level 3.9, Chloride Level 100, Carbon Dioxide Level 20, Anion Gap 10, Blood Urea Nitrogen 39H, Creatinine 1.1, Estimat Glomerular Filtration Rate > 60, Glucose Level 86, Uric Acid 6.4, Calcium Level 8.2L, Phosphorus Level 3.7, Magnesium Level 1.8, Total Bilirubin 1.3H, Direct Bilirubin 0.4H, Gamma Glutamyl Transpeptidase 21, Aspartate Amino Transf (AST/SGOT) 30, Alanine Aminotransferase (ALT/SGPT) 20, Alkaline Phosphatase 97, Ammonia 20, Total Creatine Kinase 42, C-Reactive Protein, Quantitative 7.4H, Pro-B-Type Natriuretic Peptide 1493H, Total Protein 5.5L, Albumin 2.3L, Globulin 3.2, Albumin/Globulin Ratio 0.7L, Triglycerides Level 31, Cholesterol Level 76, LDL Cholesterol 62, HDL Cholesterol 8, Cholesterol/HDL Ratio 9.5H, Lipase 36, Vitamin B12 Level 1679H, Folate [Pending] , Cortisol AM Sample 9.8 Height (Feet): 5 Height (Inches): 5.00 Weight (Pounds): 91 Joshua Valdovinos MD Mar 17, 2017 21:28
[2017-03-18] VITALS (7 sets, daily range): BP systolic 97–149; BP diastolic 56–69
[2017-03-18] MEDS: Doxycycline Hyclate 100 MG in D5W 110 ML IV SCH ×2 (05:27→18:48)
[2017-03-18 07:47] LABS: EOSINOPHILS % (AUTO) 3.4 % (0.0-3.0); LYMPHOCYTES % (AUTO) 18.4 % (20.0-45.0); MEAN CORPUSCULAR HEMOGLOBIN 32.2 PG (27.0-31.0); MEAN CORPUSCULAR HGB CONC 32.9 G/DL (32.0-36.0); MEAN CORPUSCULAR VOLUME 98 FL (80-99); MONOCYTES % (AUTO) 12.9 % (1.0-10.0); NEUTROPHILS % (AUTO) 64.4 % (45.0-75.0); PLATELET COUNT 118 K/UL (150-450); RED BLOOD COUNT 3.09 M/UL (4.70-6.10); RED CELL DISTRIBUTION WIDTH 13.8 % (11.6-14.8); WHITE BLOOD COUNT 6.3 K/UL (4.8-10.8)
[2017-03-18 08:02] LABS: ANION GAP 8 (5-15); CALCIUM 7.9 mg/dL (8.6-10.2); CARBON DIOXIDE 21 mEQ/L (20-30); CHLORIDE 102 mEQ/L (98-107); CREATININE 0.8 mg/dL (0.7-1.2); GLOMERULAR FILTRATION RATE > 60 mL/min (>60); HEMOLYSIS 2; SODIUM 131 mEQ/L (135-145)
--- NOTE | 2017-03-18 08:48 | General Progress Note ---
Assessment/Plan Status: stable Assessment/Plan Low Na and high K are due to the following: ASCITES ESOPHAGEAL VARICES S BLEEDING TRANSAMINITIS END STAGE LIVER DISEASE HYPOALBUMINEMIA Renal failure likely hepato-renal Urinary tract infection Cellulitis of the abdominal wall at the previous paracentesis site. sugg: Paracenthesis Slow diurese Monitor lytes Monitor renal parameters antibiotics ? DC Subjective ROS Limited/Unobtainable: No Allergies: Coded Allergies: No Known Allergies (Unverified , 01/08/17) Objective Last 24 Hour Vital Signs Date Time Temp Pulse Resp B/P Pulse Ox O2 Delivery O2 Flow Rate FiO2 03/18/17 07:54 97.7 71 15 149/59 100 Room Air 03/18/17 04:34 63 03/18/17 04:00 97.7 62 20 101/56 98 Room Air 03/18/17 00:00 97.7 65 20 97/59 Room Air 03/18/17 00:00 65 03/17/17 20:00 98.2 65 20 102/57 100 Room Air 03/17/17 20:00 61 03/17/17 16:00 69 03/17/17 16:00 97.2 64 20 96/58 100 Room Air 03/17/17 12:00 59 03/17/17 12:00 97.3 60 19 126/53 100 Room Air Intake and Output 03/17/17 03/18/17 19:00 07:00 Intake Total 405 ml 50 ml Output Total 220 ml 300 ml Balance 185 ml -250 ml Intake Oral 240 ml 50 ml IV Total 165 ml Output Urine Total 220 ml 300 ml # Bowel Movements 4 5 Laboratory Tests 03/18/17 06:33: White Blood Count 6.3, Red Blood Count 3.09L, Hemoglobin 10.0L, Hematocrit 30.3L , Mean Corpuscular Volume 98, Mean Corpuscular Hemoglobin 32.2H, Mean Corpuscular Hemoglobin Concent 32.9, Red Cell Distribution Width 13.8, Platelet Count 118L, Mean Platelet Volume 8.0, Neutrophils (%) (Auto) 64.4, Lymphocytes ( %) (Auto) 18.4L, Monocytes (%) (Auto) 12.9H, Eosinophils (%) (Auto) 3.4H, Basophils (%) (Auto) 1.0, Sodium Level 131L, Potassium Level 4.0, Chloride Level 102, Carbon Dioxide Level 21, Anion Gap 8, Blood Urea Nitrogen 29H, Creatinine 0.8, Estimat Glomerular Filtration Rate > 60, Glucose Level 85, Calcium Level 7.9L Height (Feet): 5 Height (Inches): 5.00 Weight (Pounds): 89 General Appearance: no apparent distress Objective no other change JENN HENSON Mar 18, 2017 08:48
[2017-03-18] MEDS: Lactulose 20gm/30ml UDC ORAL SCH ×2 (08:58→18:48)
[2017-03-18] MEDS: Midodrine 10mg tab ORAL SCH ×3 (08:58→18:48)
[2017-03-18] MEDS: Rifaximin 550mg tab ORAL SCH ×2 (08:58→20:42)
--- NOTE | 2017-03-18 11:04 | GI Progress Note ---
Assessment/Plan Problems: (1) Abdominal pain ICD Codes: R10.9 - Unspecified abdominal pain SNOMED: 26692643 (2) Anemia ICD Codes: D64.9 - Anemia, unspecified SNOMED: 472930235 (3) Esophageal varices without bleeding ICD Codes: I85.00 - Esophageal varices without bleeding SNOMED: 13829115 (4) Hepatic encephalopathy ICD Codes: K72.90 - Hepatic failure, unspecified without coma SNOMED: 12333088 (5) Liver failure ICD Codes: K72.90 - Hepatic failure, unspecified without coma SNOMED: 97354753 Qualifiers: Qualified Codes: K72.00 - Acute and subacute hepatic failure without coma (6) Ascites ICD Codes: R18.8 - Other ascites SNOMED: 722251342 Qualifiers: Qualified Codes: K70.31 - Alcoholic cirrhosis of liver with ascites (7) End stage liver disease ICD Codes: K72.90 - Hepatic failure, unspecified without coma SNOMED: 031688906 Status: stable Status Narrative Discussed with Dr. Hidalgo. Assessment/Plan S/P EGD SUMMARY OF FINDINGS: 01-11-17 1. Distal esophageal varices grade 2 without any stigmata. 2. Portal hypertensive gastropathy, moderate. 3. Lesion in the pre-pyloric area, see above for details, status post biopsy 4. Pathology >> moderate anemia, thrombocytopenia iron panel >> unremarkable >> pt not iron deficient hep panel unremarkable RECOMMENDATIONS: - ok to DC per GI standpoint - Follow up biopsies and treat accordingly >> iron pill gastritis. negative for HP >> dc FeSO4 - continue Lasix and Aldactone. - cont lactulose + xifaxin - monitor H&H, transfuse prn - PPI - prn paracentesis - fu labs Subjective Gastrointestinal/Abdominal: Reports: abdomen distended - ascites Objective Last 24 Hour Vital Signs Date Time Temp Pulse Resp B/P Pulse Ox O2 Delivery O2 Flow Rate FiO2 03/18/17 07:54 97.7 71 15 149/59 100 Room Air 03/18/17 04:34 63 03/18/17 04:00 97.7 62 20 101/56 98 Room Air 03/18/17 00:00 97.7 65 20 97/59 Room Air 03/18/17 00:00 65 03/17/17 20:00 98.2 65 20 102/57 100 Room Air 03/17/17 20:00 61 03/17/17 16:00 69 03/17/17 16:00 97.2 64 20 96/58 100 Room Air 03/17/17 12:00 59 03/17/17 12:00 97.3 60 19 126/53 100 Room Air Intake and Output 03/17/17 03/18/17 19:00 07:00 Intake Total 405 ml 50 ml Output Total 220 ml 300 ml Balance 185 ml -250 ml Intake Oral 240 ml 50 ml IV Total 165 ml Output Urine Total 220 ml 300 ml # Bowel Movements 4 5 Laboratory Tests Test 03/18/17 06:33 White Blood Count 6.3 K/UL (4.8-10.8) Red Blood Count 3.09 M/UL (4.70-6.10) L Hemoglobin 10.0 G/DL (14.2-18.0) L Hematocrit 30.3 % (42.0-52.0) L Mean Corpuscular Volume 98 FL (80-99) Mean Corpuscular Hemoglobin 32.2 PG (27.0-31.0) H Mean Corpuscular Hemoglobin Concent 32.9 G/DL (32.0-36.0) Red Cell Distribution Width 13.8 % (11.6-14.8) Platelet Count 118 K/UL (150-450) L Mean Platelet Volume 8.0 FL (6.5-10.1) Neutrophils (%) (Auto) 64.4 % (45.0-75.0) Lymphocytes (%) (Auto) 18.4 % (20.0-45.0) L Monocytes (%) (Auto) 12.9 % (1.0-10.0) H Eosinophils (%) (Auto) 3.4 % (0.0-3.0) H Basophils (%) (Auto) 1.0 % (0.0-2.0) Sodium Level 131 mEQ/L (135-145) L Potassium Level 4.0 mEQ/L (3.4-4.9) Chloride Level 102 mEQ/L (98-107) Carbon Dioxide Level 21 mEQ/L (20-30) Anion Gap 8 (5-15) Blood Urea Nitrogen 29 mg/dL (7-23) H Creatinine 0.8 mg/dL (0.7-1.2) Estimat Glomerular Filtration Rate > 60 mL/min (>60) Glucose Level 85 mg/dL (74-106) Calcium Level 7.9 mg/dL (8.6-10.2) L Height (Feet): 5 Height (Inches): 5.00 Weight (Pounds): 89 General Appearance: no apparent distress, alert Cardiovascular: normal rate Respiratory/Chest: normal breath sounds, no respiratory distress Abdominal Exam: normal bowel sounds, non tender, soft Teresa Jackson N.P. Mar 18, 2017 11:04
[2017-03-18] MEDS: Ertapenem 1 GM in NS 55 ML IVPB SCH (13:34)
--- NOTE | 2017-03-18 16:01 | Infectious Diseases Prog Note ---
Assessment/Plan Problems: (1) UTI (urinary tract infection) Assessment & Plan: with ESBL Ecoli , and streptococcus spp, on ertapenem for 7 days total course of therapy, may switch to oral fosfomycin to finish his course of therapy (2) Ascites Assessment & Plan: rule out SBP , S/P paracentesis, await fluids culture, fungal and AFB. continue antibiotics empirically (3) Sepsis Assessment & Plan: await blood culture and continue wide spectrum antibiotics empirically (4) Cellulitis of abdominal wall Assessment & Plan: at the previous paracentesis site , now on ertapenem and doxycycline (5) End stage liver disease Assessment & Plan: continue supportive care, consult GI (6) Renal failure Assessment & Plan: avoid nephrotoxic meds, consult renal service Subjective Constitutional: Reports: no symptoms HEENT: Reports: no symptoms Respiratory: Reports: no symptoms Breasts: Reports: no symptoms Cardiovascular: Reports: no symptoms Gastrointestinal/Abdominal: Reports: bloating, other - distension Genitourinary: Reports: no symptoms Neurologic: Reports: no symptoms Psychiatric: Reports: no symptoms Skin: Reports: no symptoms Endocrine: Reports: no symptoms Hematologic: Reports: no symptoms Musculoskeletal: Reports: no symptoms Allergies: Coded Allergies: No Known Allergies (Unverified , 01/08/17) Objective Vital Signs Last 24 Hour Vital Signs Date Time Temp Pulse Resp B/P Pulse Ox O2 Delivery O2 Flow Rate FiO2 03/18/17 07:54 97.7 71 15 149/59 100 Room Air 03/18/17 04:34 63 03/18/17 04:00 97.7 62 20 101/56 98 Room Air 03/18/17 00:00 97.7 65 20 97/59 Room Air 03/18/17 00:00 65 03/17/17 20:00 98.2 65 20 102/57 100 Room Air 03/17/17 20:00 61 03/17/17 16:00 69 03/17/17 16:00 97.2 64 20 96/58 100 Room Air Height (Feet): 5 Height (Inches): 5.00 Weight (Pounds): 89 General Appearance: WD/WN, no acute distress HEENT: normocephalic, atraumatic, anicteric, mucous membranes moist, PERRL Respiratory/Chest: chest wall non-tender, lungs clear, no respiratory distress , no accessory muscle use, decreased breath sounds, crackles/rales Cardiovascular: normal peripheral pulses, normal rate, regular rhythm, no JVD Abdomen: no mass, no scars, hypoactive bowel sounds, distended, hepatomegaly Extremities: no cyanosis, no clubbing Skin: no rash, no lesions, no ulcers Lymphatic: no neck adenopathy, no groin adenopathy Microbiology Date/Time Source Procedure Growth Status 03/16/17 14:35 Blood Blood Culture - Preliminary NO GROWTH AFTER 24 HOURS Resulted 03/16/17 14:30 Blood Blood Culture - Preliminary NO GROWTH AFTER 24 HOURS Resulted 03/16/17 01:15 Stool Clostridium difficile Toxin Assay - Final Complete Laboratory Tests Test 03/18/17 06:33 White Blood Count 6.3 K/UL (4.8-10.8) Red Blood Count 3.09 M/UL (4.70-6.10) L Hemoglobin 10.0 G/DL (14.2-18.0) L Hematocrit 30.3 % (42.0-52.0) L Mean Corpuscular Volume 98 FL (80-99) Mean Corpuscular Hemoglobin 32.2 PG (27.0-31.0) H Mean Corpuscular Hemoglobin Concent 32.9 G/DL (32.0-36.0) Red Cell Distribution Width 13.8 % (11.6-14.8) Platelet Count 118 K/UL (150-450) L Mean Platelet Volume 8.0 FL (6.5-10.1) Neutrophils (%) (Auto) 64.4 % (45.0-75.0) Lymphocytes (%) (Auto) 18.4 % (20.0-45.0) L Monocytes (%) (Auto) 12.9 % (1.0-10.0) H Eosinophils (%) (Auto) 3.4 % (0.0-3.0) H Basophils (%) (Auto) 1.0 % (0.0-2.0) Sodium Level 131 mEQ/L (135-145) L Potassium Level 4.0 mEQ/L (3.4-4.9) Chloride Level 102 mEQ/L (98-107) Carbon Dioxide Level 21 mEQ/L (20-30) Anion Gap 8 (5-15) Blood Urea Nitrogen 29 mg/dL (7-23) H Creatinine 0.8 mg/dL (0.7-1.2) Estimat Glomerular Filtration Rate > 60 mL/min (>60) Glucose Level 85 mg/dL (74-106) Calcium Level 7.9 mg/dL (8.6-10.2) L Current Medications Medications (Trade) Dose Ordered Sig/Josse Route PRN Reason Start Time Stop Time Status Last Admin Dose Admin Acetaminophen (Tylenol) 650 mg Q4H PRN ORAL Mild Pain/Temp > 100.5 03/16/17 04:15 04/15/17 04:14 03/16/17 11:13 Doxycycline Hyclate/Dextrose (Vibramycin/D5W) 110 ml @ 110 mls/hr Q12HR@0600,1800 IV 03/15/17 18:00 03/22/17 17:59 03/18/17 05:27 Ertapenem/Sodium Chloride (INVanz/Sodium Chloride) 55 ml @ 110 mls/hr Q24H IVPB 03/17/17 14:00 03/22/17 13:59 03/18/17 13:34 Lactulose 20 gm 20 gm BID ORAL 03/17/17 18:00 04/16/17 17:59 03/18/17 08:58 Midodrine (Pro-Amatine) 10 mg THREE TIMES A DAY ORAL 03/15/17 19:45 04/14/17 19:44 03/18/17 13:14 Non-Formulary Medication (Non-Formulary Med) 1 ea ONCE ONCE ORAL 03/19/17 11:00 03/19/17 11:01 Rifaximin (Xifaxan) 550 mg EVERY 12 HOURS ORAL 03/16/17 18:00 03/23/17 17:59 03/18/17 08:58 Amanda Ingram M.D. Mar 18, 2017 16:01
--- NOTE | 2017-03-18 18:09 | General Progress Note ---
Assessment/Plan Assessment/Plan IMPRESSION/RECS: 1. Anemia of chronic disease. Currently h.h has been stable --> w/u has been reviewed and ferritin elevated --> currently not bleeding 2. Thrombocytopenia have reviewed hepatitis and hiv negative. Likely related to liver cirrhosis --> goal plt >20k, has remained currently stable 3. 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 Elevated liver function tests. 5. Hepatic encephalopathy. 6. Liver cirrhosis. 7. Ascites. 8. Shortness of breath. 9. Urinary tract infection. 10. Failure to thrive. Subjective Constitutional: Reports: no symptoms HEENT: Reports: no symptoms Cardiovascular: Reports: no symptoms Respiratory: Reports: no symptoms Gastrointestinal/Abdominal: Reports: poor appetite Genitourinary: Reports: no symptoms Neurologic/Psychiatric: Reports: no symptoms Endocrine: Reports: no symptoms Hematologic/Lymphatic: Reports: anemia Allergies: Coded Allergies: No Known Allergies (Unverified , 01/08/17) Subjective no events overnight, no events, no chills Objective Last 24 Hour Vital Signs Date Time Temp Pulse Resp B/P Pulse Ox O2 Delivery O2 Flow Rate FiO2 03/18/17 16:00 97.7 59 15 105/65 100 Room Air 03/18/17 12:00 97.7 71 15 149/59 100 Room Air 03/18/17 07:54 97.7 71 15 149/59 100 Room Air 03/18/17 04:34 63 03/18/17 04:00 97.7 62 20 101/56 98 Room Air 03/18/17 00:00 97.7 65 20 97/59 Room Air 03/18/17 00:00 65 03/17/17 20:00 98.2 65 20 102/57 100 Room Air 03/17/17 20:00 61 Intake and Output 03/17/17 03/18/17 19:00 07:00 Intake Total 405 ml 50 ml Output Total 220 ml 300 ml Balance 185 ml -250 ml Intake Oral 240 ml 50 ml IV Total 165 ml Output Urine Total 220 ml 300 ml # Bowel Movements 4 5 Laboratory Tests 03/18/17 06:33: White Blood Count 6.3, Red Blood Count 3.09L, Hemoglobin 10.0L, Hematocrit 30.3L , Mean Corpuscular Volume 98, Mean Corpuscular Hemoglobin 32.2H, Mean Corpuscular Hemoglobin Concent 32.9, Red Cell Distribution Width 13.8, Platelet Count 118L, Mean Platelet Volume 8.0, Neutrophils (%) (Auto) 64.4, Lymphocytes ( %) (Auto) 18.4L, Monocytes (%) (Auto) 12.9H, Eosinophils (%) (Auto) 3.4H, Basophils (%) (Auto) 1.0, Sodium Level 131L, Potassium Level 4.0, Chloride Level 102, Carbon Dioxide Level 21, Anion Gap 8, Blood Urea Nitrogen 29H, Creatinine 0.8, Estimat Glomerular Filtration Rate > 60, Glucose Level 85, Calcium Level 7.9L Height (Feet): 5 Height (Inches): 5.00 Weight (Pounds): 89 General Appearance: no apparent distress EENT: TMs normal Neck: normal inspection Cardiovascular: regular rhythm Respiratory/Chest: normal breath sounds Abdomen: normal bowel sounds Extremities: non-tender Edema: 1+ Leg (L), 1+ Leg (R) Edema: mild edema Neurologic: alert Skin: warm/dry Kvng Siegel Mar 18, 2017 18:09
--- NOTE | 2017-03-18 20:22 | General Progress Note ---
Assessment/Plan Problem List: (1) End stage liver disease ICD Codes: K72.90 - Hepatic failure, unspecified without coma SNOMED: 139540582 (2) Ascites ICD Codes: R18.8 - Other ascites SNOMED: 595361276 Qualifiers: Qualified Codes: K70.31 - Alcoholic cirrhosis of liver with ascites (3) Renal failure ICD Codes: N19 - Unspecified kidney failure SNOMED: 66521646 Qualifiers: Qualified Codes: N17.9 - Acute kidney failure, unspecified; N18.9 - Chronic kidney disease, unspecified (4) Liver failure ICD Codes: K72.90 - Hepatic failure, unspecified without coma SNOMED: 69701934 Qualifiers: Qualified Codes: K72.00 - Acute and subacute hepatic failure without coma (5) Hepatic encephalopathy ICD Codes: K72.90 - Hepatic failure, unspecified without coma SNOMED: 87072500 (6) Anemia ICD Codes: D64.9 - Anemia, unspecified SNOMED: 127481414 (7) Abdominal pain ICD Codes: R10.9 - Unspecified abdominal pain SNOMED: 28261774 Status: progressing Assessment/Plan abdominal pain is improving afebrile cirrhosis renal failure [email or web address] per id dc planning decrease abdominal pain Subjective ROS Limited/Unobtainable: Yes Gastrointestinal/Abdominal: Reports: abdominal pain Allergies: Coded Allergies: No Known Allergies (Unverified , 01/08/17) Objective Last 24 Hour Vital Signs Date Time Temp Pulse Resp B/P Pulse Ox O2 Delivery O2 Flow Rate FiO2 03/18/17 16:00 97.7 59 15 105/65 100 Room Air 03/18/17 16:00 70 03/18/17 12:00 97.7 71 15 149/59 100 Room Air 03/18/17 12:00 66 03/18/17 08:00 79 03/18/17 07:54 97.7 71 15 149/59 100 Room Air 03/18/17 04:34 63 03/18/17 04:00 97.7 62 20 101/56 98 Room Air 03/18/17 00:00 97.7 65 20 97/59 Room Air 03/18/17 00:00 65 Intake and Output 03/17/17 03/18/17 19:00 07:00 Intake Total 405 ml 50 ml Output Total 220 ml 300 ml Balance 185 ml -250 ml Intake Oral 240 ml 50 ml IV Total 165 ml Output Urine Total 220 ml 300 ml # Bowel Movements 4 5 Laboratory Tests 03/18/17 06:33: White Blood Count 6.3, Red Blood Count 3.09L, Hemoglobin 10.0L, Hematocrit 30.3L , Mean Corpuscular Volume 98, Mean Corpuscular Hemoglobin 32.2H, Mean Corpuscular Hemoglobin Concent 32.9, Red Cell Distribution Width 13.8, Platelet Count 118L, Mean Platelet Volume 8.0, Neutrophils (%) (Auto) 64.4, Lymphocytes ( %) (Auto) 18.4L, Monocytes (%) (Auto) 12.9H, Eosinophils (%) (Auto) 3.4H, Basophils (%) (Auto) 1.0, Sodium Level 131L, Potassium Level 4.0, Chloride Level 102, Carbon Dioxide Level 21, Anion Gap 8, Blood Urea Nitrogen 29H, Creatinine 0.8, Estimat Glomerular Filtration Rate > 60, Glucose Level 85, Calcium Level 7.9L Height (Feet): 5 Height (Inches): 5.00 Weight (Pounds): 89 Neck: supple Cardiovascular: normal rate Joshua Valdovinos MD Mar 18, 2017 20:22
[2017-03-19 04:00] VITALS: BP 111/62
[2017-03-19] MEDS: Doxycycline Hyclate 100 MG in D5W 110 ML IV SCH (05:18)
[2017-03-19 08:00] VITALS: BP 112/72
[2017-03-19] MEDS: Rifaximin 550mg tab ORAL SCH (08:20)
[2017-03-19] MEDS: Lactulose 20gm/30ml UDC ORAL SCH (08:20)
[2017-03-19] MEDS: Midodrine 10mg tab ORAL SCH ×2 (08:20→13:03)
[2017-03-19] MEDS ORDERED: FOSFOMYCIN 3 GM ORAL ONE (11:00)
[2017-03-19 12:00] VITALS: BP 104/63
--- NOTE | 2017-03-19 12:16 | General Progress Note ---
Assessment/Plan Status: stable - from renal stand Assessment/Plan Low Na and high K are due to the following: ASCITES ESOPHAGEAL VARICES S BLEEDING TRANSAMINITIS END STAGE LIVER DISEASE HYPOALBUMINEMIA Renal failure likely hepato-renal Urinary tract infection Cellulitis of the abdominal wall at the previous paracentesis site. sugg: Fosfamycin 3 gr IV once and then DC Paracenthesis Slow diurese Monitor lytes Monitor renal parameters antibiotics ? DC Subjective ROS Limited/Unobtainable: No Allergies: Coded Allergies: No Known Allergies (Unverified , 01/08/17) Objective Last 24 Hour Vital Signs Date Time Temp Pulse Resp B/P Pulse Ox O2 Delivery O2 Flow Rate FiO2 03/19/17 12:00 97.8 65 19 104/63 99 Room Air 03/19/17 08:00 97.7 68 21 112/72 99 Room Air 03/19/17 08:00 83 03/19/17 04:00 64 03/19/17 04:00 98.1 69 18 111/62 95 Room Air 03/19/17 00:00 69 03/18/17 23:57 97.9 80 17 111/59 100 Room Air 03/18/17 20:00 97.7 74 16 113/61 100 Room Air 03/18/17 20:00 79 03/18/17 16:00 97.7 59 15 105/65 100 Room Air 03/18/17 16:00 70 Intake and Output 03/18/17 03/19/17 19:00 07:00 Intake Total 55 ml 110 ml Output Total 1000 ml Balance 55 ml -890 ml IV Total 55 ml 110 ml Output Urine Total 1000 ml # Bowel Movements 2 8 Height (Feet): 5 Height (Inches): 5.00 Weight (Pounds): 194 General Appearance: no apparent distress Objective no other change JENN HENSON Mar 19, 2017 12:16
[2017-03-19] MEDS: Ertapenem 1 GM in NS 55 ML IVPB SCH (13:04)
[2017-03-19] MEDS ORDERED: Tubing IV Secondary IV ONE (15:04)
[2017-03-19] MEDS ORDERED: NS 275ml ONE (15:04)
--- NOTE | 2017-03-22 09:17 | Discharge Summary ---
Discharge Summary Hospital Course Date of Admission Mar 15, 2017 at 10:42 Date of Discharge Mar 19, 2017 at 15:05 Admitting Diagnosis liver failure, ascities HPI Maurisio Muor is a 51 year old male who was admitted on Mar 15, 2017 at 10 :42 for Liver Failure,Ascities Hospital Course dc summary #[id number] Discharge Medications Continued Medications: Ferrous Sulfate, Dried (Iron) 159 Mg Tablet.er 65 MG PO TID, TAB Folic Acid* (Folic Acid*) 1 Mg Tablet 1 MG ORAL DAILY, TAB Furosemide* (Lasix*) 20 Mg Tablet 20 MG ORAL DAILY, TAB Lactulose (Lactulose) 10 Gm/15 Ml Solution 20 GM PO BID, #30 Pantoprazole (Pantoprazole) 20 Mg Tablet.dr 40 MG ORAL BID, #10 TAB 0 Refills Propranolol Hcl* (Inderal*) 10 Mg Tablet 10 MG ORAL THREE TIMES A DAY, #90 TAB 0 Refills Spironolactone (Aldactone) 50 Mg Tablet 50 MG ORAL DAILY, TAB Unable to Obtain Medications (Unable To Obtain Meds) 1 Ea Ea Discharge Condition Upon Discharge: stable Discharge Disposition Patient was discharged to assisted living Discharge Diagnoses: Discharge Instructions Discharge Instructions Special Instructions I have been assigned to complete a D/C Summary on this account. I was not involved in the patient management Manjula Hopkins NP (Vanchtein) Mar 22, 2017 09:17
--- NOTE | 2017-03-22 12:46 | Discharge Summary 2 SIG ---
DATE OF ADMISSION: 03/15/2017 DATE OF DISCHARGE: 03/19/2017 REASON FOR ADMISSION: This is a 51-year-old male with history of end-stage renal disease and recurrent paracentesis, presented to emergency room with four days of worsening abdominal distention and constipation. The patient's last paracentesis was few weeks ago. The patient denied fever. Reported discomfort in the abdomen, 4/10, pressure-like, diffuse. Denied melena or bright red blood in stool. No nausea. No vomiting. No hematemesis. No dysuria or hematuria. Urine dark. Denied chest pain or shortness of breath. The patient has a history of alcohol abuse. Workup in the emergency room revealed low blood pressure. Tachypnea of 24. Pulse oximetry was stable on room air. The patient was afebrile. WBC 15.3. BUN 40, creatinine 1.9, sodium 128, and potassium 5.5. Ammonia elevated 101. Elevated total indirect bilirubin. Elevated AST. Paracentesis done in the emergency room, which yielded 13.2 liters of fluid. The patient breathing improved after paracentesis, however, blood pressure further down, heart rate is stable. The patient is started on the IV fluids with normal saline and albumin. The patient admitted. Urinalysis with evidence of UTI. The patient admitted for further management. ADMITTING DIAGNOSES: 1. End-stage liver disease. 2. Ascites. 3. Electrolyte abnormality (hyponatremia and hyperkalemia). 4. Alcoholic liver cirrhosis. 5. Urinary tract infection. 6. Renal failure. 7. Cellulitis of the abdominal wall at previous paracentesis site. 8. Hepatic encephalopathy. 9. Possible sepsis. 10. Transaminitis. HOSPITAL STAY: The patient is admitted. ID, GI, and Nephrology consult was requested. Per GI, the patient to continue rifaximin and lactulose. Trend ammonia. Ammonia down to normal prior to discharge. Continue diuresis with Lasix and Aldactone. Monitor renal parameters and electrolytes. Monitor hemoglobin and hematocrit. Transfuse as needed. Paracentesis as needed. Started on PPI. GI cleared for discharge and the patient was counseled on abstinence from alcohol. ID closely followed. The patient was on empiric antibiotic initially. Blood culture negative. Urine culture positive for E coli, ESBL, and Enterococcus faecalis. Stool for C. difficile was negative. Ascitic fluid never sent for analysis. Of note, urine tox screen was negative in the emergency department. The patient is status post treatment with antibiotics. Leukocytosis resolved. Afebrile. Learning Coach closely followed. According to geotechnical laboratory technician, renal failure likely hepatorenal failure. The patient was started on diuresis . Electrolytes replaced as needed. Electrolytes were monitored, status post Kayexalate, potassium stable. Renal parameters monitored. Nephrotoxins were avoided with gentle hydration and potassium down to 4.0 prior to discharge, sodium up to 133, acute renal failure resolved with slow hydration and prior to discharge BUN is 29 and creatinine is 0.8. Low albumin noted likely secondary to liver failure. Albumin x1 given in the emergency department. Blood pressure was supported with midodrine and was stable. Likely hypertension was secondary to paracenteses. General Science Teacher followed. The patient had anemia of chronic disease. Lowest hemoglobin 9.1 and hematocrit 27.3. Prior to discharge, hemoglobin 10.0 and hematocrit 30.3. Anemia workup revealed stable iron. General Science Teacher recommended stop iron supplement. Thrombocytopenia likely secondary to liver cirrhosis. HIV test negative. In the past, hepatitis panel negative. Closely monitored to keep platelets above 20,000. The patient was cleared for discharge by all consultants. DISCHARGE DIAGNOSES: 1. Acute renal failure likely hepatorenal, resolved. 2. Urinary tract infection with Escherichia coli, Extended-spectrum beta-lactamases, and Enterococcus faecalis. 3. Cellulitis abdominal wall at previous paracentesis site. 4. End-stage liver disease. 5. Alcoholic liver cirrhosis. 6. Electrolyte abnormalities (hyponatremia and hyperkalemia related to end-stage liver disease and acute renal failure). 7. Ascites. 8. Status post paracentesis with 13.2 liter of fluid . 9. Transaminitis. 10. Esophageal varices without bleeding. Of note, propranolol was continued. 11. Hepatic encephalopathy. 12. Hypoalbuminemia. 13. Possible sepsis. 14. Anemia of chronic disease. DISCHARGE MEDICATIONS: See medication reconciliation list. DISCHARGE INSTRUCTIONS: The patient discharged to assisted living. Follow up with medical doctor at the facility. Ali Hadadz, M.D. I have been assigned to dictate discharge summary on this account and I was not involved in the patient's management. Manjula Hopkins (vanchtein) NDelontePDelonte DR: JIMBO JOB#: [id number] CC:
== END 2017-03-19 15:05 | disposition still patient (30) | DRG 280 ==
LOC: EMR 09:43 → 2E 10:42 → EDBEDREQ 15:25
PROC: 0W9G3ZZ Drainage of Peritoneal Cavity, Percutaneous Approach (ICD-10-PCS; principal; 2017-03-15)
DX: K70.31 Alcoholic cirrhosis of liver with ascites (principal); K76.7 Hepatorenal syndrome; A41.9 Sepsis, unspecified organism; D68.9 Coagulation defect, unspecified; N17.9 Acute kidney failure, unspecified; N18.6 End stage renal disease; K72.00 Acute and subacute hepatic failure without coma; N39.0 Urinary tract infection, site not specified; L03.311 Cellulitis of abdominal wall; E87.1 Hypo-osmolality and hyponatremia; E87.5 Hyperkalemia; F10.10 Alcohol abuse, uncomplicated; R74.0 Nonspecific elevation of levels of transaminase and lactic acid dehydrogenase [LDH]; K72.90 Hepatic failure, unspecified without coma; D69.6 Thrombocytopenia, unspecified; K59.00 Constipation, unspecified; E88.09 Other disorders of plasma-protein metabolism, not elsewhere classified; I85.00 Esophageal varices without bleeding; K21.9 Gastro-esophageal reflux disease without esophagitis; R79.89 Other specified abnormal findings of blood chemistry; B96.20 Unspecified Escherichia coli [E. coli] as the cause of diseases classified elsewhere; R62.7 Adult failure to thrive; D63.8 Anemia in other chronic diseases classified elsewhere
CPT/HCPCS: 36415; 71010; 74000; 76942; 80048; 80053; 80061; 80300; 80329; 81003; 82140; 82248; 82533; 82550; 82607; 82728; 82746; 82962; 82977; 83540; 83550; 83605; 83690; 83735; 83880; 84100; 84484; 84550; 85007; 85025; 85610; 85730; 86140; 86850; 86900; 86901; 87040; 87081; 87086; 87181; 87324; 93005; 93970; J3490

== ENCOUNTER 2017-04-06 16:31 | Emergency (ER) | payer MEDICAID ==
[~2017-04-06] VITALS: Ht 165.1 cm; Wt 90.7 kg
[2017-04-06 17:10] VITALS: BP 104/54
[2017-04-06 17:53] LABS: BASOPHILS % (AUTO) 1.9 % (0.0-2.0); EOSINOPHILS % (AUTO) 7.7 % (0.0-3.0); LYMPHOCYTES % (AUTO) 19.2 % (20.0-45.0); MEAN CORPUSCULAR HGB CONC 35.4 G/DL (32.0-36.0); MEAN CORPUSCULAR VOLUME 93 FL (80-99); MEAN PLATELET VOLUME 7.1 FL (6.5-10.1); NEUTROPHILS % (AUTO) 54.2 % (45.0-75.0); PLATELET COUNT 121 K/UL (150-450); RED CELL DISTRIBUTION WIDTH 13.7 % (11.6-14.8); WHITE BLOOD COUNT 5.7 K/UL (4.8-10.8)
[2017-04-06 17:54] LABS: APPEARANCE,URINE SLIGHTLY CLOUDY; KETONES,URINE 1+ (NEGATIVE); LEUKOCYTE ESTERASE ,URINE 3+ (NEGATIVE); NITRITE,URINE NEGATIVE (NEGATIVE); PH,URINE 5 (4.5-8.0); PROTEIN,URINE 1+ (NEGATIVE); UROBILINOGEN,URINE 1 MG/DL (0.0-1.0)
[2017-04-06 17:57] LABS: ICTOTEST POSITIVE
[2017-04-06 18:05] LABS: INR 1.2 (0.9-1.1); PROTHROMBIN TIME 12.6 SEC (9.30-11.50)
[2017-04-06 18:11] LABS: RBC,URINE 0-2 /HPF (0 - 0); SQUAMOUS EPITHELIAL CELL,UR FEW /LPF (NONE/OCC); WBC,URINE 20-30 /HPF (0 - 0)
[2017-04-06 18:12] LABS: BACTERIA,URINE FEW /HPF
[2017-04-06 18:14] LABS: ALBUMIN/GLOBULIN RATIO 0.5 (1.0-2.7); CALCIUM 8.2 mg/dL (8.6-10.2); CREATININE 1.6 mg/dL (0.7-1.2); POTASSIUM 4.4 mEQ/L (3.4-4.9); TOTAL PROTEIN 6.3 g/dL (6.6-8.7)
[2017-04-06] MEDS ORDERED: cefTRIAXone 1 GM in NS 55 ML IVPB ONE (18:45)
--- NOTE | 2017-04-06 18:45 | Emergency Room Report ---
History of Present Illness General Chief Complaint: Abdominal Pain Source: Patient Present Illness HPI Patient is a 51-year-old gentleman who has a history of liver disease or liver failure. Patient also has a history of sepsis. Patient has been admitted in the past for sepsis. Patient also requires frequent paracentesis. Patient's last paracentesis was about 20 days ago. He presents emergency department today complaining of worsening abdominal distention and me for paracentesis. He denies any fever nausea vomiting diarrhea chills. Symptoms noted to be moderate to severe. No other modifying factors. No other associated signs and symptoms. No other complaints were noted. Allergies: Coded Allergies: No Known Allergies (Unverified , 01/08/17) Patient History Past Medical History: CAD, asthma, other - liver cirrhosis Past Surgical History: none Pertinent Family History: none Social History: Denies: alcohol use, drug use, smoking Reviewed Nursing Documentation: PMH: Agreed, PSxH: Agreed Nursing Documentation-PMH Hx Cardiac Problems: Yes Hx Asthma: Yes Hx Diabetes: No Hx Cancer: No Hx Gastrointestinal Problems: Yes - Cirrhosis Hx Neurological Problems: Yes Hx Memory Loss: Yes Hx Dizziness: Yes Hx Numbness: Yes - BLE Hx Weakness: Yes Hx Fatigue: Yes - with activity Review of Systems All Other Systems: negative except mentioned in HPI Physical Exam Vital Signs Date Time Temp Pulse Resp B/P Pulse Ox O2 Delivery O2 Flow Rate FiO2 04/06/17 16:40 98.1 74 18 117/72 100 Room Air Sp02 EP Interpretation: reviewed, normal General Appearance: alert, Chronically Ill Head: normocephalic, atraumatic Eyes: bilateral eye normal inspection ENT: normal ENT inspection, hearing grossly normal, normal voice Neck: normal inspection, full range of motion, supple, no bony tend Respiratory: normal inspection, lungs clear, normal breath sounds, no respiratory distress, no retraction, no wheezing Cardiovascular #1: regular rate, rhythm, no edema Gastrointestinal: no guarding, distended - ascites Genitourinary: no CVA tenderness Musculoskeletal: normal inspection, back normal, normal range of motion Neurologic: normal inspection, alert, responsive, speech normal Psychiatric: normal inspection, judgement/insight normal, mood/affect normal Skin: normal inspection, normal color, no rash Procedures Additional Procedure Procedure Narrative Patient required paracentesis. Patient has large amount of ascites. After consent was obtained paracentesis was performed. Procedure note: Patient's left lower quadrant of the abdomen was prepped in sterile manner. After ultrasound verify the presence of fluid 1% lidocaine was injected into the area. A total of 3 mL of lidocaine was injected into the left lower quadrant of the abdominal wall. There was adequate analgesia. Using a paracentesis needle with a catheter ascitic fluid was aspirated from patient's abdomen. Then the then the catheter was threaded over into the abdomen. It was connected to a vacuum and a total of 6 L of fluid was removed. The catheter was removed sterilely. The entire procedure was performed sterilely. Patient tolerated the procedure without difficulty. Patient was monitored for 30 minutes without change in blood pressure.There was no complications associated with the procedure. Medical Decision Making Diagnostic Impression: Primary Impression: Ascites Additional Impression: UTI (urinary tract infection) ER Course Patient presents emergency department today complaining of abdominal discomfort and abdominal distention. Differential considerations include ascites, bowel obstruction, urinary tract infection just to name a few. Patient's exam is consistent with ascites. Patient's laboratory workup did not show any evidence of sepsis but it does show evidence of UTI. Patient was given one dose of Rocephin to treat a UTI. Patient will be given a prescription to treat UTI. Patient had paracentesis performed and approximately 6 L of fluid removed. Patient tolerated removal without difficulty. Patient is a vies a follow outpatient GI physician.Patient is advised to follow up with primary doctor in 2 -3 days and return the emergency room for any worsening symptoms and as needed. Labs Test 04/06/17 17:27 04/06/17 17:33 Urine Color Yellow Urine Appearance Slightly cloudy Urine pH 5 (4.5-8.0) Urine Specific [place] 1.020 (1.005-1.035) Urine Protein 1+ (NEGATIVE) Urine Glucose (UA) Negative (NEGATIVE) Urine Ketones 1+ (NEGATIVE) Urine Occult Blood Negative (NEGATIVE) Urine Nitrite Negative (NEGATIVE) Urine Bilirubin 1+ (NEGATIVE) Urine Ictotest Positive Urine Urobilinogen 1 MG/DL (0.0-1.0) Urine Leukocyte Esterase 3+ (NEGATIVE) Urine RBC 0-2 /HPF (0 - 0) Urine WBC 20-30 /HPF (0 - 0) Urine Squamous Epithelial Cells Few /LPF (NONE/OCC) Urine Bacteria Few /HPF (NONE) White Blood Count 5.7 K/UL (4.8-10.8) Red Blood Count 2.80 M/UL (4.70-6.10) Hemoglobin 9.2 G/DL (14.2-18.0) Hematocrit 26.1 % (42.0-52.0) Mean Corpuscular Volume 93 FL (80-99) Mean Corpuscular Hemoglobin 33.0 PG (27.0-31.0) Mean Corpuscular Hemoglobin Concent 35.4 G/DL (32.0-36.0) Red Cell Distribution Width 13.7 % (11.6-14.8) Platelet Count 121 K/UL (150-450) Mean Platelet Volume 7.1 FL (6.5-10.1) Neutrophils (%) (Auto) 54.2 % (45.0-75.0) Lymphocytes (%) (Auto) 19.2 % (20.0-45.0) Monocytes (%) (Auto) 17.0 % (1.0-10.0) Eosinophils (%) (Auto) 7.7 % (0.0-3.0) Basophils (%) (Auto) 1.9 % (0.0-2.0) Prothrombin Time 12.6 SEC (9.30-11.50) Prothromb Time International Ratio 1.2 (0.9-1.1) Activated Partial Thromboplast Time 33 SEC (23-33) Sodium Level 133 mEQ/L (135-145) Potassium Level 4.4 mEQ/L (3.4-4.9) Chloride Level 102 mEQ/L (98-107) Carbon Dioxide Level 19 mEQ/L (20-30) Anion Gap 12 (5-15) Blood Urea Nitrogen 34 mg/dL (7-23) Creatinine 1.6 mg/dL (0.7-1.2) Estimat Glomerular Filtration Rate 46.0 mL/min (>60) Glucose Level 97 mg/dL (74-106) Calcium Level 8.2 mg/dL (8.6-10.2) Total Bilirubin 1.0 mg/dL (0.0-1.2) Aspartate Amino Transf (AST/SGOT) 40 U/L (5-40) Alanine Aminotransferase (ALT/SGPT) 21 U/L (3-41) Alkaline Phosphatase 129 U/L (40-129) Total Protein 6.3 g/dL (6.6-8.7) Albumin 2.3 g/dL (3.5-5.2) Globulin 4.0 g/dL Albumin/Globulin Ratio 0.5 (1.0-2.7) Lipase 25 U/L (< 60) Last Vital Signs Date Time Temp Pulse Resp B/P Pulse Ox O2 Delivery O2 Flow Rate FiO2 04/06/17 17:10 98.2 69 22 104/54 100 Room Air Status: improved Disposition: HOME, SELF-CARE Condition: Stable Referrals: NOT CHOSEN [facility]/,REFERRING (PCP) DEON CISNEROS M.D. Apr 06, 2017 18:45
[2017-04-06 19:20] VITALS: BP 112/58
[2017-04-06] MEDS ORDERED: Lidocaine 1% 10mg/ml/Epi 0.005mg/ml 30ml vial INJ ONE (19:26)
[2017-04-06] MEDS ORDERED: CIPROFLOXACIN500 M2 ORAL (21:10)
[2017-04-06 22:40] VITALS: BP 94/53
== END 2017-04-06 22:40 | disposition home or self-care (01) ==
LOC: EMR 17:30
DX: R18.8 Other ascites (principal); N39.0 Urinary tract infection, site not specified; K74.60 Unspecified cirrhosis of liver; J45.909 Unspecified asthma, uncomplicated; Z86.19 Personal history of other infectious and parasitic diseases
CPT/HCPCS: 36415; 80053; 81003; 83690; 85025; 85610; 85730; 87086; 87181; 96374; 99284; J0696

== ENCOUNTER 2017-04-14 10:18 | Emergency (ER) | payer MEDICAID ==
[~2017-04-14] VITALS: Ht 165.1 cm; Wt 81.6 kg
[~2017-04-14 10:18] MED LIST changes: +CIPROFLOXACIN500 M2 ORAL
[2017-04-14 11:09] LABS: BASOPHILS % (AUTO) 1.8 % (0.0-2.0); EOSINOPHILS % (AUTO) 5.6 % (0.0-3.0); LYMPHOCYTES % (AUTO) 16.6 % (20.0-45.0); MEAN CORPUSCULAR HEMOGLOBIN 31.5 PG (27.0-31.0); MEAN CORPUSCULAR HGB CONC 32.8 G/DL (32.0-36.0); MEAN CORPUSCULAR VOLUME 96 FL (80-99); MEAN PLATELET VOLUME 6.8 FL (6.5-10.1); MONOCYTES % (AUTO) 19.3 % (1.0-10.0); NEUTROPHILS % (AUTO) 56.7 % (45.0-75.0); PLATELET COUNT 118 K/UL (150-450); RED BLOOD COUNT 2.85 M/UL (4.70-6.10); RED CELL DISTRIBUTION WIDTH 13.5 % (11.6-14.8); WHITE BLOOD COUNT 5.8 K/UL (4.8-10.8)
[2017-04-14 11:21] LABS: INR 1.2 (0.9-1.1); PROTHROMBIN TIME 12.3 SEC (9.30-11.50)
[2017-04-14 11:57] LABS: ALBUMIN/GLOBULIN RATIO 0.5 (1.0-2.7); CALCIUM 8.1 mg/dL (8.6-10.2); CREATININE 1.5 mg/dL (0.7-1.2); GLOMERULAR FILTRATION RATE 49.5 mL/min (>60); POTASSIUM 4.1 mEQ/L (3.4-4.9)
[2017-04-14 12:02] VITALS: BP 106/57
--- NOTE | 2017-04-14 14:06 | Diagnostic Imaging Report ---
Indications: Ascites Procedure: Informed consent obtained. Ultrasound used to localize optimal puncture site. Sterile prepping and draping over the optimum site. Local anesthesia with 1% lidocaine. Under real-time ultrasound guidance, puncture of the peritoneal space performed using paracentesis needle. Digital image was saved and archived. Stylet removed. Catheter placed to vacuum bottle suction. Fluid was aspirated. Patient tolerated procedure well, without immediate complication. Findings: Followup sonography demonstrates complete resolution of peritoneal fluid Impression: Successful ultrasound-guided paracentesis, yielding 15.5 liters of fluid
[2017-04-14 14:49] VITALS: BP 98/54
[2017-04-14 14:51] VITALS: BP 98/54
--- NOTE | 2017-04-15 07:37 | Emergency Room Report ---
History of Present Illness General Chief Complaint: General Complaint Source: Patient, Medical Record Present Illness HPI Patient is a 51-year-old male who presented after increased abdominal distention. Patient prior history of cirrhosis disease. Patient denied recent alcohol use. He denied any pain. He denied any fever. Patient had been having normal color stools. He reported having increased abdominal distention and had multiple previous visits for paracentesis Allergies: Coded Allergies: No Known Allergies (Unverified , 01/08/17) Patient History Reviewed Nursing Documentation: PMH: Agreed, PSxH: Agreed Nursing Documentation-PMH Past Medical History: No History, Except For Hx Cardiac Problems: Yes Hx Asthma: Yes Hx Diabetes: No Hx Cancer: No Hx Gastrointestinal Problems: Yes - Cirrhosis Hx Neurological Problems: Yes Hx Memory Loss: Yes Hx Dizziness: Yes Hx Numbness: Yes - BLE Hx Weakness: Yes Hx Fatigue: Yes - with activity Review of Systems All Other Systems: negative except mentioned in HPI Physical Exam Vital Signs Date Time Temp Pulse Resp B/P Pulse Ox O2 Delivery O2 Flow Rate FiO2 04/14/17 10:25 97.9 79 18 121/55 99 Room Air Sp02 EP Interpretation: reviewed, normal General Appearance: normal inspection, well appearing, no apparent distress, alert, GCS 15, obese Head: atraumatic ENT: normal ENT inspection, hearing grossly normal, normal voice Neck: normal inspection, full range of motion, supple, no bony tend Respiratory: normal inspection, lungs clear, normal breath sounds, no respiratory distress, no retraction, no wheezing Cardiovascular #1: regular rate, rhythm, no edema Gastrointestinal: normal bowel sounds, non tender, soft, no guarding, no hernia , distended - fluid wave Genitourinary: no CVA tenderness Musculoskeletal: normal inspection, back normal, normal range of motion Neurologic: normal inspection, alert, responsive, speech normal Psychiatric: normal inspection, judgement/insight normal, mood/affect normal Skin: normal inspection, normal color, no rash Medical Decision Making Diagnostic Impression: Primary Impression: End stage liver disease Additional Impression: Ascites ER Course Patient presented for abdominal pain. Differential diagnoses included ischemic bowel, appendicitis, perforated viscus, abdominal aortic aneurysm, inferior myocardial infarction, viral gastroenteritis Because of complexity of patient's case laboratory testing and imaging studies were ordered. Paracentesis was performed by radiology and the patient was observed after paracentesis without any hypotension or dizziness. Patient is advised to continue his diuretics and follow up with primary care physician. He is advised to return if he had any concerns or dizziness or lightheadedness Last Vital Signs Date Time Temp Pulse Resp B/P Pulse Ox O2 Delivery O2 Flow Rate FiO2 04/14/17 14:51 97.9 67 18 98/54 100 Room Air Status: improved Disposition: HOME, SELF-CARE Condition: Stable Patient Instructions: Chepe Messina Apr 15, 2017 07:37
== END 2017-04-14 14:53 | disposition home or self-care (01) ==
LOC: EMR 10:40
DX: K72.90 Hepatic failure, unspecified without coma (principal); R18.8 Other ascites; K74.60 Unspecified cirrhosis of liver; J45.909 Unspecified asthma, uncomplicated
CPT/HCPCS: 36415; 76942; 80053; 85025; 85610; 85730; 99284; Z7502

== ENCOUNTER 2017-05-07 14:58 | Emergency (ER) | payer MEDICAID, OTHER ==
[~2017-05-07] VITALS: Ht 157.5 cm; Wt 94.3 kg
--- NOTE | 2017-05-07 15:23 | Emergency Room Report ---
History of Present Illness General Chief Complaint: Wound Recheck/Suture Removal Source: Patient Present Illness HPI 51 y/o male c/o suture removal from paracentesis 2 weeks ago performed at [facility]. States that he has liver cirrhosis which is why paracentesis was performed. States he is feeling well and has recovered w/o complications. Patient states wound is healing well and denies any purulent drainage, erythema , swelling, heat or tenderness from surgical site of abd. Allergies: Coded Allergies: No Known Allergies (Unverified , 01/08/17) Patient History Past Surgical History: none Pertinent Family History: none Reviewed Nursing Documentation: PMH: Agreed, PSxH: Agreed Nursing Documentation-PMH Past Medical History: No History, Except For Hx Cardiac Problems: Yes Hx Asthma: Yes Hx Diabetes: No Hx Cancer: No Hx Gastrointestinal Problems: Yes - Cirrhosis Hx Neurological Problems: Yes Hx Memory Loss: Yes Hx Dizziness: Yes Hx Numbness: Yes - BLE Hx Weakness: Yes Hx Fatigue: Yes - with activity Physical Exam Vital Signs Date Time Temp Pulse Resp B/P (MAP) Pulse Ox O2 Delivery O2 Flow Rate FiO2 05/07/17 15:01 98.4 94 18 96/57 99 Room Air Sp02 EP Interpretation: reviewed, normal General Appearance: no apparent distress, alert, GCS 15, non-toxic Head: normocephalic, atraumatic Eyes: bilateral eye normal inspection ENT: hearing grossly normal, normal pharynx, no angioedema, normal voice Neck: full range of motion, supple/symm/no masses Respiratory: chest non-tender, lungs clear, normal breath sounds, speaking full sentences Gastrointestinal: non tender, no rebound, distended, other - large ascities present, well healed two surgical sutures in place right abd wall w/o signs of infection. Neurologic: alert, oriented x3, responsive, motor strength/tone normal, sensory intact, speech normal Skin: normal color, no rash, warm/dry, well hydrated Procedures Additional Procedure Procedure Narrative Cleaned area with alochol and used clean technique to remove sutures x 2 with forceps and scissors. There was no complications and patient tolerated suture removal well. Medical Decision Making PA Attestation Dr. Covarrubias my supervising physician with whom patient management has been discussed with. Diagnostic Impression: Primary Impression: Encounter for wound re-check Additional Impressions: Encounter for removal of sutures Ascites Qualified Codes: K70.31 - Alcoholic cirrhosis of liver with ascites End stage liver disease ER Course Pt. presents to the ED c/o wound check Ddx considered but are not limited to cellulitis, post op fever, abscess, unhealed wound Vital signs: are WNL, pt. is afebrile H&PE are most consistent with healed post op wound. suture removal ORDERS: none required at this time, the diagnosis is clinical ED INTERVENTIONS: Called over to [facility] where procedure was completed and spoke with Dr. Sprague who was the attending on duty today. States the patient has been admitted for ALOC and received paracentesis and was supposed to have suture removed on 04/28/17. Per Dr. Hollins, ok to remove suture as it should have been removed already. Removed single suture from abd wall. . DISCHARGE: At this time pt. is stable for d/c to home. Will provide printed patient care instructions, and any necessary prescriptions. Care plan and follow up instructions have been discussed with the patient prior to discharge. Last Vital Signs Date Time Temp Pulse Resp B/P (MAP) Pulse Ox O2 Delivery O2 Flow Rate FiO2 05/07/17 15:01 98.4 94 18 96/57 99 Room Air Status: unchanged Disposition: HOME, SELF-CARE Condition: Stable Patient Instructions: Suture Removal, Care After Additional Instructions: Keep wound clean and dry. Avoid sun exposure to minimize scarring. Patient advised that they can take a shower or bath, but be sure to pat the area dry with a towel afterward. Patient should come back sooner if they experience any red areas that get bigger, more swollen, have pus draining from wound, or if the site becomes more painful. COTY VALDIVIA May 07, 2017 15:23
[2017-05-07 15:25] VITALS: BP 96/57
== END 2017-05-07 15:45 | disposition home or self-care (01) ==
LOC: EMR 15:45
DX: Z48.02 Encounter for removal of sutures (principal); R18.8 Other ascites; K72.90 Hepatic failure, unspecified without coma; K74.60 Unspecified cirrhosis of liver; J45.909 Unspecified asthma, uncomplicated
CPT/HCPCS: 99281

== ENCOUNTER 2017-05-25 21:59 | Inpatient (IN) | payer OTHER ==
[~2017-05-25] VITALS: Ht 165.1 cm; Wt 92.5 kg
[~2017-05-25 21:59] MED LIST changes: +KEFLEX500 MG ORAL
--- NOTE | 2017-05-25 22:50 | Emergency Room Report ---
History of Present Illness General Chief Complaint: Abdominal Pain Source: Patient Present Illness HPI 51-year-old male, history of liver cirrhosis with ascites, frequent paracentesis , paracentesis was performed 7 days ago, drained 10 L, presenting with abdominal pain for more than 10 days. localized to lower abdomen, non radiating, burning in nature, intermittent. No relieving or exacerbating factors. Denies nvd. Denies fever, chills. Patient was last seen in the emergency room about a week ago, was diagnosed as UTI, was prescribed Keflex however culture now returning which shows resistance to that antibiotic. Patient was called multiple times without any answer. At that time, paracentesis was attempted but ultimately not performed. Pt got paracentesis performed at [facility] and 10L drained. Allergies: Coded Allergies: No Known Allergies (Unverified , 01/08/17) Patient History Past Medical History: see triage record Past Surgical History: none Pertinent Family History: none Reviewed Nursing Documentation: PMH: Agreed, PSxH: Agreed Nursing Documentation-PMH Hx Cardiac Problems: Yes Hx Asthma: Yes Hx Diabetes: No Hx Cancer: No Hx Gastrointestinal Problems: Yes - Cirrhosis Hx Neurological Problems: Yes Hx Memory Loss: Yes Hx Dizziness: Yes Hx Numbness: Yes - BLE Hx Weakness: Yes Hx Fatigue: Yes - with activity Review of Systems All Other Systems: negative except mentioned in HPI Physical Exam Vital Signs Date Time Temp Pulse Resp B/P (MAP) Pulse Ox O2 Delivery O2 Flow Rate FiO2 05/25/17 22:14 98.1 98 16 114/62 98 Room Air Sp02 EP Interpretation: reviewed, normal General Appearance: alert, GCS 15, non-toxic, mild distress, other - Middle aged male, chronically ill-appearing Head: normocephalic, atraumatic Eyes: bilateral eye normal inspection, bilateral eye PERRL, bilateral eye EOMI ENT: normal ENT inspection, normal pharynx, normal voice, moist mucus membranes Neck: normal inspection, full range of motion, supple Respiratory: normal inspection, lungs clear, normal breath sounds, no respiratory distress, no retraction, no wheezing, speaking full sentences, chest symmetrical Cardiovascular #1: normal inspection, regular rate, rhythm, no edema, normal capillary refill Cardiovascular #2: 2+ radial (R), 2+ radial (L) Gastrointestinal: soft, non-distended, no guarding, other - Generalized tenderness, not peritoneal, suprapubic tenderness Genitourinary: no CVA tenderness Musculoskeletal: normal inspection, back normal, normal range of motion, non- tender Neurologic: normal inspection, alert, oriented x3, responsive, motor strength/ tone normal, sensory intact, normal gait, speech normal Psychiatric: normal inspection, judgement/insight normal, memory normal Skin: normal inspection, normal color, no rash, warm/dry, well hydrated, normal turgor Medical Decision Making Diagnostic Impression: Primary Impression: Ascites Additional Impressions: Abdominal pain UTI (urinary tract infection) ER Course 51-year-old male with abdominal pain Differential Diagnosis: Gastritis, gastroenteritis, cholecystitis, appendicitis, diverticulitis, SBO, UTI/pyelo, SBP Plan: Basic labs, ua, ekg CT abdopelvis Consider paracentesis for diagnostic purposes ER course: Zosyn is given as patient with previous urine culture showed sensitivities, and Zosyn would cover possible intra-abdominal infectious process At first SBP was on differential, however patient is stating that pain is improved, and repeat abdominal exam is benign, there is no leukocytosis Patient has been stable in the emergency room CT - unable to fully evaluate for infectious/inflamm process repeat abd exam is benign patient feels better, has been ambulatory in ED Disposition: Patient will be admitted to [facility] for abdominal pain. At this time since CT abdomen pelvis, preliminary, unable to completely visualize or provide reason for abdominal pain, I do not feel that discharge would be appropriate for this patient as he has liver cirrhosis, appears disheveled, does not appear reliable. Abdominal pain could be due to UTI, and Zosyn was given. Patient requires admission for serial abdominal exams and blood work D/w Please note that this Emergency Department Report was dictated using [employer] clerk technology software, occasionally this can lead to erroneous entry secondary to interpretation by the dictation equipment. Laboratory Tests Test 05/25/17 22:40 05/26/17 00:15 White Blood Count 5.5 K/UL (4.8-10.8) Red Blood Count 2.71 M/UL (4.70-6.10) L Hemoglobin 8.5 G/DL (14.2-18.0) L Hematocrit 25.6 % (42.0-52.0) L Mean Corpuscular Volume 94 FL (80-99) Mean Corpuscular Hemoglobin 31.5 PG (27.0-31.0) H Mean Corpuscular Hemoglobin Concent 33.3 G/DL (32.0-36.0) Red Cell Distribution Width 14.8 % (11.6-14.8) Platelet Count 123 K/UL (150-450) L Mean Platelet Volume 7.0 FL (6.5-10.1) Neutrophils (%) (Auto) 78.6 % (45.0-75.0) H Lymphocytes (%) (Auto) 12.4 % (20.0-45.0) L Monocytes (%) (Auto) 5.1 % (1.0-10.0) Eosinophils (%) (Auto) 2.9 % (0.0-3.0) Basophils (%) (Auto) 1.1 % (0.0-2.0) Sodium Level 133 mEQ/L (135-145) L Potassium Level 5.1 mEQ/L (3.4-4.9) H Chloride Level 101 mEQ/L (98-107) Carbon Dioxide Level 20 mEQ/L (20-30) Anion Gap 12 (5-15) Blood Urea Nitrogen 20 mg/dL (7-23) Creatinine 1.4 mg/dL (0.7-1.2) H Estimate Glomerular Filtration Rate 53.6 mL/min (>60) Glucose Level 108 mg/dL (74-106) H Calcium Level 9.0 mg/dL (8.6-10.2) Total Bilirubin 1.4 mg/dL (0.0-1.2) H Direct Bilirubin 0.5 mg/dL (0.1-0.3) H Aspartate Amino Transferase (AST) 28 U/L (5-40) Alanine Aminotransferase (ALT) 15 U/L (3-41) Alkaline Phosphatase 130 U/L (40-129) H Total Protein 6.9 g/dL (6.6-8.7) Albumin 3.0 g/dL (3.5-5.2) L Globulin 3.9 g/dL Albumin/Globulin Ratio 0.7 (1.0-2.7) L Lipase 32 U/L (< 60) Urine Color Pale yellow Urine Appearance Clear Urine pH 5 (4.5-8.0) Urine Specific [place] 1.015 (1.005-1.035) Urine Protein Negative (NEGATIVE) Urine Glucose (UA) Negative (NEGATIVE) Urine Ketones Negative (NEGATIVE) Urine Occult Blood Negative (NEGATIVE) Urine Nitrite Negative (NEGATIVE) Urine Bilirubin Negative (NEGATIVE) Urine Urobilinogen Normal MG/DL (0.0-1.0) Urine Leukocyte Esterase Negative (NEGATIVE) EKG Diagnostic Results Rate: tachycardiac Rhythm: NSR ST Segments: no acute changes ASA given to the pt in ED: No CT/MRI/US Diagnostic Results CT/MRI/US Diagnostic Results : Imaging Test Ordered: CT abdo pelvis Impression CT ABDOMEN & PELVIS: Cirrhotic liver. Large volume of ascites. Extensive mesenteric fluid, and edema and stranding, limits evaluation for infectious or inflammatory process. Moderate anasarca. Visualized appendix is normal. Electronically signed by All Covarrubias MD Last Vital Signs Date Time Temp Pulse Resp B/P (MAP) Pulse Ox O2 Delivery O2 Flow Rate FiO2 05/25/17 22:14 98.1 98 16 114/62 98 Room Air Disposition: ADMITTED INPATIENT Condition: Serious Scripts Nitrofurantoin Monohyd/M-Cryst* (MACROBID 100 MG*) 100 Mg Capsule 100 MG ORAL EVERY 12 HOURS for 7 Days, #14 CAP 0 Refills Prov: All Covarrubias M.D. 05/26/17 Referrals: [facility],REFERRING (PCP) All Covarrubias M.D. May 25, 2017 22:50
[2017-05-25 23:13] LABS: BASOPHILS % (AUTO) 1.1 % (0.0-2.0); EOSINOPHILS % (AUTO) 2.9 % (0.0-3.0); LYMPHOCYTES % (AUTO) 12.4 % (20.0-45.0); MEAN CORPUSCULAR HEMOGLOBIN 31.5 PG (27.0-31.0); MEAN CORPUSCULAR HGB CONC 33.3 G/DL (32.0-36.0); MEAN CORPUSCULAR VOLUME 94 FL (80-99); MONOCYTES % (AUTO) 5.1 % (1.0-10.0); NEUTROPHILS % (AUTO) 78.6 % (45.0-75.0); PLATELET COUNT 123 K/UL (150-450); RED BLOOD COUNT 2.71 M/UL (4.70-6.10); RED CELL DISTRIBUTION WIDTH 14.8 % (11.6-14.8); WHITE BLOOD COUNT 5.5 K/UL (4.8-10.8)
[2017-05-25 23:27] LABS: ALBUMIN/GLOBULIN RATIO 0.7 (1.0-2.7); CREATININE 1.4 mg/dL (0.7-1.2); GLOMERULAR FILTRATION RATE 53.6 mL/min (>60); POTASSIUM 5.1 mEQ/L (3.4-4.9); TOTAL PROTEIN 6.9 g/dL (6.6-8.7)
[2017-05-25 23:41] LABS: BILIRUBIN,DIRECT 0.5 mg/dL (0.1-0.3)
[2017-05-26] VITALS (8 sets, daily range): BP systolic 89–110; BP diastolic 52–71
[2017-05-26] MEDS ORDERED: Sodium Chloride 500ML 500 ML IVPB ONE
[2017-05-26] MEDS ORDERED: Piperacillin/Tazobactam 3.375 GM in NS 110 ML IVPB ONE (00:30)
[2017-05-26 00:46] LABS: APPEARANCE,URINE CLEAR; KETONES,URINE NEGATIVE (NEGATIVE); NITRITE,URINE NEGATIVE (NEGATIVE); PH,URINE 5 (4.5-8.0); PROTEIN,URINE NEGATIVE (NEGATIVE); UROBILINOGEN,URINE NORMAL MG/DL (0.0-1.0)
[2017-05-26 00:47] LABS: LEUKOCYTE ESTERASE ,URINE NEGATIVE (NEGATIVE)
[2017-05-26] MEDS ORDERED: Zosyn 3.375gm inj ONE (01:39)
[2017-05-26] MEDS ORDERED: NITROFURANTOIN100 M2 ORAL (03:11)
[2017-05-26] MEDS ORDERED: VITAMIN B-1100 MG ORAL (04:19)
[2017-05-26] MEDS ORDERED: Spironolactone 50mg tab ORAL SCH (09:00)
--- NOTE | 2017-05-26 09:30 | Diagnostic Imaging Report ---
Clinical Indication: Abdominal pain x10 days Technique: Patient given oral contrast. IV administration nonionic contrast. Venous phase spiral acquisition obtained through the abdomen and pelvis. Multiplanar reconstructions were generated. Total dose length product 1082 mGycm. CTDIvol(s) 18 mGy. Dose reduction achieved using automated exposure control Comparison: None Findings: There is anasarca. Considerable ascites fluid is present. There is also edema of the subcutaneous fat, particularly of the anterior abdominal wall, bilateral flanks, and upper lumbar region. There is congestion of the mesentery. No pleural or pericardial fluid demonstrated, however. The appendix is normal. There is mild wall thickening of the ascending and transverse colon. There is colonic diverticulosis. No evidence of diverticulitis. No small bowel distention. Contrast is seen to traverse the entirety of the small bowel and reach the colon. There is equivocal mild wall thickening of the stomach. The duodenum and distal esophagus are unremarkable. There are small fat-containing bilateral inguinal hernias. The liver is atrophic, demonstrates marked surface nodularity. There is a small cyst at the surface of the right hepatic lobe.. The spleen is normal in size and only small varices are demonstrated. The gallbladder, bile ducts, pancreas, adrenals, kidneys are unremarkable. No pelvic mass or adenopathy. The included lung bases are clear. The bones are unremarkable except for a partial butterfly vertebra deformity of T11. Impression: Evidence of hepatic cirrhosis, with markedly atrophic liver demonstrates surface nodularity Small anterior abdominal varices Considerable ascites fluid is present. Other manifestations of anasarca, including mesenteric congestion and edema of the subcutaneous fat, also evident. Suspect related to the hepatic abnormality Mild wall thickening of the ascending and transverse colon. Suspect this is related to the hemodynamic derangements related to the hepatic cirrhosis. However, the possibility of colitis should be considered Diverticulosis. No evidence of diverticulitis Equivocal gastric wall thickening. Gastritis not excludable. Correlate with clinical findings Incidental findings small right lobe liver cyst, T11 partial butterfly vertebra deformity This agrees with the preliminary interpretation provided overnight by [facility]. The CT scanner at [facility] is accredited by the [employer] and the scans are performed using protocols designed to limit radiation exposure to as low as reasonably achievable to attain images of sufficient resolution adequate for diagnostic evaluation.
[2017-05-26] MEDS: Lactulose 20gm/30ml UDC ORAL SCH (10:07)
[2017-05-26] MEDS: Thiamine 100mg tab ORAL SCH (10:08)
[2017-05-26 10:44] LABS: MEAN CORPUSCULAR HEMOGLOBIN 30.3 PG (27.0-31.0); MEAN CORPUSCULAR HGB CONC 32.3 G/DL (32.0-36.0); MEAN CORPUSCULAR VOLUME 94 FL (80-99); PLATELET COUNT 105 K/UL (150-450); RED CELL DISTRIBUTION WIDTH 14.5 % (11.6-14.8); WHITE BLOOD COUNT 12.6 K/UL (4.8-10.8)
[2017-05-26 10:45] LABS: THYROID STIMULATING HORMONE 1.45 uIU/mL (0.300-4.500)
[2017-05-26 11:11] LABS: BAND NEUTROPHILS % (MANUAL) 5 % (0-8); LYMPHOCYTES % (MANUAL) 4 % (20-45); NEUTROPHILS % (MANUAL) 91 % (45-75); TOTAL CELLS COUNTED 100
[2017-05-26 11:12] LABS: BASOPHILS % (MANUAL) 0 % (0-2); EOSINOPHILS % (MANUAL) 0 % (0-3); PLATELET ESTIMATE DECREASED; PLATELET MORPHOLOGY NORMAL
[2017-05-26 11:33] LABS: PATH BLOOD SMEAR/OMC SENT TO PATHOLOGIST; RETICULOCYTE COUNT 2.9 % (0.0-2.0)
--- NOTE | 2017-05-26 12:49 | Cardiology Report ---
APPROVED REPORT EKG Measurement Heart [id number] Sinus tachycardia with short RI Otherwise normal ECG
--- NOTE | 2017-05-26 13:23 | Consultation ---
Consult Note Consult Note 51-year-old male, history of liver cirrhosis with ascites, frequent paracentesis , paracentesis was performed 7 days ago, drained 10 L, presenting with abdominal pain for more than 10 days. localized to lower abdomen, non radiating, burning in nature, intermittent. No relieving or exacerbating factors. Denies nvd. Denies fever, chills. Patient was last seen in the emergency room about a week ago, was diagnosed as UTI, was prescribed Keflex however culture now returning which shows resistance to that antibiotic. Patient was called multiple times without any answer. At that time, paracentesis was attempted but ultimately not performed. Pt got paracentesis performed at [facility] and 10L drained. Hx Cardiac Problems: Yes Hx Asthma: Yes Hx Gastrointestinal Problems: Yes - Cirrhosis Hx Neurological Problems: Yes Hx Memory Loss: Yes Hx Dizziness: Yes Hx Numbness: Yes - BLE Hx Weakness: Yes Hx Fatigue: Yes - with activity examined data reviewed Assessment/Plan Low Na and high K are due to the following: ASCITES ESOPHAGEAL VARICES S BLEEDING TRANSAMINITIS LIVER DISEASE HYPOALBUMINEMIA Renal failure likely hepato-renal h/o Cellulitis of the abdominal wall at the previous paracentesis site. sugg: GI eval Paracenthesis Slow diurese Monitor lytes Monitor renal parameters per orders JENN HENSON May 26, 2017 13:23
--- NOTE | 2017-05-26 13:46 | GI Initial Consult Note ---
History of Present Illness General Date patient seen: May 26, 2017 Time patient seen: 13:36 Reason for Hospitalization: Abdominal Pain Referring physician: CHERELLE SOTO Reason for Consultation: LIVER CIRRHOSIS Present Illness HPI 51-year-old male, history of liver cirrhosis with ascites, frequent paracentesis , paracentesis was performed 7 days ago, drained 10 L, presenting with abdominal pain for more than 10 days. localized to lower abdomen, non radiating, burning in nature, intermittent. No relieving or exacerbating factors. Denies nvd. Denies fever, chills. Patient was last seen in the emergency room about a week ago, was diagnosed as UTI, was prescribed Keflex however culture now returning which shows resistance to that antibiotic. Patient was called multiple times without any answer. At that time, paracentesis was attempted but ultimately not performed. Pt got paracentesis performed at [facility] [place] and 10L drained. GI CONSULT. HPI as noted above. GI consulted for management of cirrhosis. Pt readmission here at [facility] presents today with distended abdomen, distended with known ascites. No active s/sx of N/V/D. Labs show anemia, abnormal LFTs, hypoalbuminemia and hyperkalemia. Home Meds Active Scripts Nitrofurantoin Monohyd/M-Cryst* (MACROBID 100 MG*) 100 Mg Capsule, 100 MG ORAL EVERY 12 HOURS for 7 Days, #14 CAP 0 Refills Prov:All Covarrubias M.D. 05/26/17 Cephalexin* (KEFLEX*) 500 Mg Capsule, 500 MG ORAL Q6H for 7 Days, #28 CAP 0 Refills Prov:All Covarrubias M.D. 05/21/17 Ciprofloxacin Hcl* (CIPROFLOXACIN HCL*) 500 Mg Tablet, 500 MG ORAL Q12H, #14 TAB 0 Refills Prov:DEON CISNEROS M.D. 04/06/17 Reported Medications Thiamine Hcl* (VITAMIN B-1*) 100 Mg Tablet, 100 MG ORAL DAILY, #30 TAB 0 Refills 05/26/17 Folic Acid* (FOLIC ACID*) 1 Mg Tablet, 1 MG ORAL DAILY, TAB 02/22/17 Propranolol Hcl* (INDERAL*) 10 Mg Tablet, 10 MG ORAL THREE TIMES A DAY, #90 TAB 0 Refills 02/22/17 Ferrous Sulfate, Dried (IRON) 159 Mg Tablet.er, 65 MG PO TID, TAB 02/22/17 Pantoprazole (PANTOPRAZOLE) 20 Mg Tablet.dr, 40 MG ORAL BID, #10 TAB 0 Refills 02/06/17 Spironolactone (ALDACTONE) 50 Mg Tablet, 50 MG ORAL DAILY, TAB 02/06/17 Furosemide* (LASIX*) 20 Mg Tablet, 20 MG ORAL DAILY, TAB 02/06/17 Lactulose (LACTULOSE) 10 Gm/15 Ml Solution, 20 GM PO BID, #30 02/06/17 Unable to Obtain Medications (UNABLE TO OBTAIN MEDS) 1 Ea Ea 02/03/17 Med list reviewed/reconciled: Yes Allergies: Coded Allergies: No Known Allergies (Unverified , 01/08/17) Patient History History Provided By: Patient, Medical Record PMH Narrative Hx Cardiac Problems: Yes Hx Asthma: Yes Hx Diabetes: No Hx Cancer: No Hx Gastrointestinal Problems: Yes - Cirrhosis Hx Neurological Problems: Yes Hx Memory Loss: Yes Hx Dizziness: Yes Hx Numbness: Yes - BLE Hx Weakness: Yes Hx Fatigue: Yes - with activity Review of Systems All Other Systems: negative except mentioned in HPI Physical Exam Vital Signs Date Time Temp Pulse Resp B/P (MAP) Pulse Ox O2 Delivery O2 Flow Rate FiO2 05/25/17 22:14 98.1 98 16 114/62 98 Room Air Sp02 EP Interpretation: reviewed Labs Laboratory Tests Test 05/25/17 22:40 05/26/17 00:15 05/26/17 09:45 White Blood Count 5.5 K/UL (4.8-10.8) 12.6 K/UL (4.8-10.8) #H Red Blood Count 2.71 M/UL (4.70-6.10) L 2.70 M/UL (4.70-6.10) L Hemoglobin 8.5 G/DL (14.2-18.0) L 8.2 G/DL (14.2-18.0) L Hematocrit 25.6 % (42.0-52.0) L 25.4 % (42.0-52.0) L Mean Corpuscular Volume 94 FL (80-99) 94 FL (80-99) Mean Corpuscular Hemoglobin 31.5 PG (27.0-31.0) H 30.3 PG (27.0-31.0) Mean Corpuscular Hemoglobin Concent 33.3 G/DL (32.0-36.0) 32.3 G/DL (32.0-36.0) Red Cell Distribution Width 14.8 % (11.6-14.8) 14.5 % (11.6-14.8) Platelet Count 123 K/UL (150-450) L 105 K/UL (150-450) L Mean Platelet Volume 7.0 FL (6.5-10.1) 7.0 FL (6.5-10.1) Neutrophils (%) (Auto) 78.6 % (45.0-75.0) H % (45.0-75.0) Lymphocytes (%) (Auto) 12.4 % (20.0-45.0) L % (20.0-45.0) Monocytes (%) (Auto) 5.1 % (1.0-10.0) % (1.0-10.0) Eosinophils (%) (Auto) 2.9 % (0.0-3.0) % (0.0-3.0) Basophils (%) (Auto) 1.1 % (0.0-2.0) % (0.0-2.0) Sodium Level 133 mEQ/L (135-145) L Potassium Level 5.1 mEQ/L (3.4-4.9) H Chloride Level 101 mEQ/L (98-107) Carbon Dioxide Level 20 mEQ/L (20-30) Anion Gap 12 (5-15) Blood Urea Nitrogen 20 mg/dL (7-23) Creatinine 1.4 mg/dL (0.7-1.2) H Estimat Glomerular Filtration Rate 53.6 mL/min (>60) Glucose Level 108 mg/dL (74-106) H Calcium Level 9.0 mg/dL (8.6-10.2) Total Bilirubin 1.4 mg/dL (0.0-1.2) H Direct Bilirubin 0.5 mg/dL (0.1-0.3) H Aspartate Amino Transf (AST/SGOT) 28 U/L (5-40) Alanine Aminotransferase (ALT/SGPT) 15 U/L (3-41) Alkaline Phosphatase 130 U/L (40-129) H Total Protein 6.9 g/dL (6.6-8.7) Albumin 3.0 g/dL (3.5-5.2) L Globulin 3.9 g/dL Albumin/Globulin Ratio 0.7 (1.0-2.7) L Lipase 32 U/L (< 60) Urine Color Pale yellow Urine Appearance Clear Urine pH 5 (4.5-8.0) Urine Specific [place] 1.015 (1.005-1.035) Urine Protein Negative (NEGATIVE) Urine Glucose (UA) Negative (NEGATIVE) Urine Ketones Negative (NEGATIVE) Urine Occult Blood Negative (NEGATIVE) Urine Nitrite Negative (NEGATIVE) Urine Bilirubin Negative (NEGATIVE) Urine Urobilinogen Normal MG/DL (0.0-1.0) Urine Leukocyte Esterase Negative (NEGATIVE) Differential Total Cells Counted 100 Neutrophils % (Manual) 91 % (45-75) H Lymphocytes % (Manual) 4 % (20-45) L Monocytes % (Manual) 0 % (1-10) L Eosinophils % (Manual) 0 % (0-3) Basophils % (Manual) 0 % (0-2) Band Neutrophils 5 % (0-8) Platelet Estimate Decreased L Platelet Morphology Normal Red Blood Cell Morphology Normal Reticulocyte Count 2.9 % (0.0-2.0) H Iron Level 31 ug/dL (59-158) L Total Iron Binding Capacity 175 ug/dL (250-400) L Percent Iron Saturation 18 % (15-50) Unsaturated Iron Binding 144 ug/dL (112-346) Ferritin 292 ng/mL (10-230) H Lactate Dehydrogenase 237 U/L (135-230) H Vitamin B12 Level 1433 pg/mL (211-946) H Folate Pending Thyroid Stimulating Hormone (TSH) 1.450 uIU/mL (0.300-4.500) General Appearance: well appearing, no apparent distress, alert Head: normocephalic EENT: normal ENT inspection Neck: supple Respiratory: normal breath sounds, no respiratory distress Cardiovascular: normal rate Gastrointestinal: distended, ascites Rectal: deferred Genitourinary: no vertebral tenderness Neurologic: normal inspection, alert, oriented x3, responsive Psychiatric: normal inspection, judgement/insight normal, memory normal Skin: normal inspection, normal color, no rash, warm/dry, palpation normal Lymphatic: normal inspection, no adenopathy Current Medications Current Medications Medications (Trade) Dose Ordered Sig/Josse Route PRN Reason Start Time Stop Time Status Last Admin Dose Admin Dextrose/Sodium Chloride 1,000 ml @ 50 mls/hr Q20H IV 05/26/17 13:30 06/25/17 13:29 Folic Acid (Folate) 1 mg DAILY ORAL 05/26/17 09:00 06/25/17 08:59 05/26/17 10:08 Furosemide (Lasix) 20 mg DAILY ORAL 05/26/17 09:00 06/25/17 08:59 05/26/17 10:08 Lactulose (Cephulac) 20 gm DAILY ORAL 05/26/17 09:00 06/25/17 08:59 05/26/17 10:07 Pantoprazole (Protonix) 40 mg DAILY ORAL 05/26/17 09:00 06/25/17 08:59 05/26/17 10:08 Thiamine HCl (Vitamin B1) 100 mg DAILY ORAL 05/26/17 09:00 06/25/17 08:59 05/26/17 10:08 GI: Plan Problems: (1) End stage liver disease (2) Anemia (3) Esophageal varices without bleeding (4) Ascites (5) Abdominal pain Plan S/P EGD SUMMARY OF FINDINGS: 01-11-17 1. Distal esophageal varices grade 2 without any stigmata. 2. Portal hypertensive gastropathy, moderate. 3. Lesion in the pre-pyloric area, see above for details, status post biopsy 4. Pathology >> moderate anemia, thrombocytopenia hep panel unremarkable ordered paracentesis >> albumin 5% IV prior CLD, adv to low sodium after paracentesis fu ammonia levels >> cont lactulose, add Xifaxan monitor H&H, prn transfusion fu iron panel >> no iron deficiency, dc FeSO4 ppi fu labs Discussed with Dr. Hidalgo. Thank you for referring this patient, we will follow. Teresa Jackson N.P. May 26, 2017 13:46
[2017-05-26] MEDS ORDERED: Albumin Human 5% 250ml IV ONE (14:00)
[2017-05-26] MEDS: D5NS 1,000 ML IV SCH (15:18)
--- NOTE | 2017-05-26 17:16 | Infectious Diseases Prog Note ---
Assessment/Plan Problems: (1) UTI (urinary tract infection) Assessment & Plan: culture last week grew ESBL producing E coli and VRE , and he received keflex , but currently not symptomatic, and his repeated UA showed normal findings, so will not treat him at this point , and I will repeat his urine culture to confirm (2) End stage liver disease Assessment & Plan: poor prognosis, recommend hospice care , GI is following (3) Abdominal pain Assessment & Plan: due to recurrent ascites , need paracentesis , further recommendations as per GI (4) Ascites Assessment & Plan: recurrent due to liver cirrhosis, may benefit from paracentesis , GI is following Subjective Allergies: Coded Allergies: No Known Allergies (Unverified , 01/08/17) Objective Vital Signs Last 24 Hour Vital Signs Date Time Temp Pulse Resp B/P (MAP) Pulse Ox O2 Delivery O2 Flow Rate FiO2 05/26/17 15:53 98.3 84 20 93/52 98 Room Air 05/26/17 12:09 98.2 87 19 95/56 99 Room Air 05/26/17 08:15 98.2 87 20 94/56 99 Room Air 05/26/17 06:48 98.1 94 20 105/61 100 Room Air 05/26/17 06:17 98.7 102 14 89/52 98 Room Air 05/26/17 05:26 102 14 89/52 98 Room Air 05/26/17 03:42 105 14 99/59 100 Room Air 05/26/17 01:15 98.7 111 14 110/71 99 Room Air 05/25/17 22:14 98.1 98 16 114/62 98 Room Air Height (Feet): 5 Height (Inches): 5.00 Weight (Pounds): 204 Laboratory Tests Test 05/25/17 22:40 05/26/17 00:15 05/26/17 09:45 05/26/17 14:45 White Blood Count 5.5 K/UL (4.8-10.8) 12.6 K/UL (4.8-10.8) #H Red Blood Count 2.71 M/UL (4.70-6.10) L 2.70 M/UL (4.70-6.10) L Hemoglobin 8.5 G/DL (14.2-18.0) L 8.2 G/DL (14.2-18.0) L Hematocrit 25.6 % (42.0-52.0) L 25.4 % (42.0-52.0) L Mean Corpuscular Volume 94 FL (80-99) 94 FL (80-99) Mean Corpuscular Hemoglobin 31.5 PG (27.0-31.0) H 30.3 PG (27.0-31.0) Mean Corpuscular Hemoglobin Concent 33.3 G/DL (32.0-36.0) 32.3 G/DL (32.0-36.0) Red Cell Distribution Width 14.8 % (11.6-14.8) 14.5 % (11.6-14.8) Platelet Count 123 K/UL (150-450) L 105 K/UL (150-450) L Mean Platelet Volume 7.0 FL (6.5-10.1) 7.0 FL (6.5-10.1) Neutrophils (%) (Auto) 78.6 % (45.0-75.0) H % (45.0-75.0) Lymphocytes (%) (Auto) 12.4 % (20.0-45.0) L % (20.0-45.0) Monocytes (%) (Auto) 5.1 % (1.0-10.0) % (1.0-10.0) Eosinophils (%) (Auto) 2.9 % (0.0-3.0) % (0.0-3.0) Basophils (%) (Auto) 1.1 % (0.0-2.0) % (0.0-2.0) Sodium Level 133 mEQ/L (135-145) L Potassium Level 5.1 mEQ/L (3.4-4.9) H Chloride Level 101 mEQ/L (98-107) Carbon Dioxide Level 20 mEQ/L (20-30) Anion Gap 12 (5-15) Blood Urea Nitrogen 20 mg/dL (7-23) Creatinine 1.4 mg/dL (0.7-1.2) H Estimat Glomerular Filtration Rate 53.6 mL/min (>60) Glucose Level 108 mg/dL (74-106) H Calcium Level 9.0 mg/dL (8.6-10.2) Total Bilirubin 1.4 mg/dL (0.0-1.2) H Direct Bilirubin 0.5 mg/dL (0.1-0.3) H Aspartate Amino Transf (AST/SGOT) 28 U/L (5-40) Alanine Aminotransferase (ALT/SGPT) 15 U/L (3-41) Alkaline Phosphatase 130 U/L (40-129) H Total Protein 6.9 g/dL (6.6-8.7) Albumin 3.0 g/dL (3.5-5.2) L Globulin 3.9 g/dL Albumin/Globulin Ratio 0.7 (1.0-2.7) L Lipase 32 U/L (< 60) Urine Color Pale yellow Urine Appearance Clear Urine pH 5 (4.5-8.0) Urine Specific Edgar 1.015 (1.005-1.035) Urine Protein Negative (NEGATIVE) Urine Glucose (UA) Negative (NEGATIVE) Urine Ketones Negative (NEGATIVE) Urine Occult Blood Negative (NEGATIVE) Urine Nitrite Negative (NEGATIVE) Urine Bilirubin Negative (NEGATIVE) Urine Urobilinogen Normal MG/DL (0.0-1.0) Urine Leukocyte Esterase Negative (NEGATIVE) Differential Total Cells Counted 100 Neutrophils % (Manual) 91 % (45-75) H Lymphocytes % (Manual) 4 % (20-45) L Monocytes % (Manual) 0 % (1-10) L Eosinophils % (Manual) 0 % (0-3) Basophils % (Manual) 0 % (0-2) Band Neutrophils 5 % (0-8) Platelet Estimate Decreased L Platelet Morphology Normal Red Blood Cell Morphology Normal Reticulocyte Count 2.9 % (0.0-2.0) H Iron Level 31 ug/dL (59-158) L Total Iron Binding Capacity 175 ug/dL (250-400) L Percent Iron Saturation 18 % (15-50) Unsaturated Iron Binding 144 ug/dL (112-346) Ferritin 292 ng/mL (10-230) H Lactate Dehydrogenase 237 U/L (135-230) H Vitamin B12 Level 1433 pg/mL (211-946) H Folate Pending Thyroid Stimulating Hormone (TSH) 1.450 uIU/mL (0.300-4.500) Stool Occult Blood Pending Current Medications Medications (Trade) Dose Ordered Sig/Josse Route PRN Reason Start Time Stop Time Status Last Admin Dose Admin Dextrose/Sodium Chloride 1,000 ml @ 50 mls/hr Q20H IV 05/26/17 13:30 06/25/17 13:29 05/26/17 15:18 Folic Acid (Folate) 1 mg DAILY ORAL 05/26/17 09:00 06/25/17 08:59 05/26/17 10:08 Furosemide (Lasix) 20 mg DAILY ORAL 05/26/17 09:00 06/25/17 08:59 05/26/17 10:08 Lactulose (Cephulac) 20 gm DAILY ORAL 05/26/17 09:00 06/25/17 08:59 05/26/17 10:07 Pantoprazole (Protonix) 40 mg DAILY ORAL 05/26/17 09:00 06/25/17 08:59 05/26/17 10:08 Rifaximin (Xifaxan) 550 mg EVERY 12 HOURS ORAL 05/26/17 21:00 06/02/17 20:59 Thiamine HCl (Vitamin B1) 100 mg DAILY ORAL 05/26/17 09:00 06/25/17 08:59 05/26/17 10:08 Amanda Ingram M.D. May 26, 2017 17:15
[2017-05-27] VITALS: BP 97/60
[2017-05-27 04:00] VITALS: BP 101/67
--- NOTE | 2017-05-27 04:15 | Consultation ---
DATE OF CONSULTATION: 05/26/2017 INFECTIOUS DISEASES CONSULTATION REQUESTING PHYSICIAN: Joshua Vladovinos M.D. Reason For Consultation: Possible urinary tract infection with ESBL producing E. coli and VRE, recommendation for antibiotics treatment. History Of Present Illness: The patient is a 51-year-old male with end-stage liver disease complicated with ascites and liver cirrhosis, who underwent multiple paracenteses in the past, last one was 7 days ago when he drained later, now presented again to [facility] emergency room for recurrent abdominal pain and distention. Pain is 10/10 localized in the lower abdomen with significant abdominal distention and intermittent abdominal pain. No relieving or exacerbating factors. No nausea or vomiting or diarrhea. No fever or chills. The patient was seen a week ago in the emergency room and he was diagnosed with urinary tract infection and prescribed Keflex, but his urine culture came back positive for ESBL producing E. coli and VRE, so I was consulted by the primary provider for antibiotics treatment and further recommendation. Past Medical History: Significant for chronic coronary artery disease, asthma, liver cirrhosis, end-stage liver failure, memory loss, bilateral lower extremity edema, and recurrent ascites. PAST SURGICAL HISTORY: Negative. ALLERGIES: No known allergy. Medications: He is on rifaximin, dextrose, lactulose, thiamine, folic acid, Lasix, and Protonix. FAMILY HISTORY: Not contributory. REVIEW OF SYSTEMS: A 12-point of system reviewed were all negative. PHYSICAL EXAMINATION: Vital Signs: Temperature 98.3, pulse 84, respirations 20, blood pressure 93/52, and pulse oximetry 98% on room air. General: A middle-aged male, lying in bed, with significant ascites. Awake, alert, oriented, not in distress. HEENT: Normocephalic and atraumatic. Pupils are reactive to light. Dry oral mucosa. No exudate or thrush. NECK: Supple. No lymphadenopathy. Midline trachea. CARDIOVASCULAR: Tachycardic. S1 and S2 normal. No murmur. LUNGS: Diminished breathing sounds and crackles at the bases. Abdomen: Distended with severe ascites and tenderness. Dull to percussion. Unable to appreciate organomegaly. EXTREMITIES: Edema +2 in both lower extremities. Laboratory and diagnostic Data: Labs showed white count of 12.6, hemoglobin of 8.2, and platelet count of 105,000. BUN of 20 and creatinine of 1.4. AST of 28 and ALT of 15. Urinalysis was negative for infection. Microbiology, on 05/21/2017, urine culture grew 90,000 colony of ESBL producing E. coli and 50,000 colony of VRE, sensitive only to nitrofurantoin and Zyvox. Imaging: CT scan of the abdomen and pelvis showed hepatic cirrhosis with atrophic liver and surface nodularity, small anterior abdominal varices, considerable ascites fluid with anasarca, mild wall thickening of the ascending and transverse colon, no evidence of diverticulitis or diverticulosis. ASSESSMENT AND RECOMMENDATIONS: 1. Urinary tract infection. Culture was done last week, which grew Extended-spectrum beta-lactamases producing Escherichia coli and vancomycin-resistant Enterococcus and he received Keflex for 7 days, but currently he is not symptomatic and his repeated urinalysis showed normal finding, so I will not treat him at this point with antibiotics or repeat his urine culture to confirm, probably he was colonized with vancomycin-resistant Enterococcus and Extended-spectrum beta-lactamases producing Escherichia coli. 2. End-stage liver disease with poor prognosis, recommend palliative care and hospice. Gastrointestinal is following. 3. Abdominal pain due to recurrent ascites, needs paracentesis. Further recommendation as per Gastrointestinal. 4. Ascites recurrent due to liver cirrhosis, may benefit from paracentesis for palliative care. Gastrointestinal is following. Amanda Ingram M.D. DR: CRESCENCIO JOB#: [id number] CC:
[2017-05-27 07:04] LABS: BASOPHILS % (AUTO) 0.4 % (0.0-2.0); LYMPHOCYTES % (AUTO) 8.9 % (20.0-45.0); MEAN CORPUSCULAR HEMOGLOBIN 31.6 PG (27.0-31.0); MEAN CORPUSCULAR HGB CONC 33.9 G/DL (32.0-36.0); MEAN CORPUSCULAR VOLUME 93 FL (80-99); MEAN PLATELET VOLUME 8.2 FL (6.5-10.1); MONOCYTES % (AUTO) 10.3 % (1.0-10.0); NEUTROPHILS % (AUTO) 79.4 % (45.0-75.0); PLATELET COUNT 106 K/UL (150-450); RED BLOOD COUNT 2.93 M/UL (4.70-6.10); RED CELL DISTRIBUTION WIDTH 14.9 % (11.6-14.8); WHITE BLOOD COUNT 8.8 K/UL (4.8-10.8)
[2017-05-27 07:22] LABS: AMMONIA 23 umol/L (16-60)
[2017-05-27 07:25] LABS: ALANINE AMINOTRANSFERASE 14 U/L (3-41); ALBUMIN/GLOBULIN RATIO 0.8 (1.0-2.7); ANION GAP 11 (5-15); ASPARTATE AMINO TRANSFERASE 25 U/L (5-40); CALCIUM 8.5 mg/dL (8.6-10.2); CARBON DIOXIDE 22 mEQ/L (20-30); CHLORIDE 102 mEQ/L (98-107); CHOLESTEROL 66 mg/dL (< 200); CHOLESTEROL/HDL RATIO 4.4 (3.3-4.4); CREATININE 1.2 mg/dL (0.7-1.2); CRP QUANT 5.8 mg/dL (< 0.5); GLOMERULAR FILTRATION RATE > 60 mL/min (>60); HEMOLYSIS 3; LDL CHOLESTEROL CALC 43 mg/dL (60-99); MAGNESIUM 1.7 mg/dL (1.7-2.5); POTASSIUM 4.8 mEQ/L (3.4-4.9); SODIUM 135 mEQ/L (135-145); URIC ACID 7.1 mg/dL (3.0-7.5)
[2017-05-27 07:48] LABS: BILIRUBIN,DIRECT 0.9 mg/dL (0.1-0.3)
[2017-05-27 08:26] VITALS: BP 100/64
[2017-05-27 09:09] LABS: INR 1.5 (0.9-1.1); PROTHROMBIN TIME 15.6 SEC (9.30-11.50)
[2017-05-27] MEDS: D5NS 1,000 ML IV SCH (09:10)
[2017-05-27] MEDS: Lactulose 20gm/30ml UDC ORAL SCH (09:11)
[2017-05-27] MEDS: Thiamine 100mg tab ORAL SCH (09:11)
--- NOTE | 2017-05-27 09:32 | History and Physical Report ---
DATE OF ADMISSION: 05/26/2017 History of Present Illness: The patient comes in with abdominal pain due to alcoholic cirrhosis. The patient has history of alcoholic cirrhosis and the patient needs a paracentesis, pain has been going on for a couple of days and getting worse in intensity. The patient denies nausea, vomiting, or diarrhea. Denies rectal bleeding. Denies vomiting. PAST MEDICAL HISTORY: Alcoholic cirrhosis, advanced and also GERD. PAST SURGICAL HISTORY: None. Medications: Folic acid, ferrous sulfate, lactulose, Protonix, Aldactone, and thiamine. ALLERGIES: No known allergies. Social History: The patient denies history of smoking. Denies drug abuse. He does have history of alcohol abuse. FAMILY HISTORY: Noncontributory. Review of Systems: HEENT: Denies headaches. Respiratory: Denies shortness of breath. Denies cough. Cardiovascular: Denies chest pain. Gastrointestinal: Denies nausea or vomiting. He does have abdominal pain that is getting worse in the past couple of days. Extremities: Denies pain. Central Nervous System: No change in vision or speech pattern. Feels weak. PHYSICAL EXAMINATION: Vital Signs: Temperature is 98.7 degrees, pulse is 102, and blood pressure 101/50. HEENT: PERRLA. NECK: Supple. No lymphadenopathy. CHEST: Clear to auscultation. Gastrointestinal: Soft, distended. Positive bowel sounds. Positive test for ascites and fluid shift test. Extremities: 01:25 Neurologic: Reflexes are equal on both sides. He is able to move his extremities, has generalized weakness. Laboratory And Diagnostic Data: WBC of 5.5, hemoglobin of 8.5, and platelets 123,000. Sodium 133, potassium 5.1, BUN of 20, creatinine 1.4 and glucose of 108. Assessment And Plan: Hyperkalemia, we will start Aldactone. Also, the patient has anemia. We get Dr. Siegel to see the patient as well as for cirrhosis, we will have Dr. Hidalgo, Dr. Santana, and Dr. Ingram to see the patient for the above-mentioned diagnoses and treatment and also to rule out any infectious etiology, antibiotics per Infectious Diseases. 02:03 was also consulted for the anemia. Joshua Valdovinos M.D. DR: MACY JOB#: [id number] CC:
--- NOTE | 2017-05-27 09:32 | Consultation ---
DATE OF CONSULTATION: 05/26/2017 HEMATOLOGY/ONCOLOGY CONSULTATION CONSULTING PHYSICIAN: Kvng Siegel M.D. REQUESTING PHYSICIAN: Joshua Valdovinos M.D. REASON FOR CONSULTATION: Evaluation of anemia and thrombocytopenia. IDENTIFICATION DATA: Dear Dr. Valdovinos, The patient is a pleasant 51-year-old male with a past medical history significant for liver cirrhosis, ascites, frequent paracenteses, the most recent one was about a week ago and drained 10 L at that time, at this time presents with persistent abdominal pain. Hematology/Oncology service was consulted for evaluation of the patient's anemia and thrombocytopenia, as well as GI service. The patient to undergo a paracentesis today. Past Medical History: Asthma, cirrhosis, memory loss, dementia, numbness of lower extremities, and fatigue. Past Surgical History: Frequent paracentesis as well as an EGD on 01/11/2017, which showed portal hypertensive gastrostomy and distal esophageal varices. Medications: At home, Macrobid, Keflex, ciprofloxacin, propranolol, dextrose, thiamine, Lasix, and lactulose. ALLERGIES: No known drug allergies. Review Of Systems: Constitutional: No fever, chills, or night sweats. Skin: No rashes, lumps, or itching. HEENT: No headache, hearing or vision changes. Breasts: No lumps, pain, or discharge. Pulmonary: No cough, sputum, or shortness of breath. Gastrointestinal: No nausea, vomiting, or diarrhea. Genitourinary: No dysuria, frequency, or urgency. Musculoskeletal: No joint swelling, muscle pain, or trauma. PHYSICAL EXAMINATION: GENERAL: The patient is in no acute distress. Vital Signs: Temperature 98 degrees Fahrenheit, pulse of 83, respiratory rate 12, blood pressure 93/52, pulse oximetry 98% on room air. PULMONARY: Decreased breath sounds. CARDIOVASCULAR: Regular rate and rhythm. No S3 or S4. ABDOMEN: Soft, nontender, and nondistended. EXTREMITIES: Both lower extremities have 1+ to 2+ edema. Laboratory Data: WBC 12.6, hemoglobin 8.2, hematocrit 25, and platelets 105,000. BUN 20 and creatinine 1.4. . ASSESSMENT AND PLAN: 1. Anemia secondary to chronic disease. Continue to closely monitor. 2. 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 3. End-stage renal disease. He has been seen by GI service. 4. Ascites due to end-stage liver disease. 5. Esophageal varices without bleeding. 6. . The patient to undergo thoracentesis potentially today. 7. The patient does not require ferrous sulfate. I appreciate the consultation. Kvng Siegel M.D. DR: ROSHNI JOB#: [id number] CC:
--- NOTE | 2017-05-27 10:41 | General Progress Note ---
Assessment/Plan Status: unchanged Assessment/Plan Low Na and high K are due to the following: ASCITES ESOPHAGEAL VARICES S BLEEDING TRANSAMINITIS LIVER DISEASE HYPOALBUMINEMIA NORMALIZED Renal failure likely hepato-renal / dehydration.... h/o Cellulitis of the abdominal wall at the previous paracentesis site. sugg: GI eval Paracenthesis Slow diurese Monitor lytes Monitor renal parameters per orders Subjective ROS Limited/Unobtainable: No Constitutional: Reports: malaise Allergies: Coded Allergies: No Known Allergies (Unverified , 01/08/17) Objective Last 24 Hour Vital Signs Date Time Temp Pulse Resp B/P (MAP) Pulse Ox O2 Delivery O2 Flow Rate FiO2 05/27/17 08:26 97.9 75 19 100/64 100 Room Air 05/27/17 04:00 98.7 72 20 101/67 97 Room Air 05/27/17 00:00 98.2 80 20 97/60 98 Room Air 05/26/17 20:00 98.2 81 20 93/54 98 Room Air 05/26/17 15:53 98.3 84 20 93/52 98 Room Air 05/26/17 12:09 98.2 87 19 95/56 99 Room Air Laboratory Tests 05/26/17 14:45: Stool Occult Blood [Pending] 05/27/17 05:50: White Blood Count 8.8, Red Blood Count 2.93L, Hemoglobin 9.2L, Hematocrit 27.3L , Mean Corpuscular Volume 93, Mean Corpuscular Hemoglobin 31.6H, Mean Corpuscular Hemoglobin Concent 33.9, Red Cell Distribution Width 14.9H, Platelet Count 106L, Mean Platelet Volume 8.2, Neutrophils (%) (Auto) 79.4H, Lymphocytes (%) (Auto) 8.9L, Monocytes (%) (Auto) 10.3H, Eosinophils (%) (Auto) 1.0, Basophils (%) (Auto) 0.4, Sodium Level 135, Potassium Level 4.8, Chloride Level 102, Carbon Dioxide Level 22, Anion Gap 11, Blood Urea Nitrogen 24H, Creatinine 1.2, Estimat Glomerular Filtration Rate > 60, Glucose Level 89, Uric Acid 7.1, Calcium Level 8.5L, Phosphorus Level 4.0, Magnesium Level 1.7, Total Bilirubin 4.1H, Direct Bilirubin 0.9H, Gamma Glutamyl Transpeptidase 14, Aspartate Amino Transf (AST/SGOT) 25, Alanine Aminotransferase (ALT/SGPT) 14, Alkaline Phosphatase 67, Ammonia 23, C-Reactive Protein, Quantitative 5.8H, Pro- B-Type Natriuretic Peptide 1417H, Total Protein 6.0L, Albumin 2.7L, Globulin 3.3 , Albumin/Globulin Ratio 0.8L, Triglycerides Level 41, Cholesterol Level 66, LDL Cholesterol 43L, HDL Cholesterol 15, Cholesterol/HDL Ratio 4.4 05/27/17 08:45: Prothrombin Time 15.6H, Prothromb Time International Ratio 1.5H Height (Feet): 5 Height (Inches): 5.00 Weight (Pounds): 204 General Appearance: no apparent distress Abdomen: distended, other - ascitis JENN HENSON May 27, 2017 10:41
[2017-05-27] MEDS ORDERED: D5NS 1000ml IV ONE (10:48)
[2017-05-27] MEDS ORDERED: Tubing Blood Filter IV ONE (10:48)
[2017-05-27] MEDS ORDERED: D5NS 1,000 ML IV SCH (11:00)
[2017-05-27 11:36] VITALS: BP 102/65
--- NOTE | 2017-05-27 12:02 | GI Progress Note ---
Assessment/Plan Problems: (1) End stage liver disease ICD Codes: K72.90 - Hepatic failure, unspecified without coma SNOMED: 483228917 (2) Abdominal pain ICD Codes: R10.9 - Unspecified abdominal pain SNOMED: 33398171 (3) Anemia ICD Codes: D64.9 - Anemia, unspecified SNOMED: 502600621 (4) Esophageal varices without bleeding ICD Codes: I85.00 - Esophageal varices without bleeding SNOMED: 54977005 (5) Ascites ICD Codes: R18.8 - Other ascites SNOMED: 142531680 Status: unchanged Status Narrative Discussed with Dr. Hidalgo. Assessment/Plan S/P EGD SUMMARY OF FINDINGS: 01-11-17 1. Distal esophageal varices grade 2 without any stigmata. 2. Portal hypertensive gastropathy, moderate. 3. Lesion in the pre-pyloric area, see above for details, status post biopsy 4. Pathology >> moderate anemia, thrombocytopenia hep panel unremarkable OB negative ordered paracentesis >> albumin 5% IV prior CLD, adv to low sodium after paracentesis fu ammonia levels >> cont low dose lactulose, add Xifaxan monitor H&H, prn transfusion fu iron panel >> no iron deficiency, dc FeSO4 ppi fu labs patient will need repeat EGD in July 2017 given history of esophageal varices. Subjective Gastrointestinal/Abdominal: Reports: abdomen distended, abdominal pain Objective Last 24 Hour Vital Signs Date Time Temp Pulse Resp B/P (MAP) Pulse Ox O2 Delivery O2 Flow Rate FiO2 05/27/17 11:36 98.2 74 20 102/65 100 Room Air 05/27/17 08:26 97.9 75 19 100/64 100 Room Air 05/27/17 04:00 98.7 72 20 101/67 97 Room Air 05/27/17 00:00 98.2 80 20 97/60 98 Room Air 05/26/17 20:00 98.2 81 20 93/54 98 Room Air 05/26/17 15:53 98.3 84 20 93/52 98 Room Air 05/26/17 12:09 98.2 87 19 95/56 99 Room Air Laboratory Tests Test 05/26/17 14:45 05/27/17 05:50 05/27/17 08:45 Stool Occult Blood Negative (NEGATIVE) White Blood Count 8.8 K/UL (4.8-10.8) Red Blood Count 2.93 M/UL (4.70-6.10) L Hemoglobin 9.2 G/DL (14.2-18.0) L Hematocrit 27.3 % (42.0-52.0) L Mean Corpuscular Volume 93 FL (80-99) Mean Corpuscular Hemoglobin 31.6 PG (27.0-31.0) H Mean Corpuscular Hemoglobin Concent 33.9 G/DL (32.0-36.0) Red Cell Distribution Width 14.9 % (11.6-14.8) H Platelet Count 106 K/UL (150-450) L Mean Platelet Volume 8.2 FL (6.5-10.1) Neutrophils (%) (Auto) 79.4 % (45.0-75.0) H Lymphocytes (%) (Auto) 8.9 % (20.0-45.0) L Monocytes (%) (Auto) 10.3 % (1.0-10.0) H Eosinophils (%) (Auto) 1.0 % (0.0-3.0) Basophils (%) (Auto) 0.4 % (0.0-2.0) Sodium Level 135 mEQ/L (135-145) Potassium Level 4.8 mEQ/L (3.4-4.9) Chloride Level 102 mEQ/L (98-107) Carbon Dioxide Level 22 mEQ/L (20-30) Anion Gap 11 (5-15) Blood Urea Nitrogen 24 mg/dL (7-23) H Creatinine 1.2 mg/dL (0.7-1.2) Estimat Glomerular Filtration Rate > 60 mL/min (>60) Glucose Level 89 mg/dL (74-106) Uric Acid 7.1 mg/dL (3.0-7.5) Calcium Level 8.5 mg/dL (8.6-10.2) L Phosphorus Level 4.0 mg/dL (2.5-4.8) Magnesium Level 1.7 mg/dL (1.7-2.5) Total Bilirubin 4.1 mg/dL (0.0-1.2) H Direct Bilirubin 0.9 mg/dL (0.1-0.3) H Gamma Glutamyl Transpeptidase 14 U/L (8-61) Aspartate Amino Transf (AST/SGOT) 25 U/L (5-40) Alanine Aminotransferase (ALT/SGPT) 14 U/L (3-41) Alkaline Phosphatase 67 U/L (40-129) Ammonia 23 umol/L (16-60) C-Reactive Protein, Quantitative 5.8 mg/dL (< 0.5) H Pro-B-Type Natriuretic Peptide 1417 pg/mL (0-125) H Total Protein 6.0 g/dL (6.6-8.7) L Albumin 2.7 g/dL (3.5-5.2) L Globulin 3.3 g/dL Albumin/Globulin Ratio 0.8 (1.0-2.7) L Triglycerides Level 41 mg/dL (< 150) Cholesterol Level 66 mg/dL (< 200) LDL Cholesterol 43 mg/dL (60-99) L HDL Cholesterol 15 mg/dL (> 60) Cholesterol/HDL Ratio 4.4 (3.3-4.4) Prothrombin Time 15.6 SEC (9.30-11.50) H Prothromb Time International Ratio 1.5 (0.9-1.1) H Height (Feet): 5 Height (Inches): 5.00 Weight (Pounds): 204 General Appearance: no apparent distress, alert Cardiovascular: normal rate Respiratory/Chest: normal breath sounds, no respiratory distress Abdominal Exam: distended, ascites Teresa Jackson N.P. May 27, 2017 12:02
--- NOTE | 2017-05-27 12:05 | Diagnostic Imaging Report ---
Indications: Ascites Technique: Ultrasound used to localize optimal puncture site. Sterile prepping and draping right lower quadrant. Local anesthesia with 1% lidocaine. Under real-time ultrasound guidance, puncture peritoneal space using paracentesis needle. Stylet removed. Catheter placed to vacuum bottle suction. Total 10.6 liters of cloudy yellow fluid aspirated. Patient tolerated procedure well, without immediate complication. Findings: Followup sonography demonstrates complete resolution of peritoneal fluid. Impression: Successful ultrasound-guided paracentesis, yielding 10.6 liters of cloudy yellow fluid
--- NOTE | 2017-05-27 14:18 | General Progress Note ---
Assessment/Plan Assessment/Plan ASSESSMENT AND PLAN: 1. Anemia secondary to chronic disease. Continue to closely monitor. Work up has been reviewed 2. 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 3. End-stage renal disease. He has been seen by GI service. 4. Ascites due to end-stage liver disease. 5. Esophageal varices without bleeding. 6. Ascites. To receive paracentesis. Subjective Constitutional: Reports: no symptoms HEENT: Reports: no symptoms Cardiovascular: Reports: no symptoms Respiratory: Reports: no symptoms Gastrointestinal/Abdominal: Reports: no symptoms Genitourinary: Reports: no symptoms Neurologic/Psychiatric: Reports: no symptoms Endocrine: Reports: no symptoms Hematologic/Lymphatic: Reports: anemia Allergies: Coded Allergies: No Known Allergies (Unverified , 01/08/17) Subjective s/p blood transfusion Objective Last 24 Hour Vital Signs Date Time Temp Pulse Resp B/P (MAP) Pulse Ox O2 Delivery O2 Flow Rate FiO2 05/27/17 11:36 98.2 74 20 102/65 100 Room Air 05/27/17 08:26 97.9 75 19 100/64 100 Room Air 05/27/17 04:00 98.7 72 20 101/67 97 Room Air 05/27/17 00:00 98.2 80 20 97/60 98 Room Air 05/26/17 20:00 98.2 81 20 93/54 98 Room Air 05/26/17 15:53 98.3 84 20 93/52 98 Room Air Laboratory Tests 05/26/17 14:45: Stool Occult Blood Negative 05/27/17 05:50: White Blood Count 8.8, Red Blood Count 2.93L, Hemoglobin 9.2L, Hematocrit 27.3L , Mean Corpuscular Volume 93, Mean Corpuscular Hemoglobin 31.6H, Mean Corpuscular Hemoglobin Concent 33.9, Red Cell Distribution Width 14.9H, Platelet Count 106L, Mean Platelet Volume 8.2, Neutrophils (%) (Auto) 79.4H, Lymphocytes (%) (Auto) 8.9L, Monocytes (%) (Auto) 10.3H, Eosinophils (%) (Auto) 1.0, Basophils (%) (Auto) 0.4, Sodium Level 135, Potassium Level 4.8, Chloride Level 102, Carbon Dioxide Level 22, Anion Gap 11, Blood Urea Nitrogen 24H, Creatinine 1.2, Estimat Glomerular Filtration Rate > 60, Glucose Level 89, Uric Acid 7.1, Calcium Level 8.5L, Phosphorus Level 4.0, Magnesium Level 1.7, Total Bilirubin 4.1H, Direct Bilirubin 0.9H, Gamma Glutamyl Transpeptidase 14, Aspartate Amino Transf (AST/SGOT) 25, Alanine Aminotransferase (ALT/SGPT) 14, Alkaline Phosphatase 67, Ammonia 23, C-Reactive Protein, Quantitative 5.8H, Pro- B-Type Natriuretic Peptide 1417H, Total Protein 6.0L, Albumin 2.7L, Globulin 3.3 , Albumin/Globulin Ratio 0.8L, Triglycerides Level 41, Cholesterol Level 66, LDL Cholesterol 43L, HDL Cholesterol 15, Cholesterol/HDL Ratio 4.4 05/27/17 08:45: Prothrombin Time 15.6H, Prothromb Time International Ratio 1.5H Height (Feet): 5 Height (Inches): 5.00 Weight (Pounds): 204 General Appearance: no apparent distress EENT: normal ENT inspection Neck: normal alignment Cardiovascular: regular rhythm Extremities: non-tender Edema: no edema noted Pedal (L), no edema noted Pedal (R) Kvng Siegel May 27, 2017 14:18
[2017-05-27] MEDS: Lactulose 10gm/15ml UDC ORAL SCH ×2 (15:28→17:52)
[2017-05-27 15:32] VITALS: BP 97/62
--- NOTE | 2017-05-27 17:49 | Infectious Diseases Prog Note ---
Assessment/Plan Problems: (1) UTI (urinary tract infection) Assessment & Plan: culture last week grew ESBL producing E coli and VRE , and he received keflex , but currently not symptomatic, and his repeated UA showed normal findings, so will not treat him at this point , and I will repeat his urine culture to confirm (2) End stage liver disease Assessment & Plan: poor prognosis, recommend hospice care , GI is following (3) Abdominal pain Assessment & Plan: due to recurrent ascites , need paracentesis , further recommendations as per GI (4) Ascites Assessment & Plan: recurrent due to liver cirrhosis, may benefit from paracentesis , GI is following Subjective Constitutional: Reports: no symptoms HEENT: Reports: no symptoms Respiratory: Reports: no symptoms Breasts: Reports: no symptoms Cardiovascular: Reports: no symptoms Gastrointestinal/Abdominal: Reports: no symptoms Genitourinary: Reports: no symptoms Neurologic: Reports: no symptoms Allergies: Coded Allergies: No Known Allergies (Unverified , 01/08/17) Objective Vital Signs Last 24 Hour Vital Signs Date Time Temp Pulse Resp B/P (MAP) Pulse Ox O2 Delivery O2 Flow Rate FiO2 05/27/17 15:32 98.0 83 20 97/62 100 Room Air 05/27/17 11:36 98.2 74 20 102/65 100 Room Air 05/27/17 08:26 97.9 75 19 100/64 100 Room Air 05/27/17 04:00 98.7 72 20 101/67 97 Room Air 05/27/17 00:00 98.2 80 20 97/60 98 Room Air 05/26/17 20:00 98.2 81 20 93/54 98 Room Air Height (Feet): 5 Height (Inches): 5.00 Weight (Pounds): 204 General Appearance: WD/WN, no acute distress HEENT: normocephalic, atraumatic, anicteric, mucous membranes moist Respiratory/Chest: chest wall non-tender, lungs clear, normal breath sounds, no respiratory distress, no accessory muscle use Cardiovascular: normal peripheral pulses, normal rate, regular rhythm, no JVD Abdomen: normal bowel sounds, soft, non tender, no organomegaly, non distended , no mass, no scars Skin: no rash, no lesions, no ulcers Neurologic/Psychiatric: alert, oriented x 3 Laboratory Tests Test 05/27/17 05:50 05/27/17 08:45 White Blood Count 8.8 K/UL (4.8-10.8) Red Blood Count 2.93 M/UL (4.70-6.10) L Hemoglobin 9.2 G/DL (14.2-18.0) L Hematocrit 27.3 % (42.0-52.0) L Mean Corpuscular Volume 93 FL (80-99) Mean Corpuscular Hemoglobin 31.6 PG (27.0-31.0) H Mean Corpuscular Hemoglobin Concent 33.9 G/DL (32.0-36.0) Red Cell Distribution Width 14.9 % (11.6-14.8) H Platelet Count 106 K/UL (150-450) L Mean Platelet Volume 8.2 FL (6.5-10.1) Neutrophils (%) (Auto) 79.4 % (45.0-75.0) H Lymphocytes (%) (Auto) 8.9 % (20.0-45.0) L Monocytes (%) (Auto) 10.3 % (1.0-10.0) H Eosinophils (%) (Auto) 1.0 % (0.0-3.0) Basophils (%) (Auto) 0.4 % (0.0-2.0) Sodium Level 135 mEQ/L (135-145) Potassium Level 4.8 mEQ/L (3.4-4.9) Chloride Level 102 mEQ/L (98-107) Carbon Dioxide Level 22 mEQ/L (20-30) Anion Gap 11 (5-15) Blood Urea Nitrogen 24 mg/dL (7-23) H Creatinine 1.2 mg/dL (0.7-1.2) Estimat Glomerular Filtration Rate > 60 mL/min (>60) Glucose Level 89 mg/dL (74-106) Uric Acid 7.1 mg/dL (3.0-7.5) Calcium Level 8.5 mg/dL (8.6-10.2) L Phosphorus Level 4.0 mg/dL (2.5-4.8) Magnesium Level 1.7 mg/dL (1.7-2.5) Total Bilirubin 4.1 mg/dL (0.0-1.2) H Direct Bilirubin 0.9 mg/dL (0.1-0.3) H Gamma Glutamyl Transpeptidase 14 U/L (8-61) Aspartate Amino Transf (AST/SGOT) 25 U/L (5-40) Alanine Aminotransferase (ALT/SGPT) 14 U/L (3-41) Alkaline Phosphatase 67 U/L (40-129) Ammonia 23 umol/L (16-60) C-Reactive Protein, Quantitative 5.8 mg/dL (< 0.5) H Pro-B-Type Natriuretic Peptide 1417 pg/mL (0-125) H Total Protein 6.0 g/dL (6.6-8.7) L Albumin 2.7 g/dL (3.5-5.2) L Globulin 3.3 g/dL Albumin/Globulin Ratio 0.8 (1.0-2.7) L Triglycerides Level 41 mg/dL (< 150) Cholesterol Level 66 mg/dL (< 200) LDL Cholesterol 43 mg/dL (60-99) L HDL Cholesterol 15 mg/dL (> 60) Cholesterol/HDL Ratio 4.4 (3.3-4.4) Prothrombin Time 15.6 SEC (9.30-11.50) H Prothromb Time International Ratio 1.5 (0.9-1.1) H Current Medications Medications (Trade) Dose Ordered Sig/Josse Route PRN Reason Start Time Stop Time Status Last Admin Dose Admin Dextrose/Sodium Chloride 1,000 ml @ 20 mls/hr Q24H IV 05/27/17 11:00 06/26/17 10:59 05/27/17 12:02 Folic Acid (Folate) 1 mg DAILY ORAL 05/26/17 09:00 06/25/17 08:59 05/27/17 09:11 Furosemide (Lasix) 20 mg DAILY ORAL 05/26/17 09:00 06/25/17 08:59 05/27/17 09:11 Lactulose (Cephulac) 10 gm THREE TIMES A DAY ORAL 05/27/17 13:00 06/26/17 12:59 05/27/17 15:28 Pantoprazole (Protonix) 40 mg DAILY ORAL 05/26/17 09:00 06/25/17 08:59 05/27/17 09:11 Rifaximin (Xifaxan) 550 mg EVERY 12 HOURS ORAL 05/26/17 21:00 06/02/17 20:59 05/27/17 09:11 Thiamine HCl (Vitamin B1) 100 mg DAILY ORAL 05/26/17 09:00 06/25/17 08:59 05/27/17 09:11 Amanda Ingram M.D. May 27, 2017 17:49
--- NOTE | 2017-05-27 20:38 | General Progress Note ---
Assessment/Plan Problem List: (1) Sepsis ICD Codes: A41.9 - Sepsis, unspecified organism SNOMED: 50304481 (2) Ascites ICD Codes: R18.8 - Other ascites SNOMED: 732917534 (3) UTI (urinary tract infection) ICD Codes: N39.0 - Urinary tract infection, site not specified SNOMED: 81878314 (4) End stage liver disease ICD Codes: K72.90 - Hepatic failure, unspecified without coma SNOMED: 536471254 (5) Abdominal pain ICD Codes: R10.9 - Unspecified abdominal pain SNOMED: 75768431 (6) Anemia ICD Codes: D64.9 - Anemia, unspecified SNOMED: 842565436 Status: progressing Assessment/Plan abdominal pain is improving afebrile vitals stable uti improving cirrhosis afebrile Subjective ROS Limited/Unobtainable: Yes Constitutional: Reports: no symptoms Allergies: Coded Allergies: No Known Allergies (Unverified , 01/08/17) Objective Last 24 Hour Vital Signs Date Time Temp Pulse Resp B/P (MAP) Pulse Ox O2 Delivery O2 Flow Rate FiO2 05/27/17 15:32 98.0 83 20 97/62 100 Room Air 05/27/17 11:36 98.2 74 20 102/65 100 Room Air 05/27/17 08:26 97.9 75 19 100/64 100 Room Air 05/27/17 04:00 98.7 72 20 101/67 97 Room Air 05/27/17 00:00 98.2 80 20 97/60 98 Room Air Intake and Output 05/27/17 05/28/17 19:00 07:00 Intake Total 450 ml Output Total 700 ml Balance -250 ml Intake Oral 450 ml Output Urine Total 400 ml Stool Total 300 ml Laboratory Tests 05/27/17 05:50: White Blood Count 8.8, Red Blood Count 2.93L, Hemoglobin 9.2L, Hematocrit 27.3L , Mean Corpuscular Volume 93, Mean Corpuscular Hemoglobin 31.6H, Mean Corpuscular Hemoglobin Concent 33.9, Red Cell Distribution Width 14.9H, Platelet Count 106L, Mean Platelet Volume 8.2, Neutrophils (%) (Auto) 79.4H, Lymphocytes (%) (Auto) 8.9L, Monocytes (%) (Auto) 10.3H, Eosinophils (%) (Auto) 1.0, Basophils (%) (Auto) 0.4, Sodium Level 135, Potassium Level 4.8, Chloride Level 102, Carbon Dioxide Level 22, Anion Gap 11, Blood Urea Nitrogen 24H, Creatinine 1.2, Estimat Glomerular Filtration Rate > 60, Glucose Level 89, Uric Acid 7.1, Calcium Level 8.5L, Phosphorus Level 4.0, Magnesium Level 1.7, Total Bilirubin 4.1H, Direct Bilirubin 0.9H, Gamma Glutamyl Transpeptidase 14, Aspartate Amino Transf (AST/SGOT) 25, Alanine Aminotransferase (ALT/SGPT) 14, Alkaline Phosphatase 67, Ammonia 23, C-Reactive Protein, Quantitative 5.8H, Pro- B-Type Natriuretic Peptide 1417H, Total Protein 6.0L, Albumin 2.7L, Globulin 3.3 , Albumin/Globulin Ratio 0.8L, Triglycerides Level 41, Cholesterol Level 66, LDL Cholesterol 43L, HDL Cholesterol 15, Cholesterol/HDL Ratio 4.4 05/27/17 08:45: Prothrombin Time 15.6H, Prothromb Time International Ratio 1.5H Height (Feet): 5 Height (Inches): 5.00 Weight (Pounds): 204 Respiratory/Chest: lungs clear Abdomen: soft Joshua Valdovinos MD May 27, 2017 20:38
[2017-05-27 20:40] VITALS: BP 102/65
[2017-05-28 00:11] VITALS: BP 111/56
[2017-05-28 04:28] VITALS: BP 105/62
[2017-05-28 07:12] LABS: BASOPHILS % (AUTO) 0.9 % (0.0-2.0); EOSINOPHILS % (AUTO) 3.2 % (0.0-3.0); LYMPHOCYTES % (AUTO) 12.1 % (20.0-45.0); MEAN CORPUSCULAR HEMOGLOBIN 32.3 PG (27.0-31.0); MEAN CORPUSCULAR HGB CONC 34.5 G/DL (32.0-36.0); MEAN CORPUSCULAR VOLUME 94 FL (80-99); MEAN PLATELET VOLUME 7.8 FL (6.5-10.1); MONOCYTES % (AUTO) 11.8 % (1.0-10.0); NEUTROPHILS % (AUTO) 72.1 % (45.0-75.0); PLATELET COUNT 110 K/UL (150-450); RED BLOOD COUNT 3.12 M/UL (4.70-6.10); RED CELL DISTRIBUTION WIDTH 15.3 % (11.6-14.8); WHITE BLOOD COUNT 7.2 K/UL (4.8-10.8)
[2017-05-28 07:35] LABS: CALCIUM 8.2 mg/dL (8.6-10.2); CHLORIDE 104 mEQ/L (98-107); CREATININE 1.1 mg/dL (0.7-1.2); GLOMERULAR FILTRATION RATE > 60 mL/min (>60); HEMOLYSIS 1; POTASSIUM 4.9 mEQ/L (3.4-4.9); SODIUM 135 mEQ/L (135-145)
[2017-05-28 07:48] LABS: ANION GAP 9 (5-15); CARBON DIOXIDE 22 mEQ/L (20-30)
[2017-05-28 08:28] VITALS: BP 118/78
[2017-05-28] MEDS: Thiamine 100mg tab ORAL SCH (09:47)
[2017-05-28] MEDS: Lactulose 10gm/15ml UDC ORAL SCH ×3 (09:47→17:30)
[2017-05-28] MEDS ORDERED: D5NS 1000ml IV ONE (10:26)
--- NOTE | 2017-05-28 11:00 | General Progress Note ---
Assessment/Plan Status: stable - from renal stand Assessment/Plan Low Na and high K are due to the following: ASCITES ESOPHAGEAL VARICES S BLEEDING TRANSAMINITIS LIVER DISEASE HYPOALBUMINEMIA NORMALIZED Renal failure likely hepato-renal / dehydration.... h/o Cellulitis of the abdominal wall at the previous paracentesis site. sugg: DC IV Per GI Slow diurese Monitor lytes Monitor renal parameters per orders ? DC Subjective ROS Limited/Unobtainable: No Constitutional: Reports: malaise Allergies: Coded Allergies: No Known Allergies (Unverified , 01/08/17) Objective Last 24 Hour Vital Signs Date Time Temp Pulse Resp B/P (MAP) Pulse Ox O2 Delivery O2 Flow Rate FiO2 05/28/17 08:28 97.9 75 20 118/78 100 Room Air 05/28/17 04:28 97.7 70 19 105/62 96 Room Air 05/28/17 00:11 97.9 69 19 111/56 98 Room Air 05/27/17 20:40 97.9 78 19 102/65 96 Room Air 05/27/17 15:32 98.0 83 20 97/62 100 Room Air 05/27/17 11:36 98.2 74 20 102/65 100 Room Air Laboratory Tests 05/28/17 06:10: White Blood Count 7.2, Red Blood Count 3.12L, Hemoglobin 10.1L, Hematocrit 29.2L , Mean Corpuscular Volume 94, Mean Corpuscular Hemoglobin 32.3H, Mean Corpuscular Hemoglobin Concent 34.5, Red Cell Distribution Width 15.3H, Platelet Count 110L, Mean Platelet Volume 7.8, Neutrophils (%) (Auto) 72.1, Lymphocytes (%) (Auto) 12.1L, Monocytes (%) (Auto) 11.8H, Eosinophils (%) (Auto ) 3.2H, Basophils (%) (Auto) 0.9, Sodium Level 135, Potassium Level 4.9, Chloride Level 104, Carbon Dioxide Level 22, Anion Gap 9, Blood Urea Nitrogen 23 , Creatinine 1.1, Estimat Glomerular Filtration Rate > 60, Glucose Level 85, Calcium Level 8.2L Height (Feet): 5 Height (Inches): 5.00 Weight (Pounds): 204 General Appearance: no apparent distress Respiratory/Chest: decreased breath sounds Abdomen: distended JENN HENSON May 28, 2017 11:00
[2017-05-28 12:30] VITALS: BP 109/72
--- NOTE | 2017-05-28 13:39 | General Progress Note ---
Assessment/Plan Problem List: (1) Sepsis ICD Codes: A41.9 - Sepsis, unspecified organism SNOMED: 39411389 (2) Ascites ICD Codes: R18.8 - Other ascites SNOMED: 786161261 (3) UTI (urinary tract infection) ICD Codes: N39.0 - Urinary tract infection, site not specified SNOMED: 67442652 (4) End stage liver disease ICD Codes: K72.90 - Hepatic failure, unspecified without coma SNOMED: 230511914 (5) Abdominal pain ICD Codes: R10.9 - Unspecified abdominal pain SNOMED: 64562914 (6) Anemia ICD Codes: D64.9 - Anemia, unspecified SNOMED: 335669244 Status: progressing Assessment/Plan abdominal pain is improving afebrile cirrhosis etoh no vomiting paracentesis per gi no sob Subjective ROS Limited/Unobtainable: Yes Allergies: Coded Allergies: No Known Allergies (Unverified , 01/08/17) Objective Last 24 Hour Vital Signs Date Time Temp Pulse Resp B/P (MAP) Pulse Ox O2 Delivery O2 Flow Rate FiO2 05/28/17 12:30 98.1 74 20 109/72 99 Room Air 05/28/17 08:28 97.9 75 20 118/78 100 Room Air 05/28/17 04:28 97.7 70 19 105/62 96 Room Air 05/28/17 00:11 97.9 69 19 111/56 98 Room Air 05/27/17 20:40 97.9 78 19 102/65 96 Room Air 05/27/17 15:32 98.0 83 20 97/62 100 Room Air Intake and Output 05/28/17 05/29/17 19:00 07:00 Intake Total 240 ml Output Total 150 ml Balance 90 ml Intake Oral 240 ml Output Urine Total 150 ml Laboratory Tests 05/28/17 06:10: White Blood Count 7.2, Red Blood Count 3.12L, Hemoglobin 10.1L, Hematocrit 29.2L , Mean Corpuscular Volume 94, Mean Corpuscular Hemoglobin 32.3H, Mean Corpuscular Hemoglobin Concent 34.5, Red Cell Distribution Width 15.3H, Platelet Count 110L, Mean Platelet Volume 7.8, Neutrophils (%) (Auto) 72.1, Lymphocytes (%) (Auto) 12.1L, Monocytes (%) (Auto) 11.8H, Eosinophils (%) (Auto ) 3.2H, Basophils (%) (Auto) 0.9, Sodium Level 135, Potassium Level 4.9, Chloride Level 104, Carbon Dioxide Level 22, Anion Gap 9, Blood Urea Nitrogen 23 , Creatinine 1.1, Estimat Glomerular Filtration Rate > 60, Glucose Level 85, Calcium Level 8.2L Height (Feet): 5 Height (Inches): 5.00 Weight (Pounds): 204 Respiratory/Chest: lungs clear Abdomen: soft Joshua Valdovinos MD May 28, 2017 13:39
[2017-05-28 16:18] VITALS: BP 104/69
--- NOTE | 2017-05-28 17:36 | Infectious Diseases Prog Note ---
Assessment/Plan Problems: (1) UTI (urinary tract infection) Assessment & Plan: culture last week grew ESBL producing E coli and VRE , and he received keflex , but currently not symptomatic, and his repeated UA showed normal findings, so will not treat him at this point , since his repeated urine culture now is negative (2) End stage liver disease Assessment & Plan: poor prognosis, recommend hospice care , GI is following (3) Abdominal pain Assessment & Plan: due to recurrent ascites , need paracentesis , further recommendations as per GI (4) Ascites Assessment & Plan: recurrent due to liver cirrhosis, may benefit from paracentesis , GI is following Subjective Constitutional: Reports: no symptoms HEENT: Reports: no symptoms Respiratory: Reports: no symptoms Breasts: Reports: no symptoms Cardiovascular: Reports: no symptoms Gastrointestinal/Abdominal: Reports: bloating Genitourinary: Reports: no symptoms Neurologic: Reports: no symptoms Psychiatric: Reports: no symptoms Skin: Reports: no symptoms Allergies: Coded Allergies: No Known Allergies (Unverified , 01/08/17) Objective Vital Signs Last 24 Hour Vital Signs Date Time Temp Pulse Resp B/P (MAP) Pulse Ox O2 Delivery O2 Flow Rate FiO2 05/28/17 16:18 98.6 83 18 104/69 98 Room Air 05/28/17 12:30 98.1 74 20 109/72 99 Room Air 05/28/17 08:28 97.9 75 20 118/78 100 Room Air 05/28/17 04:28 97.7 70 19 105/62 96 Room Air 05/28/17 00:11 97.9 69 19 111/56 98 Room Air 05/27/17 20:40 97.9 78 19 102/65 96 Room Air Height (Feet): 5 Height (Inches): 5.00 Weight (Pounds): 204 General Appearance: WD/WN, no acute distress HEENT: normocephalic, atraumatic, anicteric, mucous membranes moist Respiratory/Chest: chest wall non-tender, lungs clear, normal breath sounds, no respiratory distress, no accessory muscle use Cardiovascular: normal peripheral pulses, normal rate, regular rhythm, no gallop/murmur Abdomen: soft, non tender, no organomegaly, no mass, no scars, absent bowel sounds, distended Extremities: no cyanosis, no clubbing Skin: no rash, no lesions Microbiology Date/Time Source Procedure Growth Status 05/26/17 12:15 Nasal Nares MRSA Culture - Final NO METHICILLIN RESISTANT STAPH AUREUS... Complete 05/26/17 18:07 Urine,Clean Catch Urine Culture - Preliminary NO GROWTH AFTER 24 HOURS Resulted 05/26/17 12:15 Rectum VRE Culture - Final NO VANCOMYCIN RESISTANT ENTEROCOCCUS ... Complete Laboratory Tests Test 05/28/17 06:10 White Blood Count 7.2 K/UL (4.8-10.8) Red Blood Count 3.12 M/UL (4.70-6.10) L Hemoglobin 10.1 G/DL (14.2-18.0) L Hematocrit 29.2 % (42.0-52.0) L Mean Corpuscular Volume 94 FL (80-99) Mean Corpuscular Hemoglobin 32.3 PG (27.0-31.0) H Mean Corpuscular Hemoglobin Concent 34.5 G/DL (32.0-36.0) Red Cell Distribution Width 15.3 % (11.6-14.8) H Platelet Count 110 K/UL (150-450) L Mean Platelet Volume 7.8 FL (6.5-10.1) Neutrophils (%) (Auto) 72.1 % (45.0-75.0) Lymphocytes (%) (Auto) 12.1 % (20.0-45.0) L Monocytes (%) (Auto) 11.8 % (1.0-10.0) H Eosinophils (%) (Auto) 3.2 % (0.0-3.0) H Basophils (%) (Auto) 0.9 % (0.0-2.0) Sodium Level 135 mEQ/L (135-145) Potassium Level 4.9 mEQ/L (3.4-4.9) Chloride Level 104 mEQ/L (98-107) Carbon Dioxide Level 22 mEQ/L (20-30) Anion Gap 9 (5-15) Blood Urea Nitrogen 23 mg/dL (7-23) Creatinine 1.1 mg/dL (0.7-1.2) Estimat Glomerular Filtration Rate > 60 mL/min (>60) Glucose Level 85 mg/dL (74-106) Calcium Level 8.2 mg/dL (8.6-10.2) L Current Medications Medications (Trade) Dose Ordered Sig/Josse Route PRN Reason Start Time Stop Time Status Last Admin Dose Admin Folic Acid (Folate) 1 mg DAILY ORAL 05/26/17 09:00 06/25/17 08:59 05/28/17 09:47 Furosemide (Lasix) 20 mg DAILY ORAL 05/26/17 09:00 06/25/17 08:59 05/28/17 09:47 Lactulose (Cephulac) 10 gm THREE TIMES A DAY ORAL 05/27/17 13:00 06/26/17 12:59 05/28/17 17:30 Pantoprazole (Protonix) 40 mg DAILY ORAL 05/26/17 09:00 06/25/17 08:59 05/28/17 09:47 Rifaximin (Xifaxan) 550 mg EVERY 12 HOURS ORAL 05/26/17 21:00 06/02/17 20:59 05/28/17 09:47 Thiamine HCl (Vitamin B1) 100 mg DAILY ORAL 05/26/17 09:00 06/25/17 08:59 05/28/17 09:47 Amanda Ingram M.D. May 28, 2017 17:36
[2017-05-28 20:00] VITALS: BP 108/62
--- NOTE | 2017-05-28 21:51 | General Progress Note ---
Assessment/Plan Assessment/Plan ASSESSMENT AND PLAN: 1. Anemia secondary to chronic disease. Continue to closely monitor. Work up has been reviewed --> s/p transfusion 2. 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 --> improving 3. End-stage renal disease. He has been seen by GI service. 4. Ascites due to end-stage liver disease. --> s/p paracentesis, 10.6 L fluid removed 5. Esophageal varices without bleeding. Subjective Constitutional: Reports: no symptoms HEENT: Reports: no symptoms Cardiovascular: Reports: no symptoms Respiratory: Reports: no symptoms Gastrointestinal/Abdominal: Reports: no symptoms Genitourinary: Reports: no symptoms Neurologic/Psychiatric: Reports: no symptoms Endocrine: Reports: no symptoms Hematologic/Lymphatic: Reports: no symptoms Allergies: Coded Allergies: No Known Allergies (Unverified , 01/08/17) Subjective s/p paracentesis Objective Last 24 Hour Vital Signs Date Time Temp Pulse Resp B/P (MAP) Pulse Ox O2 Delivery O2 Flow Rate FiO2 05/28/17 20:00 98.4 88 21 108/62 100 Room Air 05/28/17 16:18 98.6 83 18 104/69 98 Room Air 05/28/17 12:30 98.1 74 20 109/72 99 Room Air 05/28/17 08:28 97.9 75 20 118/78 100 Room Air 05/28/17 04:28 97.7 70 19 105/62 96 Room Air 05/28/17 00:11 97.9 69 19 111/56 98 Room Air Intake and Output 05/28/17 05/29/17 19:00 07:00 Intake Total 360 ml Output Total 450 ml Balance -90 ml Intake Oral 360 ml Output Urine Total 450 ml Laboratory Tests 05/28/17 06:10: White Blood Count 7.2, Red Blood Count 3.12L, Hemoglobin 10.1L, Hematocrit 29.2L , Mean Corpuscular Volume 94, Mean Corpuscular Hemoglobin 32.3H, Mean Corpuscular Hemoglobin Concent 34.5, Red Cell Distribution Width 15.3H, Platelet Count 110L, Mean Platelet Volume 7.8, Neutrophils (%) (Auto) 72.1, Lymphocytes (%) (Auto) 12.1L, Monocytes (%) (Auto) 11.8H, Eosinophils (%) (Auto ) 3.2H, Basophils (%) (Auto) 0.9, Sodium Level 135, Potassium Level 4.9, Chloride Level 104, Carbon Dioxide Level 22, Anion Gap 9, Blood Urea Nitrogen 23 , Creatinine 1.1, Estimat Glomerular Filtration Rate > 60, Glucose Level 85, Calcium Level 8.2L Height (Feet): 5 Height (Inches): 5.00 Weight (Pounds): 204 General Appearance: no apparent distress EENT: TMs normal Neck: supple Cardiovascular: regular rhythm Respiratory/Chest: no respiratory distress, no accessory muscle use Abdomen: distended, tender Extremities: non-tender Kvng Siegel May 28, 2017 21:51
--- NOTE | 2017-05-28 23:23 | General Progress Note ---
Assessment/Plan Assessment/Plan Assessment - Cirrhosis - Refractory ascite - Anemia - ESRD - Poor Px - coagulopathy Recommendations - periodic labs - follow exam and symptoms - [facility] po - fluid and salt restriction Subjective Allergies: Coded Allergies: No Known Allergies (Unverified , 01/08/17) Subjective Feels OK tolerating po Objective Last 24 Hour Vital Signs Date Time Temp Pulse Resp B/P (MAP) Pulse Ox O2 Delivery O2 Flow Rate FiO2 05/28/17 20:00 98.4 88 21 108/62 100 Room Air 05/28/17 16:18 98.6 83 18 104/69 98 Room Air 05/28/17 12:30 98.1 74 20 109/72 99 Room Air 05/28/17 08:28 97.9 75 20 118/78 100 Room Air 05/28/17 04:28 97.7 70 19 105/62 96 Room Air 05/28/17 00:11 97.9 69 19 111/56 98 Room Air Intake and Output 05/28/17 05/29/17 19:00 07:00 Intake Total 360 ml Output Total 450 ml Balance -90 ml Intake Oral 360 ml Output Urine Total 450 ml Laboratory Tests 05/28/17 06:10: White Blood Count 7.2, Red Blood Count 3.12L, Hemoglobin 10.1L, Hematocrit 29.2L , Mean Corpuscular Volume 94, Mean Corpuscular Hemoglobin 32.3H, Mean Corpuscular Hemoglobin Concent 34.5, Red Cell Distribution Width 15.3H, Platelet Count 110L, Mean Platelet Volume 7.8, Neutrophils (%) (Auto) 72.1, Lymphocytes (%) (Auto) 12.1L, Monocytes (%) (Auto) 11.8H, Eosinophils (%) (Auto ) 3.2H, Basophils (%) (Auto) 0.9, Sodium Level 135, Potassium Level 4.9, Chloride Level 104, Carbon Dioxide Level 22, Anion Gap 9, Blood Urea Nitrogen 23 , Creatinine 1.1, Estimat Glomerular Filtration Rate > 60, Glucose Level 85, Calcium Level 8.2L Height (Feet): 5 Height (Inches): 5.00 Weight (Pounds): 204 Objective WDWN L man NCAT supple CTA RRR Abd soft , (++) ascites (+) trace edema MIGNON KIMBLE May 28, 2017 23:23
[2017-05-29] VITALS: BP 130/68
[2017-05-29 04:00] VITALS: BP 119/78
[2017-05-29 08:00] VITALS: BP 114/74
[2017-05-29] MEDS: Lactulose 10gm/15ml UDC ORAL SCH ×3 (09:14→17:25)
[2017-05-29] MEDS: Thiamine 100mg tab ORAL SCH (09:15)
[2017-05-29 12:00] VITALS: BP 107/72
--- NOTE | 2017-05-29 12:54 | General Progress Note ---
Assessment/Plan Status: stable Assessment/Plan Low Na and high K are due to the following: ASCITES ESOPHAGEAL VARICES S BLEEDING TRANSAMINITIS LIVER DISEASE HYPOALBUMINEMIA NORMALIZED Renal failure likely hepato-renal / dehydration.... h/o Cellulitis of the abdominal wall at the previous paracentesis site. sugg: DC IV Per GI Slow diurese Monitor lytes Monitor renal parameters per orders ? DC Subjective ROS Limited/Unobtainable: No Allergies: Coded Allergies: No Known Allergies (Unverified , 01/08/17) Objective Last 24 Hour Vital Signs Date Time Temp Pulse Resp B/P (MAP) Pulse Ox O2 Delivery O2 Flow Rate FiO2 05/29/17 08:00 98.2 15 15 114/74 98 Room Air 05/29/17 04:00 98.2 72 21 119/78 100 Room Air 05/29/17 00:00 98.2 82 22 130/68 100 Room Air 05/28/17 20:00 98.4 88 21 108/62 100 Room Air 05/28/17 16:18 98.6 83 18 104/69 98 Room Air Height (Feet): 5 Height (Inches): 5.00 Weight (Pounds): 204 General Appearance: no apparent distress Objective no change in PE JENN HENSON May 29, 2017 12:54
--- NOTE | 2017-05-29 13:24 | General Progress Note ---
Assessment/Plan Assessment/Plan ASSESSMENT AND PLAN: 1. Anemia secondary to chronic disease. Continue to closely monitor. Work up has been reviewed --> s/p transfusion --> trend HH daily 2. 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 --> improving 3. End-stage renal disease. He has been seen by GI service. 4. Ascites due to end-stage liver disease. --> s/p paracentesis, 10.6 L fluid removed 5. Esophageal varices without bleeding. Subjective Constitutional: Reports: no symptoms HEENT: Reports: no symptoms Cardiovascular: Reports: no symptoms Respiratory: Reports: no symptoms Gastrointestinal/Abdominal: Reports: no symptoms Genitourinary: Reports: no symptoms Neurologic/Psychiatric: Reports: no symptoms Endocrine: Reports: no symptoms Hematologic/Lymphatic: Reports: anemia Allergies: Coded Allergies: No Known Allergies (Unverified , 01/08/17) Subjective NAD Objective Last 24 Hour Vital Signs Date Time Temp Pulse Resp B/P (MAP) Pulse Ox O2 Delivery O2 Flow Rate FiO2 05/29/17 08:00 98.2 15 15 114/74 98 Room Air 05/29/17 04:00 98.2 72 21 119/78 100 Room Air 05/29/17 00:00 98.2 82 22 130/68 100 Room Air 05/28/17 20:00 98.4 88 21 108/62 100 Room Air 05/28/17 16:18 98.6 83 18 104/69 98 Room Air Height (Feet): 5 Height (Inches): 5.00 Weight (Pounds): 204 General Appearance: no apparent distress EENT: normal ENT inspection Neck: normal alignment Cardiovascular: normal rate Respiratory/Chest: no accessory muscle use 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
--- NOTE | 2017-05-29 14:48 | General Progress Note ---
Assessment/Plan Assessment/Plan Assessment - Cirrhosis - Refractory ascites - Anemia - ESRD - Poor Px - coagulopathy Recommendations - periodic labs - follow exam and symptoms - push po - fluid and salt restriction Subjective Allergies: Coded Allergies: No Known Allergies (Unverified , 01/08/17) Subjective Feels OK tolerating po no abd pain Objective Last 24 Hour Vital Signs Date Time Temp Pulse Resp B/P (MAP) Pulse Ox O2 Delivery O2 Flow Rate FiO2 05/29/17 08:00 98.2 15 15 114/74 98 Room Air 05/29/17 04:00 98.2 72 21 119/78 100 Room Air 05/29/17 00:00 98.2 82 22 130/68 100 Room Air 05/28/17 20:00 98.4 88 21 108/62 100 Room Air 05/28/17 16:18 98.6 83 18 104/69 98 Room Air Height (Feet): 5 Height (Inches): 5.00 Weight (Pounds): 204 Objective WDWN L man NCAT supple CTA RRR Abd soft , (++) ascites (+) trace edema MIGNON KIMBLE May 29, 2017 14:48
--- NOTE | 2017-05-29 15:04 | Infectious Diseases Prog Note ---
Assessment/Plan Problems: (1) UTI (urinary tract infection) Assessment & Plan: culture last week grew ESBL producing E coli and VRE , and he received keflex , but currently not symptomatic, and his repeated UA showed normal findings, so will not treat him at this point , since his repeated urine culture now is negative (2) End stage liver disease Assessment & Plan: poor prognosis, recommend hospice care , GI is following (3) Abdominal pain Assessment & Plan: due to recurrent ascites , need paracentesis , further recommendations as per GI (4) Ascites Assessment & Plan: recurrent due to liver cirrhosis, may benefit from paracentesis , GI is following Subjective Constitutional: Reports: no symptoms HEENT: Reports: no symptoms Respiratory: Reports: no symptoms Breasts: Reports: no symptoms Cardiovascular: Reports: no symptoms Gastrointestinal/Abdominal: Reports: no symptoms Genitourinary: Reports: no symptoms Neurologic: Reports: no symptoms Psychiatric: Reports: no symptoms Skin: Reports: no symptoms Endocrine: Reports: no symptoms Hematologic: Reports: no symptoms Allergies: Coded Allergies: No Known Allergies (Unverified , 01/08/17) Objective Vital Signs Last 24 Hour Vital Signs Date Time Temp Pulse Resp B/P (MAP) Pulse Ox O2 Delivery O2 Flow Rate FiO2 05/29/17 08:00 98.2 15 15 114/74 98 Room Air 05/29/17 04:00 98.2 72 21 119/78 100 Room Air 05/29/17 00:00 98.2 82 22 130/68 100 Room Air 05/28/17 20:00 98.4 88 21 108/62 100 Room Air 05/28/17 16:18 98.6 83 18 104/69 98 Room Air Height (Feet): 5 Height (Inches): 5.00 Weight (Pounds): 204 General Appearance: WD/WN, no acute distress HEENT: normocephalic, atraumatic, anicteric, mucous membranes moist, PERRL Respiratory/Chest: chest wall non-tender, lungs clear, normal breath sounds, no respiratory distress Cardiovascular: normal peripheral pulses, normal rate, regular rhythm, no gallop/murmur, no JVD Abdomen: soft, non tender, no organomegaly, no mass, no scars, hypoactive bowel sounds, distended Extremities: no cyanosis, no clubbing Skin: no rash, no lesions, no ulcers Neurologic/Psychiatric: alert Microbiology Date/Time Source Procedure Growth Status 05/26/17 18:07 Urine,Clean Catch Urine Culture - Final NO GROWTH AFTER 48 HOURS Complete Current Medications Medications (Trade) Dose Ordered Sig/Josse Route PRN Reason Start Time Stop Time Status Last Admin Dose Admin Folic Acid (Folate) 1 mg DAILY ORAL 05/26/17 09:00 06/25/17 08:59 05/29/17 09:14 Furosemide (Lasix) 20 mg DAILY ORAL 05/26/17 09:00 06/25/17 08:59 05/29/17 09:14 Lactulose (Cephulac) 10 gm THREE TIMES A DAY ORAL 05/27/17 13:00 06/26/17 12:59 05/29/17 13:03 Pantoprazole (Protonix) 40 mg DAILY ORAL 05/26/17 09:00 06/25/17 08:59 05/29/17 09:15 Rifaximin (Xifaxan) 550 mg EVERY 12 HOURS ORAL 05/26/17 21:00 06/02/17 20:59 05/29/17 09:15 Thiamine HCl (Vitamin B1) 100 mg DAILY ORAL 05/26/17 09:00 06/25/17 08:59 05/29/17 09:15 Amanda Ingram M.D. May 29, 2017 15:04
[2017-05-29 16:00] VITALS: BP 113/65
[2017-05-29] MEDS ORDERED: Norco 5mg/325mg tab ORAL PRN (17:15)
[2017-05-29 20:00] VITALS: BP 118/74
--- NOTE | 2017-05-29 20:34 | General Progress Note ---
Assessment/Plan Problem List: (1) Sepsis ICD Codes: A41.9 - Sepsis, unspecified organism SNOMED: 93085125 (2) Ascites ICD Codes: R18.8 - Other ascites SNOMED: 262316717 (3) UTI (urinary tract infection) ICD Codes: N39.0 - Urinary tract infection, site not specified SNOMED: 94537377 (4) End stage liver disease ICD Codes: K72.90 - Hepatic failure, unspecified without coma SNOMED: 518590201 (5) Abdominal pain ICD Codes: R10.9 - Unspecified abdominal pain SNOMED: 75875389 (6) Anemia ICD Codes: D64.9 - Anemia, unspecified SNOMED: 712283429 Status: progressing Assessment/Plan afebrile anemia uti is improving reviewed chart and labs cirrhosis etoh paracentesis per gi no sob Subjective ROS Limited/Unobtainable: Yes Allergies: Coded Allergies: No Known Allergies (Unverified , 01/08/17) Objective Last 24 Hour Vital Signs Date Time Temp Pulse Resp B/P (MAP) Pulse Ox O2 Delivery O2 Flow Rate FiO2 05/29/17 16:00 98.1 77 16 113/65 99 Room Air 05/29/17 12:00 99.7 80 14 107/72 99 Room Air 05/29/17 08:00 98.2 15 15 114/74 98 Room Air 05/29/17 04:00 98.2 72 21 119/78 100 Room Air 05/29/17 00:00 98.2 82 22 130/68 100 Room Air Height (Feet): 5 Height (Inches): 5.00 Weight (Pounds): 204 Cardiovascular: normal rate Joshua Valdovinos MD May 29, 2017 20:34
[2017-05-30] VITALS: BP 105/65
[2017-05-30 04:00] VITALS: BP 111/71
[2017-05-30] MEDS: Thiamine 100mg tab ORAL SCH (08:17)
[2017-05-30] MEDS: Lactulose 10gm/15ml UDC ORAL SCH ×3 (08:18→17:15)
[2017-05-30 08:29] VITALS: BP 106/74
--- NOTE | 2017-05-30 10:26 | GI Progress Note ---
Assessment/Plan Problems: (1) End stage liver disease ICD Codes: K72.90 - Hepatic failure, unspecified without coma SNOMED: 407838309 (2) Abdominal pain ICD Codes: R10.9 - Unspecified abdominal pain SNOMED: 10017922 (3) Anemia ICD Codes: D64.9 - Anemia, unspecified SNOMED: 258012083 (4) Esophageal varices without bleeding ICD Codes: I85.00 - Esophageal varices without bleeding SNOMED: 18024307 (5) Ascites ICD Codes: R18.8 - Other ascites SNOMED: 128265803 Status: stable Status Narrative Discussed with Dr. Hidalgo. Assessment/Plan S/P EGD SUMMARY OF FINDINGS: 01-11-17 1. Distal esophageal varices grade 2 without any stigmata. 2. Portal hypertensive gastropathy, moderate. 3. Lesion in the pre-pyloric area, see above for details, status post biopsy 4. Pathology >> moderate anemia, thrombocytopenia hep panel unremarkable OB negative s/p paracentesis >> yielding 10.6 liters ok for DC per GI standpoint low sodium diet, tolerating fu ammonia levels >> cont low dose lactulose, add Xifaxan monitor H&H, prn transfusion fu iron panel >> no iron deficiency, dc FeSO4 ppi fu labs patient will need repeat EGD in July 2017 given history of esophageal varices. Subjective Subjective denies abdominal pain depressed Objective Last 24 Hour Vital Signs Date Time Temp Pulse Resp B/P (MAP) Pulse Ox O2 Delivery O2 Flow Rate FiO2 05/30/17 08:29 97.0 90 19 106/74 100 Room Air 05/30/17 04:00 97.9 67 18 111/71 100 Room Air 05/30/17 00:00 97.7 75 18 105/65 100 Room Air 05/29/17 20:00 97.9 81 18 118/74 100 Room Air 05/29/17 16:00 98.1 77 16 113/65 99 Room Air 05/29/17 12:00 99.7 80 14 107/72 99 Room Air Height (Feet): 5 Height (Inches): 5.00 Weight (Pounds): 204 General Appearance: no apparent distress, alert Cardiovascular: normal rate Respiratory/Chest: normal breath sounds, no respiratory distress Abdominal Exam: soft, distended, ascites JacksonTeresa combs N.P. May 30, 2017 10:26
--- NOTE | 2017-05-30 10:51 | Diagnostic Imaging Report ---
Indication: Shortness of breath Technique: One view of the chest Comparison: 03/15/2017 Findings: Suboptimal inspiration. Lungs and pleural spaces are clear. Heart size is normal. Impression: No acute process
[2017-05-30 11:41] VITALS: BP 107/69
--- NOTE | 2017-05-30 12:55 | General Progress Note ---
Assessment/Plan Status: stable Assessment/Plan Low Na and high K are due to the following: ASCITES ESOPHAGEAL VARICES S BLEEDING TRANSAMINITIS LIVER DISEASE HYPOALBUMINEMIA NORMALIZED Renal failure likely hepato-renal / dehydration.... h/o Cellulitis of the abdominal wall at the previous paracentesis site. sugg: DC IV Per GI Slow diurese Monitor lytes Monitor renal parameters per orders ? DC Subjective ROS Limited/Unobtainable: No Allergies: Coded Allergies: No Known Allergies (Unverified , 01/08/17) Objective Last 24 Hour Vital Signs Date Time Temp Pulse Resp B/P (MAP) Pulse Ox O2 Delivery O2 Flow Rate FiO2 05/30/17 11:41 97.5 79 19 107/69 99 Room Air 05/30/17 08:29 97.0 90 19 106/74 100 Room Air 05/30/17 04:00 97.9 67 18 111/71 100 Room Air 05/30/17 00:00 97.7 75 18 105/65 100 Room Air 05/29/17 20:00 97.9 81 18 118/74 100 Room Air 05/29/17 16:00 98.1 77 16 113/65 99 Room Air Height (Feet): 5 Height (Inches): 5.00 Weight (Pounds): 204 General Appearance: no apparent distress Objective no change in PE JENN HENSON May 30, 2017 12:55
[2017-05-30 15:53] VITALS: BP 108/66
--- NOTE | 2017-05-30 16:59 | Infectious Diseases Prog Note ---
Assessment/Plan Problems: (1) UTI (urinary tract infection) Assessment & Plan: culture last week grew ESBL producing E coli and VRE , and he received keflex , but currently not symptomatic, and his repeated UA showed normal findings, so will not treat him at this point , since his repeated urine culture now is negative (2) End stage liver disease Assessment & Plan: poor prognosis, recommend hospice care , GI is following (3) Abdominal pain Assessment & Plan: due to recurrent ascites , need paracentesis , further recommendations as per GI (4) Ascites Assessment & Plan: recurrent due to liver cirrhosis, may benefit from paracentesis , GI is following Subjective Constitutional: Reports: no symptoms HEENT: Reports: no symptoms Respiratory: Reports: no symptoms Breasts: Reports: no symptoms Cardiovascular: Reports: no symptoms Gastrointestinal/Abdominal: Reports: bloating, other - pain Genitourinary: Reports: no symptoms Neurologic: Reports: no symptoms Psychiatric: Reports: no symptoms Skin: Reports: no symptoms Endocrine: Reports: no symptoms Allergies: Coded Allergies: No Known Allergies (Unverified , 01/08/17) Objective Vital Signs Last 24 Hour Vital Signs Date Time Temp Pulse Resp B/P (MAP) Pulse Ox O2 Delivery O2 Flow Rate FiO2 05/30/17 15:53 97.7 92 19 108/66 99 Room Air 05/30/17 11:41 97.5 79 19 107/69 99 Room Air 05/30/17 08:29 97.0 90 19 106/74 100 Room Air 05/30/17 04:00 97.9 67 18 111/71 100 Room Air 05/30/17 00:00 97.7 75 18 105/65 100 Room Air 05/29/17 20:00 97.9 81 18 118/74 100 Room Air Height (Feet): 5 Height (Inches): 5.00 Weight (Pounds): 204 General Appearance: WD/WN, no acute distress HEENT: normocephalic, atraumatic, anicteric Respiratory/Chest: chest wall non-tender, lungs clear, normal breath sounds, no respiratory distress Cardiovascular: normal peripheral pulses, normal rate, regular rhythm Abdomen: no mass, no scars, hypoactive bowel sounds, distended, tender Extremities: no cyanosis, no clubbing Skin: no rash, no lesions, no ulcers Current Medications Medications (Trade) Dose Ordered Sig/Josse Route PRN Reason Start Time Stop Time Status Last Admin Dose Admin Acetaminophen/ Hydrocodone Bitart ([place] 5/325) 1 tab Q6H PRN ORAL For Pain 05/29/17 17:15 06/05/17 17:14 05/29/17 17:28 Folic Acid (Folate) 1 mg DAILY ORAL 05/26/17 09:00 06/25/17 08:59 05/30/17 08:18 Furosemide (Lasix) 20 mg DAILY ORAL 05/26/17 09:00 06/25/17 08:59 05/30/17 08:17 Lactulose (Cephulac) 10 gm THREE TIMES A DAY ORAL 05/27/17 13:00 06/26/17 12:59 05/30/17 13:35 Pantoprazole (Protonix) 40 mg DAILY ORAL 05/26/17 09:00 06/25/17 08:59 05/30/17 08:21 Rifaximin (Xifaxan) 550 mg EVERY 12 HOURS ORAL 05/26/17 21:00 06/02/17 20:59 05/30/17 08:17 Thiamine HCl (Vitamin B1) 100 mg DAILY ORAL 05/26/17 09:00 06/25/17 08:59 05/30/17 08:17 Amanda Ingram M.D. May 30, 2017 16:59
--- NOTE | 2017-05-30 18:31 | General Progress Note ---
Assessment/Plan Assessment/Plan ASSESSMENT AND PLAN: 1. Anemia secondary to chronic disease. Continue to closely monitor. Work up has been reviewed --> s/p transfusion --> trend HH daily, currently counts are stable 2. 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 --> improving 3. End-stage renal disease. He has been seen by GI service. 4. Ascites due to end-stage liver disease. --> s/p paracentesis, 10.6 L fluid removed 5. Esophageal varices without bleeding. GI following Subjective Constitutional: Reports: no symptoms HEENT: Reports: no symptoms Cardiovascular: Reports: no symptoms Respiratory: Reports: no symptoms Gastrointestinal/Abdominal: Reports: no symptoms Genitourinary: Reports: no symptoms Neurologic/Psychiatric: Reports: no symptoms Endocrine: Reports: no symptoms Hematologic/Lymphatic: Reports: no symptoms Allergies: Coded Allergies: No Known Allergies (Unverified , 01/08/17) Subjective no bleeding, no fevers Objective Last 24 Hour Vital Signs Date Time Temp Pulse Resp B/P (MAP) Pulse Ox O2 Delivery O2 Flow Rate FiO2 05/30/17 15:53 97.7 92 19 108/66 99 Room Air 05/30/17 11:41 97.5 79 19 107/69 99 Room Air 05/30/17 08:29 97.0 90 19 106/74 100 Room Air 05/30/17 04:00 97.9 67 18 111/71 100 Room Air 05/30/17 00:00 97.7 75 18 105/65 100 Room Air 05/29/17 20:00 97.9 81 18 118/74 100 Room Air Intake and Output 05/30/17 05/31/17 19:00 07:00 Intake Total 560 ml Output Total 500 ml Balance 60 ml Intake Oral 560 ml Output Urine Total 500 ml # Bowel Movements 2 Height (Feet): 5 Height (Inches): 5.00 Weight (Pounds): 204 General Appearance: no apparent distress EENT: normal ENT inspection Neck: normal alignment Cardiovascular: normal peripheral pulses Respiratory/Chest: no accessory muscle use Extremities: non-tender Edema: trace edema Kvng Siegel May 30, 2017 18:31
[2017-05-30 20:00] VITALS: BP 108/69
--- NOTE | 2017-05-30 20:29 | General Progress Note ---
Assessment/Plan Problem List: (1) Sepsis ICD Codes: A41.9 - Sepsis, unspecified organism SNOMED: 08912198 (2) Ascites ICD Codes: R18.8 - Other ascites SNOMED: 860443489 (3) UTI (urinary tract infection) ICD Codes: N39.0 - Urinary tract infection, site not specified SNOMED: 36691711 (4) End stage liver disease ICD Codes: K72.90 - Hepatic failure, unspecified without coma SNOMED: 148852486 (5) Abdominal pain ICD Codes: R10.9 - Unspecified abdominal pain SNOMED: 23508525 (6) Anemia ICD Codes: D64.9 - Anemia, unspecified SNOMED: 743210647 Status: progressing Assessment/Plan low grade fever resolved abx per id reviewed chart and labs cirrhosis etoh paracentesis per gi no sob Subjective ROS Limited/Unobtainable: Yes Allergies: Coded Allergies: No Known Allergies (Unverified , 01/08/17) Objective Last 24 Hour Vital Signs Date Time Temp Pulse Resp B/P (MAP) Pulse Ox O2 Delivery O2 Flow Rate FiO2 05/30/17 15:53 97.7 92 19 108/66 99 Room Air 05/30/17 11:41 97.5 79 19 107/69 99 Room Air 05/30/17 08:29 97.0 90 19 106/74 100 Room Air 05/30/17 04:00 97.9 67 18 111/71 100 Room Air 05/30/17 00:00 97.7 75 18 105/65 100 Room Air Intake and Output 05/30/17 05/31/17 19:00 07:00 Intake Total 560 ml Output Total 500 ml Balance 60 ml Intake Oral 560 ml Output Urine Total 500 ml # Bowel Movements 2 Height (Feet): 5 Height (Inches): 5.00 Weight (Pounds): 204 Neck: supple Cardiovascular: normal rate Respiratory/Chest: lungs clear Abdomen: tender Joshua Valdovinos MD May 30, 2017 20:29
[2017-05-31] VITALS: BP 122/78
[2017-05-31 04:18] VITALS: BP 114/75
[2017-05-31 07:01] LABS: CALCIUM 8.3 mg/dL (8.6-10.2); CREATININE 1.3 mg/dL (0.7-1.2); GLOMERULAR FILTRATION RATE 58.4 mL/min (>60); POTASSIUM 5.4 mEQ/L (3.4-4.9)
[2017-05-31 07:14] LABS: BASOPHILS % (AUTO) 1.3 % (0.0-2.0); EOSINOPHILS % (AUTO) 3.4 % (0.0-3.0); LYMPHOCYTES % (AUTO) 12.8 % (20.0-45.0); MEAN CORPUSCULAR HEMOGLOBIN 30.1 PG (27.0-31.0); MEAN CORPUSCULAR HGB CONC 32.2 G/DL (32.0-36.0); MEAN CORPUSCULAR VOLUME 93 FL (80-99); MEAN PLATELET VOLUME 7.6 FL (6.5-10.1); MONOCYTES % (AUTO) 15.3 % (1.0-10.0); NEUTROPHILS % (AUTO) 67.2 % (45.0-75.0); PLATELET COUNT 106 K/UL (150-450); RED BLOOD COUNT 3.38 M/UL (4.70-6.10); RED CELL DISTRIBUTION WIDTH 15.1 % (11.6-14.8); WHITE BLOOD COUNT 6.5 K/UL (4.8-10.8)
[2017-05-31 08:15] VITALS: BP 111/68
[2017-05-31] MEDS: Lactulose 10gm/15ml UDC ORAL SCH (08:25)
[2017-05-31] MEDS: Thiamine 100mg tab ORAL SCH (08:25)
[2017-05-31] MEDS ORDERED: Lactulose 10gm/15ml UDC ORAL ONE (09:00)
[2017-05-31] MEDS ORDERED: NORCO 5-325 TA1 EAC1 ORAL (11:41)
[2017-05-31] MEDS ORDERED: LACTULOSE20 GM/301 ORAL (11:42)
[2017-05-31] MEDS ORDERED: PANTOPRAZOLE SO40 MG ORAL (11:43)
[2017-05-31] MEDS ORDERED: XIFAXAN550 MG ORAL (11:43)
[2017-05-31] MEDS ORDERED: SPIRONOLACTONE100 MG ORAL (11:45)
[2017-05-31 12:15] VITALS: BP 103/66
--- NOTE | 2017-05-31 12:24 | General Progress Note ---
Assessment/Plan Status: unchanged Status Narrative mild rise in Cr- K of 5.3 likely hemolysed Assessment/Plan Low Na and high K are due to the following: ASCITES ESOPHAGEAL VARICES S BLEEDING TRANSAMINITIS LIVER DISEASE HYPOALBUMINEMIA NORMALIZED Renal failure likely hepato-renal / dehydration.... h/o Cellulitis of the abdominal wall at the previous paracentesis site. sugg: Stop Lasix DC IV Per GI Slow diurese Monitor lytes Monitor renal parameters per orders ? DC Subjective ROS Limited/Unobtainable: No Allergies: Coded Allergies: No Known Allergies (Unverified , 01/08/17) Objective Last 24 Hour Vital Signs Date Time Temp Pulse Resp B/P (MAP) Pulse Ox O2 Delivery O2 Flow Rate FiO2 05/31/17 08:15 97.6 83 20 111/68 96 Room Air 05/31/17 04:18 98.1 86 21 114/75 98 Room Air 05/31/17 00:00 99.4 81 21 122/78 97 Room Air 05/30/17 20:00 99.3 80 21 108/69 100 Room Air 05/30/17 15:53 97.7 92 19 108/66 99 Room Air Intake and Output 05/31/17 06/01/17 19:00 07:00 Intake Total 240 ml Balance 240 ml Intake Oral 240 ml Laboratory Tests 05/31/17 05:20: White Blood Count 6.5, Red Blood Count 3.38L, Hemoglobin 10.2L, Hematocrit 31.5L , Mean Corpuscular Volume 93, Mean Corpuscular Hemoglobin 30.1, Mean Corpuscular Hemoglobin Concent 32.2, Red Cell Distribution Width 15.1H, Platelet Count 106L, Mean Platelet Volume 7.6, Neutrophils (%) (Auto) 67.2, Lymphocytes (%) (Auto) 12.8L, Monocytes (%) (Auto) 15.3H, Eosinophils (%) (Auto ) 3.4H, Basophils (%) (Auto) 1.3, Sodium Level 130L, Potassium Level 5.4H, Chloride Level 98, Carbon Dioxide Level 21, Anion Gap 11, Blood Urea Nitrogen 27H, Creatinine 1.3H, Estimat Glomerular Filtration Rate 58.4, Glucose Level 82 , Calcium Level 8.3L Height (Feet): 5 Height (Inches): 5.00 Weight (Pounds): 204 General Appearance: no apparent distress Objective no change in PE JENN HENSON May 31, 2017 12:24
[2017-05-31] MEDS ORDERED: Lactulose 20gm/30ml UDC ORAL SCH (13:00)
--- NOTE | 2017-05-31 14:20 | GI Progress Note ---
Assessment/Plan Problems: (1) End stage liver disease ICD Codes: K72.90 - Hepatic failure, unspecified without coma SNOMED: 166939901 (2) Abdominal pain ICD Codes: R10.9 - Unspecified abdominal pain SNOMED: 90780788 (3) Anemia ICD Codes: D64.9 - Anemia, unspecified SNOMED: 338717916 (4) Esophageal varices without bleeding ICD Codes: I85.00 - Esophageal varices without bleeding SNOMED: 68571059 (5) Ascites ICD Codes: R18.8 - Other ascites SNOMED: 076140265 Status: stable Status Narrative Discussed with Dr. Hidalgo. Assessment/Plan S/P EGD SUMMARY OF FINDINGS: 01-11-17 1. Distal esophageal varices grade 2 without any stigmata. 2. Portal hypertensive gastropathy, moderate. 3. Lesion in the pre-pyloric area, see above for details, status post biopsy 4. Pathology >> moderate anemia, thrombocytopenia hep panel unremarkable OB negative s/p paracentesis >> yielding 10.6 liters ok for DC per GI standpoint low sodium diet, tolerating fu ammonia levels >> cont low dose lactulose, add Xifaxan monitor H&H, prn transfusion fu iron panel >> no iron deficiency, dc FeSO4 ppi fu labs patient will need repeat EGD in July 2017 given history of esophageal varices. Subjective Subjective denies abdominal pain depressed Objective Last 24 Hour Vital Signs Date Time Temp Pulse Resp B/P (MAP) Pulse Ox O2 Delivery O2 Flow Rate FiO2 05/31/17 12:15 98.6 100 21 103/66 99 Room Air 05/31/17 08:15 97.6 83 20 111/68 96 Room Air 05/31/17 04:18 98.1 86 21 114/75 98 Room Air 05/31/17 00:00 99.4 81 21 122/78 97 Room Air 05/30/17 20:00 99.3 80 21 108/69 100 Room Air 05/30/17 15:53 97.7 92 19 108/66 99 Room Air Intake and Output 05/31/17 06/01/17 19:00 07:00 Intake Total 240 ml Balance 240 ml Intake Oral 240 ml Laboratory Tests Test 05/31/17 05:20 White Blood Count 6.5 K/UL (4.8-10.8) Red Blood Count 3.38 M/UL (4.70-6.10) L Hemoglobin 10.2 G/DL (14.2-18.0) L Hematocrit 31.5 % (42.0-52.0) L Mean Corpuscular Volume 93 FL (80-99) Mean Corpuscular Hemoglobin 30.1 PG (27.0-31.0) Mean Corpuscular Hemoglobin Concent 32.2 G/DL (32.0-36.0) Red Cell Distribution Width 15.1 % (11.6-14.8) H Platelet Count 106 K/UL (150-450) L Mean Platelet Volume 7.6 FL (6.5-10.1) Neutrophils (%) (Auto) 67.2 % (45.0-75.0) Lymphocytes (%) (Auto) 12.8 % (20.0-45.0) L Monocytes (%) (Auto) 15.3 % (1.0-10.0) H Eosinophils (%) (Auto) 3.4 % (0.0-3.0) H Basophils (%) (Auto) 1.3 % (0.0-2.0) Sodium Level 130 mEQ/L (135-145) L Potassium Level 5.4 mEQ/L (3.4-4.9) H Chloride Level 98 mEQ/L (98-107) Carbon Dioxide Level 21 mEQ/L (20-30) Anion Gap 11 (5-15) Blood Urea Nitrogen 27 mg/dL (7-23) H Creatinine 1.3 mg/dL (0.7-1.2) H Estimat Glomerular Filtration Rate 58.4 mL/min (>60) Glucose Level 82 mg/dL (74-106) Calcium Level 8.3 mg/dL (8.6-10.2) L Height (Feet): 5 Height (Inches): 5.00 Weight (Pounds): 204 General Appearance: no apparent distress, alert Cardiovascular: normal rate Respiratory/Chest: normal breath sounds, no respiratory distress Abdominal Exam: soft Genitourinary/Rectal: normal rectal exam Extremities: normal range of motion Teresa Jackson N.P. May 31, 2017 14:20
--- NOTE | 2017-05-31 16:58 | General Progress Note ---
Assessment/Plan Assessment/Plan ASSESSMENT AND PLAN: 1. Anemia secondary to chronic disease. Continue to closely monitor. Work up has been reviewed --> s/p transfusion --> trend HH daily, currently counts are stable 2. 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 --> improving 3. End-stage renal disease. He has been seen by GI service. 4. Ascites due to end-stage liver disease. --> s/p paracentesis, 10.6 L fluid removed 5. Esophageal varices without bleeding. GI following Subjective Constitutional: Reports: no symptoms HEENT: Reports: no symptoms Cardiovascular: Reports: no symptoms Respiratory: Reports: no symptoms Gastrointestinal/Abdominal: Reports: no symptoms Genitourinary: Reports: no symptoms Neurologic/Psychiatric: Reports: no symptoms Endocrine: Reports: no symptoms Hematologic/Lymphatic: Reports: no symptoms Allergies: Coded Allergies: No Known Allergies (Unverified , 01/08/17) Subjective no major changes Objective Last 24 Hour Vital Signs Date Time Temp Pulse Resp B/P (MAP) Pulse Ox O2 Delivery O2 Flow Rate FiO2 05/31/17 12:15 98.6 100 21 103/66 99 Room Air 05/31/17 08:15 97.6 83 20 111/68 96 Room Air 05/31/17 04:18 98.1 86 21 114/75 98 Room Air 05/31/17 00:00 99.4 81 21 122/78 97 Room Air 05/30/17 20:00 99.3 80 21 108/69 100 Room Air Intake and Output 05/31/17 06/01/17 19:00 07:00 Intake Total 240 ml Balance 240 ml Intake Oral 240 ml Laboratory Tests 05/31/17 05:20: White Blood Count 6.5, Red Blood Count 3.38L, Hemoglobin 10.2L, Hematocrit 31.5L , Mean Corpuscular Volume 93, Mean Corpuscular Hemoglobin 30.1, Mean Corpuscular Hemoglobin Concent 32.2, Red Cell Distribution Width 15.1H, Platelet Count 106L, Mean Platelet Volume 7.6, Neutrophils (%) (Auto) 67.2, Lymphocytes (%) (Auto) 12.8L, Monocytes (%) (Auto) 15.3H, Eosinophils (%) (Auto ) 3.4H, Basophils (%) (Auto) 1.3, Sodium Level 130L, Potassium Level 5.4H, Chloride Level 98, Carbon Dioxide Level 21, Anion Gap 11, Blood Urea Nitrogen 27H, Creatinine 1.3H, Estimat Glomerular Filtration Rate 58.4, Glucose Level 82 , Calcium Level 8.3L Height (Feet): 5 Height (Inches): 5.00 Weight (Pounds): 204 General Appearance: no apparent distress EENT: normal ENT inspection Neck: normal alignment Cardiovascular: normal rate Respiratory/Chest: normal breath sounds Abdomen: non tender Skin: normal pigmentation Kvng Siegel May 31, 2017 16:58
--- NOTE | 2017-06-02 11:27 | Discharge Summary ---
Discharge Summary Hospital Course Date of Admission May 26, 2017 at 04:00 Date of Discharge May 31, 2017 at 12:55 Admitting Diagnosis liver cirrhosis, abdominal pain HPI Maurisio Biggs is a 51 year old male who was admitted on May 26, 2017 at 04:00 for Liver Cirrhosis,Abdominal Pain Hospital Course [id number] Discharge Discharge Disposition Patient was discharged to SNF/Subacute Facility(03) with Hospice Discharge Diagnoses: Mitali Farfan NP Jun 02, 2017 11:27
--- NOTE | 2017-06-03 02:45 | Discharge Summary 2 SIG ---
DATE OF ADMISSION: 05/26/2017 DATE OF DISCHARGE: 05/31/2017 CONSULTANTS: 1. Kvng Siegel M.D. 2. Soto Hidalgo M.D. 3. Max Roche M.D. 4. Amanda Ingram M.D. Brief Hospital Course: The patient is a 51-year-old male with history of liver cirrhosis, ascites, and frequent paracenteses, last one performed a week prior to admission draining 10 liters out, presented to ED complaining of abdominal pain, which was described to be nonradiating, burning in nature, and was intermittent. He was initially at ED a week prior and was diagnosed to have urine infection and was sent home with Keflex. Urine culture showed resistance to antibiotics. At ED, he was given Zosyn. Abdominal and pelvic CT showed hepatic cirrhosis with markedly atrophic liver. There was considerable ascites present. Blood work showed elevated renal functions, potassium was 5.1, sodium was 133, total bilirubin was 1.4, and alkaline phosphatase 130. Hemoglobin was 8 and hematocrit 25. Renal failure likely secondary to hepatorenal syndrome. He was given slow diuresis with spironolactone and Lasix. He was given lactulose. Xifaxan was added. Ammonia level has been normal. He was seen by Infectious Disease specialist. The patient had completed seven days of Keflex as outpatient, but the patient currently was asymptomatic and his repeat UA showed normal findings. Repeat urine culture was negative. No additional antibiotic was necessary. He had anemia possibly secondary to chronic disease and thrombocytopenia was secondary to liver cirrhosis, splenomegaly, and hypertension. He received one unit of packed RBC blood transfusion. Post transfusion, levels were stable. No iron deficiency. Diet was advanced and had been tolerating diet. Last endoscopy was in January of 2017. He is recommended to repeat esophagogastroduodenoscopy in July 2017 for evaluation of esophageal varices. On 05/27/2017, he underwent ultrasound-guided paracentesis yielding 10.6 liters of cloudy yellow fluid. He had episodes of hyperkalemia, likely hemolyzed. Lasix was eventually discontinued. The patient was eventually discharged to SNF under hospice. FINAL DIAGNOSES: 1. End-stage liver disease. 2. End-stage renal disease with recurrent ascites requiring multiple paracenteses. 3. Esophageal varices. 4. Acute anemia requiring blood transfusion. 5. Anemia of chronic disease. 6. Thrombocytopenia, secondary to liver cirrhosis, splenomegaly, and portal hypertension. 7. Acute on chronic renal failure, likely hepatorenal exacerbated by dehydration. 8. Hyponatremia. 9. Hyperkalemia. 10. Hypoalbuminemia. 11. Urinary tract infection. Discharge disposition: The patient was discharged to [facility] under hospice. DISCHARGE MEDICATIONS: Refer to medication list. Joshua Valdovinos M.D. I have been assigned to dictate discharge summary on this account and I was not involved in the patient's management. Mitali Farfan N.P. DR: ZOFIA JOB#: [id number] CC:
[2017-07-25] MEDS ORDERED: TYLENOL650 MG/20. ORAL (07:50)
[2017-07-25] MEDS ORDERED: HYDROCODON-ACE1 EA13 ORAL (07:52)
== END 2017-05-31 12:55 | DRG 280 ==
LOC: EDBD 21:59 → EMR 22:30 → 4E 05-26 04:00 → EDBEDREQ 05-26 05:08
PROC: 30233N1 Transfusion of Nonautologous Red Blood Cells into Peripheral Vein, Percutaneous Approach (ICD-10-PCS; 2017-05-26)
PROC: 0W9G3ZZ Drainage of Peritoneal Cavity, Percutaneous Approach (ICD-10-PCS; principal; 2017-05-27)
DX: K70.31 Alcoholic cirrhosis of liver with ascites (principal); K76.7 Hepatorenal syndrome; N17.9 Acute kidney failure, unspecified; N18.6 End stage renal disease; K76.6 Portal hypertension; I85.10 Secondary esophageal varices without bleeding; D69.59 Other secondary thrombocytopenia; E87.1 Hypo-osmolality and hyponatremia; E87.5 Hyperkalemia; N39.0 Urinary tract infection, site not specified; D63.8 Anemia in other chronic diseases classified elsewhere; R16.1 Splenomegaly, not elsewhere classified; E86.0 Dehydration; E88.09 Other disorders of plasma-protein metabolism, not elsewhere classified; B96.20 Unspecified Escherichia coli [E. coli] as the cause of diseases classified elsewhere; Z16.12 Extended spectrum beta lactamase (ESBL) resistance; Z16.22 Resistance to vancomycin related antibiotics; K31.89 Other diseases of stomach and duodenum; R10.9 Unspecified abdominal pain; Z66 Do not resuscitate
CPT/HCPCS: 36415; 71010; 74177; 76942; 80048; 80053; 80061; 81003; 82140; 82248; 82270; 82607; 82728; 82746; 82977; 83540; 83550; 83615; 83690; 83735; 83880; 84100; 84443; 84550; 85007; 85025; 85044; 85060; 85610; 86140; 86850; 86900; 86901; 86920; 87040; 87081; 87086; 93005; 99285

== ENCOUNTER 2017-06-28 09:34 | Inpatient (IN) | payer OTHER ==
[~2017-06-28] VITALS: Ht 154.9 cm; Wt 79.4 kg
[2017-06-28] VITALS (16 sets, daily range): BP systolic 80–115; BP diastolic 42–80
[~2017-06-28 09:34] MED LIST changes: +NITROFURANTOIN100 M2 ORAL; +NORCO 5-325 TA1 EAC1 ORAL; +VITAMIN B-1100 MG ORAL; +XIFAXAN550 MG ORAL
[2017-06-28 10:26] LABS: BASOPHILS % (AUTO) 1.1 % (0.0-2.0); EOSINOPHILS % (AUTO) 1.2 % (0.0-3.0); LYMPHOCYTES % (AUTO) 7.7 % (20.0-45.0); MEAN CORPUSCULAR HEMOGLOBIN 30.4 PG (27.0-31.0); MEAN CORPUSCULAR HGB CONC 32.6 G/DL (32.0-36.0); MEAN CORPUSCULAR VOLUME 93 FL (80-99); MEAN PLATELET VOLUME 6.2 FL (6.5-10.1); MONOCYTES % (AUTO) 11.8 % (1.0-10.0); NEUTROPHILS % (AUTO) 78.1 % (45.0-75.0); PLATELET COUNT 137 K/UL (150-450); RED BLOOD COUNT 3.12 M/UL (4.70-6.10); RED CELL DISTRIBUTION WIDTH 14.1 % (11.6-14.8); WHITE BLOOD COUNT 7.2 K/UL (4.8-10.8)
[2017-06-28 10:35] LABS: INR 1.2 (0.9-1.1); PROTHROMBIN TIME 12.9 SEC (9.30-11.50)
[2017-06-28 11:15] LABS: ALANINE AMINOTRANSFERASE 26 U/L (12-78); ALBUMIN/GLOBULIN RATIO 0.5 (1.0-2.7); ANION GAP 13 mmol/L (5-15); ASPARTATE AMINO TRANSFERASE 42 U/L (15-37); CALCIUM 8.7 MG/DL (8.5-10.1); CARBON DIOXIDE 19 MMOL/L (21-32); CHLORIDE 95 MMOL/L (98-107); CREATININE 2.2 MG/DL (0.55-1.30); GLOMERULAR FILTRATION RATE 31.8 mL/min (>60); LIPASE 62 U/L (73-393); POTASSIUM 4.9 MMOL/L (3.5-5.1); SODIUM 127 MMOL/L (136-145); TOTAL PROTEIN 7.2 G/DL (6.4-8.2)
[2017-06-28 11:18] LABS: BILIRUBIN,DIRECT 0.6 MG/DL (0.0-0.3)
[2017-06-28] MEDS ORDERED: COLACE100 MG ORAL (11:41)
[2017-06-28] MEDS ORDERED: TEMAZEPAM30 MG ORAL (11:41)
[2017-06-28] MEDS ORDERED: LORAZEPAM2 MG/1 M1 SL (11:41)
[2017-06-28] MEDS ORDERED: ACETAMINOP160 MG/54 ORAL (11:41)
[2017-06-28] MEDS ORDERED: PROCHLORPERAZINE5 MG ORAL (11:41)
[2017-06-28] MEDS ORDERED: MORPHINE 100 MG/5 ML SL (11:41)
[2017-06-28] MEDS ORDERED: Tubing IV Cassette IV ONE (16:20)
--- NOTE | 2017-06-28 16:56 | Diagnostic Imaging Report ---
Indications: Ascites Technique: Informed consent obtained prior to commencement of the procedure. Procedural timeout performed. Ultrasound used to localize optimal puncture site. Sterile prepping and draping right lower quadrant. Local anesthesia with 1% lidocaine. Under real-time ultrasound guidance, puncture peritoneal space using paracentesis needle. Stylet removed. Catheter placed to vacuum bottle suction. Total 16 liters of fluid aspirated. Patient tolerated procedure well, without immediate complication. Findings: Followup sonography demonstrates complete resolution of peritoneal fluid. Impression: Successful ultrasound-guided paracentesis, yielding 16 liters of fluid
--- NOTE | 2017-06-28 18:07 | Emergency Room Report ---
History of Present Illness General Chief Complaint: General Complaint Source: Patient, Medical Record Present Illness Allergies: Coded Allergies: No Known Allergies (Unverified , 01/08/17) Nursing Documentation-[facility] Past Medical History: No History, Except For Hx Cardiac Problems: Yes Hx Asthma: Yes Hx Diabetes: No Hx Cancer: No Hx Gastrointestinal Problems: Yes - Cirrhosis Hx Neurological Problems: Yes Hx Memory Loss: Yes Hx Dizziness: Yes Hx Numbness: Yes - BLE Hx Weakness: Yes Hx Fatigue: Yes - with activity Physical Exam Vital Signs Date Time Temp Pulse Resp B/P (MAP) Pulse Ox O2 Delivery O2 Flow Rate FiO2 06/28/17 09:40 97.9 86 20 107/71 100 Room Air Medical Decision Making Diagnostic Impression: Primary Impression: Ascites ER Course Received signout from Dr Coreas Please see previous note for history and physical examination 51-year-old male, history of liver cirrhosis and ascites, had paracentesis done today by radiology removed to 16 L Patient now hypotensive Patient continues to be hypotensive despite 2 L and being given albumin Has normal mental status Given third Liter NS, systolic now in 90s Will admit patient to telemetry Discussed with Dr. Hernandez Last Vital Signs Date Time Temp Pulse Resp B/P (MAP) Pulse Ox O2 Delivery O2 Flow Rate FiO2 06/28/17 17:20 80 20 109/43 100 Room Air 06/28/17 09:40 97.9 Disposition: ADMITTED INPATIENT Condition: Serious Referrals: Joshua Valdovinos MD (PCP) Patient Instructions: Abdominal or Pelvic Ultrasound, [id number] All Covarrubias M.D. Jun 28, 2017 18:07
[2017-06-28] MEDS: Midodrine 10mg tab ORAL SCH (21:54)
[2017-06-28 22:13] LABS: MEAN CORPUSCULAR HEMOGLOBIN 28.5 PG (27.0-31.0); MEAN CORPUSCULAR HGB CONC 30.3 G/DL (32.0-36.0); MEAN CORPUSCULAR VOLUME 94 FL (80-99); MEAN PLATELET VOLUME 6.1 FL (6.5-10.1); PLATELET COUNT 109 K/UL (150-450); RED BLOOD COUNT 2.77 M/UL (4.70-6.10); RED CELL DISTRIBUTION WIDTH 14.2 % (11.6-14.8); WHITE BLOOD COUNT 5.8 K/UL (4.8-10.8)
[2017-06-28 22:42] LABS: ALANINE AMINOTRANSFERASE 17 U/L (12-78); ALBUMIN/GLOBULIN RATIO 0.8 (1.0-2.7); ANION GAP 10 mmol/L (5-15); ASPARTATE AMINO TRANSFERASE 27 U/L (15-37); CALCIUM 8.2 MG/DL (8.5-10.1); CARBON DIOXIDE 21 MMOL/L (21-32); CHLORIDE 102 MMOL/L (98-107); CREATININE 1.8 MG/DL (0.55-1.30); GLOMERULAR FILTRATION RATE 40.1 mL/min (>60); POTASSIUM 4.5 MMOL/L (3.5-5.1); SODIUM 133 MMOL/L (136-145); TOTAL PROTEIN 5.7 G/DL (6.4-8.2)
[2017-06-28 22:55] LABS: BILIRUBIN,DIRECT 0.5 MG/DL (0.0-0.3)
[2017-06-28 23:02] LABS: BAND NEUTROPHILS % (MANUAL) 1 % (0-8); BASOPHILS % (MANUAL) 1 % (0-2); EOSINOPHILS % (MANUAL) 0 % (0-3); LYMPHOCYTES % (MANUAL) 9 % (20-45); NEUTROPHILS % (MANUAL) 75 % (45-75); PLATELET ESTIMATE DECREASED; TOTAL CELLS COUNTED 100
[2017-06-28 23:03] LABS: ANISOCYTOSIS 1+; HYPOCHROMASIA 1+; PLATELET MORPHOLOGY NORMAL; POLYCHROMASIA 1+
[2017-06-28 23:15] LABS: APPEARANCE,URINE CLEAR; KETONES,URINE NEGATIVE (NEGATIVE); LEUKOCYTE ESTERASE ,URINE 1+ (NEGATIVE); NITRITE,URINE NEGATIVE (NEGATIVE); PH,URINE 5 (4.5-8.0); PROTEIN,URINE NEGATIVE (NEGATIVE); UROBILINOGEN,URINE NORMAL MG/DL (0.0-1.0)
[2017-06-28 23:58] LABS: RBC,URINE 0-2 /HPF (0 - 0); SQUAMOUS EPITHELIAL CELL,UR OCCASIONAL /LPF (NONE/OCC); WBC,URINE 0-2 /HPF (0 - 0)
[2017-06-29] VITALS (8 sets, daily range): BP systolic 92–107; BP diastolic 45–60
--- NOTE | 2017-06-29 07:02 | Emergency Room Report ---
History of Present Illness General Chief Complaint: General Complaint Source: Patient, Medical Record Present Illness HPI 51-year-old male presents ED for evaluation. Patient presents with abdominal distention. sent [facility]. patient notes history of cirrhosis and is here to have a paracentesis. Patient notes abdominal distention and pain. 5 at 10, sharp, nonradiating. Denies fevers or chills. Denies nausea or vomiting. No other aggravating relieving factors. Denies any other associated symptoms Allergies: Coded Allergies: No Known Allergies (Unverified , 01/08/17) Patient History Past Medical History: asthma, other - cirrhosis Past Surgical History: none Pertinent Family History: none Social History: Denies: smoking, alcohol use, drug use Immunizations: UTD Reviewed Nursing Documentation: PMH: Agreed, PSxH: Agreed Nursing Documentation-PMH Past Medical History: No History, Except For Hx Cardiac Problems: Yes Hx Asthma: Yes Hx Diabetes: No Hx Cancer: No Hx Gastrointestinal Problems: Yes - Cirrhosis Hx Neurological Problems: Yes Hx Memory Loss: Yes Hx Dizziness: Yes Hx Numbness: Yes - BLE Hx Weakness: Yes Hx Fatigue: Yes - with activity Review of Systems All Other Systems: negative except mentioned in HPI Physical Exam Vital Signs Date Time Temp Pulse Resp B/P (MAP) Pulse Ox O2 Delivery O2 Flow Rate FiO2 06/28/17 09:40 97.9 86 20 107/71 100 Room Air Sp02 EP Interpretation: reviewed, normal General Appearance: no apparent distress, alert, GCS 15, non-toxic Head: normocephalic Eyes: bilateral eye normal inspection, bilateral eye PERRL ENT: normal ENT inspection Neck: normal inspection Respiratory: chest non-tender, lungs clear, normal breath sounds, speaking full sentences Cardiovascular #1: regular rate, rhythm, no edema Gastrointestinal: distended Rectal: deferred Genitourinary: no CVA tenderness Musculoskeletal: normal inspection Neurologic: alert, oriented x3, responsive, motor strength/tone normal, sensory intact, speech normal Psychiatric: normal inspection Skin: normal inspection Lymphatic: normal inspection Medical Decision Making Diagnostic Impression: Primary Impression: Ascites Qualified Codes: R18.8 - Other ascites Additional Impressions: Hypotension Qualified Codes: I95.9 - Hypotension, unspecified End stage liver disease ER Course 51-year-old male presents ED with abdominal distention. Here for paracentesis Differential-SBP, SBO, cirrhosis Patient placed a stretcher. After initial history and physical I ordered labs, ultrasound guided paracentesis Labs-no leukocytosis, hemoglobin/hematocrit stable, BUN/Cr elevated, LFTs elevated Ultrasound guided paracentesis performed at approximately 16 L of fluid was removed The patient return to ED patient was hypotensive. Patient was given IV fluids and albumin Signed out to Dr. Covarrubias to see if BP improves; otherwise patient likely will require admission Labs Test 06/28/17 09:50 06/28/17 22:00 06/28/17 22:15 06/29/17 03:30 White Blood Count 7.2 K/UL (4.8-10.8) 5.8 K/UL (4.8-10.8) Red Blood Count 3.12 M/UL (4.70-6.10) 2.77 M/UL (4.70-6.10) Hemoglobin 9.5 G/DL (14.2-18.0) 7.9 G/DL (14.2-18.0) Hematocrit 29.2 % (42.0-52.0) 26.1 % (42.0-52.0) Mean Corpuscular Volume 93 FL (80-99) 94 FL (80-99) Mean Corpuscular Hemoglobin 30.4 PG (27.0-31.0) 28.5 PG (27.0-31.0) Mean Corpuscular Hemoglobin Concent 32.6 G/DL (32.0-36.0) 30.3 G/DL (32.0-36.0) Red Cell Distribution Width 14.1 % (11.6-14.8) 14.2 % (11.6-14.8) Platelet Count 137 K/UL (150-450) 109 K/UL (150-450) Mean Platelet Volume 6.2 FL (6.5-10.1) 6.1 FL (6.5-10.1) Neutrophils (%) (Auto) 78.1 % (45.0-75.0) % (45.0-75.0) Lymphocytes (%) (Auto) 7.7 % (20.0-45.0) % (20.0-45.0) Monocytes (%) (Auto) 11.8 % (1.0-10.0) % (1.0-10.0) Eosinophils (%) (Auto) 1.2 % (0.0-3.0) % (0.0-3.0) Basophils (%) (Auto) 1.1 % (0.0-2.0) % (0.0-2.0) Prothrombin Time 12.9 SEC (9.30-11.50) Prothromb Time International Ratio 1.2 (0.9-1.1) Activated Partial Thromboplast Time 36 SEC (23-33) Sodium Level 127 MMOL/L (136-145) 133 MMOL/L (136-145) Potassium Level 4.9 MMOL/L (3.5-5.1) 4.5 MMOL/L (3.5-5.1) Chloride Level 95 MMOL/L (98-107) 102 MMOL/L (98-107) Carbon Dioxide Level 19 MMOL/L (21-32) 21 MMOL/L (21-32) Anion Gap 13 mmol/L (5-15) 10 mmol/L (5-15) Blood Urea Nitrogen 32 mg/dL (7-18) 30 mg/dL (7-18) Creatinine 2.2 MG/DL (0.55-1.30) 1.8 MG/DL (0.55-1.30) Estimat Glomerular Filtration Rate 31.8 mL/min (>60) 40.1 mL/min (>60) Glucose Level 89 MG/DL (74-106) 88 MG/DL (74-106) Calcium Level 8.7 MG/DL (8.5-10.1) 8.2 MG/DL (8.5-10.1) Total Bilirubin 1.7 MG/DL (0.2-1.0) 1.5 MG/DL (0.2-1.0) Direct Bilirubin 0.6 MG/DL (0.0-0.3) 0.5 MG/DL (0.0-0.3) Aspartate Amino Transf (AST/SGOT) 42 U/L (15-37) 27 U/L (15-37) Alanine Aminotransferase (ALT/SGPT) 26 U/L (12-78) 17 U/L (12-78) Alkaline Phosphatase 120 U/L (46-116) 77 U/L (46-116) Total Protein 7.2 G/DL (6.4-8.2) 5.7 G/DL (6.4-8.2) Albumin 2.5 G/DL (3.4-5.0) 2.5 G/DL (3.4-5.0) Globulin 4.7 g/dL 3.2 g/dL Albumin/Globulin Ratio 0.5 (1.0-2.7) 0.8 (1.0-2.7) Lipase 62 U/L (73-393) Differential Total Cells Counted 100 Neutrophils % (Manual) 75 % (45-75) Lymphocytes % (Manual) 9 % (20-45) Monocytes % (Manual) 14 % (1-10) Eosinophils % (Manual) 0 % (0-3) Basophils % (Manual) 1 % (0-2) Band Neutrophils 1 % (0-8) Platelet Estimate Decreased Platelet Morphology Normal Polychromasia 1+ Hypochromasia 1+ Anisocytosis 1+ Urine Color Pale yellow Urine Appearance Clear Urine pH 5 (4.5-8.0) Urine Specific [place] 1.010 (1.005-1.035) Urine Protein Negative (NEGATIVE) Urine Glucose (UA) Negative (NEGATIVE) Urine Ketones Negative (NEGATIVE) Urine Occult Blood 1+ (NEGATIVE) Urine Nitrite Negative (NEGATIVE) Urine Bilirubin Negative (NEGATIVE) Urine Urobilinogen Normal MG/DL (0.0-1.0) Urine Leukocyte Esterase 1+ (NEGATIVE) Urine RBC 0-2 /HPF (0 - 0) Urine WBC 0-2 /HPF (0 - 0) Urine Squamous Epithelial Cells Occasional /LPF Urine Bacteria None /HPF (NONE) Urine Eosinophils None seen Urine Random Sodium 22 MEQ/L (20-110) Test 06/29/17 04:55 Last Vital Signs Date Time Temp Pulse Resp B/P (MAP) Pulse Ox O2 Delivery O2 Flow Rate FiO2 06/29/17 04:00 98.6 70 20 96/56 97 Room Air Disposition: ADMITTED INPATIENT Condition: Serious Referrals: Joshua Valdovinos MD (PCP) Patient Instructions: Abdominal or Pelvic Ultrasound, [facility] DUSTIN BECK M.D. Jun 29, 2017 07:02
[2017-06-29 07:07] LABS: AMMONIA 109 umol/L (11.2-31.7)
[2017-06-29 07:09] LABS: HEMOGLOBIN A1C 4.6 % (4.3-6.0)
[2017-06-29 07:11] LABS: MEAN CORPUSCULAR HEMOGLOBIN 27.7 PG (27.0-31.0); MEAN CORPUSCULAR HGB CONC 29.5 G/DL (32.0-36.0); MEAN CORPUSCULAR VOLUME 94 FL (80-99); MEAN PLATELET VOLUME 6.9 FL (6.5-10.1); PLATELET COUNT 118 K/UL (150-450); RED BLOOD COUNT 2.67 M/UL (4.70-6.10)
[2017-06-29 07:43] LABS: ALANINE AMINOTRANSFERASE 15 U/L (12-78); ANION GAP 9 mmol/L (5-15); ASPARTATE AMINO TRANSFERASE 27 U/L (15-37); CARBON DIOXIDE 19 MMOL/L (21-32); CHLORIDE 102 MMOL/L (98-107); CHOLESTEROL 63 MG/DL (< 200); CHOLESTEROL/HDL RATIO 4.8 (3.3-4.4); CREATININE 1.6 MG/DL (0.55-1.30); CRP QUANT 3.2 mg/dL (0.00-0.90); PHOSPHORUS 3.5 MG/DL (2.5-4.9); POTASSIUM 4.9 MMOL/L (3.5-5.1); SODIUM 130 MMOL/L (136-145); THYROID STIMULATING HORMONE 2.252 uiU/mL (0.360-3.740); TOTAL PROTEIN 5.5 G/DL (6.4-8.2); URIC ACID 7.4 MG/DL (2.6-7.2)
[2017-06-29 07:57] LABS: BILIRUBIN,DIRECT 0.5 MG/DL (0.0-0.3)
--- NOTE | 2017-06-29 09:41 | Consultation ---
Consult Note Consult Note frequent admitter- Liver Disease , Ascitis , Admitted with low BP after ascitic fluid removal Assessment/Plan Low Na due to the following: ASCITES ESOPHAGEAL VARICES S BLEEDING TRANSAMINITIS LIVER DISEASE HYPOALBUMINEMIA Anemia Renal failure likely hepato-renal / dehydration.... Acute on chronic h/o Cellulitis of the abdominal wall at the previous paracentesis site. Plan: Midodrine- monitor LFTs and Renal parameters- Per GI Poor prognosis JENN HENSON Jun 29, 2017 09:41
[2017-06-29] MEDS ORDERED: Acetaminophen 650mg/20.3ml ORAL PRN (09:45)
[2017-06-29] MEDS: Midodrine 10mg tab ORAL SCH ×3 (10:00→19:01)
--- NOTE | 2017-06-29 10:20 | General Progress Note ---
Assessment/Plan Assessment/Plan Assessment - EtOH cirrhosis - Ascites, recurrent - coagulopathy - anemia - hyponatremia - Azotemia - diverticulosis - poor px Recommendations - po as tolerated - monitor lytes - albumin - needs transplant evaluation - f/u at [facility] for surveillance endoscopy for h/o varicies - check AFP Thank you Lv Cobb MD Subjective Allergies: Coded Allergies: No Known Allergies (Unverified , 01/08/17) Objective Last 24 Hour Vital Signs Date Time Temp Pulse Resp B/P (MAP) Pulse Ox O2 Delivery O2 Flow Rate FiO2 06/29/17 08:09 97.5 69 20 95/51 98 Room Air 06/29/17 04:00 98.6 70 20 96/56 97 Room Air 06/29/17 03:47 73 06/29/17 00:07 99.5 84 20 92/45 94 Room Air 06/28/17 23:54 83 06/28/17 20:30 98.1 83 20 87/53 98 Room Air 06/28/17 19:31 97.7 90 24 90/66 99 Room Air 06/28/17 19:17 97.9 79 20 92/52 99 Room Air 06/28/17 19:00 79 20 92/52 99 Room Air 06/28/17 18:30 77 20 92/47 100 Room Air 06/28/17 18:00 79 22 80/50 100 Room Air 06/28/17 17:20 80 20 109/43 100 Room Air 06/28/17 17:00 75 20 83/46 100 Room Air 06/28/17 16:30 77 20 87/47 99 Room Air 06/28/17 16:10 78 18 96/48 99 Room Air 06/28/17 16:00 77 18 86/42 100 Room Air 06/28/17 15:45 75 18 88/49 99 Room Air 06/28/17 15:30 77 18 88/43 99 Room Air 06/28/17 15:00 79 18 88/49 100 Room Air 06/28/17 14:45 77 18 92/51 100 Room Air 06/28/17 12:00 78 18 108/57 100 Room Air 06/28/17 10:30 79 20 115/80 100 Room Air Intake and Output 06/29/17 06/30/17 19:00 07:00 Output Total 200 ml Balance -200 ml Output Urine Total 200 ml # Voids 1 # Bowel Movements 1 Laboratory Tests 06/28/17 22:00: White Blood Count 5.8, Red Blood Count 2.77L, Hemoglobin 7.9L, Hematocrit 26.1L , Mean Corpuscular Volume 94, Mean Corpuscular Hemoglobin 28.5, Mean Corpuscular Hemoglobin Concent 30.3L, Red Cell Distribution Width 14.2, Platelet Count 109L, Mean Platelet Volume 6.1L, Neutrophils (%) (Auto) , Lymphocytes (%) (Auto) , Monocytes (%) (Auto) , Eosinophils (%) (Auto) , Basophils (%) (Auto) , Differential Total Cells Counted 100, Neutrophils % ( Manual) 75, Lymphocytes % (Manual) 9L, Monocytes % (Manual) 14H, Eosinophils % ( Manual) 0, Basophils % (Manual) 1, Band Neutrophils 1, Platelet Estimate DecreasedL, Platelet Morphology Normal, Polychromasia 1+, Hypochromasia 1+, Anisocytosis 1+, Sodium Level 133L, Potassium Level 4.5, Chloride Level 102, Carbon Dioxide Level 21, Anion Gap 10, Blood Urea Nitrogen 30H, Creatinine 1.8H , Estimat Glomerular Filtration Rate 40.1, Glucose Level 88, Calcium Level 8.2L , Total Bilirubin 1.5H, Direct Bilirubin 0.5H, Aspartate Amino Transf (AST/SGOT ) 27, Alanine Aminotransferase (ALT/SGPT) 17, Alkaline Phosphatase 77, Total Protein 5.7L, Albumin 2.5L, Globulin 3.2, Albumin/Globulin Ratio 0.8L 06/28/17 22:15: Urine Color Pale yellow, Urine Appearance Clear, Urine pH 5, Urine Specific [place] 1.010, Urine Protein Negative, Urine Glucose (UA) Negative, Urine Ketones Negative, Urine Occult Blood 1+H, Urine Nitrite Negative, Urine Bilirubin Negative, Urine Urobilinogen Normal, Urine Leukocyte Esterase 1+H, Urine RBC 0-2H, Urine WBC 0-2, Urine Squamous Epithelial Cells Occasional, Urine Bacteria None, Urine Eosinophils None seen, Urine Random Sodium 22 06/29/17 03:30: Urine Eosinophils None seen 06/29/17 04:55: White Blood Count 6.0, Red Blood Count 2.67L, Hemoglobin 7.4L, Hematocrit 25.0L , Mean Corpuscular Volume 94, Mean Corpuscular Hemoglobin 27.7, Mean Corpuscular Hemoglobin Concent 29.5L, Red Cell Distribution Width 14.0, Platelet Count 118L, Mean Platelet Volume 6.9, Neutrophils (%) (Auto) , Lymphocytes (%) (Auto) , Monocytes (%) (Auto) , Eosinophils (%) (Auto) , Basophils (%) (Auto) , Neutrophils % (Manual) [Pending], Lymphocytes % (Manual) [Pending], Platelet Estimate [Pending], Platelet Morphology [Pending], Sodium Level 130L, Potassium Level 4.9, Chloride Level 102, Carbon Dioxide Level 19L, Anion Gap 9, Blood Urea Nitrogen 29H, Creatinine 1.6H, Estimat Glomerular Filtration Rate 46.0, Glucose Level 75, Calcium Level 8.0L, Total Bilirubin 1.5H , Direct Bilirubin 0.5H, Aspartate Amino Transf (AST/SGOT) 27, Alanine Aminotransferase (ALT/SGPT) 15, Alkaline Phosphatase 72, Total Protein 5.5L, Albumin 2.7L, Globulin 2.8, Albumin/Globulin Ratio 1.0, Hemoglobin A1c 4.6, Uric Acid 7.4H, Phosphorus Level 3.5, Magnesium Level 2.0, Gamma Glutamyl Transpeptidase 19, Ammonia 109H, Total Creatine Kinase 33, C-Reactive Protein, Quantitative 3.2H, Pro-B-Type Natriuretic Peptide 1956H, Triglycerides Level 31 , Cholesterol Level 63, LDL Cholesterol 44, HDL Cholesterol 13L, Cholesterol/ HDL Ratio 4.8H, Thyroid Stimulating Hormone (TSH) 2.252 Height (Feet): 5 Height (Inches): 1.00 Weight (Pounds): 175 ROSEANNSWATHILIZZYGLORIA Jun 29, 2017 10:20
[2017-06-29 10:55] LABS: BAND NEUTROPHILS % (MANUAL) 0 % (0-8); BASOPHILS % (MANUAL) 0 % (0-2); EOSINOPHILS % (MANUAL) 1 % (0-3); HYPOCHROMASIA 1+; LYMPHOCYTES % (MANUAL) 8 % (20-45); NEUTROPHILS % (MANUAL) 79 % (45-75); PLATELET ESTIMATE DECREASED; PLATELET MORPHOLOGY NORMAL; TOTAL CELLS COUNTED 100
[2017-06-29] MEDS: Lactulose 20gm/30ml UDC ORAL SCH ×2 (13:55→19:03)
--- NOTE | 2017-06-29 15:00 | Cardiology Report ---
APPROVED REPORT EKG Measurement Heart [id number] SD [id number] [id number] Normal sinus rhythm Normal ECG
--- NOTE | 2017-06-29 17:14 | Consultation ---
Consult Note Consult Note Date and time entered: 06/29/17 DATE OF CONSULTATION: 06/29/17 HEMATOLOGY/ONCOLOGY CONSULTATION CONSULTING PHYSICIAN: Kvng Siegel M.D. REQUESTING PHYSICIAN: Joshua Valdovinos M.D. REASON FOR CONSULTATION: Evaluation of anemia and thrombocytopenia. IDENTIFICATION DATA: Dear Dr. Valdovinos, The patient is a pleasant 51-year-old male with a past medical history significant for liver cirrhosis, ascites, frequent paracenteses, the most recent one was yesterday ago and drained 10 L at that time, at this time presents with persistent hypotension Hematology/Oncology service was consulted for evaluation of the patient's anemia and thrombocytopenia, as well as GI service. Have seen him multiple times in the past and currently hypitensive admitted on midrinone. Past Medical History: Asthma, cirrhosis, memory loss, dementia, numbness of lower extremities, and fatigue. Past Surgical History: Frequent paracentesis as well as an EGD on 01/11/2017, which showed portal hypertensive gastrostomy and distal esophageal varices. Medications: At home, Macrobid, Keflex, ciprofloxacin, propranolol, dextrose, thiamine, Lasix, and lactulose. ALLERGIES: No known drug allergies. Review Of Systems: Constitutional: No fever, chills, or night sweats. Skin: No rashes, lumps, or itching. HEENT: No headache, hearing or vision changes. Breasts: No lumps, pain, or discharge. Pulmonary: No cough, sputum, or shortness of breath. Gastrointestinal: No nausea, vomiting, or diarrhea. Genitourinary: No dysuria, frequency, or urgency. Musculoskeletal: No joint swelling, muscle pain, or trauma. PHYSICAL EXAMINATION: GENERAL: The patient is in no acute distress. Vital Signs: Temperature 98 degrees Fahrenheit, pulse of 83, respiratory rate 12, blood pressure 93/52, pulse oximetry 98% on room air. PULMONARY: Decreased breath sounds. CARDIOVASCULAR: Regular rate and rhythm. No S3 or S4. ABDOMEN: Soft, nontender, and nondistended. EXTREMITIES: Both lower extremities have 1+ to 2+ edema. Laboratory Data: WBC 12.6, hemoglobin 8.2, hematocrit 25, and platelets 105,000. BUN 20 and creatinine 1.4. ASSESSMENT AND PLAN: 1. Anemia secondary to chronic disease. Continue to closely monitor. --> ferritin has been ordered --> hgb goal is >7 2. 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 3. End-stage renal disease. He has been seen by GI service. 4. Ascites due to end-stage liver disease. 5. Esophageal varices without bleeding. 6. Pleural effusions 7. The patient does not require ferrous sulfate. I appreciate the consultation. Kvng Siegel. Jun 29, 2017 17:14
--- NOTE | 2017-06-29 23:19 | Consultation ---
History of Present Illness General Chief Complaint: General Complaint Present Illness HPI 51-year-old male with a past medical history significant for liver cirrhosis, ascites, frequent paracenteses. the pt has hx of alcohol dependence and started that he is not actively drinking Allergies: Coded Allergies: No Known Allergies (Unverified , 01/08/17) Medication History Scheduled Cephalexin* (Keflex*), 500 MG ORAL Q6H Ciprofloxacin Hcl* (Ciprofloxacin Hcl*), 500 MG ORAL Q12H Docusate Sodium* (Colace*), 100 MG ORAL DAILY, (Reported) Ferrous Sulfate, Dried (Iron), 65 MG PO TID, (Reported) Folic Acid* (Folic Acid*), 1 MG ORAL DAILY, (Reported) Furosemide* (Lasix*), 20 MG ORAL DAILY, (Reported) Lactulose (Lactulose), 20 GM PO BID, (Reported) Lactulose (Lactulose*), 30 ML ORAL TID, (Reported) Nitrofurantoin Monohyd/M-Cryst* (Macrobid 100 Mg*), 100 MG ORAL EVERY 12 HOURS Pantoprazole (Pantoprazole), 40 MG ORAL BID, (Reported) Pantoprazole* (Pantoprazole*), 40 MG ORAL DAILY, (Reported) Propranolol Hcl* (Inderal*), 10 MG ORAL THREE TIMES A DAY, (Reported) Rifaximin* (Xifaxan*), 550 MG ORAL Q12HR, (Reported) Spironolactone (Aldactone), 50 MG ORAL DAILY, (Reported) Spironolactone* (Spironolactone*), 50 MG ORAL DAILY, (Reported) Thiamine Hcl* (Vitamin B-1*), 100 MG ORAL DAILY, (Reported) Scheduled PRN Acetaminophen* (Acetaminophen*), 650 MG ORAL Q6H PRN for Mild Pain/Temp > 100.5, (Reported) Hydrocodone Bit/Acetaminophen 5-325* ([place] 5-325 Tablet*), 1 TAB ORAL Q6HR PRN for For Pain, (Reported) Lorazepam* (Lorazepam*), 0.5 MG SL Q6HR PRN for Agitation, (Reported) Prochlorperazine Maleate* (Compazine*), 10 MG ORAL Q8HR PRN for Nausea & Vomiting, (Reported) Temazepam* (Temazepam*), 15 MG ORAL BEDTIME PRN for Insomnia, (Reported) [morphine 100mg/5ml], 0.25 ML SL EVERY 2 HOURS PRN for Pain Scale (6-10), ( Reported) Miscellaneous Medications Unable to Obtain Medications (Unable To Obtain Meds), (Reported) Patient History History Provided By: Patient, Medical Record, PMD Healthcare decision maker N Resuscitation status Do Not Resuscitate Advanced Directive on File No Past Medical/Surgical History Past Medical/Surgical History: (1) Cellulitis of abdominal wall (2) UTI (urinary tract infection) (3) Esophageal varices without bleeding (4) Anemia (5) Abdominal pain (6) Sepsis (7) Ascites (8) Hypotension (9) End stage liver disease Review of Systems Psychiatric: Reports: prior hx, anxiety, depressed feelings, emotional problems Physical Exam General Appearance: no apparent distress, alert, overweight Neurologic: alert, oriented x 3, responsive, depressed affect Last 24 Hour Vital Signs Date Time Temp Pulse Resp B/P (MAP) Pulse Ox O2 Delivery O2 Flow Rate FiO2 06/29/17 20:00 98.1 60 21 107/60 99 Room Air 06/29/17 18:00 98.4 63 92/56 06/29/17 17:45 98.2 63 103/59 06/29/17 16:00 66 06/29/17 15:26 98.1 72 20 97/50 98 Room Air 06/29/17 12:00 87 06/29/17 11:41 98.2 65 20 93/58 97 Room Air 06/29/17 08:09 97.5 69 20 95/51 98 Room Air 06/29/17 08:00 71 06/29/17 04:00 98.6 70 20 96/56 97 Room Air 06/29/17 03:47 73 06/29/17 00:07 99.5 84 20 92/45 94 Room Air 06/28/17 23:54 83 Intake and Output 06/29/17 06/30/17 19:00 07:00 Intake Total 1000 ml Output Total 500 ml Balance 500 ml Intake Oral 1000 ml Output Urine Total 500 ml # Voids 1 # Bowel Movements 4 2 Laboratory Tests Test 06/29/17 03:30 06/29/17 04:55 Urine Eosinophils None seen White Blood Count 6.0 K/UL (4.8-10.8) Red Blood Count 2.67 M/UL (4.70-6.10) L Hemoglobin 7.4 G/DL (14.2-18.0) L Hematocrit 25.0 % (42.0-52.0) L Mean Corpuscular Volume 94 FL (80-99) Mean Corpuscular Hemoglobin 27.7 PG (27.0-31.0) Mean Corpuscular Hemoglobin Concent 29.5 G/DL (32.0-36.0) L Red Cell Distribution Width 14.0 % (11.6-14.8) Platelet Count 118 K/UL (150-450) L Mean Platelet Volume 6.9 FL (6.5-10.1) Neutrophils (%) (Auto) % (45.0-75.0) Lymphocytes (%) (Auto) % (20.0-45.0) Monocytes (%) (Auto) % (1.0-10.0) Eosinophils (%) (Auto) % (0.0-3.0) Basophils (%) (Auto) % (0.0-2.0) Differential Total Cells Counted 100 Neutrophils % (Manual) 79 % (45-75) H Lymphocytes % (Manual) 8 % (20-45) L Monocytes % (Manual) 12 % (1-10) H Eosinophils % (Manual) 1 % (0-3) Basophils % (Manual) 0 % (0-2) Band Neutrophils 0 % (0-8) Platelet Estimate Decreased L Platelet Morphology Normal Hypochromasia 1+ Sodium Level 130 MMOL/L (136-145) L Potassium Level 4.9 MMOL/L (3.5-5.1) Chloride Level 102 MMOL/L (98-107) Carbon Dioxide Level 19 MMOL/L (21-32) L Anion Gap 9 mmol/L (5-15) Blood Urea Nitrogen 29 mg/dL (7-18) H Creatinine 1.6 MG/DL (0.55-1.30) H Estimat Glomerular Filtration Rate 46.0 mL/min (>60) Glucose Level 75 MG/DL (74-106) Hemoglobin A1c 4.6 % (4.3-6.0) Uric Acid 7.4 MG/DL (2.6-7.2) H Calcium Level 8.0 MG/DL (8.5-10.1) L Phosphorus Level 3.5 MG/DL (2.5-4.9) Magnesium Level 2.0 MG/DL (1.8-2.4) Ferritin 298 NG/ML (8-388) Total Bilirubin 1.5 MG/DL (0.2-1.0) H Direct Bilirubin 0.5 MG/DL (0.0-0.3) H Gamma Glutamyl Transpeptidase 19 U/L (5-85) Aspartate Amino Transf (AST/SGOT) 27 U/L (15-37) Alanine Aminotransferase (ALT/SGPT) 15 U/L (12-78) Alkaline Phosphatase 72 U/L (46-116) Ammonia 109 umol/L (11.2-31.7) H Total Creatine Kinase 33 U/L (26-308) C-Reactive Protein, Quantitative 3.2 mg/dL (0.00-0.90) H Pro-B-Type Natriuretic Peptide 1956 pg/mL (0-125) H Total Protein 5.5 G/DL (6.4-8.2) L Albumin 2.7 G/DL (3.4-5.0) L Globulin 2.8 g/dL Albumin/Globulin Ratio 1.0 (1.0-2.7) Triglycerides Level 31 MG/DL (0-200) Cholesterol Level 63 MG/DL (< 200) LDL Cholesterol 44 mg/dL (<100) HDL Cholesterol 13 MG/DL (40-60) L Cholesterol/HDL Ratio 4.8 (3.3-4.4) H Thyroid Stimulating Hormone (TSH) 2.252 uiU/mL (0.360-3.740) Height (Feet): 5 Height (Inches): 1.00 Weight (Pounds): 175 Medications Current Medications Medications (Trade) Dose Ordered Sig/Josse Route PRN Reason Start Time Stop Time Status Last Admin Dose Admin Acetaminophen (Tylenol) 650 mg Q6H PRN ORAL Mild Pain/Temp > 100.5 06/29/17 09:45 07/29/17 09:44 Albumin Human 50 ml @ 100 mls/hr EVERY 6 HOURS IV 06/29/17 12:00 06/30/17 06:29 06/29/17 23:02 Albumin Human 50 ml @ 100 mls/hr Q6H IV 06/29/17 12:30 06/30/17 06:59 06/29/17 12:30 Folic Acid (Folate) 1 mg DAILY ORAL 06/30/17 11:30 07/30/17 11:29 Lactulose (Cephulac) 30 gm THREE TIMES A DAY ORAL 06/29/17 13:00 07/29/17 12:59 06/29/17 19:03 Midodrine (Pro-Amatine) 10 mg THREE TIMES A DAY ORAL 06/28/17 21:30 07/28/17 21:29 06/29/17 19:01 Pantoprazole (Protonix) 40 mg DAILY ORAL 06/30/17 11:30 07/30/17 11:29 Thiamine HCl (Vitamin B1) 100 mg DAILY ORAL 06/30/17 11:30 07/30/17 11:29 Assessment/Plan Status: stable Assessment/Plan remeron 7.5 mg qhs valium Emilia Rodriguez M.D. Jun 29, 2017 23:18
--- NOTE | 2017-06-29 23:55 | Cardiology Progress Note ---
Assessment/Plan Assessment/Plan The patient was seen and examined, full consult note will be dictated. Objective Last 24 Hour Vital Signs Date Time Temp Pulse Resp B/P (MAP) Pulse Ox O2 Delivery O2 Flow Rate FiO2 06/29/17 20:00 98.1 60 21 107/60 99 Room Air 06/29/17 20:00 81 06/29/17 18:00 98.4 63 92/56 06/29/17 17:45 98.2 63 103/59 06/29/17 16:00 66 06/29/17 15:26 98.1 72 20 97/50 98 Room Air 06/29/17 12:00 87 06/29/17 11:41 98.2 65 20 93/58 97 Room Air 06/29/17 08:09 97.5 69 20 95/51 98 Room Air 06/29/17 08:00 71 06/29/17 04:00 98.6 70 20 96/56 97 Room Air 06/29/17 03:47 73 06/29/17 00:07 99.5 84 20 92/45 94 Room Air Intake and Output 06/29/17 06/30/17 19:00 07:00 Intake Total 1000 ml Output Total 500 ml Balance 500 ml Intake Oral 1000 ml Output Urine Total 500 ml # Voids 1 # Bowel Movements 4 2 Laboratory Tests Test 06/29/17 03:30 06/29/17 04:55 Urine Eosinophils None seen White Blood Count 6.0 K/UL (4.8-10.8) Red Blood Count 2.67 M/UL (4.70-6.10) L Hemoglobin 7.4 G/DL (14.2-18.0) L Hematocrit 25.0 % (42.0-52.0) L Mean Corpuscular Volume 94 FL (80-99) Mean Corpuscular Hemoglobin 27.7 PG (27.0-31.0) Mean Corpuscular Hemoglobin Concent 29.5 G/DL (32.0-36.0) L Red Cell Distribution Width 14.0 % (11.6-14.8) Platelet Count 118 K/UL (150-450) L Mean Platelet Volume 6.9 FL (6.5-10.1) Neutrophils (%) (Auto) % (45.0-75.0) Lymphocytes (%) (Auto) % (20.0-45.0) Monocytes (%) (Auto) % (1.0-10.0) Eosinophils (%) (Auto) % (0.0-3.0) Basophils (%) (Auto) % (0.0-2.0) Differential Total Cells Counted 100 Neutrophils % (Manual) 79 % (45-75) H Lymphocytes % (Manual) 8 % (20-45) L Monocytes % (Manual) 12 % (1-10) H Eosinophils % (Manual) 1 % (0-3) Basophils % (Manual) 0 % (0-2) Band Neutrophils 0 % (0-8) Platelet Estimate Decreased L Platelet Morphology Normal Hypochromasia 1+ Sodium Level 130 MMOL/L (136-145) L Potassium Level 4.9 MMOL/L (3.5-5.1) Chloride Level 102 MMOL/L (98-107) Carbon Dioxide Level 19 MMOL/L (21-32) L Anion Gap 9 mmol/L (5-15) Blood Urea Nitrogen 29 mg/dL (7-18) H Creatinine 1.6 MG/DL (0.55-1.30) H Estimat Glomerular Filtration Rate 46.0 mL/min (>60) Glucose Level 75 MG/DL (74-106) Hemoglobin A1c 4.6 % (4.3-6.0) Uric Acid 7.4 MG/DL (2.6-7.2) H Calcium Level 8.0 MG/DL (8.5-10.1) L Phosphorus Level 3.5 MG/DL (2.5-4.9) Magnesium Level 2.0 MG/DL (1.8-2.4) Ferritin 298 NG/ML (8-388) Total Bilirubin 1.5 MG/DL (0.2-1.0) H Direct Bilirubin 0.5 MG/DL (0.0-0.3) H Gamma Glutamyl Transpeptidase 19 U/L (5-85) Aspartate Amino Transf (AST/SGOT) 27 U/L (15-37) Alanine Aminotransferase (ALT/SGPT) 15 U/L (12-78) Alkaline Phosphatase 72 U/L (46-116) Ammonia 109 umol/L (11.2-31.7) H Total Creatine Kinase 33 U/L (26-308) C-Reactive Protein, Quantitative 3.2 mg/dL (0.00-0.90) H Pro-B-Type Natriuretic Peptide 1956 pg/mL (0-125) H Total Protein 5.5 G/DL (6.4-8.2) L Albumin 2.7 G/DL (3.4-5.0) L Globulin 2.8 g/dL Albumin/Globulin Ratio 1.0 (1.0-2.7) Triglycerides Level 31 MG/DL (0-200) Cholesterol Level 63 MG/DL (< 200) LDL Cholesterol 44 mg/dL (<100) HDL Cholesterol 13 MG/DL (40-60) L Cholesterol/HDL Ratio 4.8 (3.3-4.4) H Thyroid Stimulating Hormone (TSH) 2.252 uiU/mL (0.360-3.740) LOBO STARK Jun 29, 2017 23:55
[2017-06-30] VITALS: BP 113/65
--- NOTE | 2017-06-30 03:15 | History and Physical Report ---
DATE OF ADMISSION: 06/28/2017 HISTORY OF PRESENT ILLNESS: The patient admitted for hypotension. The patient has 16 liters of ascitic fluid which was withdrawn by the anesthesiologist. However, the patient became hypotensive after that. The patient had ascites due to alcoholic cirrhosis. The patient was admitted for hypotension. The patient denies abdominal pain. No nausea, vomiting, or diarrhea. No fever or or chills. No abdominal pain. No shortness of breath. Denies cough. PAST MEDICAL HISTORY: Alcoholic cirrhosis, constipation, iron-deficiency anemia, anxiety, and GERD. MEDICATIONS: Ferrous sulfate, Colace, Protonix, lorazepam, spironolactone, and thiamine. SOCIAL HISTORY: History of alcohol abuse. No history of drug abuse. No history of smoking. FAMILY HISTORY: Noncontributory. REVIEW OF SYSTEMS: HEENT: Denies headaches. RESPIRATORY: Denies shortness of breath. Denies cough. CARDIOVASCULAR: Denies chest pain. GASTROINTESTINAL: No nausea, vomiting, or diarrhea. EXTREMITIES: Denies pain. CENTRAL NERVOUS SYSTEM: No change in vision or speech pattern. PHYSICAL EXAMINATION: VITAL SIGNS: Temperature 98.2 degrees and blood pressure 193/58. HEENT: PERRLA. NECK: Supple. No lymphadenopathy. CHEST: Clear to auscultation. GASTROINTESTINAL: Soft and nontender. Abdomen is distended, however, after the paracentesis less distended than it was before obviously and abdomen is soft. EXTREMITIES: No edema. Reflexes equal on both sides. Moves all four extremities. LABORATORY AND DIAGNOSTIC DATA: WBC of 7.2, hemoglobin 9.5, and platelets of 137. Sodium 137, potassium 4.9, BUN of 32, creatinine 3.2, and glucose of 89. Total bilirubin 1.7. AST of 42, ALT of 26, and alkaline phosphatase of 120. ASSESSMENT AND PLAN: Hypotension after the paracentesis status post removal of 16 liters by anesthesiologist. The patient admitted for hypotension, has alcoholic cirrhosis. Consulted Dr. Sanchez, Dr. Cobb, Dr. Santana, Dr. Esposito, and Dr. Cox for the anxiety and the above-mentioned diagnosis and treatment. Joshua Valdovinos M.D. DR: Timothy JOB#: [id number] CC:
[2017-06-30 04:00] VITALS: BP 120/71
[2017-06-30] MEDS: Midodrine 10mg tab ORAL SCH (08:34)
[2017-06-30] MEDS: Lactulose 20gm/30ml UDC ORAL SCH ×2 (08:34→13:06)
[2017-06-30 08:37] VITALS: BP 120/73
[2017-06-30 08:58] LABS: BASOPHILS % (AUTO) 1.1 % (0.0-2.0); LYMPHOCYTES % (AUTO) 7.6 % (20.0-45.0); MEAN CORPUSCULAR HEMOGLOBIN 29.3 PG (27.0-31.0); MEAN CORPUSCULAR HGB CONC 30.8 G/DL (32.0-36.0); MEAN CORPUSCULAR VOLUME 95 FL (80-99); MEAN PLATELET VOLUME 5.7 FL (6.5-10.1); MONOCYTES % (AUTO) 9.1 % (1.0-10.0); NEUTROPHILS % (AUTO) 82.2 % (45.0-75.0); PLATELET COUNT 107 K/UL (150-450); RED BLOOD COUNT 3.43 M/UL (4.70-6.10); RED CELL DISTRIBUTION WIDTH 14.1 % (11.6-14.8); WHITE BLOOD COUNT 8.3 K/UL (4.8-10.8)
[2017-06-30 09:47] LABS: ALANINE AMINOTRANSFERASE 18 U/L (12-78); ALBUMIN/GLOBULIN RATIO 1.4 (1.0-2.7); ANION GAP 15 mmol/L (5-15); ASPARTATE AMINO TRANSFERASE 31 U/L (15-37); CALCIUM 8.6 MG/DL (8.5-10.1); CARBON DIOXIDE 17 MMOL/L (21-32); CHLORIDE 103 MMOL/L (98-107); CREATININE 1.6 MG/DL (0.55-1.30); POTASSIUM 4.2 MMOL/L (3.5-5.1); SODIUM 135 MMOL/L (136-145); TOTAL PROTEIN 6.1 G/DL (6.4-8.2)
[2017-06-30 09:58] LABS: BILIRUBIN,DIRECT 1.7 MG/DL (0.0-0.3)
[2017-06-30] MEDS ORDERED: NS 275ml ONE (10:31)
[2017-06-30] MEDS ORDERED: Tubing IV Secondary IV ONE (10:31)
--- NOTE | 2017-06-30 10:46 | Diagnostic Imaging Report ---
APPROVED REPORT CPT Code: 85405 Present Symptoms Comments: Swelling BILATERAL: Imaging reveals a patent deep venous system bilaterally. There is no evidence of thrombus within the femoral, popliteal or tibial segments. The greater saphenous veins are also within normal limits. Doppler indicates normal spontaneous flow within these segments.
--- NOTE | 2017-06-30 11:28 | General Progress Note ---
Assessment/Plan Assessment/Plan Assessment - EtOH cirrhosis - Ascites, recurrent - coagulopathy - anemia - hyponatremia - Azotemia - diverticulosis - poor px Recommendations - po as tolerated - monitor lytes - albumin - needs transplant evaluation - f/u at [facility] for surveillance endoscopy for h/o varices - check AFP - pending Subjective Allergies: Coded Allergies: No Known Allergies (Unverified , 01/08/17) Subjective Feels OK no abdominal pain tolerating PO Objective Last 24 Hour Vital Signs Date Time Temp Pulse Resp B/P (MAP) Pulse Ox O2 Delivery O2 Flow Rate FiO2 06/30/17 08:37 98.2 82 20 120/73 98 Room Air 06/30/17 08:00 82 06/30/17 04:00 70 06/30/17 04:00 98.2 75 20 120/71 Room Air 06/30/17 00:00 74 06/30/17 00:00 98.4 70 20 113/65 100 Room Air 06/29/17 20:00 98.1 60 21 107/60 99 Room Air 06/29/17 20:00 81 06/29/17 18:00 98.4 63 92/56 06/29/17 17:45 98.2 63 103/59 06/29/17 16:00 66 06/29/17 15:26 98.1 72 20 97/50 98 Room Air 06/29/17 12:00 87 06/29/17 11:41 98.2 65 20 93/58 97 Room Air Intake and Output 06/30/17 07/01/17 19:00 07:00 Intake Total 250 ml Balance 250 ml Intake Oral 250 ml # Bowel Movements 1 Laboratory Tests 06/30/17 08:25: White Blood Count 8.3, Red Blood Count 3.43L, Hemoglobin 10.1#L, Hematocrit 32.6 #L, Mean Corpuscular Volume 95, Mean Corpuscular Hemoglobin 29.3, Mean Corpuscular Hemoglobin Concent 30.8L, Red Cell Distribution Width 14.1, Platelet Count 107L, Mean Platelet Volume 5.7L, Neutrophils (%) (Auto) 82.2H, Lymphocytes (%) (Auto) 7.6L, Monocytes (%) (Auto) 9.1, Eosinophils (%) (Auto) 0.0, Basophils (%) (Auto) 1.1, Sodium Level 135L, Potassium Level 4.2, Chloride Level 103, Carbon Dioxide Level 17L, Anion Gap 15, Blood Urea Nitrogen 27H, Creatinine 1.6H, Estimat Glomerular Filtration Rate 46.0, Glucose Level 116H, Calcium Level 8.6, Total Bilirubin 6.1H, Direct Bilirubin 1.7H, Aspartate Amino Transf (AST/SGOT) 31, Alanine Aminotransferase (ALT/SGPT) 18, Alkaline Phosphatase 62, Total Protein 6.1L, Albumin 3.6, Globulin 2.5, Albumin/Globulin Ratio 1.4, Alpha Fetoprotein [Pending] Height (Feet): 5 Height (Inches): 1.00 Weight (Pounds): 175 Objective Thin man NCAT supple CTA RRR soft but distended , no TTP no edema non focal MIGNON KIMBLE Jun 30, 2017 11:28
[2017-06-30 11:29] VITALS: BP 134/85
[2017-06-30] MEDS ORDERED: Thiamine 100mg tab ORAL SCH (11:30)
--- NOTE | 2017-06-30 11:53 | General Progress Note ---
Assessment/Plan Status: stable Assessment/Plan Low Na due to the following: ASCITES ESOPHAGEAL VARICES S BLEEDING TRANSAMINITIS LIVER DISEASE HYPOALBUMINEMIA Anemia Renal failure likely hepato-renal / dehydration.... Acute on chronic h/o Cellulitis of the abdominal wall at the previous paracentesis site. Plan: Midodrine- monitor LFTs and Renal parameters- Per GI Poor prognosis ? DC ? Subjective ROS Limited/Unobtainable: No Constitutional: Reports: malaise Allergies: Coded Allergies: No Known Allergies (Unverified , 01/08/17) Objective Last 24 Hour Vital Signs Date Time Temp Pulse Resp B/P (MAP) Pulse Ox O2 Delivery O2 Flow Rate FiO2 06/30/17 11:29 98.1 75 20 134/85 99 Room Air 06/30/17 08:37 98.2 82 20 120/73 98 Room Air 06/30/17 08:00 82 06/30/17 04:00 70 06/30/17 04:00 98.2 75 20 120/71 Room Air 06/30/17 00:00 74 06/30/17 00:00 98.4 70 20 113/65 100 Room Air 06/29/17 20:00 98.1 60 21 107/60 99 Room Air 06/29/17 20:00 81 06/29/17 18:00 98.4 63 92/56 06/29/17 17:45 98.2 63 103/59 06/29/17 16:00 66 06/29/17 15:26 98.1 72 20 97/50 98 Room Air 06/29/17 12:00 87 Intake and Output 06/30/17 07/01/17 19:00 07:00 Intake Total 250 ml Output Total 150 ml Balance 100 ml Intake Oral 250 ml Output Urine Total 150 ml # Bowel Movements 2 Laboratory Tests 06/30/17 08:25: White Blood Count 8.3, Red Blood Count 3.43L, Hemoglobin 10.1#L, Hematocrit 32.6 #L, Mean Corpuscular Volume 95, Mean Corpuscular Hemoglobin 29.3, Mean Corpuscular Hemoglobin Concent 30.8L, Red Cell Distribution Width 14.1, Platelet Count 107L, Mean Platelet Volume 5.7L, Neutrophils (%) (Auto) 82.2H, Lymphocytes (%) (Auto) 7.6L, Monocytes (%) (Auto) 9.1, Eosinophils (%) (Auto) 0.0, Basophils (%) (Auto) 1.1, Sodium Level 135L, Potassium Level 4.2, Chloride Level 103, Carbon Dioxide Level 17L, Anion Gap 15, Blood Urea Nitrogen 27H, Creatinine 1.6H, Estimat Glomerular Filtration Rate 46.0, Glucose Level 116H, Calcium Level 8.6, Total Bilirubin 6.1H, Direct Bilirubin 1.7H, Aspartate Amino Transf (AST/SGOT) 31, Alanine Aminotransferase (ALT/SGPT) 18, Alkaline Phosphatase 62, Total Protein 6.1L, Albumin 3.6, Globulin 2.5, Albumin/Globulin Ratio 1.4, Alpha Fetoprotein [Pending] Height (Feet): 5 Height (Inches): 1.00 Weight (Pounds): 175 General Appearance: no apparent distress Objective change in PE JENN HENSON Jun 30, 2017 11:53
--- NOTE | 2017-06-30 21:03 | General Progress Note ---
Assessment/Plan Assessment/Plan ASSESSMENT AND PLAN: 1. Anemia secondary to chronic disease. Continue to closely monitor. --> ferritin elevated --> hgb goal is >7 2. 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 3. End-stage renal disease. He has been seen by GI service. 4. Ascites due to end-stage liver disease. 5. Esophageal varices without bleeding. 6. Pleural effusions 7. The patient does not require ferrous sulfate. Subjective Allergies: Coded Allergies: No Known Allergies (Unverified , 01/08/17) All Systems: reviewed and negative except above Objective Last 24 Hour Vital Signs Date Time Temp Pulse Resp B/P (MAP) Pulse Ox O2 Delivery O2 Flow Rate FiO2 06/30/17 12:00 70 06/30/17 11:29 98.1 75 20 134/85 99 Room Air 06/30/17 08:37 98.2 82 20 120/73 98 Room Air 06/30/17 08:00 82 06/30/17 04:00 70 06/30/17 04:00 98.2 75 20 120/71 Room Air 06/30/17 00:00 74 06/30/17 00:00 98.4 70 20 113/65 100 Room Air Intake and Output 06/30/17 07/01/17 19:00 07:00 Intake Total 1200 ml Output Total 150 ml Balance 1050 ml Intake Oral 1200 ml Output Urine Total 150 ml # Bowel Movements 5 Laboratory Tests 06/30/17 08:25: White Blood Count 8.3, Red Blood Count 3.43L, Hemoglobin 10.1#L, Hematocrit 32.6 #L, Mean Corpuscular Volume 95, Mean Corpuscular Hemoglobin 29.3, Mean Corpuscular Hemoglobin Concent 30.8L, Red Cell Distribution Width 14.1, Platelet Count 107L, Mean Platelet Volume 5.7L, Neutrophils (%) (Auto) 82.2H, Lymphocytes (%) (Auto) 7.6L, Monocytes (%) (Auto) 9.1, Eosinophils (%) (Auto) 0.0, Basophils (%) (Auto) 1.1, Sodium Level 135L, Potassium Level 4.2, Chloride Level 103, Carbon Dioxide Level 17L, Anion Gap 15, Blood Urea Nitrogen 27H, Creatinine 1.6H, Estimat Glomerular Filtration Rate 46.0, Glucose Level 116H, Calcium Level 8.6, Total Bilirubin 6.1H, Direct Bilirubin 1.7H, Aspartate Amino Transf (AST/SGOT) 31, Alanine Aminotransferase (ALT/SGPT) 18, Alkaline Phosphatase 62, Total Protein 6.1L, Albumin 3.6, Globulin 2.5, Albumin/Globulin Ratio 1.4, Alpha Fetoprotein [Pending] Height (Feet): 5 Height (Inches): 1.00 Weight (Pounds): 175 Kvng Siegel Jun 30, 2017 21:03
--- NOTE | 2017-06-30 21:49 | General Progress Note ---
Assessment/Plan Status: stable, progressing Subjective Neurologic/Psychiatric: Reports: anxiety, depressed, emotional problems Allergies: Coded Allergies: No Known Allergies (Unverified , 01/08/17) Objective Last 24 Hour Vital Signs Date Time Temp Pulse Resp B/P (MAP) Pulse Ox O2 Delivery O2 Flow Rate FiO2 06/30/17 12:00 70 06/30/17 11:29 98.1 75 20 134/85 99 Room Air 06/30/17 08:37 98.2 82 20 120/73 98 Room Air 06/30/17 08:00 82 06/30/17 04:00 70 06/30/17 04:00 98.2 75 20 120/71 Room Air 06/30/17 00:00 74 06/30/17 00:00 98.4 70 20 113/65 100 Room Air Intake and Output 06/30/17 07/01/17 19:00 07:00 Intake Total 1200 ml Output Total 150 ml Balance 1050 ml Intake Oral 1200 ml Output Urine Total 150 ml # Bowel Movements 5 Laboratory Tests 06/30/17 08:25: White Blood Count 8.3, Red Blood Count 3.43L, Hemoglobin 10.1#L, Hematocrit 32.6 #L, Mean Corpuscular Volume 95, Mean Corpuscular Hemoglobin 29.3, Mean Corpuscular Hemoglobin Concent 30.8L, Red Cell Distribution Width 14.1, Platelet Count 107L, Mean Platelet Volume 5.7L, Neutrophils (%) (Auto) 82.2H, Lymphocytes (%) (Auto) 7.6L, Monocytes (%) (Auto) 9.1, Eosinophils (%) (Auto) 0.0, Basophils (%) (Auto) 1.1, Sodium Level 135L, Potassium Level 4.2, Chloride Level 103, Carbon Dioxide Level 17L, Anion Gap 15, Blood Urea Nitrogen 27H, Creatinine 1.6H, Estimat Glomerular Filtration Rate 46.0, Glucose Level 116H, Calcium Level 8.6, Total Bilirubin 6.1H, Direct Bilirubin 1.7H, Aspartate Amino Transf (AST/SGOT) 31, Alanine Aminotransferase (ALT/SGPT) 18, Alkaline Phosphatase 62, Total Protein 6.1L, Albumin 3.6, Globulin 2.5, Albumin/Globulin Ratio 1.4, Alpha Fetoprotein [Pending] Height (Feet): 5 Height (Inches): 1.00 Weight (Pounds): 175 General Appearance: no apparent distress, alert, overweight Neurologic: alert, oriented x 3, responsive, depressed affect Emilia Cox M.D. Jun 30, 2017 21:49
--- NOTE | 2017-07-01 09:42 | Discharge Summary ---
Discharge Summary Hospital Course Date of Admission Jun 28, 2017 at 12:00 Date of Discharge Jun 30, 2017 at 14:45 Admitting Diagnosis hypotension HPI Maurisio Biggs is a 51 year old male who was admitted on Jun 28, 2017 at 12:00 for Hypotension Hospital Course [id number] Discharge Discharge Disposition Patient was discharged to SNF/Subacute Facility(03) Discharge Diagnoses: Mitali Farfan NP Jul 01, 2017 09:42
--- NOTE | 2017-07-01 16:15 | Discharge Summary 2 SIG ---
DATE OF ADMISSION: 06/28/2017 DATE OF DISCHARGE: 06/30/2017 CONSULTANTS: 1. Emilia Cox M.D. 2. Kvng Siegel M.D. 3. Max Roche M.D. 4. Lv Cobb M.D. BRIEF HOSPITAL COURSE: The patient is a 51-year-old male, known with history of liver cirrhosis and ascites, prior alcoholic, had paracentesis done by Radiology, and was able to remove 16 liters out. The patient became hypotensive and was taken to ED where he was given fluid resuscitation and albumin. He was admitted due to hypotension and presented with hyponatremia, sodium level was 127, creatinine was 3.2. He was given midodrine for blood pressure support. The patient was being treated at [facility] and has a history of esophageal varices. He was given IV hydration. He had anemia and was given folic acid and thiamine. Ammonia level was 109. He was given lactulose. Liver function tests were elevated. AFP was 1.9. He underwent venous duplex of lower extremities that was negative for DVT bilaterally. His hemoglobin level dropped to 7.4 and he was given 1 unit packed RBC blood transfusion. He was eventually discharged to SNF. FINAL DIAGNOSES: 1. Acute on chronic renal failure, likely hepatorenal. 2. Dehydration. 3. Hyponatremia. 4. Elevated liver transaminases. 5. Esophageal varices without bleeding. 6. Hypoalbuminemia. 7. Anemia secondary to chronic disease. 8. Thrombocytopenia secondary to liver cirrhosis. 9. Recurrent ascites. 10.Alcoholic cirrhosis. 11. Diverticulosis. DISPOSITION: The patient was discharged to SNF. DISCHARGE MEDICATIONS: Refer to medication list. Joshua Valdovinos M.D. I have been assigned to dictate discharge summary on this account and I was not involved in the patient's management. Mitali Farfan N.P. DR: ABDIRAHMAN JOB#: [id number] CC: ZOE
[2017-07-25] MEDS ORDERED: TYLENOL650 MG/20. ORAL (07:50)
[2017-07-25] MEDS ORDERED: HYDROCODON-ACE1 EA13 ORAL (07:52)
== END 2017-06-30 14:45 | DRG 280 ==
LOC: EMR 10:50 → 2E 12:00 → EDBEDREQ 16:53
PROC: 0W9G3ZZ Drainage of Peritoneal Cavity, Percutaneous Approach (ICD-10-PCS; principal; 2017-06-28)
PROC: 30233N1 Transfusion of Nonautologous Red Blood Cells into Peripheral Vein, Percutaneous Approach (ICD-10-PCS; 2017-06-29)
DX: K70.31 Alcoholic cirrhosis of liver with ascites (principal); N17.9 Acute kidney failure, unspecified; D68.9 Coagulation defect, unspecified; I95.9 Hypotension, unspecified; K72.90 Hepatic failure, unspecified without coma; I85.10 Secondary esophageal varices without bleeding; K76.6 Portal hypertension; E87.1 Hypo-osmolality and hyponatremia; F03.90 Unspecified dementia, unspecified severity, without behavioral disturbance, psychotic disturbance, mood disturbance, and anxiety; D69.59 Other secondary thrombocytopenia; K57.90 Diverticulosis of intestine, part unspecified, without perforation or abscess without bleeding; E86.0 Dehydration; Z66 Do not resuscitate; K21.9 Gastro-esophageal reflux disease without esophagitis; N18.9 Chronic kidney disease, unspecified; D63.8 Anemia in other chronic diseases classified elsewhere; E88.09 Other disorders of plasma-protein metabolism, not elsewhere classified; R74.8 Abnormal levels of other serum enzymes
CPT/HCPCS: 36415; 76942; 80053; 80061; 81001; 82105; 82140; 82248; 82550; 82728; 82977; 83036; 83690; 83735; 83880; 84100; 84300; 84443; 84550; 85007; 85025; 85610; 85730; 86140; 86850; 86900; 86901; 86920; 87081; 89050; 93005; 93970; 99285; J2405

== ENCOUNTER → 2017-07-25 | Emergency (ER) | payer OTHER ==
[~2017-07-25] VITALS: Ht 165.1 cm; Wt 113.4 kg
[~2017-07-25] MED LIST changes: +ACETAMINOP160 MG/54 ORAL; +COLACE100 MG ORAL; +HYDROCODON-ACE1 EA13 ORAL; +LORAZEPAM2 MG/1 M1 SL; +MORPHINE 100 MG/5 ML SL; +PROCHLORPERAZINE5 MG ORAL; +TEMAZEPAM30 MG ORAL; +TYLENOL650 MG/20. ORAL
[2017-07-25 07:13] VITALS: BP 106/66
[2017-07-25 07:46] LABS: BASOPHILS % (AUTO) 1.3 % (0.0-2.0); LYMPHOCYTES % (AUTO) 15.9 % (20.0-45.0); MEAN CORPUSCULAR HEMOGLOBIN 29.8 PG (27.0-31.0); MEAN CORPUSCULAR HGB CONC 32.7 G/DL (32.0-36.0); MEAN CORPUSCULAR VOLUME 91 FL (80-99); MEAN PLATELET VOLUME 7.2 FL (6.5-10.1); MONOCYTES % (AUTO) 18.7 % (1.0-10.0); NEUTROPHILS % (AUTO) 59.2 % (45.0-75.0); PLATELET COUNT 137 K/UL (150-450); RED BLOOD COUNT 3.31 M/UL (4.70-6.10); RED CELL DISTRIBUTION WIDTH 14.2 % (11.6-14.8); WHITE BLOOD COUNT 4.8 K/UL (4.8-10.8)
[2017-07-25 07:56] LABS: INR 1.3 (0.9-1.1); PROTHROMBIN TIME 13.3 SEC (9.30-11.50)
[2017-07-25 07:58] LABS: ANION GAP 9 mmol/L (5-15); CARBON DIOXIDE 23 MMOL/L (21-32); CHLORIDE 102 MMOL/L (98-107); CREATININE 1.8 MG/DL (0.55-1.30); GLOMERULAR FILTRATION RATE 40.1 mL/min (>60); POTASSIUM 4.9 MMOL/L (3.5-5.1); SODIUM 133 MMOL/L (136-145)
[2017-07-25 08:08] LABS: ALANINE AMINOTRANSFERASE 18 U/L (12-78); ALBUMIN/GLOBULIN RATIO 0.7 (1.0-2.7); ASPARTATE AMINO TRANSFERASE 42 U/L (15-37); TOTAL PROTEIN 6.8 G/DL (6.4-8.2)
[2017-07-25 08:11] LABS: BILIRUBIN,DIRECT 0.7 MG/DL (0.0-0.3)
[2017-07-25 09:18] LABS: APPEARANCE,URINE CLEAR; KETONES,URINE NEGATIVE (NEGATIVE); LEUKOCYTE ESTERASE ,URINE NEGATIVE (NEGATIVE); NITRITE,URINE NEGATIVE (NEGATIVE); PH,URINE 5 (4.5-8.0); PROTEIN,URINE NEGATIVE (NEGATIVE); UROBILINOGEN,URINE NORMAL MG/DL (0.0-1.0)
[2017-07-25 09:38] LABS: BACTERIA,URINE OCCASIONAL /HPF; MUCUS,URINE OCCASIONAL /LPF (NONE/OCC); RBC,URINE 0 /HPF (0 - 0); SQUAMOUS EPITHELIAL CELL,UR OCCASIONAL /LPF (NONE/OCC); WBC,URINE 0-2 /HPF (0 - 0)
[2017-07-25 11:30] VITALS: BP 132/85
--- NOTE | 2017-07-25 12:11 | Emergency Room Report ---
History of Present Illness General Chief Complaint: General Complaint Source: Medical Record (Chepe Salazar) Present Illness HPI Patient is a 51-year-old male who presented after increased abdominal distention. The patient prior history of liver disease and ascites. The patient had prior history of multiple visits for similar symptoms. The patient was noted to have previous (Chepe Salazar) Allergies: Coded Allergies: No Known Allergies (Unverified , 01/08/17) Patient History Past Medical History: other - liver failure Past Surgical History: other - paracentesis Reviewed Nursing Documentation: PMH: Agreed, PSxH: Agreed (Chepe Salazar) Nursing Documentation-PMH Hx Cardiac Problems: Yes Hx Asthma: Yes Hx Diabetes: No Hx Cancer: No Hx Gastrointestinal Problems: Yes - Cirrhosis Hx Neurological Problems: Yes Hx Memory Loss: Yes Hx Dizziness: Yes Hx Numbness: Yes - BLE Hx Weakness: Yes Hx Fatigue: Yes - with activity (Chepe Salazar) Review of Systems All Other Systems: limited - by poor historian (Chepe Salazar) Physical Exam Vital Signs Date Time Temp Pulse Resp B/P (MAP) Pulse Ox O2 Delivery O2 Flow Rate FiO2 07/25/17 06:54 97.2 97 21 94/54 100 07/25/17 07:13 Room Air General Appearance: thin, Chronically Ill ENT: hearing grossly normal Neck: full range of motion, supple Respiratory: chest non-tender, lungs clear Cardiovascular #1: normal peripheral pulses, regular rate, rhythm, edema Gastrointestinal: non tender, distended Musculoskeletal: normal inspection, back normal Neurologic: normal inspection, alert, other - no asterixis Skin: normal inspection, normal color (Chepe Salazar) Medical Decision Making Diagnostic Impression: Primary Impression: Ascites Additional Impression: End stage liver disease ER Course Patient presented for abdominal pain. Differential diagnoses included ischemic bowel, appendicitis, perforated viscus, abdominal aortic aneurysm, inferior myocardial infarction, viral gastroenteritis, spontaneous bacterial peritonitis. Because of complexity of patient's case laboratory testing and imaging studies were ordered. Patient was noted to have evidence of ascites. Patient underwent ultrasound- guided paracentesis by radiology. Patient given IV albumin for large-volume. The patient was endorsed to . The patient will likely be discharged home Labs Test 07/25/17 07:29 07/25/17 08:39 White Blood Count 4.8 K/UL (4.8-10.8) Red Blood Count 3.31 M/UL (4.70-6.10) Hemoglobin 9.9 G/DL (14.2-18.0) Hematocrit 30.2 % (42.0-52.0) Mean Corpuscular Volume 91 FL (80-99) Mean Corpuscular Hemoglobin 29.8 PG (27.0-31.0) Mean Corpuscular Hemoglobin Concent 32.7 G/DL (32.0-36.0) Red Cell Distribution Width 14.2 % (11.6-14.8) Platelet Count 137 K/UL (150-450) Mean Platelet Volume 7.2 FL (6.5-10.1) Neutrophils (%) (Auto) 59.2 % (45.0-75.0) Lymphocytes (%) (Auto) 15.9 % (20.0-45.0) Monocytes (%) (Auto) 18.7 % (1.0-10.0) Eosinophils (%) (Auto) 5.0 % (0.0-3.0) Basophils (%) (Auto) 1.3 % (0.0-2.0) Prothrombin Time 13.3 SEC (9.30-11.50) Prothromb Time International Ratio 1.3 (0.9-1.1) Activated Partial Thromboplast Time 32 SEC (23-33) Sodium Level 133 MMOL/L (136-145) Potassium Level 4.9 MMOL/L (3.5-5.1) Chloride Level 102 MMOL/L (98-107) Carbon Dioxide Level 23 MMOL/L (21-32) Anion Gap 9 mmol/L (5-15) Blood Urea Nitrogen 24 mg/dL (7-18) Creatinine 1.8 MG/DL (0.55-1.30) Estimat Glomerular Filtration Rate 40.1 mL/min (>60) Glucose Level 88 MG/DL (74-106) Calcium Level 9.0 MG/DL (8.5-10.1) Total Bilirubin 1.8 MG/DL (0.2-1.0) Direct Bilirubin 0.7 MG/DL (0.0-0.3) Aspartate Amino Transf (AST/SGOT) 42 U/L (15-37) Alanine Aminotransferase (ALT/SGPT) 18 U/L (12-78) Alkaline Phosphatase 82 U/L (46-116) Total Protein 6.8 G/DL (6.4-8.2) Albumin 2.8 G/DL (3.4-5.0) Globulin 4.0 g/dL Albumin/Globulin Ratio 0.7 (1.0-2.7) Urine Color Pale yellow Urine Appearance Clear Urine pH 5 (4.5-8.0) Urine Specific [place] 1.015 (1.005-1.035) Urine Protein Negative (NEGATIVE) Urine Glucose (UA) Negative (NEGATIVE) Urine Ketones Negative (NEGATIVE) Urine Occult Blood Negative (NEGATIVE) Urine Nitrite Negative (NEGATIVE) Urine Bilirubin Negative (NEGATIVE) Urine Urobilinogen Normal MG/DL (0.0-1.0) Urine Leukocyte Esterase Negative (NEGATIVE) Urine RBC 0 /HPF (0 - 0) Urine WBC 0-2 /HPF (0 - 0) Urine Squamous Epithelial Cells Occasional /LPF Urine Bacteria Occasional /HPF (NONE) Urine Mucus Occasional /LPF (Chepe Salazar) ER Course patients BP stablized to sysotlic >90. nad. dc home (All Covarrubias M.D.) Last Vital Signs Date Time Temp Pulse Resp B/P (MAP) Pulse Ox O2 Delivery O2 Flow Rate FiO2 07/25/17 07:13 97.5 75 16 106/66 100 Room Air Status: improved (Chepe Salazar) Disposition: HOME, SELF-CARE Condition: Stable Referrals: JUANCARLOS ONEAL (PCP) Chepe Salazar Jul 25, 2017 12:11 All Covarrubias M.D. Jul 25, 2017 15:40
[2017-07-25 14:00] VITALS: BP 93/56
[2017-07-25 14:32] VITALS: BP 100/58
[2017-07-25 15:07] VITALS: BP 91/54
--- NOTE | 2017-07-25 17:00 | Diagnostic Imaging Report ---
Indications: Ascites Technique: Ultrasound used to localize optimal puncture site. Sterile prepping and draping are. Local anesthesia with 1% lidocaine. Under real-time ultrasound guidance, puncture peritoneal space using paracentesis needle. Stylet removed. Catheter placed to vacuum bottle suction. Total 11 liters of fluid aspirated. Patient tolerated procedure well, without immediate complication. Findings: Followup sonography demonstrates complete resolution of peritoneal fluid. Impression: Successful ultrasound-guided paracentesis, yielding 11 liters of fluid
== END | disposition home or self-care (01) ==
LOC: EMR 07:23
DX: R18.8 Other ascites (principal); K72.90 Hepatic failure, unspecified without coma; J45.909 Unspecified asthma, uncomplicated; K74.60 Unspecified cirrhosis of liver
CPT/HCPCS: 36415; 76942; 80053; 81001; 82248; 85025; 85610; 85730; 96374; 99284; P9045